=== PATIENT | male | born 1960 | race Two or more races ===

== ENCOUNTER → 2019-06-28 | Outpatient (CLI) | payer MEDICARE, OTHER | LOC: MSC 15:30 | PROVIDERS: ATTEND Anesthesiology | DX: G89.4 Chronic pain syndrome (principal); E11.42 Type 2 diabetes mellitus with diabetic polyneuropathy; M54.16 Radiculopathy, lumbar region; M54.5 Low back pain; F11.20 Opioid dependence, uncomplicated; I10 Essential (primary) hypertension; F20.9 Schizophrenia, unspecified; F29 Unspecified psychosis not due to a substance or known physiological condition; Z79.899 Other long term (current) drug therapy ==

== ENCOUNTER 2019-08-01 22:26 | Inpatient (IN) | payer MEDICARE, OTHER ==
[~2019-08-01] VITALS: Ht 185.4 cm; Wt 85.7 kg
--- NOTE | 2019-08-01 22:39 | NUR ---
PT BIBPA FROM [facility] C/O FEVER AND R FOOT ABSCESS, PT IS AAOX3, NOT IN RESPIRATORY DISTRESS, HOOKED TO MONITOR, KEPT RESTED AND COMFORTABLE, WILL CONTINUE TO MONITOR.
[2019-08-01] MEDS ORDERED: CEFTRIAXONE 1GM BAG (ER ONLY) 50 ML IV ONE ×2 (23:00→23:10)
[2019-08-01] MEDS ORDERED: VANCOMYCIN 1 GM in IV D5W 250 ML IV ONE (23:00)
[2019-08-01] MEDS ORDERED: IV NS 0.9% 1,000 ML BAG IV ONE (23:00)
--- NOTE | 2019-08-01 23:02 | NUR ---
SEEN AND EXAMINED BY
--- NOTE | 2019-08-01 23:06 | NUR ---
IV LINE ESTABLISHED, BLOOD DRAWN AND SENT TO LAB.
[2019-08-01] MEDS ORDERED: VANCOMYCIN 1 GM VIAL ONE (23:10)
--- NOTE | 2019-08-01 23:15 | NUR ---
URINAL GIVEN BUT UNABLE TO PROVIED URINE SPECIMEN THIS TIME.
--- NOTE | 2019-08-01 23:17 | NUR ---
CALLED [facility], PAGED YAKOV
[2019-08-01 23:18] LABS: BASOPHILS # (AUTO) 0.2 /CMM (0.0-0.2); EOSINOPHILS % (AUTO) 0.5 % (0.0-6.0); HEMATOCRIT 27 % (39-51); HEMOGLOBIN 8.9 g/dL (13.5-17.5); LYMPHOCYTES # (AUTO) 0.9 /CMM (0.8-4.8); LYMPHOCYTES % (AUTO) 5.7 % (20.0-44.0); MEAN CORPUSCULAR HGB CONC 33 g/dl (31.0-36.0); MEAN CORPUSCULAR VOLUME 91 fL (80-96); MONOCYTES # (AUTO) 1.1 /CMM (0.1-1.30); MONOCYTES % (AUTO) 6.6 % (2.0-12.0); NEUTROPHILS # (AUTO) 14.1 /CMM (1.8-8.9); NEUTROPHILS % (AUTO) 86.2 % (43.0-81.0); PLATELET COUNT (AUTO) 523 /CMM (150-450); RED BLOOD CELL COUNT(AUTO) 2.97 MIL/uL (4.5-6.0); WHITE BLOOD COUNT (AUTO) 16.4 K/uL (4.3-11.0)
[2019-08-01 23:26] LABS: CALCIUM, SERUM 8.8 mg/dL (8.5-10.1); CREATININE 2.3 mg/dL (0.6-1.3); POTASSIUM 6.1 mmol/L (3.5-5.1)
[2019-08-01 23:40] LABS: ALBUMIN 2.2 g/dL (3.4-5.0); BILIRUBIN,DIRECT 0.1 mg/dL (0.0-0.2); BILIRUBIN,TOTAL 0.1 mg/dL (0.2-1.0); TOTAL PROTEIN, SERUM 8.2 g/dL (6.4-8.2)
--- NOTE | 2019-08-02 00:13 | NUR ---
REPORT GIVEN TO CHRISTEL WAGNER RAYMON
--- NOTE | 2019-08-02 00:35 | NUR ---
TELE/RN NOTES RECEIVED PT. FROM ER VIA CORRINE. PT. IS AWAKE, ALERT AND ORIENTED X3. BREATHING EVEN AND UNLABORED ON ROOM AIR. NO SOB, RESPIRATORY DISTRESS OR COMPLAINTS OF PAIN NOTED AT THIS TIME. ORIENTED PT. TO ROOM. PLACED EXTERNAL SEED CLEANER ON PT. PT. WITH RIGHT HAND 18 GAUGE PERIPHERAL IV PRESENT, PATENT AND INTACT ADMINISTERING TO PT. VANCOMYCIN FROM ER. BED LOCKED AND IN LOWEST POSITION, SIDE RAILS UP X3, BED ALARM ON, CALL LIGHT WITHIN REACH, WILL CONTINUE TO MONITOR.
[2019-08-02 01:26] VITALS: BP 119/57
[2019-08-02] MEDS ORDERED: NA P133E RC (01:36)
[2019-08-02] MEDS ORDERED: INSU100V27 SQ (01:36)
[2019-08-02] MEDS ORDERED: METH-406 PO (01:36)
[2019-08-02] MEDS ORDERED: ATOR20TA PO (01:36)
[2019-08-02] MEDS ORDERED: INSU100V7 SQ (01:36)
[2019-08-02] MEDS ORDERED: BUPR300T52 PO (01:36)
[2019-08-02] MEDS ORDERED: LEVO150T8 PO (01:36)
[2019-08-02] MEDS ORDERED: ZINC220C8 PO (01:36)
[2019-08-02] MEDS ORDERED: ASCO500C18 PO (01:36)
[2019-08-02] MEDS ORDERED: MAGN400O6 PO (01:36)
[2019-08-02] MEDS ORDERED: MULT1TAB73 PO (01:36)
[2019-08-02] MEDS ORDERED: LINA5TAB PO (01:36)
[2019-08-02] MEDS ORDERED: OXYC10TA49 PO (01:36)
[2019-08-02] MEDS ORDERED: NITR0.4T SL (01:36)
[2019-08-02] MEDS ORDERED: ACET-868 PO (01:36)
[2019-08-02] MEDS ORDERED: FERR325T23 PO (01:36)
[2019-08-02] MEDS ORDERED: METO25TA6 PO (01:36)
[2019-08-02] MEDS ORDERED: ARIP5TAB10 PO (01:36)
[2019-08-02] MEDS ORDERED: HYDR-4076 PO (01:36)
[2019-08-02] MEDS ORDERED: METF-442 PO (01:36)
[2019-08-02] MEDS ORDERED: LISI40TA4 PO (01:36)
[2019-08-02] MEDS ORDERED: BISA10SU11 RC (01:37)
--- NOTE | 2019-08-02 01:39 | NUR ---
TELE/RN NOTES NOTIFIED EPIC CHAIRMAN & CHIEF EXECUTIVE OFFICER DR. NAGY THAT PT. KAYEXALATE MEDICATION WAS NOT VERIFIED BY PHARMACY AND IS PENDING ASKING TO CLARIFY THE DOSAGE. PER DR. NAGY KAYEXALATE 30GM PO X1 NOW. WILL CALL PHARMACY TO NOTIFY THEM. WILL CARRY OUT ORDER AND ADMINISTER TO PT. MEDICATION ORDERED. WILL CONTINUE TO MONITOR.
[2019-08-02] MEDS ORDERED: SODIUM POLYSTYRENE SULFONATE 15 G/60 ML BOTTLE PO ONE ×2 (02:00)
[2019-08-02] MEDS ORDERED: DEXTROSE 50%-WATER 50 ML DISP.SYRIN IV PRN (02:30)
[2019-08-02] MEDS ORDERED: NA PHOS,M-B/NA PHOS,DI-BA 1 EA ENEMA RC PRN (02:30)
[2019-08-02] MEDS ORDERED: MAGNESIUM HYDROXIDE 30 ML UDC PO PRN (02:30)
[2019-08-02] MEDS ORDERED: ACETAMINOPHEN 325 MG TABLET PO PRN ×3 (02:30)
[2019-08-02] MEDS ORDERED: BISACODYL SUPP (10 MG) 10 MG/SUPP.RECT SUPP.RECT RC PRN (02:30)
[2019-08-02] MEDS ORDERED: Z GUARD REMEDY 2 OZ OINT TP PRN (02:30)
[2019-08-02] MEDS ORDERED: ONDANSETRON HCL/PF 4 MG/2 ML VIAL IVP PRN (02:30)
[2019-08-02] MEDS ORDERED: SODIUM POLYSTYRENE SULFONATE 15 G/60 ML BOTTLE ONE (02:55)
[2019-08-02] MEDS ORDERED: PIPERACILLIN /TAZOBACTAM 2.25 G in IV D5W 50 ML IV ONE (03:00)
--- NOTE | 2019-08-02 03:10 | NUR ---
TELE/RN NOTES REMINDED EPIC BEVERAGE MANAGER DR. NAGY OF PT. SIGNED POLST IN CHART STATING HE IS DNR. PER DR. NAGY NEW ORDER: PT. CODE STATUS DNR, WITNESSED BY BERNARD CORONADO. WILL CARRY OUT ORDER. WILL CONTINUE TO MONITOR.
[2019-08-02] MEDS ORDERED: PIPERACILLIN /TAZOBACTAM 2.25 G VIAL IV ONE (03:36)
[2019-08-02 04:00] VITALS: BP 146/68
[2019-08-02] MEDS ORDERED: PIPERACILLIN /TAZOBACTAM 2.25 G in IV D5W 50 ML IV SCH (05:00)
[2019-08-02 06:21] LABS: BASOPHILS # (AUTO) 0.1 /CMM (0.0-0.2); BASOPHILS % (AUTO) 0.7 % (0.0-2.0); EOSINOPHILS % (AUTO) 0.9 % (0.0-6.0); HEMATOCRIT 30 % (39-51); HEMOGLOBIN 9.5 g/dL (13.5-17.5); LYMPHOCYTES # (AUTO) 1.7 /CMM (0.8-4.8); LYMPHOCYTES % (AUTO) 12.4 % (20.0-44.0); MEAN CORPUSCULAR HGB CONC 32 g/dl (31.0-36.0); MEAN CORPUSCULAR VOLUME 94 fL (80-96); MONOCYTES # (AUTO) 0.8 /CMM (0.1-1.30); MONOCYTES % (AUTO) 5.9 % (2.0-12.0); NEUTROPHILS # (AUTO) 11.2 /CMM (1.8-8.9); NEUTROPHILS % (AUTO) 80.1 % (43.0-81.0); PLATELET COUNT (AUTO) 379 /CMM (150-450); RED BLOOD CELL COUNT(AUTO) 3.21 MIL/uL (4.5-6.0)
[2019-08-02] MEDS: BLOOD SUGAR DIAGNOSTIC 1 EACH STRIP IN SCH ×4 (06:46→21:10)
[2019-08-02] MEDS: INSULIN REGULAR, HUMAN 100 UNIT/ML 3 ML VIAL SQ PRN ×4 (06:47→22:53)
--- NOTE | 2019-08-02 06:56 | NUR ---
TELE/RN NOTES PT. IS LYING IN BED RESTING. BREATHING EVEN AND UNLABORED ON ROOM AIR. NO SOB, RESPIRATORY DISTRESS OR COMPLAINTS OF PAIN NOTED AT THIS TIME. PT. WITH EXTERNAL OUTCOMES SPECIALIST PRESENT AND INTACT. PT. CURRENT RHYTHM = SINUS RHYTHM WITH FIRST DEGREE AV BLOCK HR 81. PT. WITH RIGHT HAND 18 GAUGE IV SALINE LOCK PRESENT, PATENT AND INTACT. NO S/S OF HYPO/HYPERGLYCEMIA NOTED AT THIS TIME. ALL PT. NEEDS MET. BED LOCKED AND IN LOWEST POSITION, SIDE RAILS UP X3, BED ALARM ON, CALL LIGHT WITHIN REACH, WILL ENDORSE TO DAYSTNFT NURSE FOR CONTINUITY OF CARE.
[2019-08-02 06:57] LABS: ALANINE AMINOTRANSFERASE 16 U/L (12-78); ALBUMIN 2.1 g/dL (3.4-5.0); ALKALINE PHOSPHATASE 68 U/L (46-116); ASPARTATE AMINOTRANSFERASE 7 U/L (15-37); BILIRUBIN,TOTAL 0.2 mg/dL (0.2-1.0); CALCIUM, SERUM 8.6 mg/dL (8.5-10.1); CARBON DIOXIDE 16 mmol/L (21-32); CHLORIDE 105 mmol/L (98-107); CREATININE 2.1 mg/dL (0.6-1.3); GLUCOSE 262 mg/dL (74-106); MAGNESIUM 1.9 mg/dL (1.8-2.4); PHOSPHORUS 4.3 mg/dL (2.5-4.9); POTASSIUM 5.1 mmol/L (3.5-5.1); SODIUM SERUM 137 mmol/L (136-145); TOTAL PROTEIN, SERUM 8.1 g/dL (6.4-8.2); UREA NITROGEN, BLOOD 45 mg/dL (7-18)
[2019-08-02] MEDS ORDERED: LEVOTHYROXINE SODIUM 150 MCG TABLET PO SCH (07:30)
[2019-08-02 08:06] LABS: IRON, SERUM 24 ug/dl (50-175); TOTAL IRON BINDING CAPACITY 158 ug/dl (250-450)
--- NOTE | 2019-08-02 08:10 | NUR ---
ms rn received on bed, awake,alert,oriented x3,not in any form of distress, respirations even and unalabored,no sob noted, patient has right foot wound w/ dressing dry and intact.will monitor patient's condition.
[2019-08-02 08:12] LABS: HDL CHOLESTEROL 31 mg/dL (40-60); LDL 46 mg/dL (0-99); THYROID STIMULATING HORMONE 11.942 uIU/mL (0.358-3.74); TRIGLYCERIDES 128 mg/dL (30-150)
[2019-08-02] MEDS ORDERED: FEE PK DOSING 1 MIN EA MC ONE (08:22)
[2019-08-02 08:25] LABS: CHOLESTEROL 96 mg/dL (<200)
--- NOTE | 2019-08-02 08:56 | NUR ---
WOUND CARE CONSULT: PT PRESENTS WITH RT FOOT WOUND AND EVIDENCE OF PREVIOUS AMPUTATION, PRESENT ON ADMISSION. RECOMMEND DPM CONSULT. WILL SEE PRN. DEFER TO DPM FOR WOUND TREATMENT PLAN. DR COX NOTIFIED OF DPM CONSULT REQUEST. PT REFUSED FULL SKIN ASSESSMENT. CURRENT SAMEERA SCORE IS 17. Addendum: 08/02/19 at 0858 by MARLON KENNEDY WNDNU Amended: Links added.
[2019-08-02] MEDS: MULTIVITAMINS,THERAGRAN 1 UDTAB TABLET PO SCH (09:35)
[2019-08-02] MEDS: ASCORBIC ACID 500 MG TABLET PO SCH ×2 (09:35→17:48)
[2019-08-02] MEDS: BUPROPION XL 150 MG TAB.ER.24 PO SCH (09:36)
[2019-08-02] MEDS: ZINC SULFATE 220 MG CAPSULE PO SCH (09:36)
[2019-08-02] MEDS: LINAGLIPTIN 5 MG TABLET PO SCH (09:36)
[2019-08-02] MEDS: ARIPIPRAZOLE 5 MG TABLET PO SCH (09:36)
[2019-08-02] MEDS: PANTOPRAZOLE 40 MG TABLET.DR PO SCH (09:42)
[2019-08-02] MEDS: METHOCARBAMOL (750MG) 750 MG TABLET PO PRN (09:43)
[2019-08-02] MEDS: FERROUS SULFATE (325 MG) 325 MG/TAB TABLET PO SCH ×2 (09:43→12:22)
[2019-08-02] MEDS ORDERED: INSULIN REGULAR, HUMAN 100 UNIT/ML 3 ML VIAL SQ PRN (10:00)
[2019-08-02] MEDS: oxyCODONE IR immediate release 5 MG PO PRN (10:04)
[2019-08-02] MEDS ORDERED: BLOOD SUGAR DIAGNOSTIC 1 EACH STRIP IN SCH (12:00)
[2019-08-02] MEDS ORDERED: LIDOCAINE 1% INJ 50 ML MDV IJ ONE (13:30)
[2019-08-02] MEDS: PIPERACILLIN /TAZOBACTAM 3.375 G in IV D5W 50 ML IV SCH ×3 (14:22→23:18)
--- NOTE | 2019-08-02 15:00 | NUR ---
ms rn was seen by dr. aguilar w/ order to debride it tody, all needs attended.
[2019-08-02 16:00] VITALS: BP 142/68
[2019-08-02] MEDS ORDERED: VANCOMYCIN 1 GM in IV D5W 250 ML IV SCH (17:00)
--- NOTE | 2019-08-02 18:00 | NUR ---
ms agarwal bs - 146 - 2 units given sq
--- NOTE | 2019-08-02 19:00 | NUR ---
ms rn on bed, no distress noted,all needs attended.
[2019-08-02 20:00] VITALS: BP 105/47
--- NOTE | 2019-08-02 20:00 | NUR ---
MS/RN OPENING NOTES PATIENT IN BED, AWAKE, ALERT X3, ABLE TO VERBALIZE NEEDS, RESPIRATIONS EVEN AND UNLABORED, DENIES PAIN, WITH DRESSING INTACT ON RIGHT FOOT. PATIENT ABLE TO EAT AND REPORTED THAT HE REFUSED TO PUT HER BLOOM IN SAFE, PREFER TO KEEP IT WITH HIM, MADE AWARE.TO F/U WITH AM NURSES AND PATIENT BOUGHT PIZZA WITH HIS MONEY TODAY. WILL MONITOR. BED LOCKED, CALL LIGHTS WITHIN REACH. IV SITE INTACT. DISCUSSED PLAN OF CARE. VERBALIZED UNDERSTANDING.
[2019-08-02 20:18] VITALS: BP 105/47
[2019-08-02] MEDS: ATORVASTATIN 10 MG TABLET PO SCH (21:10)
--- NOTE | 2019-08-02 21:22 | NUR ---
MS/RN NOTES BLOOD SUGAR CHECK AT 452, ATE PIZZA, ORDERED A BOX AND ALMOST FINISHED IT IN AFTERNOON. DISCUSSED DIET, MADE AWARE, VERBALIZED DIABETIC DIET. PER PROTOCOL TO REQUEST RANDOM BLOOD SUGAR FIRST BEFORE COVERAGE PER CHARGE NURSE AND WILL FOLLOW UP WITH MD.
[2019-08-02] MEDS ORDERED: INSULIN GLARGINE, 100 UNIT/ML CARTRIDGE SQ SCH (22:00)
--- NOTE | 2019-08-02 22:00 | NUR ---
MS/RN NOTES RANDOM BLOOD GLUCOSE DONE BY LISSETT AWAITING FOR RESULT.
--- NOTE | 2019-08-02 22:50 | NUR ---
ms/rn notes received critical lab result glucose random of 504. to get md order for additional coverage.
--- NOTE | 2019-08-02 22:55 | NUR ---
MS/RN NOTES MD PARK AWARE OF BLOOD SUGAR RANDOM RESULT OF 505, AWARE THAT COVERAGE GIVEN AT 10 UNIT WITH NO ADDITIONAL INSULIN COVERAGE.
--- NOTE | 2019-08-03 01:09 | NUR ---
MS/RN NOTES PATIENT REFUSED TO HAVE BLOOD SUGAR RECHECK AT THIS TIME. PREFER TO HAVE IT RECHECK IN AM. WILL MONITOR FOR AMU CHANGES.
[2019-08-03] MEDS: PIPERACILLIN /TAZOBACTAM 3.375 G in IV D5W 50 ML IV SCH ×3 (05:07→17:40)
[2019-08-03] MEDS: BLOOD SUGAR DIAGNOSTIC 1 EACH STRIP IN SCH (06:10)
[2019-08-03] MEDS: INSULIN REGULAR, HUMAN 100 UNIT/ML 3 ML VIAL SQ PRN ×3 (06:20→18:33)
--- NOTE | 2019-08-03 06:21 | NUR ---
MS/RN NOTES BLOOD SUGAR CHECK AT 362, ALERT ORIENTED .
[2019-08-03 06:25] LABS: BASOPHILS # (AUTO) 0.1 /CMM (0.0-0.2); BASOPHILS % (AUTO) 0.9 % (0.0-2.0); HEMATOCRIT 25 % (39-51); HEMOGLOBIN 8.2 g/dL (13.5-17.5); LYMPHOCYTES # (AUTO) 1.5 /CMM (0.8-4.8); MEAN CORPUSCULAR HGB CONC 33 g/dl (31.0-36.0); MEAN CORPUSCULAR VOLUME 91 fL (80-96); MONOCYTES % (AUTO) 9.1 % (2.0-12.0); NEUTROPHILS # (AUTO) 8.4 /CMM (1.8-8.9); PLATELET COUNT (AUTO) 478 /CMM (150-450); RED BLOOD CELL COUNT(AUTO) 2.75 MIL/uL (4.5-6.0); WHITE BLOOD COUNT (AUTO) 11.4 K/uL (4.3-11.0)
--- NOTE | 2019-08-03 06:40 | NUR ---
MS/RN NOTES PATIENT ABLE TO SLEEP DURING THE NIGHT, MONITORED FOR ANY CHANGES AND HIGH BLOOD SUGAR . KEPT COMFORTABLE. ASSISTED WITH ALL NEEDS, RESPIRATIONS EVEN AND UNLABORED. MONITORED. IV SITE PATENT, IV FLUIDS INFUSING TKO. BED LOCKED, CALL LIGHTS WITHIN REACH, WILL MONITOR.
[2019-08-03 07:14] LABS: CALCIUM, SERUM 7.9 mg/dL (8.5-10.1); CREATININE 1.7 mg/dL (0.6-1.3); MAGNESIUM 1.9 mg/dL (1.8-2.4); PHOSPHORUS 3.1 mg/dL (2.5-4.9); POTASSIUM 4.6 mmol/L (3.5-5.1)
[2019-08-03 07:14] LABS: APPEARANCE,URINE CLEAR (CLEAR); BILIRUBIN,URINE NEGATIVE (NEGATIVE); BLOOD, URINE TRACE-INTA Ery/uL (NEGATIVE); COLOR,URINE YELLOW (YELLOW); KETONES,URINE NEGATIVE (NEGATIVE); LEUKOCYTE ESTERASE ,URINE NEGATIVE (NEGATIVE); NITRITE, URINE NEGATIVE (NEGATIVE); PH,URINE 5.5 (5.0-8.0); PROTEIN,URINE 100 mg/dl (NEGATIVE); UGLUCOSE >=1000 mg/dL (NEGATIVE); UROBILINOGEN,URINE 0.2 EU/dL (0.2)
[2019-08-03 07:16] LABS: BACTERIA,URINE None seen /HPF (None Seen); RBC,URINE 0-2 /HPF (0-2); SQUAMOUS EPITHELIAL CELL,UR 0-2 /HPF (None Seen); WBC,URINE 0-2 /HPF (0-3)
--- NOTE | 2019-08-03 07:24 | NUR ---
MS/RN NOTES RECEIVED PATIENT BLOOD SUGAR LEVEL RESULT OF 432. MD TO MADE AWARE, WITH BLOOD SUGAR AND INSULIN COVERGAR GIVEN OF 10 UNIT. WILL ENDORSE TO AM RN FOR RAYMON, BLOOD SUGAR TRENDING DOWN FRON 504.
[2019-08-03 07:30] LABS: CREATININE, URINE 82.6 MG/DL (30.0-125.0); URINE TOTAL PROTEIN 118.6 mg/dL (0-11.9)
--- NOTE | 2019-08-03 07:49 | NUR ---
MS/RN NOTES PATIENT REFUSE TO HAVE BLOOD SUGAR RECHECK AND DISCUSSED IMPORTANCE SAID HE UNDERSTANDS.WILL RELAY TO MD REGARDING PATIENT REFUSAL.
[2019-08-03 08:00] VITALS: BP 128/61
--- NOTE | 2019-08-03 08:05 | NUR ---
ms rn received on bed, awake,alert,oriented x3,not in any form of distress, respirations even and unlabored,no sob noted, lungs are clear,abdomen soft,positive bowel sounds,denies pain at this time, all needs attended.
[2019-08-03 08:49] LABS: EOSINOPHIL,URINE None Seen
[2019-08-03] MEDS: ASCORBIC ACID 500 MG TABLET PO SCH ×2 (09:14→17:40)
[2019-08-03] MEDS: BUPROPION XL 150 MG TAB.ER.24 PO SCH ×2 (09:14→09:21)
[2019-08-03] MEDS: LINAGLIPTIN 5 MG TABLET PO SCH (09:14)
[2019-08-03] MEDS: MULTIVITAMINS,THERAGRAN 1 UDTAB TABLET PO SCH (09:14)
[2019-08-03] MEDS: ZINC SULFATE 220 MG CAPSULE PO SCH (09:14)
[2019-08-03] MEDS: ARIPIPRAZOLE 5 MG TABLET PO SCH (09:14)
[2019-08-03] MEDS: METHOCARBAMOL (750MG) 750 MG TABLET PO PRN (09:20)
[2019-08-03] MEDS: oxyCODONE IR immediate release 5 MG PO PRN (09:21)
[2019-08-03] MEDS: PANTOPRAZOLE 40 MG TABLET.DR PO SCH (09:21)
[2019-08-03] MEDS: LEVOTHYROXINE SODIUM 75 MCG TABLET PO SCH (09:22)
[2019-08-03] MEDS: FERROUS SULFATE (325 MG) 325 MG/TAB TABLET PO SCH ×2 (09:23→13:08)
--- NOTE | 2019-08-03 09:30 | NUR ---
ms agarwal breakfast served,due meds given,tolerated well.
--- NOTE | 2019-08-03 10:20 | NUR ---
ms rn was seen by loy small, no order at this time.
[2019-08-03] MEDS ORDERED: DEXTROSE 50%-WATER 50 ML DISP.SYRIN IV PRN (11:00)
[2019-08-03] MEDS: BLOOD SUGAR DIAGNOSTIC 1 EACH STRIP VI SCH ×3 (13:06→20:41)
[2019-08-03 16:00] VITALS: BP 108/47
--- NOTE | 2019-08-03 16:10 | NUR ---
ms rn on bed,no distress noted,all needs attended.
[2019-08-03] MEDS: DAKINS QUARTER STRENGTH (0.125%) 480 ML BOTTLE TOP SCH (17:43)
--- NOTE | 2019-08-03 19:28 | NUR ---
MS RN ON BED, NO DISTRESS.
[2019-08-03 20:00] VITALS: BP 141/64
--- NOTE | 2019-08-03 20:00 | NUR ---
MS/RN OPENING NOTES RECEIVED PATIENT IN BED, AWAKE, RESTING COMFORTABLY IN BED, REPORTED PREFER TO WEAR PANTS IMSTEAD OF GOWN, VERBALIZED NEEDS AND WOULD LIKE TO HAVE SNACKS AND HAVE BLOOD SUGAR CHECKED EARLY, ALLOWED FOR INSULIN TO BE GIVEN EARLY AND ATE SNACKS. DISCUSSED PLAN OF CARE THAT NPO STATUS WITH PROCEDURE IN AM. WILL PREPARE CONSENT AND WILL HAVE PATIENT SIGNED, MD WAS ABLE TO DISCUSS PLAN AND PROCEDURE WHICH PATIENT GAVE CONSENT.
[2019-08-03] MEDS: *INSULIN REGULAR(HUMULIN R)HUM 100 UNIT/ML VIAL SQ PRN (20:51)
[2019-08-03] MEDS: ATORVASTATIN 10 MG TABLET PO SCH (21:42)
[2019-08-03] MEDS ORDERED: INSULIN GLARGINE, 100 UNIT/ML CARTRIDGE SQ SCH (22:00)
[2019-08-03] MEDS: VANCOMYCIN 0.75 GM in IV D5W 250 ML IV SCH (23:26)
[2019-08-04] VITALS (10 sets, daily range): BP systolic 116–154; BP diastolic 57–77
[2019-08-04] MEDS: PIPERACILLIN /TAZOBACTAM 3.375 G in IV D5W 50 ML IV SCH ×5 (00:18→23:23)
--- NOTE | 2019-08-04 01:49 | NUR ---
MS/RN NOTES OBTAINED PATIENT CONSENT FOR SURGERY WITH MD DISCUSSION EARLIER, PATIENT AGREED FOR PERSONAL VALUABLE INCLUDING BLOOM, WATCH AND NECLASE BE KEPT IN THE NIGHT LOCKER SAFE. LUPE YEUNG AND BERNARD RAMOS WITNESSED,
[2019-08-04] MEDS: BLOOD SUGAR DIAGNOSTIC 1 EACH STRIP VI SCH ×4 (05:12→23:02)
--- NOTE | 2019-08-04 05:51 | NUR ---
MS/RN NOTES PATIENT AWAITING FOR PROCEDURE AT THE OR, VITAL SIGNS CHECKS, BLOOD SUGAR CHECKEC, WOUND DRESSING REINFORCED.
[2019-08-04 06:34] LABS: BASOPHILS # (AUTO) 0.1 /CMM (0.0-0.2); BASOPHILS % (AUTO) 1.1 % (0.0-2.0); EOSINOPHILS % (AUTO) 3.8 % (0.0-6.0); HEMATOCRIT 24 % (39-51); LYMPHOCYTES # (AUTO) 2.4 /CMM (0.8-4.8); LYMPHOCYTES % (AUTO) 19.6 % (20.0-44.0); MEAN CORPUSCULAR HGB CONC 34 g/dl (31.0-36.0); MEAN CORPUSCULAR VOLUME 90 fL (80-96); NEUTROPHILS # (AUTO) 8.1 /CMM (1.8-8.9); NEUTROPHILS % (AUTO) 67.5 % (43.0-81.0); PLATELET COUNT (AUTO) 465 /CMM (150-450); RED BLOOD CELL COUNT(AUTO) 2.65 MIL/uL (4.5-6.0)
[2019-08-04 07:03] LABS: CALCIUM, SERUM 7.7 mg/dL (8.5-10.1); CREATININE 1.4 mg/dL (0.6-1.3); MAGNESIUM 1.8 mg/dL (1.8-2.4); PHOSPHORUS 3.4 mg/dL (2.5-4.9); POTASSIUM 3.9 mmol/L (3.5-5.1)
[2019-08-04] MEDS ORDERED: ANESTHESIA TRAY IN PYXIS 1 EA TRAY MC ONE (07:25)
[2019-08-04] MEDS: PANTOPRAZOLE 40 MG TABLET.DR PO SCH (07:30)
[2019-08-04] MEDS: LEVOTHYROXINE SODIUM 75 MCG TABLET PO SCH (07:30)
[2019-08-04] MEDS ORDERED: HYDROMORPHONE INJ 2 MG/ML DISP.SYRIN ONE (07:31)
[2019-08-04] MEDS ORDERED: BUPIVACAINE 0.5 % PF 150 MG/30 ML VIAL ONE (07:52)
[2019-08-04] MEDS: FERROUS SULFATE (325 MG) 325 MG/TAB TABLET PO SCH ×2 (08:00→12:46)
[2019-08-04] MEDS ORDERED: BACITRACIN 50000 UNITS/VIAL ONE (08:15)
[2019-08-04] MEDS: DAKINS QUARTER STRENGTH (0.125%) 480 ML BOTTLE TOP SCH (09:00)
--- NOTE | 2019-08-04 10:00 | NUR ---
SENIOR BUSINESS DEVELOPMENT MANAGER NOTES RETURNED FROM OR 1000, STABLE CONDITION. PATIENT AWAKE ALERT AND ORIENTED. WILL CONTINUE TO MONITOR CLOSELY.
[2019-08-04] MEDS: MULTIVITAMINS,THERAGRAN 1 UDTAB TABLET PO SCH (10:54)
[2019-08-04] MEDS: LINAGLIPTIN 5 MG TABLET PO SCH (10:54)
[2019-08-04] MEDS: ASCORBIC ACID 500 MG TABLET PO SCH ×2 (10:54→16:43)
[2019-08-04] MEDS: ARIPIPRAZOLE 5 MG TABLET PO SCH (10:54)
[2019-08-04] MEDS: ZINC SULFATE 220 MG CAPSULE PO SCH (10:54)
[2019-08-04 11:07] LABS: PTH, INTACT 26 pg/mL (15-65)
[2019-08-04] MEDS: VANCOMYCIN 0.75 GM in IV D5W 250 ML IV SCH (11:43)
[2019-08-04] MEDS: MORPHINE SULFATE INJ 2 MG/ML DISP.SYRIN IV PRN ×3 (11:44→21:34)
--- NOTE | 2019-08-04 12:30 | NUR ---
LABEL PRESS OPERATOR NOTES 1230 15 UNITS OF INSULIN ADMINISTERED PER PROTOCOL OF BLOOD GLUCOSE. EMAR WAS NOT SAVED. BLOOD GLUCOSE AT 1230 374.
[2019-08-04 13:06] LABS: *SPE A/G RATIO 0.5 (0.7-1.7); *SPE ALPHA-1-GLOBULIN 0.4 g/dL (0.0-0.4); *SPE ALPHA-2-GLOBULIN 1.1 g/dL (0.4-1.0); *SPE BETA GLOBULIN 0.9 g/dL (0.7-1.3); *SPE M-SPIKE Not Observed g/dL (Not Observed); *SPEGAMMA GLOBULIN 1.6 g/dL (0.4-1.8)
[2019-08-04] MEDS: oxyCODONE IR immediate release 5 MG PO PRN (14:49)
[2019-08-04] MEDS: INSULIN REGULAR, HUMAN 100 UNIT/ML 3 ML VIAL SQ PRN (16:59)
--- NOTE | 2019-08-04 19:05 | NUR ---
MS RN NOTES RECEIVED PT IN BED AWAKE AND ABLE TO MAKE NEEDS KNOWN. PT A/O X3. RESPIRATIONS EVEN AND UNLABORED WITH NO S/S OF ACUTE DISTRESS OR SOB NOTED. NO COMPLAINTS OF PAIN AT THIS TIME. PT WITH RHAND #18G PATENT AND INTACT AND SL. SAFETY MEASURES IN PLACE WITH BED IN LOWEST LOCKED POSITION WITH SIDE RAILS UP X2. CALL LIGHT WITHIN REACH. WILL CONTINUE TO MONITOR.
--- NOTE | 2019-08-04 19:35 | NUR ---
ENGAGEMENT LEAD NOTES PATIENT IN BED RESTING NO SOB OR ACUTE DISTRESS NOTED. ALL DUE MEDICATIONS ADMINISTERED. ALL NEEDS MET. NO ACUTE CHANGES NOTED. PATIENTS BLOOD SUGAR WAS 417 CHRISTEL LEARNING SUPPORT RESOURCE ROOM TEACHER MADE AWARE ORDERS TO REPEAT AFTER 30 MIN AND NOTIFY OF RESULTS. REPEAT BS IS 319MG/DL NOTIFIED CHRISTEL LEARNING SUPPORT RESOURCE ROOM TEACHER ORDERS TO GIVE 15 UNITS NOW. ORDERS NOTED AND CARRIED OUT. ENDORSED CARE TO PM SHIFT.
[2019-08-04] MEDS ORDERED: INSULIN REGULAR, HUMAN 100 UNIT/ML 10 ML VIAL IV ONE (20:00)
[2019-08-04] MEDS: ATORVASTATIN 10 MG TABLET PO SCH (21:34)
[2019-08-04] MEDS ORDERED: INSULIN GLARGINE, 100 UNIT/ML CARTRIDGE SQ SCH (22:00)
[2019-08-04] MEDS: VANCOMYCIN 1 GM in IV D5W 250 ML IV SCH (22:33)
[2019-08-04] MEDS: *INSULIN REGULAR(HUMULIN R)HUM 100 UNIT/ML VIAL SQ PRN (22:52)
[2019-08-05] MEDS: MORPHINE SULFATE INJ 2 MG/ML DISP.SYRIN IV PRN ×3 (03:08→18:05)
[2019-08-05 05:28] LABS: BASOPHILS # (AUTO) 0.2 /CMM (0.0-0.2); BASOPHILS % (AUTO) 0.9 % (0.0-2.0); EOSINOPHILS % (AUTO) 1.9 % (0.0-6.0); HEMATOCRIT 22 % (39-51); HEMOGLOBIN 7.3 g/dL (13.5-17.5); LYMPHOCYTES # (AUTO) 3.2 /CMM (0.8-4.8); LYMPHOCYTES % (AUTO) 19.5 % (20.0-44.0); MEAN CORPUSCULAR HGB CONC 33 g/dl (31.0-36.0); MEAN CORPUSCULAR VOLUME 90 fL (80-96); MONOCYTES # (AUTO) 1.1 /CMM (0.1-1.30); MONOCYTES % (AUTO) 6.8 % (2.0-12.0); NEUTROPHILS # (AUTO) 11.8 /CMM (1.8-8.9); NEUTROPHILS % (AUTO) 70.9 % (43.0-81.0); PLATELET COUNT (AUTO) 470 /CMM (150-450); WHITE BLOOD COUNT (AUTO) 16.6 K/uL (4.3-11.0)
[2019-08-05 05:38] LABS: CALCIUM, SERUM 7.7 mg/dL (8.5-10.1); CREATININE 1.5 mg/dL (0.6-1.3); MAGNESIUM 1.7 mg/dL (1.8-2.4); PHOSPHORUS 2.3 mg/dL (2.5-4.9); POTASSIUM 4.1 mmol/L (3.5-5.1)
[2019-08-05] MEDS: PIPERACILLIN /TAZOBACTAM 3.375 G in IV D5W 50 ML IV SCH ×3 (05:54→17:13)
--- NOTE | 2019-08-05 07:30 | NUR ---
MS RN OPENING NOTES RECEIVED PT IN BED, ASLEEP, EASILY AROUSED, A/O X3. PT TOLERATING RA, WITH NO RESPIRATORY DISTRESS NOTED. PT DENIES ANY PAIN OR DISCOMFORT AT THIS TIME. PT DENIES ANY CONCERNS OR QUESTIONS AT THE MOMENT WELL. PIV TO LEFT HAND G22, FLUSHED WITH NS, INTACT AND OPERATIONAL. PT KEPT COMFORTABLE. CALL LIGHT KEPT WITHIN REACH. PT'S BED IN LOWEST, LOCKED POSITION WITH SR X3. WILL CONTINUE PLAN OF CARE.
--- NOTE | 2019-08-05 07:43 | NUR ---
MS RN NOTES PT IN BED AWAKE AND ABLE TO MAKE NEEDS KNOWN. PT A/O X3. RESPIRATIONS EVEN AND UNLABORED WITH NO S/S OF ACUTE DISTRESS OR SOB NOTED THROUGHOUT SHIFT. NO COMPLAINTS OF PAIN AT THIS TIME. PT WITH LHAND #22G PATENT AND INTACT AND SL. SAFETY MEASURES IN PLACE WITH BED IN LOWEST LOCKED POSITION WITH SIDE RAILS UP X2. CALL LIGHT WITHIN REACH. WILL ENDORSE TO ONCOMING NURSE FOR RAYMON.
[2019-08-05] MEDS: BLOOD SUGAR DIAGNOSTIC 1 EACH STRIP VI SCH ×4 (08:06→22:09)
[2019-08-05] MEDS: LINAGLIPTIN 5 MG TABLET PO SCH (08:11)
[2019-08-05] MEDS: LEVOTHYROXINE SODIUM 75 MCG TABLET PO SCH (08:11)
[2019-08-05] MEDS: BUPROPION XL 150 MG TAB.ER.24 PO SCH (08:11)
[2019-08-05] MEDS: ASCORBIC ACID 500 MG TABLET PO SCH ×2 (08:11→17:14)
[2019-08-05] MEDS: FERROUS SULFATE (325 MG) 325 MG/TAB TABLET PO SCH ×2 (08:11→12:58)
[2019-08-05] MEDS: ARIPIPRAZOLE 5 MG TABLET PO SCH (08:11)
[2019-08-05] MEDS: MULTIVITAMINS,THERAGRAN 1 UDTAB TABLET PO SCH (08:11)
[2019-08-05] MEDS: ZINC SULFATE 220 MG CAPSULE PO SCH (08:12)
[2019-08-05] MEDS: PANTOPRAZOLE 40 MG TABLET.DR PO SCH (08:12)
[2019-08-05] MEDS: DAKINS QUARTER STRENGTH (0.125%) 480 ML BOTTLE TOP SCH (08:19)
--- NOTE | 2019-08-05 10:00 | NUR ---
MS RN NOTES DATA MANAGER CAME AND SAW PT. CLEANED AND CHANGED DRESSING FOR THE RIGHT FOOT WITH TOES AMPUTATED. PICTURE TAKEN AND FILED TO CHART.
[2019-08-05] MEDS: VANCOMYCIN 1 GM in IV D5W 250 ML IV SCH (10:13)
[2019-08-05] MEDS ORDERED: Magnesium 1GM/D5W 100ML PREMIX 100 ML IV SCH (12:04)
[2019-08-05] MEDS: INSULIN REGULAR, HUMAN 100 UNIT/ML 3 ML VIAL SQ PRN ×2 (12:06→17:34)
[2019-08-05] MEDS ORDERED: K PHOS NEUTRAL 250 MG TABLET PO ONE (13:00)
[2019-08-05 16:00] VITALS: BP 134/57
--- NOTE | 2019-08-05 18:40 | NUR ---
MS RN CLOSING NOTES PT IN BED, ASLEEP, EASILY AROUSED, A/O X3-4. PT TOLERATING RA, WITH NO RESPIRATORY DISTRESS NOTED. PT DENIES ANY PAIN OR DISCOMFORT AT THIS TIME. PT DENIES ANY CONCERNS OR QUESTIONS AT THE MOMENT WELL. PIV TO RIGHT HAND G22, FLUSHED WITH NS, INTACT AND OPERATIONAL. ALL NEEDS AND CARE ATTENDED. PT KEPT COMFORTABLE. CALL LIGHT KEPT WITHIN REACH. PT'S BED IN LOWEST, LOCKED POSITION WITH SR X3. WILL ENDORSE TO INCOMING NIGHT NURSE FOR RAYMON.
--- NOTE | 2019-08-05 19:00 | NUR ---
RN NOTES: RECEIVED AWAKE ON BED, LYING COMFORTABLY, A/O 2-3, DRESSING INTACT ON THE RIGHT FOOT,NO DRAINAGE NO BLEEDING ON THE SITE NOTED, IV CANNULA INTACT ON RH G#22, USES URINAL/BRP, ORIENTED TO UNIT AND STAFF, FALL,SAFETY AND ASPIRATION PRECAUTION OBSERVED, BED LOW AND LOCKED, CALL LIGHT WITHIN EASY REACH. REQUEST TO GET HIS PERSONAL BELONGINGS ON THE SAFETY.
[2019-08-05 20:00] VITALS: BP 138/72
[2019-08-05 20:06] VITALS: BP 138/72
--- NOTE | 2019-08-05 21:27 | NUR ---
RN NOTES: -DURING ROUND NOTIFY RN SALES ENABLEMENT SPECIALIST ABOUT HIS BELONGINGS, AT 2100 GIVEN BACK TO THE PATIENT #[id number], CN AWARE.
[2019-08-05] MEDS ORDERED: INSULIN GLARGINE, 100 UNIT/ML CARTRIDGE SQ SCH (22:00)
[2019-08-05] MEDS: ATORVASTATIN 10 MG TABLET PO SCH (22:09)
[2019-08-05] MEDS: *INSULIN REGULAR(HUMULIN R)HUM 100 UNIT/ML VIAL SQ PRN (22:13)
[2019-08-06] MEDS: PIPERACILLIN /TAZOBACTAM 3.375 G in IV D5W 50 ML IV SCH ×4 (00:19→18:21)
--- NOTE | 2019-08-06 04:16 | NUR ---
RN NOTES: ABLE TO SLEEP AND REST, CHECK AT FREQUENT INTERVAL, NO PAIN OR DISCOMFORT, KEPT MONITORED.
[2019-08-06] MEDS: MORPHINE SULFATE INJ 2 MG/ML DISP.SYRIN IV PRN ×3 (04:58→19:33)
--- NOTE | 2019-08-06 05:09 | NUR ---
RN NOTES: AWAKE, ASSISTED TO THE BATHROOM, WHEN HE RETURNED BACK TO HIS BED, COMPLAINED OF PAIN ON BOTH FOOT, 07/14. OFFERED ORAL PAIN MEDICATION, BP-120/70, UT-60, MORPHINE GIVEN PER PATIENT REQUEST. KEPT WARM, WARM BLANKET GIVEN.
[2019-08-06] MEDS: BLOOD SUGAR DIAGNOSTIC 1 EACH STRIP VI SCH ×4 (06:30→21:32)
[2019-08-06 06:32] LABS: BASOPHILS # (AUTO) 0.1 /CMM (0.0-0.2); BASOPHILS % (AUTO) 1.3 % (0.0-2.0); EOSINOPHILS % (AUTO) 4.6 % (0.0-6.0); HEMATOCRIT 24 % (39-51); HEMOGLOBIN 8.1 g/dL (13.5-17.5); LYMPHOCYTES # (AUTO) 2.4 /CMM (0.8-4.8); LYMPHOCYTES % (AUTO) 22.1 % (20.0-44.0); MEAN CORPUSCULAR HGB CONC 33 g/dl (31.0-36.0); MEAN CORPUSCULAR VOLUME 91 fL (80-96); MONOCYTES # (AUTO) 0.8 /CMM (0.1-1.30); MONOCYTES % (AUTO) 6.9 % (2.0-12.0); NEUTROPHILS # (AUTO) 7.2 /CMM (1.8-8.9); NEUTROPHILS % (AUTO) 65.1 % (43.0-81.0); PLATELET COUNT (AUTO) 480 /CMM (150-450); RED BLOOD CELL COUNT(AUTO) 2.65 MIL/uL (4.5-6.0)
[2019-08-06] MEDS: INSULIN REGULAR, HUMAN 100 UNIT/ML 3 ML VIAL SQ PRN ×3 (06:35→18:04)
--- NOTE | 2019-08-06 06:38 | NUR ---
RN NOTES: BLOOD SUGAR CHECK -421, CN NOTIFIED, REPEATED ON DIFFERENT SITE, BLOOD SUGAR-420, INSULIN GIVEN PER SCALE, WILL CONTINUE TO MONITOR FOR SIGN OF HYPO/HYPERGLYCEMIA,TO RE-CHECK BS AFTER 30 MINUTES. -PATIENT IS LYING COMFORTABLY, PAIN SUBSIDE, HE LOOKS RELAX, ENODRSED FOR CONTINUITY OF CARE.
[2019-08-06 06:49] LABS: CALCIUM, SERUM 7.9 mg/dL (8.5-10.1); CREATININE 1.4 mg/dL (0.6-1.3); MAGNESIUM 1.9 mg/dL (1.8-2.4); PHOSPHORUS 3.4 mg/dL (2.5-4.9); POTASSIUM 4.6 mmol/L (3.5-5.1)
--- NOTE | 2019-08-06 07:17 | NUR ---
RN NOTES: AT 0710 BLOOD SUGAR RECHECKED-386, WILL KEEP PATIENT MONITORED, ENDORSED FOR CONTINUITY OF CARE.
[2019-08-06 08:00] VITALS: BP 150/60
[2019-08-06] MEDS: ASCORBIC ACID 500 MG TABLET PO SCH ×2 (08:58→18:06)
[2019-08-06] MEDS: FERROUS SULFATE (325 MG) 325 MG/TAB TABLET PO SCH ×2 (08:58→13:58)
[2019-08-06] MEDS: ZINC SULFATE 220 MG CAPSULE PO SCH (08:58)
[2019-08-06] MEDS: LINAGLIPTIN 5 MG TABLET PO SCH (08:58)
[2019-08-06] MEDS: ARIPIPRAZOLE 5 MG TABLET PO SCH (08:58)
[2019-08-06] MEDS: BUPROPION XL 150 MG TAB.ER.24 PO SCH (08:58)
[2019-08-06] MEDS: MULTIVITAMINS,THERAGRAN 1 UDTAB TABLET PO SCH (08:58)
[2019-08-06] MEDS: LEVOTHYROXINE SODIUM 175 MCG TABLET PO SCH (09:03)
[2019-08-06] MEDS: PANTOPRAZOLE 40 MG TABLET.DR PO SCH (09:03)
[2019-08-06] MEDS: DAKINS QUARTER STRENGTH (0.125%) 480 ML BOTTLE TOP SCH (09:04)
[2019-08-06 16:00] VITALS: BP 121/52
--- NOTE | 2019-08-06 19:08 | NUR ---
medicated x1 for pain with morphine,states pain meds not working too well,but does not ask for pain med often.
--- NOTE | 2019-08-06 19:20 | NUR ---
MS RN OPENING NOTES Received patient A/O x4, awake on bed. On pain, administered due meds as ordered. Patient denies any other concerns at this time. Kept on bed clean, dry and comfortable. Call light within easy reach. Will continue to monitor accordingly.
[2019-08-06 20:00] VITALS: BP 133/55
[2019-08-06] MEDS: INSULIN GLARGINE, 100 UNIT/ML CARTRIDGE SQ SCH (21:34)
[2019-08-06] MEDS: *INSULIN REGULAR(HUMULIN R)HUM 100 UNIT/ML VIAL SQ PRN (21:35)
[2019-08-06] MEDS: ATORVASTATIN 10 MG TABLET PO SCH (21:38)
[2019-08-07] MEDS: PIPERACILLIN /TAZOBACTAM 3.375 G in IV D5W 50 ML IV SCH ×4 (00:10→17:07)
[2019-08-07] MEDS: *INSULIN REGULAR(HUMULIN R)HUM 100 UNIT/ML VIAL SQ PRN (06:30)
[2019-08-07] MEDS: PANTOPRAZOLE 40 MG TABLET.DR PO SCH ×2 (06:31→08:15)
[2019-08-07] MEDS: LEVOTHYROXINE SODIUM 175 MCG TABLET PO SCH (06:31)
[2019-08-07] MEDS: BLOOD SUGAR DIAGNOSTIC 1 EACH STRIP VI SCH ×4 (06:35→21:44)
--- NOTE | 2019-08-07 06:50 | NUR ---
MS RN CLOSING NOTES Patient intermittently asleep, on bed, on RA. Afebrile the whole shift, medicated for pain noted effective. No new complaints made. Patient able to walk to the bathroom without assistance, steady gait, stand by assist provided. All nursing needs attended, due meds given as ordered. On fall precautions, call light within easy reach. Endorsed to the next shift. for RAYMON.
[2019-08-07 08:00] VITALS: BP 177/85
--- NOTE | 2019-08-07 08:00 | NUR ---
RN NOTES RECEIVED PATIENT IN THE BED A/O X3, NO ACUTE RESPIRATORY DISTRESS, V/S STABLE PATIENT WAS COMPLAINING OF PAIN 8/10 ON PAIN SCALE ON LOWER BILATERAL LEGS. PATIENT HAS AMPUTEE 1/2 OF RIGHT FOOT, DRESSING CHANGED, V/S TAKEN BP 177/85,P-56. ADMINISTERED SCHEDULED MEDICATION. PATIENT TURN AND REPOSTION SELF IN THE BED. IV ACCESS ON RIGHT HAND. NEEDS ATTENDED AND ANTICIPATED. PATIENT REFUSED TO USE BEDSIDE COMMODE PREFERRED BATHROOM TO USE, EXPLAINED PATIENT NWB ON RIGHT FOOT, AND FALL PREVENTION. URINAL GIVEN. CALL LIGHT WITHIN TO REACH. SAFETY PRECAUTION MAINTAINED ALL THE TIME.
[2019-08-07 08:13] LABS: BASOPHILS # (AUTO) 0.2 /CMM (0.0-0.2); BASOPHILS % (AUTO) 1.1 % (0.0-2.0); EOSINOPHILS % (AUTO) 4.7 % (0.0-6.0); HEMATOCRIT 26 % (39-51); HEMOGLOBIN 8.7 g/dL (13.5-17.5); LYMPHOCYTES # (AUTO) 2.7 /CMM (0.8-4.8); LYMPHOCYTES % (AUTO) 20.4 % (20.0-44.0); MEAN CORPUSCULAR HGB CONC 33 g/dl (31.0-36.0); MEAN CORPUSCULAR VOLUME 90 fL (80-96); MONOCYTES # (AUTO) 0.9 /CMM (0.1-1.30); MONOCYTES % (AUTO) 6.4 % (2.0-12.0); NEUTROPHILS # (AUTO) 9.1 /CMM (1.8-8.9); NEUTROPHILS % (AUTO) 67.4 % (43.0-81.0); PLATELET COUNT (AUTO) 536 /CMM (150-450); RED BLOOD CELL COUNT(AUTO) 2.91 MIL/uL (4.5-6.0); WHITE BLOOD COUNT (AUTO) 13.5 K/uL (4.3-11.0)
[2019-08-07] MEDS: ASCORBIC ACID 500 MG TABLET PO SCH ×2 (08:15→17:00)
[2019-08-07] MEDS: LINAGLIPTIN 5 MG TABLET PO SCH (08:15)
[2019-08-07] MEDS: ZINC SULFATE 220 MG CAPSULE PO SCH (08:15)
[2019-08-07] MEDS: BUPROPION XL 150 MG TAB.ER.24 PO SCH (08:16)
[2019-08-07] MEDS: FERROUS SULFATE (325 MG) 325 MG/TAB TABLET PO SCH ×2 (08:16→12:16)
[2019-08-07] MEDS: MULTIVITAMINS,THERAGRAN 1 UDTAB TABLET PO SCH (08:16)
[2019-08-07] MEDS: ARIPIPRAZOLE 5 MG TABLET PO SCH (08:16)
[2019-08-07] MEDS: DAKINS QUARTER STRENGTH (0.125%) 480 ML BOTTLE TOP SCH (08:17)
[2019-08-07] MEDS: MORPHINE SULFATE INJ 2 MG/ML DISP.SYRIN IV PRN ×2 (08:26→17:08)
--- NOTE | 2019-08-07 08:26 | NUR ---
RN NOTES ADMINISTERED MORPHINE SULFATE 2 MG/ML IV PUSH FOR BILATERAL LOWER LEGS PAIN 04/13 PER PATIENT REQUEST V/S TAKEN BP -177/85, P-56, R-19. CONTINUED MONITORING.
[2019-08-07 08:41] LABS: CALCIUM, SERUM 8.3 mg/dL (8.5-10.1); CREATININE 1.1 mg/dL (0.6-1.3); MAGNESIUM 1.6 mg/dL (1.8-2.4); PHOSPHORUS 3.3 mg/dL (2.5-4.9); POTASSIUM 4.4 mmol/L (3.5-5.1)
[2019-08-07 09:00] VITALS: BP 153/69
[2019-08-07] MEDS: Magnesium 1GM/D5W 100ML PREMIX 100 ML IV SCH ×2 (09:31→10:28)
--- NOTE | 2019-08-07 12:00 | NUR ---
RN NOTES BS-316 MG/DL COVERAGE GIVEN, ALSO ADMINISTERED SCHEDULED MEDICATION. CONTINUED MONITORING.
[2019-08-07] MEDS: INSULIN REGULAR, HUMAN 100 UNIT/ML 3 ML VIAL SQ PRN ×2 (12:15→17:41)
[2019-08-07 16:00] VITALS: BP 150/61
--- NOTE | 2019-08-07 17:08 | NUR ---
RN NOTES ADMINISTERED MORPHINE SULFATE 2 MG/ML IV PUSH FOR BILATERAL LOWER LEGS PAIN 10/10 PER PATIENT REQUEST, V/S TAKEN BP- 150/61, P-59, R-19, CONTINUED MONITORING.
--- NOTE | 2019-08-07 17:36 | NUR ---
RN NOTES PATIENT SIGN CONSENT FOR PICC LINE 6 WEEKS CONTINUES ANTIBIOTIC INFUSION.
--- NOTE | 2019-08-07 18:26 | NUR ---
RN NOTES ATIENT EATING DINNER , BS-279 MG/DL COVERAGE GIVEN, ALSO ADMINISTERED SCHEDULED MEDICATION. INFUSING ZOSYN 100 ML/HR ON RIGHT PICC LINE ON RIGHT UPPER ARM INTACT. MEDICATION WERE ADMINISTERED FOR PAIN EFFECTIVE. CALL LIGHT WITHIN TO REACH. SAFETY PRECAUTION MAINTAINED ALL THE TIME. ENDORSED ONCOMING NURSE FOLLOW PLAN OF CARE.
--- NOTE | 2019-08-07 19:00 | NUR ---
MS RN OPENING NOTES Received patient A/Ox4, awake on bed. On RA, no SOB/respiratory distress noted. R foot dressing newly changed, clean, dry and intact. With new PICC line noted, dressing remained clean, dry and intact. Patient denies any discomfort at this time. Provided ice chips per request. Kept on bed clean, dry and comfortable. Will continue to monitor accordingly.
[2019-08-07 20:00] VITALS: BP 144/63
[2019-08-07] MEDS: INSULIN GLARGINE, 100 UNIT/ML CARTRIDGE SQ SCH (21:44)
[2019-08-07] MEDS: ATORVASTATIN 10 MG TABLET PO SCH (21:44)
--- NOTE | 2019-08-07 22:00 | NUR ---
MS RN NOTES Patient refused due meds despite education. Per patient sleeping is more important and he does not wanted to be disturbed.
[2019-08-08] MEDS: PIPERACILLIN /TAZOBACTAM 3.375 G in IV D5W 50 ML IV SCH ×5 (05:24→16:58)
[2019-08-08] MEDS: *INSULIN REGULAR(HUMULIN R)HUM 100 UNIT/ML VIAL SQ PRN ×2 (06:27→21:55)
--- NOTE | 2019-08-08 06:35 | NUR ---
MS RN CLOSING NOTES Patient asleep, easily awaken. On RA, no sob/respiratory distress noted. Patient denies discomfort at this time. Kept on bed clean, dry and comfortable. On fall precautions, call light within easy reach. Endorsed to the next shift.
[2019-08-08 06:57] LABS: BASOPHILS # (AUTO) 0.2 /CMM (0.0-0.2); BASOPHILS % (AUTO) 1.3 % (0.0-2.0); EOSINOPHILS % (AUTO) 4.1 % (0.0-6.0); HEMATOCRIT 24 % (39-51); HEMOGLOBIN 7.8 g/dL (13.5-17.5); LYMPHOCYTES # (AUTO) 2.8 /CMM (0.8-4.8); LYMPHOCYTES % (AUTO) 18.7 % (20.0-44.0); MEAN CORPUSCULAR HGB CONC 33 g/dl (31.0-36.0); MEAN CORPUSCULAR VOLUME 90 fL (80-96); MONOCYTES # (AUTO) 1.1 /CMM (0.1-1.30); MONOCYTES % (AUTO) 7.2 % (2.0-12.0); NEUTROPHILS # (AUTO) 10.4 /CMM (1.8-8.9); NEUTROPHILS % (AUTO) 68.7 % (43.0-81.0); PLATELET COUNT (AUTO) 510 /CMM (150-450); RED BLOOD CELL COUNT(AUTO) 2.61 MIL/uL (4.5-6.0); WHITE BLOOD COUNT (AUTO) 15.1 K/uL (4.3-11.0)
[2019-08-08 07:31] LABS: CALCIUM, SERUM 8.1 mg/dL (8.5-10.1); CREATININE 1.2 mg/dL (0.6-1.3); MAGNESIUM 1.8 mg/dL (1.8-2.4); PHOSPHORUS 3.3 mg/dL (2.5-4.9); POTASSIUM 4.3 mmol/L (3.5-5.1)
[2019-08-08] MEDS: LEVOTHYROXINE SODIUM 175 MCG TABLET PO SCH (07:50)
[2019-08-08] MEDS: FERROUS SULFATE (325 MG) 325 MG/TAB TABLET PO SCH ×2 (07:50→12:16)
[2019-08-08] MEDS: BLOOD SUGAR DIAGNOSTIC 1 EACH STRIP VI SCH ×4 (07:50→21:57)
[2019-08-08] MEDS: PANTOPRAZOLE 40 MG TABLET.DR PO SCH (07:50)
[2019-08-08 08:00] VITALS: BP 116/77
--- NOTE | 2019-08-08 08:00 | NUR ---
RN Notes: Received patient in bed; A&O x 4; patient has no acute respiratory distress; no labor; no report of pain at this time; using urinal; patient has amputated 1/2 right foot; dressing intact; gave scheduled medication; Patient tolerating breakfast 100%; Call light within reach; Bedside alarm on; Continue monitoring.
[2019-08-08] MEDS: MULTIVITAMINS,THERAGRAN 1 UDTAB TABLET PO SCH (08:17)
[2019-08-08] MEDS: ASCORBIC ACID 500 MG TABLET PO SCH ×2 (08:18→16:58)
[2019-08-08] MEDS: BUPROPION XL 150 MG TAB.ER.24 PO SCH (08:18)
[2019-08-08] MEDS: ZINC SULFATE 220 MG CAPSULE PO SCH (08:18)
[2019-08-08] MEDS: LINAGLIPTIN 5 MG TABLET PO SCH (08:18)
[2019-08-08] MEDS: DAKINS QUARTER STRENGTH (0.125%) 480 ML BOTTLE TOP SCH (08:19)
[2019-08-08] MEDS: MORPHINE SULFATE INJ 2 MG/ML DISP.SYRIN IV PRN (10:17)
--- NOTE | 2019-08-08 10:19 | NUR ---
RN Note: Patient stated pain in both feet rated at 8/20. Vital signs - BP: 165/72 HR: 58 RR: 18. Gave 2mg/ml of morphine sulphate IV push. Continue to monitor.
[2019-08-08] MEDS: INSULIN REGULAR, HUMAN 100 UNIT/ML 3 ML VIAL SQ PRN ×2 (12:14→17:01)
--- NOTE | 2019-08-08 12:17 | NUR ---
RN Notes: Blood sugar 310mg/dl; Coverage given. Administered scheduled medications; infusing zosyn 100ml/hr at right upper PICC line.
[2019-08-08] MEDS: oxyCODONE IR immediate release 5 MG PO PRN ×2 (15:12→20:15)
--- NOTE | 2019-08-08 15:13 | NUR ---
RN Notes: Patient stated pain of 7/10 bilaterally on his feet. Administered 10mg of oxycodone per patient request; Vital signs- BP: 144/67 HR: 57 RR: 20 Temp: 99.3 SpO2: 96; Continue to monitor.
[2019-08-08 16:00] VITALS: BP 144/67
--- NOTE | 2019-08-08 18:30 | NUR ---
rn notes Blood glucose is 313mg/dl; Coverage given; Also administered scheduled medication; Vital signs stable; Pain medication administered was effective; Patient seen by hospitalist, JUANITA Burton; Dressing changed by wound RADHA Nieves; Call lights within reach; On coming nurse follow plan of care.
--- NOTE | 2019-08-08 19:36 | NUR ---
RN NOTES: RECEIVED PATIENT AWAKE SITTING IN BED, ALERT ORIENTED X4, NO SIGNS OF ACUTE RESPIRATORY DISTRESS NOTED, BREATHING EVEN AND UNLABORED, DENIES ANY PAIN OR DISCOMFORT AT THIS TIME, USES URINAL, PATIENT HAS AMPUTATED RIGHT 1/2 FOOT, DRESSING CLEAN, DRY AND INTACT, CALL LIGHT WITHIN EASY REACH. ALL NEEDS ATTENDED, WILL CONTINUE TO MONITOR ACCORDINGLY.
[2019-08-08 20:18] VITALS: BP 156/64
[2019-08-08 20:38] VITALS: BP 156/64
[2019-08-08] MEDS: ATORVASTATIN 10 MG TABLET PO SCH (21:52)
[2019-08-08] MEDS: INSULIN GLARGINE, 100 UNIT/ML CARTRIDGE SQ SCH (21:56)
[2019-08-09] VITALS (8 sets, daily range): BP systolic 157–178; BP diastolic 66–81
[2019-08-09] MEDS: PIPERACILLIN /TAZOBACTAM 3.375 G in IV D5W 50 ML IV SCH ×4 (00:28→17:04)
[2019-08-09] MEDS: INSULIN REGULAR, HUMAN 100 UNIT/ML 3 ML VIAL SQ PRN ×3 (06:31→17:05)
--- NOTE | 2019-08-09 07:28 | NUR ---
RN NOTES: PATIENT ABLE TO REST AND SLEPT AT INTERVALS, PATIENT AWAKE LYING IN BED, AT THIS TIME, ALERT ORIENTED X4, NO SIGNS OF ACUTE RESPIRATORY DISTRESS NOTED, BREATHING EVEN AND UNLABORED, DENIES ANY PAIN OR DISCOMFORT AT THIS TIME, USES URINAL, PATIENT HAS AMPUTATED RIGHT 1/2 FOOT, DRESSING CLEAN, DRY AND INTACT, CALL LIGHT WITHIN EASY REACH. ALL NEEDS ATTENDED, PATIENT WENT TO TOILET WITHOUT ASKING FOR ASSISTANCE, DISCONNECTED HIS PICC TUBING, PICC LINE INTACT, DRESSING INTACT, SAFETY MEASURES EMPHASIZED, INFORMED TIRE BLADDER MAKER NEGRITO REGARDING BLOOD GLUCOSE OF 406 MG/DL, INSULIN PRN 15 UNITS GIVEN ORDERED. ENDORSED TO AM NURSE FOR CONTINUITY OF CARE.
[2019-08-09] MEDS: FERROUS SULFATE (325 MG) 325 MG/TAB TABLET PO SCH ×2 (07:59→12:15)
[2019-08-09] MEDS: LEVOTHYROXINE SODIUM 175 MCG TABLET PO SCH (08:02)
[2019-08-09] MEDS: BLOOD SUGAR DIAGNOSTIC 1 EACH STRIP VI SCH ×4 (08:03→22:15)
[2019-08-09] MEDS: INSULIN LISPRO/ASPART 100 UNIT/ML CARTRIDGE SQ SCH ×3 (08:05→17:02)
[2019-08-09] MEDS: MORPHINE SULFATE INJ 2 MG/ML DISP.SYRIN IV PRN ×5 (08:16→20:24)
--- NOTE | 2019-08-09 08:16 | NUR ---
RN Notes: Patient complained of pain in his feet bilaterally rated 10/10; Administered PRN morphine sulfate 2mg/ml per patient's request. Vital signs - BP: 157/70 HR: 65 RR: 18 Temp: 98.6 SpO1: 98; Call light in reach; Continue to monitor.
[2019-08-09] MEDS: ZINC SULFATE 220 MG CAPSULE PO SCH (08:28)
[2019-08-09] MEDS: MULTIVITAMINS,THERAGRAN 1 UDTAB TABLET PO SCH (08:28)
[2019-08-09] MEDS: ASCORBIC ACID 500 MG TABLET PO SCH ×2 (08:28→16:57)
[2019-08-09] MEDS: LINAGLIPTIN 5 MG TABLET PO SCH (08:28)
[2019-08-09] MEDS: BUPROPION XL 150 MG TAB.ER.24 PO SCH (08:36)
[2019-08-09] MEDS: DAKINS QUARTER STRENGTH (0.125%) 480 ML BOTTLE TOP SCH (08:59)
--- NOTE | 2019-08-09 09:02 | NUR ---
RN Notes: Patient went down for CT scan; sent with transport team.
--- NOTE | 2019-08-09 09:33 | NUR ---
RN Notes: Patient back from CT. Call light within reach.
[2019-08-09] MEDS: oxyCODONE IR immediate release 5 MG PO PRN (10:53)
--- NOTE | 2019-08-09 10:54 | NUR ---
RN Notes: Patient complained of bilateral pain in his feet rated 8/10. Administered PRN Oxycodon IR 10 mg per patient's request. Vital signs - BP: 146/69 HR: 61 RR: 18; Call light is within reach; Continue to monitor.
--- NOTE | 2019-08-09 14:55 | NUR ---
RN Notes: Patient complaining of pain on right foot rated 8/10; Administered PRN morphine sulfate per patient's request; Vital signs - BP: 160/72 HR: 61 RR: 18; Call light within reach; Continue to monitor.
--- NOTE | 2019-08-09 19:08 | NUR ---
RN Notes: Patient resting in bed; Endorse to accounting consultant nurse to follow plan of care.
--- NOTE | 2019-08-09 20:24 | NUR ---
RN NOTES PATIENT COMPLAINTS OF SEVERE BILATERAL LOWER EXTREMITIES PAIN 9/10, MORPHINE 2MG IV GIVEN ORDERED. REPOSITIONED FOR COMFORT SAFETY MEASURES IN PLACED, CALL LIGHT WITHIN EASY REACH. WILL MONITOR ACCORDINGLY.
[2019-08-09] MEDS: AMPICILLIN 1 GM in IV NS 0.9% 50 ML IV SCH (21:24)
[2019-08-09] MEDS: ATORVASTATIN 10 MG TABLET PO SCH (21:35)
[2019-08-09] MEDS ORDERED: INSULIN GLARGINE, 100 UNIT/ML CARTRIDGE SQ SCH (22:00)
[2019-08-10] MEDS: AMPICILLIN 1 GM in IV NS 0.9% 50 ML IV SCH ×2 (04:42→13:45)
[2019-08-10] MEDS: INSULIN REGULAR, HUMAN 100 UNIT/ML 3 ML VIAL SQ PRN ×3 (06:40→17:35)
[2019-08-10] MEDS: INSULIN LISPRO/ASPART 100 UNIT/ML CARTRIDGE SQ SCH ×3 (06:42→17:34)
[2019-08-10] MEDS: BLOOD SUGAR DIAGNOSTIC 1 EACH STRIP VI SCH ×3 (06:55→17:05)
--- NOTE | 2019-08-10 07:26 | NUR ---
RN NOTES ABLE TO REST AND SLEPT AT INTERVALS, SAFETY MEASURES IN PLACE, ALL NEEDS ATTENDED AND MET. CALL LIGHT WITHIN EASY REACH. ENDORSED TO AM NURSE FOR CONTINUITY OF CARE.
--- NOTE | 2019-08-10 07:57 | NUR ---
MS RN NOTES PATIENT IN BED, AWAKE ORIENTED X 4. BREATHING EVEN AND UNLABORED. DENIES PAIN OR DISCOMFORT, NO SOB, NO SIGNS OF ACUTE DISTRESS. PATIENT HAS APUTATED RIGHT 1/2 FOOT, DRESSING CLEAN, DRY, INTACT. PICC LINE KELVIN, CLEAN DRY INTACT, SHOWS NO SIGNS OF REDNESS, NO INFILTRATION. PATIENT NEEDS MET. BED LOWEST POSITION AND LOCKED, 2 SIDE RAILS UP, CALL LIGHT WITHIN REACH. WILL CONTINUE TO MONITOR.
[2019-08-10 08:00] VITALS: BP 141/65
[2019-08-10] MEDS ORDERED: INSU100I30 SQ (08:09)
[2019-08-10] MEDS ORDERED: AMPI1VIA12 IV (08:09)
[2019-08-10] MEDS ORDERED: Levothyroxine Sodium PO (08:09)
[2019-08-10] MEDS: MULTIVITAMINS,THERAGRAN 1 UDTAB TABLET PO SCH (08:30)
[2019-08-10] MEDS: LEVOTHYROXINE SODIUM 175 MCG TABLET PO SCH (08:30)
[2019-08-10] MEDS: PANTOPRAZOLE 40 MG TABLET.DR PO SCH (08:30)
[2019-08-10] MEDS: FERROUS SULFATE (325 MG) 325 MG/TAB TABLET PO SCH ×2 (08:30→13:45)
[2019-08-10] MEDS: ZINC SULFATE 220 MG CAPSULE PO SCH (08:30)
[2019-08-10] MEDS: LINAGLIPTIN 5 MG TABLET PO SCH (08:31)
[2019-08-10] MEDS: BUPROPION XL 150 MG TAB.ER.24 PO SCH (08:31)
[2019-08-10] MEDS: ASCORBIC ACID 500 MG TABLET PO SCH ×2 (08:31→17:05)
[2019-08-10] MEDS: DAKINS QUARTER STRENGTH (0.125%) 480 ML BOTTLE TOP SCH (08:31)
[2019-08-10 08:43] LABS: BASOPHILS # (AUTO) 0.2 /CMM (0.0-0.2); BASOPHILS % (AUTO) 1.2 % (0.0-2.0); EOSINOPHILS % (AUTO) 3.6 % (0.0-6.0); HEMATOCRIT 26 % (39-51); HEMOGLOBIN 8.5 g/dL (13.5-17.5); LYMPHOCYTES # (AUTO) 2.7 /CMM (0.8-4.8); LYMPHOCYTES % (AUTO) 17.1 % (20.0-44.0); MEAN CORPUSCULAR HGB CONC 33 g/dl (31.0-36.0); MEAN CORPUSCULAR VOLUME 91 fL (80-96); MONOCYTES # (AUTO) 0.9 /CMM (0.1-1.30); MONOCYTES % (AUTO) 5.8 % (2.0-12.0); NEUTROPHILS # (AUTO) 11.4 /CMM (1.8-8.9); NEUTROPHILS % (AUTO) 72.3 % (43.0-81.0); PLATELET COUNT (AUTO) 526 /CMM (150-450); RED BLOOD CELL COUNT(AUTO) 2.87 MIL/uL (4.5-6.0); WHITE BLOOD COUNT (AUTO) 15.8 K/uL (4.3-11.0)
[2019-08-10] MEDS: MORPHINE SULFATE INJ 2 MG/ML DISP.SYRIN IV PRN ×2 (09:06→13:45)
[2019-08-10 09:21] LABS: CALCIUM, SERUM 8.3 mg/dL (8.5-10.1); CREATININE 1.2 mg/dL (0.6-1.3); MAGNESIUM 1.6 mg/dL (1.8-2.4); PHOSPHORUS 3.3 mg/dL (2.5-4.9); POTASSIUM 4.6 mmol/L (3.5-5.1)
[2019-08-10 09:53] VITALS: BP 141/65
--- NOTE | 2019-08-10 12:45 | NUR ---
MS RN NOTES DR WETZEL AT BEDSIDE. WOUND TX DONE BY AND PATIENT TOLERATED WELL. NEW ORDERS NOTED AND CARRIED OUT. WILL CONTINUE TO MONITOR
--- NOTE | 2019-08-10 15:49 | NUR ---
MS RN NOTES CALLED [facility] ([phone]), GAVE REPORT TO PRIMITIVO.
--- NOTE | 2019-08-10 16:30 | NUR ---
MS RN NOTES PATIENT REFUSED WOUND PHOTO TAKEN ON RIGHT FOOT. VERBALIZED THAT THE WOUND DOCTOR CAME EARLIER AND CLEANED AND CHANGED THE DRESSING. RISKS AND BENEFITS EXPLAINED BUT TO NO AVAIL. PATIENT STRONGLY REFUSED HAVING THE DRESSING ON HIS RIGHT FOOT REMOVED. PATIENT AGREED TO HAVE LEFT FOOT PHOTO TAKEN. PHOTO TAKEN AND FILED. WILL CONTINUE TO MONITOR
[2019-08-10] MEDS: oxyCODONE IR immediate release 5 MG PO PRN (17:05)
--- NOTE | 2019-08-10 17:34 | NUR ---
MS RN NOTES PATIENT TO BE DISCHARGED TO [facility]. DISCHARGE INSTRUCTIONS AND EDUCATION PROVIDED TO PATIENT AND VERBALIZED UNDERSTANDING. ALL BELONGINGS COMPLETE ON DISCHARGE. NO REPORT OF MISSING INVENTORY.
--- NOTE | 2019-08-10 17:35 | NUR ---
MS PAPER REWINDER NOTES PATIENT DISCHARGE ON 1734, LEFT MEDICALLY STABLE. NO SIGNS OF SOB, NO RESPIRATORY DISTRESS. PICC LINE DOUBLE LUMEN ON KELVIN IS CLEAN, DRY INTACT, SHOWS NO REDNESS, NO INFILTRATION. ID BAND WAS REMOVED. NO NEW SKIN BREAKDOWNS. LEFT BY AMBULANCE TO BE TAKEN TO [facility]. DISCHARGE INSTRUCTIONS UNDERSTOOD. DOCTOR AWARE OF DISCHARGE.
== END 2019-08-10 17:45 | DRG 853 ==
LOC: ER 22:40 → MED 08-02 00:09 → TELE 08-02 20:41 → MED 08-04 11:12
PROVIDERS: ADMIT Internal Medicine; ATTEND Family Medicine
PROC: 0QBN0ZZ Excision of Right Metatarsal, Open Approach (ICD-10-PCS; principal; 2019-08-02)
PROC: 0QBN0ZZ Excision of Right Metatarsal, Open Approach (ICD-10-PCS; 2019-08-04)
PROC: 02HV33Z Insertion of Infusion Device into Superior Vena Cava, Percutaneous Approach (ICD-10-PCS; 2019-08-07)
PROC: B548ZZA Ultrasonography of Superior Vena Cava, Guidance (ICD-10-PCS; 2019-08-07)
DX: A41.9 Sepsis, unspecified organism (principal); A48.0 Gas gangrene; N17.0 Acute kidney failure with tubular necrosis; E43 Unspecified severe protein-calorie malnutrition; L03.115 Cellulitis of right lower limb; E11.52 Type 2 diabetes mellitus with diabetic peripheral angiopathy with gangrene; D68.59 Other primary thrombophilia; M86.9 Osteomyelitis, unspecified; I70.261 Atherosclerosis of native arteries of extremities with gangrene, right leg; L97.919 Non-pressure chronic ulcer of unspecified part of right lower leg with unspecified severity; E11.65 Type 2 diabetes mellitus with hyperglycemia; E11.621 Type 2 diabetes mellitus with foot ulcer; I12.9 Hypertensive chronic kidney disease with stage 1 through stage 4 chronic kidney disease, or unspecified chronic kidney disease; N18.9 Chronic kidney disease, unspecified; E11.22 Type 2 diabetes mellitus with diabetic chronic kidney disease; E11.69 Type 2 diabetes mellitus with other specified complication; E78.5 Hyperlipidemia, unspecified; E87.5 Hyperkalemia; E11.42 Type 2 diabetes mellitus with diabetic polyneuropathy; F03.90 Unspecified dementia, unspecified severity, without behavioral disturbance, psychotic disturbance, mood disturbance, and anxiety; F17.200 Nicotine dependence, unspecified, uncomplicated; Z91.19 Patient's noncompliance with other medical treatment and regimen; Z89.431 Acquired absence of right foot; Z87.442 Personal history of urinary calculi; R62.7 Adult failure to thrive; F39 Unspecified mood [affective] disorder; J44.9 Chronic obstructive pulmonary disease, unspecified; D64.9 Anemia, unspecified; B96.4 Proteus (mirabilis) (morganii) as the cause of diseases classified elsewhere; B95.5 Unspecified streptococcus as the cause of diseases classified elsewhere; M85.80 Other specified disorders of bone density and structure, unspecified site; Z66 Do not resuscitate; M48.02 Spinal stenosis, cervical region; F32.9 Major depressive disorder, single episode, unspecified; E89.0 Postprocedural hypothyroidism; M62.542 Muscle wasting and atrophy, not elsewhere classified, left hand; M62.541 Muscle wasting and atrophy, not elsewhere classified, right hand; Z74.09 Other reduced mobility; Z79.4 Long term (current) use of insulin; Z79.899 Other long term (current) drug therapy; Z79.84 Long term (current) use of oral hypoglycemic drugs
CPT/HCPCS: 36415; 71045-TC; 72125-TC; 73630-TC; 73700-TC; 76770-TC; 80048-TC; 80053-TC; 80061-TC; 80076-TC; 80202-TC; 81000-TC; 82550-TC; 82570-TC; 82945-TC; 82962-TC; 83540-TC; 83735-TC; 83880; 83970; 84100-TC; 84155; 84155-TC; 84165; 84300-TC; 84439-TC; 84443-TC; 84484-TC; 85025-TC; 85730-TC; 87040-TC; 87070-TC; 87086-TC; 87186-TC; 88305-TC; 88311-TC; 88312-TC; 97112-TC; 97530-TC; A4216; A4217; A6253; A6403; A6407; C1751; G0378; J0290; J0696; J1100; J1170; J1815; J2270; J2405; J2543; J2704; J3370; J3475; J3490; J7030; J7050; J7060

== ENCOUNTER 2020-07-18 09:50 | Outpatient (CLI) | payer MEDICARE, OTHER ==
[~2020-07-18 09:50] MED LIST: ACET-868 PO; ARIP5TAB10 PO; ASPI-1420 PO; ATOR20TA PO; BISA10SU11 RC; BUPR300T52 PO; CLOP75TA15 PO; ESCI5TAB PO; FAMO20TA8 PO; FERR325T23 PO; GABA-532 PO; HYDR-4076 PO; INSU100V27 SQ; INSU100V7 SQ; LEVO100T9 PO; LIDO30AD10 TP; LINA5TAB PO; MAGN400O6 PO; METH-406 PO; MULT-754 PO; NA P133E RC; NIFE-35 PO; NITR0.4T SL; OXYC10TA49 PO
== END 2020-07-18 23:59 | disposition home or self-care (01) ==
LOC: MSC 09:50
PROVIDERS: ATTEND Internal Medicine
DX: N17.9 Acute kidney failure, unspecified (principal); E87.5 Hyperkalemia; E11.9 Type 2 diabetes mellitus without complications; Z79.4 Long term (current) use of insulin; G89.4 Chronic pain syndrome; I10 Essential (primary) hypertension; E87.0 Hyperosmolality and hypernatremia; E03.9 Hypothyroidism, unspecified; Z86.79 Personal history of other diseases of the circulatory system; Z86.59 Personal history of other mental and behavioral disorders

== ENCOUNTER 2021-04-11 18:18 | Inpatient (IN) | payer MEDICARE, OTHER ==
[~2021-04-11] VITALS: Ht 185.4 cm; Wt 84.4 kg
--- NOTE | 2021-04-11 18:10 | NUR ---
MS HOME HEALTH BILLING SPECIALIST NOTE PATIENT RECEIVED FROM [facility] UNIT RELATED TO PENDING PROCEDURE FOR MANAGEMENT OF HIS DIABETIC FOOT. PATIENT ARRIVED VIA GURNEY ACCOMPANIED BY 2 EMT PERSONNEL AND TRANSFERRED HIMSELF TO THE BED. PATIENT IS ALERT AND ORIENTED X4 WITH NO SIGN OF DISTRESS. PATIENT WITH DIABETIC FOOT COVERED WITH DRESSING DRY AND INTACT. COMFORT MEASURES PROVIDED. PATIENT SEEN BY DR. MCMAHAN, WHO APPARENTLY IS FAMILIAR WITH THIS PATIENT. COMFORT MEASURES PROVIDED. SAFETY ENSURED. WITH BED LOCKED AND ON LOWEST POSITION, SIDE RAILS RAISED, WITH CALL LIGHT AND BEDSIDE TABLE WITHIN REACH AT ALL TIMES. NOT IN DISTRESS. WILL CONTINUE TO MONITOR PATIENT.
--- NOTE | 2021-04-11 18:55 | NUR ---
MS RN CLOSING NOTE PATIENT ON BED ALERT AND ORIENTED X 4. ABLE TO MAKE NEEDS KNOWN. NO COMPLAINTS OF PAIN AT THIS TIME. CONTINUES ON ROOM AIR WITH NO S/SX OF RESPIRATORY DISTRESS NOTED. PLAN IS TO HAVE PATIENT ON NPO FOR POSSIBLE ANGIOGRAM TOMORROW. CALL LIGHT WITHIN REACH. ASPIRATION, FALL AND SAFETY PRECAUTIONS MAINTAINED. WILL ENDORSE PATIENT FOR CONTINUITY OF CARE.
[2021-04-11] MEDS ORDERED: DEXTROSE 50%-WATER 50 ML DISP.SYRIN IV PRN (19:00)
[2021-04-11] MEDS ORDERED: MAG HYDROX/AL HYDROX/SIMETH 30 ML UDC PO PRN (19:00)
[2021-04-11] MEDS ORDERED: NITROGLYCERIN 0.4 MG/TAB BOTTLE SL PRN (19:00)
[2021-04-11] MEDS ORDERED: MAGNESIUM HYDROXIDE 30 ML UDC PO PRN ×2 (19:00)
[2021-04-11] MEDS ORDERED: HYDROMORPHONE INJ 2 MG/ML DISP.SYRIN IV PRN (19:00)
[2021-04-11] MEDS ORDERED: ZOLPIDEM TARTRATE 5 MG TABLET PO PRN (19:00)
[2021-04-11] MEDS ORDERED: ONDANSETRON HCL/PF 4 MG/2 ML VIAL IVP PRN (19:00)
[2021-04-11] MEDS ORDERED: LIDOCAINE 5% (PATCH) 1 EA PATCH TP PRN (19:00)
[2021-04-11] MEDS ORDERED: Z GUARD REMEDY 2 OZ OINT TP PRN (19:00)
[2021-04-11] MEDS ORDERED: ACETAMINOPHEN 325 MG TABLET PO PRN (19:00)
[2021-04-11] MEDS ORDERED: BISACODYL SUPP (10 MG) 10 MG/SUPP.RECT SUPP.RECT RC PRN (19:00)
--- NOTE | 2021-04-11 19:20 | NUR ---
MS/RN OPENING NOTE RECEIVED PATIENT RESTING IN BED. AWAKE, ALERT AND ORIENTED X 4. ABLE TO MAKE NEEDS KNOWN. NO COMPLAINTS OF PAIN AT THIS TIME. CONTINUES ON ROOM AIR WITH NO S/SX OF RESPIRATORY DISTRESS NOTED. NO IV ACCESS AT THIS TIME. WOUND TO RIGHT FOOT NOTED - PICTURE TAKEN AND PLACED IN CHART. NEW DRESSING APPLIED. CALL LIGHT WITHIN REACH. ASPIRATION, FALL AND SAFETY PRECAUTIONS MAINTAINED. WILL CONTINUE TO MONITOR.
--- NOTE | 2021-04-11 19:45 | NUR ---
MS/RN NOTE PANAMA HAT BLOCKER ALEJANDRO MCMAHAN IN TO ASSESS PATIENT. PER PANAMA HAT BLOCKER MARJ PATIENT DOES NOT NEED 1:1 SITTER AT THIS TIME.
[2021-04-11 20:00] VITALS: BP 123/59
[2021-04-11] MEDS ORDERED: METHOCARBAMOL (500MG) 500 MG TABLET PO PRN (20:00)
[2021-04-11] MEDS: IV NS 0.9% 1,000 ML IV PRN (20:11)
--- NOTE | 2021-04-11 20:30 | NUR ---
MS/RN NOTE IV PLACED TO RIGHT FOREARM #20G.
[2021-04-11] MEDS: oxyCODONE IR immediate release 5 MG PO PRN (20:32)
[2021-04-11] MEDS: VANCOMYCIN 1 GM in IV D5W 250 ML IV SCH (21:51)
[2021-04-11] MEDS: ATORVASTATIN 10 MG TABLET PO SCH (21:52)
[2021-04-11] MEDS: GABAPENTIN 300 MG CAPSULE PO SCH (21:52)
--- NOTE | 2021-04-11 23:00 | NUR ---
MS/RN NOTE PATENT BLOOD GLUCOSE LEVEL THIS EVENING IS 447. NO S/SX OF HYPERGLYCEMIA. PATIENT STATES HE HAS HAD 'ALOT OF APPLE JUICE'. ADMINISTERED ROUTINE LANTUS 40U AND REGULAR INSULIN 10U PER SS. NOTIFIED MD [employer] MECHANIC FERN OF HIGH BLOOD SUGAR. AWAITING RESPONSE. PATIENT IS NPO AT MIDNIGHT FOR SCHEDULED PROCEDURE IN AM. WILL CONTINUE TO MONITOR.
[2021-04-11] MEDS: BLOOD SUGAR DIAGNOSTIC 1 EACH STRIP VI SCH (23:04)
[2021-04-11] MEDS: INSULIN GLARGINE, 100 UNIT/ML CARTRIDGE SQ SCH (23:08)
[2021-04-11] MEDS: *INSULIN REGULAR(HUMULIN R)HUM 100 UNIT/ML VIAL SQ PRN (23:14)
[2021-04-11] MEDS: PIPERACILLIN /TAZOBACTAM 3.375 G in IV D5W 50 ML IV SCH (23:20)
[2021-04-12] VITALS (15 sets, daily range): BP systolic 132–164; BP diastolic 64–82
[2021-04-12] MEDS: PIPERACILLIN /TAZOBACTAM 3.375 G in IV D5W 50 ML IV SCH ×4 (04:49→21:23)
[2021-04-12] MEDS: GABAPENTIN 300 MG CAPSULE PO SCH ×3 (05:00→21:23)
[2021-04-12] MEDS: BLOOD SUGAR DIAGNOSTIC 1 EACH STRIP VI SCH ×4 (06:20→21:37)
--- NOTE | 2021-04-12 06:40 | NUR ---
MS/RN CLOSING NOTE PATIENT CURRENTLY RESTING IN BED. AWAKE, ALERT AND ORIENTED X 4. ABLE TO MAKE NEEDS KNOWN. NO COMPLAINTS OF PAIN AT THIS TIME. CONTINUES ON ROOM AIR WITH NO S/SX OF RESPIRATORY DISTRESS NOTED. IV ACCESS TO RIGHT FOREARM #20G INTACT AND PATENT. CONTINUES ON IVF AND IV ABX. PATIENT HAS BEEN NPO SINCE MIDNIGHT FOR PLANNED ANGIOGRAM THIS AM. CALL LIGHT WITHIN REACH. ASPIRATION, FALL AND SAFETY PRECAUTIONS MAINTAINED. WILL ENDORSE PLAN OF CARE TO ONCOMING SHIFT.
[2021-04-12 07:18] LABS: BASOPHILS # (AUTO) 0.2 K/uL (0.0-0.2); BASOPHILS % (AUTO) 1.6 % (0.0-2.0); EOSINOPHILS % (AUTO) 6.6 % (0.0-6.0); HEMATOCRIT 31 % (39-51); HEMOGLOBIN 10.3 g/dL (13.5-17.5); LYMPHOCYTES # (AUTO) 2.9 K/uL (0.8-4.8); MEAN CORPUSCULAR HGB CONC 33 g/dl (31.0-36.0); MEAN CORPUSCULAR VOLUME 90 fL (80-96); MONOCYTES # (AUTO) 1.1 K/uL (0.1-1.30); MONOCYTES % (AUTO) 9.9 % (2.0-12.0); NEUTROPHILS # (AUTO) 6.1 K/uL (1.8-8.9); NEUTROPHILS % (AUTO) 55.9 % (43.0-81.0); PLATELET COUNT (AUTO) 419 K/uL (150-450); RED BLOOD CELL COUNT(AUTO) 3.47 MIL/uL (4.5-6.0)
[2021-04-12] MEDS: PANTOPRAZOLE 40 MG TABLET.DR PO SCH (07:30)
[2021-04-12] MEDS: LEVOTHYROXINE SODIUM 100 MCG TABLET PO SCH (07:30)
--- NOTE | 2021-04-12 07:40 | NUR ---
MS RN OPENING NOTES RECEIVED PATIENT IN BED, A/O X4. PATIENT ON ROOM AIR; BREATHING EVEN AND UNLABORED, COMPLAINING OF MILD PAIN. PATIENT NPO, AWAITING PROCEDURE. RFA IV ACCESS PRESENT AND INTACT. SAFETY PRECAUTIONS IN PLACE; BED IN LOW POSITION AND LOCKED, RAILS UP X2, CALL LIGHT WITHIN REACH. WILL CONTINUE TO MONITOR PATIENT.
[2021-04-12 07:41] LABS: CALCIUM, SERUM 8.8 mg/dL (8.5-10.1); CREATININE 1.5 mg/dL (0.6-1.3); MAGNESIUM 2.3 mg/dL (1.8-2.4); PHOSPHORUS 3.7 mg/dL (2.5-4.9); POTASSIUM 4.2 mmol/L (3.5-5.1)
[2021-04-12] MEDS: ASPIRIN EC 81 MG TABLET.DR PO SCH (08:04)
[2021-04-12] MEDS: ARIPIPRAZOLE 5 MG TABLET PO SCH (08:04)
[2021-04-12] MEDS: hydrALAZINE HCL 25 MG TABLET PO SCH ×2 (08:04→16:17)
[2021-04-12] MEDS: CLOPIDOGREL BISULFATE 75 MG TABLET PO SCH (08:05)
[2021-04-12] MEDS: FERROUS SULFATE (325 MG) 325 MG/TAB TABLET PO SCH ×2 (08:05→16:17)
[2021-04-12] MEDS: NIFEdipine XL (30MG) 30 MG TAB PO SCH (08:05)
[2021-04-12] MEDS: LINAGLIPTIN 5 MG TABLET PO SCH (08:05)
[2021-04-12] MEDS: BUPROPION XL 150 MG TAB.ER.24 PO SCH (08:05)
[2021-04-12] MEDS: VANCOMYCIN 1 GM in IV D5W 250 ML IV SCH (08:53)
[2021-04-12] MEDS: INSULIN GLARGINE, 100 UNIT/ML CARTRIDGE SQ SCH ×2 (09:00→21:37)
[2021-04-12] MEDS ORDERED: FAMOTIDINE (20 MG) 20 MG TABLET PO SCH (09:00)
[2021-04-12] MEDS ORDERED: VANCOMYCIN 0.75 GM in IV D5W 250 ML IV SCH (09:00)
[2021-04-12] MEDS ORDERED: ESCITALOPRAM OXALATE (10 MG) 10 MG TABLET PO SCH (09:00)
[2021-04-12] MEDS ORDERED: IV NS 0.9% 500 ML IV ONE (09:56)
[2021-04-12] MEDS ORDERED: IODIXANOL 150 ML IV ONE (09:57)
[2021-04-12] MEDS ORDERED: MIDAZOLAM HCL 2 MG/2ML VIAL ONE (09:57)
[2021-04-12] MEDS ORDERED: FENTANYL PF 100MCG/2ML AMPUL ONE (09:57)
[2021-04-12] MEDS ORDERED: LIDOCAINE HCL/MPF 1% 30 ML VIAL IJ ONE (09:58)
--- NOTE | 2021-04-12 10:11 | NUR ---
MS RN NOTES PATIENT TAKEN TO OR FOR PROCEDURE
[2021-04-12] MEDS: IV NS 0.9% 1,000 ML IV PRN (11:44)
--- NOTE | 2021-04-12 12:13 | NUR ---
MS RN NOTES PATIENT TRANSFERRED FROM OR TO ICU AFTER PROCEDURE. REPORT GIVEN OVER THE PHONE TO ICU NURSE.
[2021-04-12] MEDS: HYDROCODONE/APAP 10/325MG TABLET PO PRN (13:30)
--- NOTE | 2021-04-12 14:11 | NUR ---
RN NOTE 1130: Received patient from laboratory chemist, A/Ox3. Patient in supine position, to keep flat 6hours per report. PIV intact. IVF infusing as ordered. Left fem SP sheath removal site, with dressing CDI. Right foot diabetic ulcer with dressing CDI. 1215: S/E by Dr. Fregoso, reviewed meds. 1400: No any significant changes noted at this time. Kept clean, warm and dry. Needs attended.
--- NOTE | 2021-04-12 16:54 | NUR ---
RN NOTE 1600: Dr. Mattson cleared to transfer back to Tele. Left fem dressing CDI, no hematoma. VSS. Patient aware for the order. 1620: Given report to Patt WAGNER. 1640: Transferred patient via bed, VSS. Endorsed care to Patt WAGNER for RAYMON. 1650: Patient with concern of wanting to go back to his nursing facility today, made Akila CHAKRABORTY aware, said to inform case mgt, spoke with Maribel, said they will talk to the patient and follow up with his facility, made Patt aware.
--- NOTE | 2021-04-12 16:59 | NUR ---
DOCKING SAW OPERATOR NOTES RECEIVED PATIENT BACK FROM ICU; MEDICALLY STABLE. NO BLEEDING AT PROCEDURE SIDE, DRESSING INTACT, NO BRUISES NO HEMATOMA. TELE MONITOR WITH A CURRENT READING OF SB 57 WILL CONTINUE TO MONITOR PATIENT.
[2021-04-12] MEDS: INSULIN REGULAR, HUMAN 100 UNIT/ML 3 ML VIAL SQ PRN (17:58)
--- NOTE | 2021-04-12 19:15 | NUR ---
CAR CHASER OPENING NOTES: RECEIVED PATIENT IN BED, AWAKE, A/O X4. NO S/S OF DISTRESS NOTED. CALL LIGHT WITHIN REACH. BED IN LOWEST AND LOCKED POSITION. BED ALARM ON. PATIENT IS MAD BECAUSE HE SAID THAT HE WANTS TO LEAVE EARLIER AND THAT NOBODY EXPLAINED TO HIM THAT HE NEEDS TO BE MONITORED FOR 24 HOURS AFTER THE HEART ANGIO DONE THIS MORNING. EXPLAINED TO THE PATIENT THAT HE CAN LEAVE AMA TO SIGN THE PAPER IF HE WANTS TO LEAVE, AND EXPLAINED TO THE PT THE BENEFITS OF STAYING AND THE RISKS OF LEAVING AMA,PATIENT VERBALIZED UNDERSTANDING. PATIENT IS CALM AFTER THIS CONVERSATIONS. TOLD THE PT THAT THE CM IS WORKING ON THE PLACEMENT. PATIENT REMOVED THE TELE LEADS MONITOR, VERBALIZED " I DON'T WANT THEM".
--- NOTE | 2021-04-12 19:15 | NUR ---
EXPLAINED TO THE PT THAT HE NEEDS TO BE MONITORED FOR BLEEDING AND FOR ANY ADVERSED EFFECTS AFTER THE HEART ANGIO, PATIENT VERBALIZED UNDERSTANDING.
--- NOTE | 2021-04-12 19:21 | NUR ---
END STAPLER CLOSING NOTES PATIENT IN BED, AWAKE, A/O X4 AND WANTS TO GO BACK TO SNF. PATIENT ON ROOM AIR; BREATHING EVEN AND UNLABORED. NO COMPLAINS OF PAIN AT THIS TIME. DRESSING C/D/I. SAFETY PRECAUTIONS IN PLACE; BED IN LOW POSITION AND LOCKED, RAILS UP X2, CALL LIGHT WITHIN REACH. PATIENT ENDORSED FOR RAYMON TO SCREEN ROOM OPERATOR NURSE.
--- NOTE | 2021-04-12 20:03 | NUR ---
TRIED TO PLACE BACK THE TELE MONITOR PATIENT STILL REFUSED, MD INFORMED.
[2021-04-12] MEDS: ATORVASTATIN 10 MG TABLET PO SCH (21:23)
[2021-04-12] MEDS: *INSULIN REGULAR(HUMULIN R)HUM 100 UNIT/ML VIAL SQ PRN (21:34)
[2021-04-13] VITALS (11 sets, daily range): BP systolic 132–154; BP diastolic 62–88
[2021-04-13] MEDS: IV NS 0.9% 1,000 ML IV PRN ×2 (01:10→21:11)
[2021-04-13] MEDS: PIPERACILLIN /TAZOBACTAM 3.375 G in IV D5W 50 ML IV SCH ×2 (03:47→11:54)
[2021-04-13] MEDS: GABAPENTIN 300 MG CAPSULE PO SCH ×3 (04:51→21:07)
[2021-04-13] MEDS: BLOOD SUGAR DIAGNOSTIC 1 EACH STRIP VI SCH ×4 (06:45→21:38)
--- NOTE | 2021-04-13 06:45 | NUR ---
BLOOD SUGAR CHECKED, 65, D50 GIVEN.
--- NOTE | 2021-04-13 07:04 | NUR ---
BLOOD SUGAR RECHECKED, 196. INFORMED THE PATIENT FOR SCHEDULED SURGERY TODAY AT 0930. NPO PATIENT IS AWARE.
[2021-04-13] MEDS: LEVOTHYROXINE SODIUM 100 MCG TABLET PO SCH (07:30)
[2021-04-13] MEDS: PANTOPRAZOLE 40 MG TABLET.DR PO SCH (07:30)
--- NOTE | 2021-04-13 07:36 | NUR ---
WILLOWER OPENING NOTES RECEIVED PATIENT IN BED AWAKE, ALERT AND ORIENTED X 4. ABLE TO MAKE NEEDS KNOWN. PT FOR RIGHT FOOT EXCISIONAL DEBRIDEMENT, BONE RESECTION, POSSIBLE WOUND CLOSURE TODAY BY DR CARLIN. ALL CONSENTS SIGNED AND NPO ENFORCED. ON ROOM AIR, TOLERATING WELL WITH NO SOB NOTED. CURRENT TELEMONITOR SHOWS NSR WITH BBB'S, HR ON THE 70'S, NO C/O CARDIAC DISTRESS VOICED. PIV'S ON RFA #220 AND LEFT WRIST BOTH INTACT AND PATENT, IVF OF NS @ 75ML/HR INFUSING TO L WRIST. SAFETY MEASURES IN PLACE: BED IN LOWEST LOCKED POSITION W/ SR UP X2. CALL LIGHT WITHIN REACH. WILL CONTINUE TO MONITOR.
[2021-04-13 08:41] LABS: CALCIUM, SERUM 8.4 mg/dL (8.5-10.1); CREATININE 1.3 mg/dL (0.6-1.3); POTASSIUM 4.1 mmol/L (3.5-5.1)
[2021-04-13] MEDS ORDERED: BUPIVACAINE 0.5 % PF 150 MG/30 ML VIAL ONE (08:52)
[2021-04-13] MEDS ORDERED: LIDOCAINE 1% INJ 50 ML MDV IJ ONE (08:52)
[2021-04-13] MEDS ORDERED: ANESTHESIA TRAY IN PYXIS 1 EA TRAY MC ONE (08:52)
[2021-04-13] MEDS: BUPROPION XL 150 MG TAB.ER.24 PO SCH (09:00)
[2021-04-13] MEDS: INSULIN GLARGINE, 100 UNIT/ML CARTRIDGE SQ SCH ×2 (09:00→21:26)
[2021-04-13] MEDS: ARIPIPRAZOLE 5 MG TABLET PO SCH (09:00)
[2021-04-13] MEDS: FERROUS SULFATE (325 MG) 325 MG/TAB TABLET PO SCH ×2 (09:00→16:25)
[2021-04-13] MEDS: LINAGLIPTIN 5 MG TABLET PO SCH (09:00)
[2021-04-13] MEDS: NIFEdipine XL (30MG) 30 MG TAB PO SCH (09:00)
[2021-04-13] MEDS: ASPIRIN EC 81 MG TABLET.DR PO SCH (09:00)
[2021-04-13] MEDS: CLOPIDOGREL BISULFATE 75 MG TABLET PO SCH (09:00)
[2021-04-13] MEDS: hydrALAZINE HCL 25 MG TABLET PO SCH ×2 (09:00→16:26)
--- NOTE | 2021-04-13 09:00 | NUR ---
RN NOTES PT PICKED-UP FOR SURGERY RIGHT FOOT BY DR CARLIN.
--- NOTE | 2021-04-13 09:10 | NUR ---
RN NOTES PT WITH BS OF 196 MG/DL EARLIER AND HE WENT FOR SURGERY AT 0900 AND WAS NPO. INSULIN LANTUS 30U NOT ADMINISTERED. WILL CONTINUE TO MONITOR
[2021-04-13] MEDS ORDERED: FENTANYL PF 100MCG/2ML AMPUL ONE (09:23)
[2021-04-13] MEDS ORDERED: ROCURONIUM BROMIDE 50 MG/5 ML ONE (09:24)
[2021-04-13] MEDS ORDERED: MIDAZOLAM HCL 2 MG/2ML VIAL ONE (09:24)
[2021-04-13] MEDS ORDERED: VANCOMYCIN 1 GM VIAL ONE (10:17)
--- NOTE | 2021-04-13 12:04 | NUR ---
RN notes Pt returned to unit at 1150 via his bed accompanied by BERNARD Verdin s/p right foot excisional debridement right foot ostectomy partial resection of 2nd and 3rd metatarsal right foot simple wound closure by Dr Deras. Pt is awake, a/o x4. Dressing on right foot c/d/i wrapped with isabela bandage. Md order to resume pre-op medications and diet. Keep dressing clean, dry and intact. Dispense post op surgical shoe and recommend heel weight bearing only on right foot and PT evaluation and treatment. Will continue to monitor pt.
[2021-04-13] MEDS: INSULIN REGULAR, HUMAN 100 UNIT/ML 3 ML VIAL SQ PRN ×2 (12:06→17:20)
--- NOTE | 2021-04-13 12:07 | NUR ---
RN NOTES PT WITH BS OF 135 MG/DL, REFUSED INSULIN COVERAGE STATED THAT IT'S LOW AND I HAVEN;T EATEN YET SINCE THIS MORNING. WILL CONTINUE TO MONITOR,.
[2021-04-13] MEDS: oxyCODONE IR immediate release 5 MG PO PRN ×2 (12:51→20:51)
--- NOTE | 2021-04-13 12:53 | NUR ---
RN NOTES PT C/O ACHING SHARP PAIN ON RIGHT FOOT, 8/10 SCALE. PRN OXY IR 10MG PO GIVEN AT 1251. WILL CONTINUE MONITOR AND REASSES PT.
[2021-04-13] MEDS: CEFEPIME 2 GM in IV D5W 100 ML IV SCH ×2 (14:44→21:07)
--- NOTE | 2021-04-13 18:43 | NUR ---
SCIENCE JOB TITLES CLOSING NOTES PATIENT IN BED AWAKE AND WATCHING TV AT THIS TIME. A/O X4. ABLE TO MAKE NEEDS KNOWN. DRESSING ON RIGHT FOOT C/D/I. ON ROOM AIR, TOLERATING WELL WITH NO SOB NOTED DURING THE DAY. TELEMONITOR SHOWS CURRENT READING OF NSR, HR ON THE 70'S, NO C/O CARDIAC DISTRESS VOICED DURING SHIFT. PIV'S ON RIGHT HAND G #22 AND LEFT WRIST BOTH INTACT AND PATENT, IVF OF NS @ 75ML/HR INFUSING WELL TO RIGHT HAND. ALL NEEDS AND CARE ATTENDED WELL. SAFETY MEASURE KEPT IN PLACE: BED IN LOWEST LOCKED POSITION W/ SR UP X2. CALL LIGHT AND BEDSIDE TABLE W/I EASY REACH OF PT. WILL ENDORSE RAYMON TO DIRECTOR ORANGE NURSE.
--- NOTE | 2021-04-13 19:15 | NUR ---
VEST FRONT PRESSER OPENING NOTES: RECEIVED PATIENT IN BED, AWAKE, WATCHING TV, A/O X4. NO S/S OF DISTRESS NOTED. CALL LIGHT WITHIN REACH. BED ALARM ON. BED IN LOWEST AND LOCKED POSITION. WITH RIGHT FOOT DRESSING INTACT CLEAN AND DRY. ONLY HEEL WEIGHT BEARING ON RIGHT FOOT ONLY, PATIENT AWARE.FOR PT EVAL. URINAL AT THE BEDSIDE.
--- NOTE | 2021-04-13 20:00 | NUR ---
PATIENT IS REQUESTING A SANDWICH AND JUICE AT THIS TIME, ADVISED PATIENT NOT TO EAT OR DRINK ANY JUICE YET BEFORE CHECKING BLOOD SUGAR, PATIENT STILL INSISTED AND LITTLE MAD, AND HE SAID" I DON'T CARE IT'S MY BODY, I'VE BEEN DIABETIC FOR LONG TIME, SO GIVE ME THE JUICE NOW".
[2021-04-13] MEDS ORDERED: CEFEPIME 2 GM in IV D5W 100 ML IV SCH (21:00)
[2021-04-13] MEDS: ATORVASTATIN 10 MG TABLET PO SCH (21:08)
[2021-04-13] MEDS: *INSULIN REGULAR(HUMULIN R)HUM 100 UNIT/ML VIAL SQ PRN (21:21)
[2021-04-13] MEDS: VANCOMYCIN 1 GM in IV D5W 250 ML IV SCH (21:52)
[2021-04-14] VITALS: BP 133/68
[2021-04-14] MEDS: oxyCODONE IR immediate release 5 MG PO PRN ×2 (04:44→12:56)
[2021-04-14] MEDS: CEFEPIME 2 GM in IV D5W 100 ML IV SCH ×3 (04:45→20:50)
[2021-04-14] MEDS: GABAPENTIN 300 MG CAPSULE PO SCH ×3 (04:45→20:51)
[2021-04-14] MEDS: BLOOD SUGAR DIAGNOSTIC 1 EACH STRIP VI SCH ×4 (06:42→21:09)
--- NOTE | 2021-04-14 06:42 | NUR ---
blood sugar checked: 98, no insulin coverage needed.
[2021-04-14 06:57] LABS: BASOPHILS # (AUTO) 0.1 K/uL (0.0-0.2); BASOPHILS % (AUTO) 0.8 % (0.0-2.0); EOSINOPHILS % (AUTO) 2.4 % (0.0-6.0); HEMATOCRIT 30 % (39-51); HEMOGLOBIN 9.9 g/dL (13.5-17.5); LYMPHOCYTES # (AUTO) 2.9 K/uL (0.8-4.8); LYMPHOCYTES % (AUTO) 18.6 % (20.0-44.0); MEAN CORPUSCULAR HGB CONC 33 g/dl (31.0-36.0); MEAN CORPUSCULAR VOLUME 91 fL (80-96); MONOCYTES # (AUTO) 1.4 K/uL (0.1-1.30); NEUTROPHILS # (AUTO) 10.7 K/uL (1.8-8.9); NEUTROPHILS % (AUTO) 69.2 % (43.0-81.0); PLATELET COUNT (AUTO) 363 K/uL (150-450); RED BLOOD CELL COUNT(AUTO) 3.32 MIL/uL (4.5-6.0); WHITE BLOOD COUNT (AUTO) 15.4 K/uL (4.3-11.0)
--- NOTE | 2021-04-14 07:15 | NUR ---
MS RN NOTES REPORT OBTAINED FROM AMY AND THIS NURSE ASSUMED CARE OF PATIENT. RECEIVED PATIENT AWAKE AND AT THE SINK CLEANING HIMSELF. NO C/O PAIN OR DISCOMFORT AT THIS TIMES. r FOOT IN DRSG CDI. AM BG - 98. PATIENT ASKING FOR MORE BREAKFAST. EXPLAINED THAT HIS DIET IS CERTAIN AMOUNT OF CARB. GIVEN MORE COFFEE
[2021-04-14 07:44] LABS: CALCIUM, SERUM 8.6 mg/dL (8.5-10.1); CREATININE 1.1 mg/dL (0.6-1.3); POTASSIUM 4.1 mmol/L (3.5-5.1)
[2021-04-14 08:00] VITALS: BP 143/67
[2021-04-14] MEDS: PANTOPRAZOLE 40 MG TABLET.DR PO SCH (08:30)
[2021-04-14] MEDS: BUPROPION XL 150 MG TAB.ER.24 PO SCH (08:30)
[2021-04-14] MEDS: LINAGLIPTIN 5 MG TABLET PO SCH (08:30)
[2021-04-14] MEDS: FERROUS SULFATE (325 MG) 325 MG/TAB TABLET PO SCH ×2 (08:30→18:56)
[2021-04-14] MEDS: ARIPIPRAZOLE 5 MG TABLET PO SCH (08:30)
[2021-04-14] MEDS: CLOPIDOGREL BISULFATE 75 MG TABLET PO SCH (08:30)
[2021-04-14] MEDS: LEVOTHYROXINE SODIUM 100 MCG TABLET PO SCH (08:31)
[2021-04-14] MEDS: ASPIRIN EC 81 MG TABLET.DR PO SCH (08:31)
[2021-04-14] MEDS: hydrALAZINE HCL 25 MG TABLET PO SCH ×2 (08:38→16:02)
[2021-04-14] MEDS: NIFEdipine XL (30MG) 30 MG TAB PO SCH (08:38)
[2021-04-14] MEDS: INSULIN GLARGINE, 100 UNIT/ML CARTRIDGE SQ SCH ×2 (08:52→21:09)
[2021-04-14] MEDS: VANCOMYCIN 1 GM in IV D5W 250 ML IV SCH ×2 (09:03→22:42)
[2021-04-14] MEDS: HYDROCODONE/APAP 10/325MG TABLET PO PRN (11:36)
--- NOTE | 2021-04-14 14:00 | NUR ---
NURSE NOTES MEDICATED FOR PAIN WITH NORCO 10-325 AT 1136, AND STILL HAVING PAIN, GIVEN OXYCONTIN 10 MG AT 1256. ON NEUROTIN 600MG Q8H. ON ATB VANCOMYCIN AND MAXIPINE. PAIN RELIEVED
[2021-04-14 16:00] VITALS: BP 136/66
[2021-04-14] MEDS: INSULIN REGULAR, HUMAN 100 UNIT/ML 3 ML VIAL SQ PRN (16:04)
--- NOTE | 2021-04-14 19:45 | NUR ---
RN NOTES RECEIVED PATIENT AWAKE, ALERT ORIENTEDX3, NOTICED RIGHT FOOT DRESSING DRY AND INTACT, PICC LINE IN PLACE, DENIES PAIN, NO SOB, CALL LIGHT WITHIN REACH, SIDERAILSUPX2, WILL CONTINUE TO MONITOR
[2021-04-14 20:00] VITALS: BP 112/55
[2021-04-14] MEDS: *INSULIN REGULAR(HUMULIN R)HUM 100 UNIT/ML VIAL SQ PRN (21:07)
[2021-04-14] MEDS: ATORVASTATIN 10 MG TABLET PO SCH (21:11)
[2021-04-15] VITALS (7 sets, daily range): BP systolic 117–144; BP diastolic 53–88
[2021-04-15] MEDS: oxyCODONE IR immediate release 5 MG PO PRN ×2 (02:57→11:42)
--- NOTE | 2021-04-15 03:00 | NUR ---
RN NOTES PATIENT COMPLAINED OF RIGHT FOOT PAIN- OXY IR 10MG PO GIVEN ORDERED
[2021-04-15] MEDS: GABAPENTIN 300 MG CAPSULE PO SCH ×2 (05:00→13:25)
[2021-04-15] MEDS: CEFEPIME 2 GM in IV D5W 100 ML IV SCH ×2 (05:00→13:26)
--- NOTE | 2021-04-15 06:17 | NUR ---
RN NOTES PATIENT IS AWAKE, HE PUT HIS BED UP AND REFUSED TO PUT IT DOWN, EDUCATE THE PATIENT REGARDING THE RISK OF FALL BUT PATIENT STILL REFUSED TO LET HER BED DOWN, MORNING CARE RENDERED, CALL LIGHT WITHIN REACH, ALEXANDERUPX2, PT. NEEDS ATTENDED
[2021-04-15 06:27] LABS: BASOPHILS # (AUTO) 0.2 K/uL (0.0-0.2); EOSINOPHILS % (AUTO) 6.9 % (0.0-6.0); HEMATOCRIT 29 % (39-51); HEMOGLOBIN 9.6 g/dL (13.5-17.5); LYMPHOCYTES # (AUTO) 2.8 K/uL (0.8-4.8); LYMPHOCYTES % (AUTO) 25.5 % (20.0-44.0); MEAN CORPUSCULAR HGB CONC 34 g/dl (31.0-36.0); MEAN CORPUSCULAR VOLUME 90 fL (80-96); MONOCYTES # (AUTO) 1.1 K/uL (0.1-1.30); MONOCYTES % (AUTO) 10.4 % (2.0-12.0); NEUTROPHILS # (AUTO) 6.1 K/uL (1.8-8.9); NEUTROPHILS % (AUTO) 55.2 % (43.0-81.0); PLATELET COUNT (AUTO) 338 K/uL (150-450); RED BLOOD CELL COUNT(AUTO) 3.19 MIL/uL (4.5-6.0)
[2021-04-15 07:05] LABS: CALCIUM, SERUM 8.5 mg/dL (8.5-10.1); CREATININE 1.2 mg/dL (0.6-1.3); POTASSIUM 4.1 mmol/L (3.5-5.1)
--- NOTE | 2021-04-15 07:32 | NUR ---
CLASSIFIED COPY CONTROL CLERK OPENING NOTES RECEIVED PATIENT AWAKE IN BED IN NO ACUTE SIGNS OF DISTRESS. A/O X 3-4. ABLE TO MAKE NEEDS KNOWN, DENIES PAIN OR ANY DISCOMFORTS AT THIS TIME. ON ROOM AIR, BREATHING IS EVEN AND UNLABORED. ON TELEMONITOR WITH CURRENT READING OF NSR WITH A 1ST DEGREE AV BLOCK, BBB'S AND OCCASIONAL PAC'S, HR ON THE 60'S, NO C/O CARDIAC DISTRESS VOICED. IV ACCESS ON LEFT WRIST G#20 AND KELVIN PICC LINE BOTH INTACT, PATENT AND FLUSHES WELL. SAFETY MEASURES IN PLACE: BED AT LOWEST LOCKED POSITION AND SIDE RAILS UP X 2. CALL LIGHT IS WITHIN REACH. WILL CONTINUE TO MONITOR PT THROUGHOUT SHIFT.
[2021-04-15] MEDS: BLOOD SUGAR DIAGNOSTIC 1 EACH STRIP VI SCH ×3 (07:36→17:12)
[2021-04-15] MEDS: PANTOPRAZOLE 40 MG TABLET.DR PO SCH (07:40)
[2021-04-15] MEDS: LEVOTHYROXINE SODIUM 100 MCG TABLET PO SCH (07:40)
[2021-04-15] MEDS: ASPIRIN EC 81 MG TABLET.DR PO SCH (08:26)
[2021-04-15] MEDS: CLOPIDOGREL BISULFATE 75 MG TABLET PO SCH (08:26)
[2021-04-15] MEDS: ARIPIPRAZOLE 5 MG TABLET PO SCH (08:27)
[2021-04-15] MEDS: FERROUS SULFATE (325 MG) 325 MG/TAB TABLET PO SCH ×2 (08:27→16:40)
[2021-04-15] MEDS: BUPROPION XL 150 MG TAB.ER.24 PO SCH (08:27)
[2021-04-15] MEDS: LINAGLIPTIN 5 MG TABLET PO SCH (08:27)
[2021-04-15] MEDS: NIFEdipine XL (30MG) 30 MG TAB PO SCH (08:27)
[2021-04-15] MEDS: hydrALAZINE HCL 25 MG TABLET PO SCH ×2 (08:28→16:37)
[2021-04-15] MEDS: INSULIN GLARGINE, 100 UNIT/ML CARTRIDGE SQ SCH (09:22)
[2021-04-15] MEDS: VANCOMYCIN 1 GM in IV D5W 250 ML IV SCH (10:19)
[2021-04-15] MEDS ORDERED: CEFE2FRO IV (10:37)
[2021-04-15] MEDS ORDERED: VANC1FRO2 IV (10:37)
[2021-04-15] MEDS ORDERED: VANC1VIA34 XX (10:37)
--- NOTE | 2021-04-15 10:59 | NUR ---
RN NOTES CALLED DR CARLIN, [facility] # [phone] TO GET CLEARANCE IF PT IS OK TO BE DISCHARGED, LEFT MESSAGE VIA VOICEMAIL.
[2021-04-15] MEDS: INSULIN REGULAR, HUMAN 100 UNIT/ML 3 ML VIAL SQ PRN ×2 (11:45→17:12)
--- NOTE | 2021-04-15 11:47 | NUR ---
RN NOTES PT C/O ACHING PAIN ON HIS RIGHT FOOT, 8/10 SCALE. PRN OXY 1I 10MG PO GIVEN AT 1142, WILL CONTINUE TO MONITOR AND REASSESS PT.
--- NOTE | 2021-04-15 11:48 | NUR ---
RN NOTES RECEIVED RETURNED CALL FROM DR CARLIN OFFICE, SPOKE TO DR AUSTIN AND HE STATED THAT IT'S OK FOR PT TO BE DISCHARGED TODAY. PALMER ALLEN ON UNIT AND MADE AWARE.
--- NOTE | 2021-04-15 18:21 | NUR ---
RN DISCHARGED NOTES PT DISCHARGED TO [facility] IN STABLE CONDITION. A/O X3-4. ABLE TO MAKE NEEDS KNOWN. ON ROOM AIR, TOLERATING WELL WITH NO SOB NOTED DURING THE DAY. V/S TAKEN, STABLE AND RECORDED. PHOTO OF RIGHT FOOT WOUND TAKEN AND FILED IN HIS CHART, DRESSING C/D/I. ALL BELONGINGS ACCOUNTED FOR AND PT SIGNED FORM. IV ACCESS ON LEFT WRIST G#20 REMOVED WITH NO ACTIVE BLEEDING NOTED, PRESSURE DRESSING APPLIED AT SITE. DOUBLE LUMEN PICC LINE ON KELVIN KEPT IN PLACE BECAUSE PT WILL CONTINUE TO RECEIVE IV ANTIBIOTICS FOR 6 MORE WEEKS AT THE [facility]. REPORT GIVEN EARLIER TO [facility] RNS AND VERBALIZED UNDERSTANDING. HEALTH TEACHINGS/DISCHARGE INSTRUCTIONS GIVEN TO PT AND VERBALIZED UNDERSTANDING. PT LEFT UNIT AT 1815 VIA CORRINE ACCOMPANIED BY 2 EMT'S. CHARGE NURSE AWARE OF DISCHARGE
== END 2021-04-15 18:15 | DRG 623 ==
LOC: MED 18:18 → ICU 04-12 11:39 → TELE 04-12 16:34
PROVIDERS: ADMIT Nurse Practitioner Acute Care; ATTEND Nurse Practitioner Acute Care
PROC: B41DYZZ Fluoroscopy of Aorta and Bilateral Lower Extremity Arteries using Other Contrast (ICD-10-PCS; 2021-04-12)
PROC: 0QBN0ZZ Excision of Right Metatarsal, Open Approach (ICD-10-PCS; principal; 2021-04-13)
PROC: 0JBQ0ZZ Excision of Right Foot Subcutaneous Tissue and Fascia, Open Approach (ICD-10-PCS; 2021-04-13)
PROC: 02HV33Z Insertion of Infusion Device into Superior Vena Cava, Percutaneous Approach (ICD-10-PCS; 2021-04-14)
PROC: B548ZZA Ultrasonography of Superior Vena Cava, Guidance (ICD-10-PCS; 2021-04-14)
DX: E11.69 Type 2 diabetes mellitus with other specified complication (principal); M86.171 Other acute osteomyelitis, right ankle and foot; G93.40 Encephalopathy, unspecified; R45.851 Suicidal ideations; F31.5 Bipolar disorder, current episode depressed, severe, with psychotic features; E11.65 Type 2 diabetes mellitus with hyperglycemia; E11.621 Type 2 diabetes mellitus with foot ulcer; E11.51 Type 2 diabetes mellitus with diabetic peripheral angiopathy without gangrene; E11.42 Type 2 diabetes mellitus with diabetic polyneuropathy; I12.9 Hypertensive chronic kidney disease with stage 1 through stage 4 chronic kidney disease, or unspecified chronic kidney disease; N17.0 Acute kidney failure with tubular necrosis; E11.22 Type 2 diabetes mellitus with diabetic chronic kidney disease; N18.31 Chronic kidney disease, stage 3a; Z89.431 Acquired absence of right foot; Z98.62 Peripheral vascular angioplasty status; G89.29 Other chronic pain; J44.9 Chronic obstructive pulmonary disease, unspecified; F41.9 Anxiety disorder, unspecified; Z79.4 Long term (current) use of insulin; Z79.82 Long term (current) use of aspirin; Z79.899 Other long term (current) drug therapy; F17.210 Nicotine dependence, cigarettes, uncomplicated; M48.00 Spinal stenosis, site unspecified; I25.10 Atherosclerotic heart disease of native coronary artery without angina pectoris; E78.5 Hyperlipidemia, unspecified; E03.9 Hypothyroidism, unspecified; D63.1 Anemia in chronic kidney disease; F03.90 Unspecified dementia, unspecified severity, without behavioral disturbance, psychotic disturbance, mood disturbance, and anxiety; E11.622 Type 2 diabetes mellitus with other skin ulcer; L97.519 Non-pressure chronic ulcer of other part of right foot with unspecified severity; Z79.02 Long term (current) use of antithrombotics/antiplatelets; B96.5 Pseudomonas (aeruginosa) (mallei) (pseudomallei) as the cause of diseases classified elsewhere; B95.62 Methicillin resistant Staphylococcus aureus infection as the cause of diseases classified elsewhere
CPT/HCPCS: 36415; 71045-TC; 73718-TC; 75710-TC; 80048-TC; 80061-TC; 80202-TC; 82962-TC; 83735-TC; 84100-TC; 85025-TC; 85652-TC; 85730-TC; 86140-TC; 87070-TC; 87075-TC; 87186-TC; 97116-TC; 97530-TC; A6209; A6403; C1769; C1887; C1894; G0378; G0500; J0690; J0692; J1644; J1815; J2250; J2405; J2543; J2704; J3010; J3370; J3490; J7030; J7040; J7060; Q9967

== ENCOUNTER 2021-08-23 18:03 | Emergency (ER) | payer MEDICARE, OTHER ==
[~2021-08-23] VITALS: Ht 185.4 cm; Wt 90.7 kg
[~2021-08-23 18:03] MED LIST changes: +CEFE2FRO IV; +VANC1FRO2 IV; +VANC1VIA34 XX
--- NOTE | 2021-08-23 19:04 | NUR ---
CALLED [facility] [phone] SPOKE WITH SYEDA INFORMING THEM THAT IN FUTURE THEY NEED TO CONTACT HOUSE SUP TO ARRANGE FOR THIS PROCEDURE AND THAT THE PICC LINE NURSE WILL BE HERE AT 2307
--- NOTE | 2021-08-23 21:32 | NUR ---
covid swab completed and sent to lab
--- NOTE | 2021-08-23 22:10 | NUR ---
CONSENT SIGNED BY PT FOR PICC INSETION. PICC LINE NURSE ON ENROUTE.
--- NOTE | 2021-08-23 23:09 | NUR ---
PICC LINE INSERTED BY KADI PICC NURSE ON KELVIN. OK TO BE USED.
--- NOTE | 2021-08-24 00:23 | NUR ---
[facility] ETA 60-90 MIN
--- NOTE | 2021-08-24 00:26 | NUR ---
BERNARD DELGADO RESOURCES REPRESENTATIVE AT THE [facility] NOTIFIED THAT PT IS GOING BACK TO THE FACILITY.
[2021-08-24 00:40] LABS: CALCIUM, SERUM 8.8 mg/dL (8.5-10.1); CREATININE 1.9 mg/dL (0.6-1.3); POTASSIUM 4.3 mmol/L (3.5-5.1)
[2021-08-24 00:44] LABS: BASOPHILS # (AUTO) 0.2 K/uL (0.0-0.2); BASOPHILS % (AUTO) 1.2 % (0.0-2.0); EOSINOPHILS % (AUTO) 2.8 % (0.0-6.0); HEMATOCRIT 22 % (39-51); HEMOGLOBIN 7.3 g/dL (13.5-17.5); LYMPHOCYTES # (AUTO) 2.2 K/uL (0.8-4.8); MEAN CORPUSCULAR HGB CONC 33 g/dl (31.0-36.0); MEAN CORPUSCULAR VOLUME 87 fL (80-96); MONOCYTES # (AUTO) 1.2 K/uL (0.1-1.30); MONOCYTES % (AUTO) 8.8 % (2.0-12.0); NEUTROPHILS % (AUTO) 71.2 % (43.0-81.0); PLATELET COUNT (AUTO) 541 K/uL (150-450); RED BLOOD CELL COUNT(AUTO) 2.53 MIL/uL (4.5-6.0)
[2021-08-24 01:45] VITALS: BP 146/61
== END 2021-08-24 01:42 ==
LOC: ER 18:30
DX: E11.69 Type 2 diabetes mellitus with other specified complication (principal); M86.8X7 Other osteomyelitis, ankle and foot; Z79.02 Long term (current) use of antithrombotics/antiplatelets; I10 Essential (primary) hypertension; Z79.4 Long term (current) use of insulin; Z20.822 Contact with and (suspected) exposure to COVID-19
CPT/HCPCS: 36415; 73630-TC; 80048-TC; 83605-TC; 85025-TC; 85730-TC; 87040-TC; C9803

== ENCOUNTER 2021-09-02 14:10 | Inpatient (IN) | payer MEDICARE, OTHER ==
[~2021-09-02] VITALS: Ht 185.4 cm; Wt 85.3 kg
[2021-09-02] MEDS: GABAPENTIN 300 MG CAPSULE PO SCH (13:00)
--- NOTE | 2021-09-02 15:01 | NUR ---
DR NICE AT BEDSIDE FOR EVAL
--- NOTE | 2021-09-02 15:16 | NUR ---
GEOTHERMAL PRODUCTION MANAGER AT PT'S BEDSIDE
[2021-09-02] MEDS ORDERED: PIPERACILLIN /TAZOBACTAM 3.375 G in IV D5W 50 ML IV ONE (15:30)
[2021-09-02] MEDS ORDERED: VANCOMYCIN 1 GM in IV D5W 250 ML IV ONE (15:30)
[2021-09-02] MEDS ORDERED: SITA50TA PO (15:35)
[2021-09-02] MEDS ORDERED: CHOL100062 PO (15:35)
[2021-09-02] MEDS ORDERED: EMPA25TA PO (15:35)
[2021-09-02] MEDS ORDERED: NIFE-35 PO (15:35)
[2021-09-02] MEDS ORDERED: OMEG1CAP40 PO (15:35)
[2021-09-02] MEDS ORDERED: MULT-447 PO (15:35)
[2021-09-02] MEDS ORDERED: ISOS60TA72 PO (15:35)
[2021-09-02] MEDS ORDERED: ACET-2605 PO ×2 (15:35)
[2021-09-02 15:42] LABS: BASOPHILS # (AUTO) 0.2 K/uL (0.0-0.2); BASOPHILS % (AUTO) 1.1 % (0.0-2.0); EOSINOPHILS % (AUTO) 4.8 % (0.0-6.0); HEMATOCRIT 24 % (39-51); HEMOGLOBIN 7.5 g/dL (13.5-17.5); LYMPHOCYTES # (AUTO) 2.6 K/uL (0.8-4.8); LYMPHOCYTES % (AUTO) 17.7 % (20.0-44.0); MEAN CORPUSCULAR HGB CONC 32 g/dl (31.0-36.0); MEAN CORPUSCULAR VOLUME 88 fL (80-96); MONOCYTES # (AUTO) 1.3 K/uL (0.1-1.30); MONOCYTES % (AUTO) 8.9 % (2.0-12.0); NEUTROPHILS # (AUTO) 9.9 K/uL (1.8-8.9); NEUTROPHILS % (AUTO) 67.5 % (43.0-81.0); PLATELET COUNT (AUTO) 520 K/uL (150-450); RED BLOOD CELL COUNT(AUTO) 2.68 MIL/uL (4.5-6.0); WHITE BLOOD COUNT (AUTO) 14.7 K/uL (4.3-11.0)
--- NOTE | 2021-09-02 15:44 | NUR ---
WOUND CULTURE DONE AND SENT TO LAB
[2021-09-02] MEDS ORDERED: PIPERACILLIN /TAZOBACTAM 3.375 G VIAL IV ONE (15:47)
[2021-09-02] MEDS ORDERED: VANCOMYCIN 1 GM VIAL ONE (15:47)
[2021-09-02 15:55] LABS: CALCIUM, SERUM 8.6 mg/dL (8.5-10.1); CREATININE 1.5 mg/dL (0.6-1.3)
[2021-09-02 15:59] LABS: ALBUMIN 2.3 g/dL (3.4-5.0); BILIRUBIN,DIRECT 0.1 mg/dL (0.0-0.2); BILIRUBIN,TOTAL 0.2 mg/dL (0.2-1.0); TOTAL PROTEIN, SERUM 8.3 g/dL (6.4-8.2)
--- NOTE | 2021-09-02 16:15 | NUR ---
COVID 19 PCR SWAB DONE AND SENT TO LAB
[2021-09-02] MEDS ORDERED: ASPIRIN 81 MG TAB.CHEW PO ONE (16:30)
[2021-09-02] MEDS ORDERED: ASPIRIN 81 MG TAB.CHEW ONE (16:55)
[2021-09-02] MEDS ORDERED: NITROGLYCERIN 0.4 MG/TAB BOTTLE SL PRN (17:30)
[2021-09-02] MEDS ORDERED: MAGNESIUM HYDROXIDE 30 ML UDC PO PRN ×2 (17:30)
[2021-09-02] MEDS ORDERED: ONDANSETRON HCL/PF 4 MG/2 ML VIAL IVP PRN (17:30)
[2021-09-02] MEDS ORDERED: MAG HYDROX/AL HYDROX/SIMETH 30 ML UDC PO PRN (17:30)
[2021-09-02] MEDS ORDERED: Z GUARD REMEDY 2 OZ OINT TP PRN (17:30)
[2021-09-02] MEDS ORDERED: DEXTROSE 50%-WATER 50 ML DISP.SYRIN IV PRN (17:30)
[2021-09-02] MEDS ORDERED: ZOLPIDEM TARTRATE 5 MG TABLET PO PRN (17:30)
[2021-09-02] MEDS ORDERED: BISACODYL SUPP (10 MG) 10 MG/SUPP.RECT SUPP.RECT RC PRN (17:30)
[2021-09-02] MEDS ORDERED: ACETAMINOPHEN 325 MG TABLET PO PRN (17:30)
[2021-09-02] MEDS ORDERED: NA PHOS,M-B/NA PHOS,DI-BA 1 EA ENEMA RC PRN (17:30)
[2021-09-02] MEDS ORDERED: INSULIN ASPART/LISPRO 100 UNIT/ML CARTRIDGE SQ SCH (18:00)
[2021-09-02] MEDS: BLOOD SUGAR DIAGNOSTIC 1 EACH STRIP VI SCH ×2 (18:48→22:46)
--- NOTE | 2021-09-02 18:51 | NUR ---
room 113-1
[2021-09-02 19:08] LABS: EOSINOPHILS % (MANUAL) 4 % (0-4); LYMPHOCYTES % (MANUAL) 15 % (16-48); MONOCYTES % (MANUAL) 12 % (0-11.0); NEUTROPHILS % (MANUAL) 69 (42-76)
[2021-09-02] MEDS ORDERED: GABAPENTIN 300 MG CAPSULE PO SCH (19:15)
--- NOTE | 2021-09-02 19:33 | NUR ---
RN NOTE REPORT RECEIVED BY BERNARD LUGO FOR RAYMON.
--- NOTE | 2021-09-02 19:41 | NUR ---
REPORT GIVEN TO EMMETT WAGNER OF [facility] UNIT
--- NOTE | 2021-09-02 19:43 | NUR ---
ENDORSEMENT GIVEN TO ALOK WAGNER FOR RAYMON
--- NOTE | 2021-09-02 19:50 | NUR ---
RN NOTE PT BROUGHT TO [facility] VIA GURNEY FROM ER. PT IS ON ROOM AIR SHOWING NO S/S OF RESP DISTRESS/SOB. BREATHING EVEN AND UNLABORED. PT IS ALERT AND ORIENTED X2-3. LEFT FOOT ULCER NOTED. ON CCHO DIET. IV ACCESS NOTED ON RIGHT UPPER ARM PICC LINE. LINE FLUSHED, PATENT, AND INTACT WITH NO SIGNS OF INFILTRATION. ALL SAFETY MEASURES IMPLEMENTED. CALL LIGHT WITHIN REACH. BED ALARM ON. BED LOCKED AND IN LOWEST POSITION. SIDE RAILS UP. WILL CONTINUE TO MONITOR AND ASSESS FOR ANY CHANGES DURING SHIFT.
[2021-09-02 20:00] VITALS: BP 140/54
[2021-09-02] MEDS ORDERED: CEFEPIME 1 GM in IV D5W 50 ML IV SCH (20:30)
[2021-09-02] MEDS: IV NS 0.9% 1,000 ML IV PRN (20:33)
[2021-09-02] MEDS: CEFEPIME 2 GM in IV D5W 100 ML IV SCH (20:48)
[2021-09-02] MEDS: INSULIN GLARGINE, 100 UNIT/ML CARTRIDGE SQ SCH (22:00)
[2021-09-02] MEDS: ISOSORBIDE MONONITRATE 20 MG TABLET PO SCH (22:32)
[2021-09-02] MEDS: ATORVASTATIN 10 MG TABLET PO SCH (22:32)
[2021-09-02] MEDS: oxyCODONE IR immediate release 5 MG PO PRN (22:34)
[2021-09-02] MEDS: *INSULIN REGULAR(HUMULIN R)HUM 100 UNIT/ML VIAL SQ PRN (22:47)
--- NOTE | 2021-09-02 22:47 | NUR ---
RN NOTE PT DOES NOT WANT TO TAKE INSULIN LANTUS DUE TO NOT BEING ABLE TO EAT ALL DAY. WILL CONTINUE TO MONITOR AND ASSESS FOR ANY CHANGES.
[2021-09-03] MEDS ORDERED: PIPERACILLIN /TAZOBACTAM 3.375 G in IV D5W 50 ML IV SCH
[2021-09-03] MEDS: VANCOMYCIN 1 GM in IV D5W 250 ML IV SCH ×2 (02:35→16:19)
[2021-09-03 04:00] VITALS: BP 103/61
[2021-09-03] MEDS: BLOOD SUGAR DIAGNOSTIC 1 EACH STRIP VI SCH ×4 (07:48→22:07)
[2021-09-03] MEDS: LEVOTHYROXINE SODIUM 100 MCG TABLET PO SCH (07:53)
[2021-09-03 08:05] LABS: BASOPHILS # (AUTO) 0.1 K/uL (0.0-0.2); BASOPHILS % (AUTO) 1.3 % (0.0-2.0); EOSINOPHILS % (AUTO) 9.2 % (0.0-6.0); HEMATOCRIT 22 % (39-51); HEMOGLOBIN 7.1 g/dL (13.5-17.5); LYMPHOCYTES # (AUTO) 1.7 K/uL (0.8-4.8); LYMPHOCYTES % (AUTO) 15.4 % (20.0-44.0); MEAN CORPUSCULAR HGB CONC 32 g/dl (31.0-36.0); MEAN CORPUSCULAR VOLUME 88 fL (80-96); MONOCYTES % (AUTO) 9.1 % (2.0-12.0); NEUTROPHILS # (AUTO) 7.1 K/uL (1.8-8.9); PLATELET COUNT (AUTO) 484 K/uL (150-450); RED BLOOD CELL COUNT(AUTO) 2.49 MIL/uL (4.5-6.0); WHITE BLOOD COUNT (AUTO) 10.9 K/uL (4.3-11.0)
[2021-09-03 08:51] LABS: CALCIUM, SERUM 8.3 mg/dL (8.5-10.1); CREATININE 1.5 mg/dL (0.6-1.3); MAGNESIUM 2.3 mg/dL (1.8-2.4); PHOSPHORUS 3.8 mg/dL (2.5-4.9); POTASSIUM 3.9 mmol/L (3.5-5.1)
[2021-09-03] MEDS: INSULIN ASPART/LISPRO 100 UNIT/ML CARTRIDGE SQ SCH ×3 (09:00→17:21)
[2021-09-03] MEDS: GABAPENTIN 300 MG CAPSULE PO SCH ×5 (09:00→17:06)
[2021-09-03] MEDS: CHOLECALCIFEROL 1,000 UNIT TABLET (VIT D3) PO SCH (09:35)
[2021-09-03] MEDS: ASPIRIN EC 81 MG TABLET.DR PO SCH (09:35)
[2021-09-03] MEDS: BUPROPION XL 150 MG TAB.ER.24 PO SCH (09:35)
[2021-09-03] MEDS: FERROUS SULFATE (325 MG) 325 MG/TAB TABLET PO SCH ×2 (09:36→17:06)
[2021-09-03] MEDS: NIFEdipine XL (30MG) 30 MG TAB PO SCH (09:37)
[2021-09-03] MEDS: ACETAMINOPHEN ES 500 MG TABLET PO SCH (09:37)
[2021-09-03] MEDS: hydrALAZINE HCL 25 MG TABLET PO SCH ×3 (09:38→17:06)
[2021-09-03] MEDS: ARIPIPRAZOLE 5 MG TABLET PO SCH (09:38)
[2021-09-03] MEDS: CLOPIDOGREL BISULFATE 75 MG TABLET PO SCH (09:38)
[2021-09-03] MEDS: FAMOTIDINE (20 MG) 20 MG TABLET PO SCH ×2 (09:38→17:06)
[2021-09-03] MEDS: CEFEPIME 2 GM in IV D5W 100 ML IV SCH ×2 (09:51→20:11)
[2021-09-03] MEDS: INSULIN REGULAR, HUMAN 100 UNIT/ML 3 ML VIAL SQ PRN (09:57)
--- NOTE | 2021-09-03 10:17 | NUR ---
MS RN OPENING NOTES PT. WAS RECEIVED AWAKE AND A/O X2. PT SENIOR MANUFACTURING TEST ENGINEER PRESENTS NSR. PT HAS L DIABETIC FOOT ULCER WITH A KELVIN PICC LINE THAT IS INTACT AND PATENT. ALL SAFETY MEASURES RENDERED. BED IN LOWEST LOCKED POSITION. CALL LIGHT WITHIN REACH.
--- NOTE | 2021-09-03 10:24 | NUR ---
RN NOTE GABAPENTIN ORDER IS NOT CORRECT ON EMAR, DATE SHOWS 09/02. ASKED PHARMACY TO CORRECT DATE TO 09/03. INSTRUCTED TO STILL GIVE MED AND WRITE NOTE OF TIMING DISCREPANCY.
[2021-09-03 12:00] VITALS: BP 126/56
--- NOTE | 2021-09-03 16:16 | NUR ---
ADDENDUM NEURONTIN WAS NOT SCAN YESTERDAY PER PHARMACY OK TO GIVE MEDS AND CATCH UP WITH TIME.
--- NOTE | 2021-09-03 19:28 | NUR ---
MS RN CLOSING NOTES PT. IN BED RELAXED WITH NO COMPLAINTS OF PAIN AND SIGN OF RESPIRATORY DISTRESS. ALL CONSENTS SIGNED FOR L FOOT INCISION/ WOUND VAC SURGERY. TOLERATED ALL MEDS AND TREATMENTS WELL. NO SIGNIFICANT CHANGES IN PT'S HEALTH STATUS. ENDORSE TO MEDIA THEORIST AND AUTHOR OF RN. ALLL SAFETY MEASURE IN PLACE. BED IN LOWEST LOCKED POSITION AND CALL LIGHT WITHIN REACH.
--- NOTE | 2021-09-03 19:35 | NUR ---
RN NOTE COVID RAPID TEST DONE SENT TO LAB.
--- NOTE | 2021-09-03 19:35 | NUR ---
RN NOTE RECEIVED PATIENT IN BED RESTING ALERT ORIENTED X3 VERBALLY RESPONSIVE ON ROOM AIR O2:95% IV SITE IS ON RIGHT UPPER ARM PICC LINE INTACT PATENT ON IV HYDRATION NS 75CC/HR NPO AFTER MIDNIGHT FOR LEFT FOOT INCISION CONTIENT TO AL/BLADDER SAFETY MEASURE IMPLEMENT BED IN LOW POSITION AND LOCKED CALL LIGHT WITHIN REACH CONTINUE TO MONITOR.
[2021-09-03 20:00] VITALS: BP 118/40
[2021-09-03] MEDS: IV NS 0.9% 1,000 ML IV PRN (20:05)
[2021-09-03] MEDS: ISOSORBIDE MONONITRATE 20 MG TABLET PO SCH (21:44)
[2021-09-03] MEDS: ATORVASTATIN 10 MG TABLET PO SCH (21:44)
[2021-09-03] MEDS: INSULIN GLARGINE, 100 UNIT/ML CARTRIDGE SQ SCH (22:00)
[2021-09-04] VITALS (7 sets, daily range): BP systolic 115–140; BP diastolic 46–72
[2021-09-04 02:13] LABS: BASOPHILS # (AUTO) 0.1 K/uL (0.0-0.2); BASOPHILS % (AUTO) 0.4 % (0.0-2.0); EOSINOPHILS % (AUTO) 7.3 % (0.0-6.0); HEMATOCRIT 21 % (39-51); LYMPHOCYTES # (AUTO) 2.3 K/uL (0.8-4.8); LYMPHOCYTES % (AUTO) 17.4 % (20.0-44.0); MEAN CORPUSCULAR HGB CONC 33 g/dl (31.0-36.0); MEAN CORPUSCULAR VOLUME 87 fL (80-96); MONOCYTES # (AUTO) 1.1 K/uL (0.1-1.30); MONOCYTES % (AUTO) 8.2 % (2.0-12.0); NEUTROPHILS # (AUTO) 8.8 K/uL (1.8-8.9); NEUTROPHILS % (AUTO) 66.7 % (43.0-81.0); PLATELET COUNT (AUTO) 476 K/uL (150-450); RED BLOOD CELL COUNT(AUTO) 2.38 MIL/uL (4.5-6.0); WHITE BLOOD COUNT (AUTO) 13.2 K/uL (4.3-11.0)
[2021-09-04 02:50] LABS: HEMOGLOBIN 6.8 g/dL (13.5-17.5)
[2021-09-04 02:53] LABS: CREATININE 1.9 mg/dL (0.6-1.3); MAGNESIUM 2.4 mg/dL (1.8-2.4)
--- NOTE | 2021-09-04 02:53 | NUR ---
RN NOTE RECEIVED CRITICAL LAB RESULTS HEMOGLOBIN 6.8 AND [address]CR[address] BERGMAN WITH NEW ORDER ONE PRBC NOW AND H&H 30 MINUTES AFTER ITS COMPLETED NOTED AND CARRIED OUT.
[2021-09-04] MEDS: VANCOMYCIN 1 GM in IV D5W 250 ML IV SCH (03:09)
--- NOTE | 2021-09-04 04:19 | NUR ---
RN NOTE RECEIVED A CALL FROM LAB BLOOD BE READY AT 08:30 AM,NOTIFIED DR GARIBAY AND WILL ENDORSE NEXT COMING SHIFT.
--- NOTE | 2021-09-04 06:55 | NUR ---
RN NOTE PATIENT LEFT FOR PROCEDURE TO OR
[2021-09-04] MEDS ORDERED: FENTANYL PF 100MCG/2ML AMPUL ONE (07:09)
[2021-09-04] MEDS ORDERED: BUPIVACAINE 0.5 % PF 150 MG/30 ML VIAL ONE (07:15)
[2021-09-04] MEDS ORDERED: LIDOCAINE 1% INJ 50 ML MDV IJ ONE (07:15)
[2021-09-04] MEDS ORDERED: VANCOMYCIN 1 GM VIAL ONE (07:17)
[2021-09-04] MEDS: LEVOTHYROXINE SODIUM 100 MCG TABLET PO SCH (07:30)
[2021-09-04] MEDS: BLOOD SUGAR DIAGNOSTIC 1 EACH STRIP VI SCH ×4 (07:30→21:25)
--- NOTE | 2021-09-04 07:46 | NUR ---
PER [facility] COVID NEGATIVE PCR.
[2021-09-04] MEDS: INSULIN ASPART/LISPRO 100 UNIT/ML CARTRIDGE SQ SCH ×3 (09:00→17:59)
[2021-09-04] MEDS: ARIPIPRAZOLE 5 MG TABLET PO SCH (11:19)
[2021-09-04] MEDS: FAMOTIDINE (20 MG) 20 MG TABLET PO SCH ×2 (11:19→17:51)
[2021-09-04] MEDS: hydrALAZINE HCL 25 MG TABLET PO SCH ×3 (11:20→17:51)
[2021-09-04] MEDS: CLOPIDOGREL BISULFATE 75 MG TABLET PO SCH (11:20)
[2021-09-04] MEDS: FERROUS SULFATE (325 MG) 325 MG/TAB TABLET PO SCH ×2 (11:20→17:51)
[2021-09-04] MEDS: CHOLECALCIFEROL 1,000 UNIT TABLET (VIT D3) PO SCH (11:20)
[2021-09-04] MEDS: BUPROPION XL 150 MG TAB.ER.24 PO SCH (11:20)
[2021-09-04] MEDS: NIFEdipine XL (30MG) 30 MG TAB PO SCH (11:21)
[2021-09-04] MEDS: GABAPENTIN 300 MG CAPSULE PO SCH ×3 (11:21→17:51)
[2021-09-04] MEDS: ASPIRIN EC 81 MG TABLET.DR PO SCH (11:29)
[2021-09-04] MEDS: ACETAMINOPHEN ES 500 MG TABLET PO SCH (11:30)
[2021-09-04] MEDS: CEFEPIME 2 GM in IV D5W 100 ML IV SCH ×2 (13:57→21:23)
[2021-09-04 16:04] LABS: IRON, SERUM 22 ug/dl (50-175); TOTAL IRON BINDING CAPACITY 174 ug/dl (250-450)
[2021-09-04] MEDS: VANCOMYCIN 0.75 GM in IV D5W 250 ML IV SCH (16:51)
--- NOTE | 2021-09-04 19:59 | NUR ---
RN NOTE RECEIVED PATIENT IN BE, AWAKE, ALERT, AND VERBALLY RESPONSIVE. AOX4. ABLE TO MAKE NEEDS KNOWN. BREATHING AND UNLABORED. ON ROOM AIR. TOLERATING WELL. NO SOB. NOTED WITH KELVIN PICCLINE. NO BLEEDING NOTED. NOTED TO BE ON NS AT 75 CC/HR. DENIES PAIN AT THIS TIME. NO S/S OF HYPO/HYPERGLYCEMIA. BED LOW, IN LOCKED POSITION, CALL LIGHT WITHIN REACH. WILL CONTINUE TO MONITOR.
--- NOTE | 2021-09-04 20:06 | NUR ---
RN CLOSING NOTES PT. RESTING IN BED. NO COMPLAINTS OF PAIN, NO SIGNS OF RESPIRATORY DISTRESS. POST L FOOT INCISION/ WOUND DEBRIDEMENT, DRESSING IN PLACE AND INTACT, NO S/S BLEEDING NOTED. TOLERATED ALL MEDS AND TREATMENTS WELL, NO ADVERSE REACTIONS TO IV ABT.WILL ENDORSE TO HEALTH CARE ADMINISTRATOR RN. ALLL SAFETY MEASURES FOLLOWED. BED IN LOWEST LOCKED POSITION AND CALL LIGHT WITHIN REACH.
[2021-09-04] MEDS: ATORVASTATIN 10 MG TABLET PO SCH (21:22)
[2021-09-04] MEDS: ISOSORBIDE MONONITRATE 20 MG TABLET PO SCH (21:23)
[2021-09-04] MEDS: INSULIN GLARGINE, 100 UNIT/ML CARTRIDGE SQ SCH (21:26)
[2021-09-04] MEDS: *INSULIN REGULAR(HUMULIN R)HUM 100 UNIT/ML VIAL SQ PRN (21:29)
[2021-09-05] MEDS: IV NS 0.9% 1,000 ML IV PRN (01:50)
[2021-09-05] MEDS: VANCOMYCIN 0.75 GM in IV D5W 250 ML IV SCH ×2 (03:26→15:55)
[2021-09-05 04:00] VITALS: BP 131/65
[2021-09-05 07:21] LABS: BASOPHILS # (AUTO) 0.1 K/uL (0.0-0.2); BASOPHILS % (AUTO) 1.2 % (0.0-2.0); EOSINOPHILS % (AUTO) 5.2 % (0.0-6.0); HEMATOCRIT 26 % (39-51); HEMOGLOBIN 8.5 g/dL (13.5-17.5); MEAN CORPUSCULAR HGB CONC 33 g/dl (31.0-36.0); MEAN CORPUSCULAR VOLUME 88 fL (80-96); MONOCYTES % (AUTO) 7.8 % (2.0-12.0); NEUTROPHILS # (AUTO) 8.9 K/uL (1.8-8.9); NEUTROPHILS % (AUTO) 69.8 % (43.0-81.0); PLATELET COUNT (AUTO) 467 K/uL (150-450); RED BLOOD CELL COUNT(AUTO) 2.92 MIL/uL (4.5-6.0); WHITE BLOOD COUNT (AUTO) 12.8 K/uL (4.3-11.0)
[2021-09-05 07:35] LABS: BILIRUBIN,DIRECT 0.1 mg/dL (0.0-0.2); BILIRUBIN,TOTAL 0.2 mg/dL (0.2-1.0); CALCIUM, SERUM 8.2 mg/dL (8.5-10.1); CREATININE 1.5 mg/dL (0.6-1.3); MAGNESIUM 2.2 mg/dL (1.8-2.4); POTASSIUM 4.2 mmol/L (3.5-5.1); TOTAL PROTEIN, SERUM 7.9 g/dL (6.4-8.2)
--- NOTE | 2021-09-05 08:11 | NUR ---
RN OPENING NOTE Patient in bed, asleep. A/O x 3. On room air, breathing evenly and unlabored. No SOB or s/s of distress noted. IV access on KELVIN PICC line, infusing NS at 75 ml/hr. Dressing on Left foot, clean, dry and intact. Safety precautions in place: bed in low, locked position; siderails up x 2; call light within reach. Will continue to monitor.
[2021-09-05] MEDS: LEVOTHYROXINE SODIUM 100 MCG TABLET PO SCH (08:40)
[2021-09-05] MEDS: ASPIRIN EC 81 MG TABLET.DR PO SCH (09:04)
[2021-09-05] MEDS: ARIPIPRAZOLE 5 MG TABLET PO SCH (09:04)
[2021-09-05] MEDS: CHOLECALCIFEROL 1,000 UNIT TABLET (VIT D3) PO SCH (09:04)
[2021-09-05] MEDS: GABAPENTIN 300 MG CAPSULE PO SCH ×3 (09:05→16:42)
[2021-09-05] MEDS: ACETAMINOPHEN ES 500 MG TABLET PO SCH (09:05)
[2021-09-05] MEDS: FAMOTIDINE (20 MG) 20 MG TABLET PO SCH ×2 (09:05→16:42)
[2021-09-05] MEDS: NIFEdipine XL (30MG) 30 MG TAB PO SCH (09:05)
[2021-09-05] MEDS: BUPROPION XL 150 MG TAB.ER.24 PO SCH (09:05)
[2021-09-05] MEDS: FERROUS SULFATE (325 MG) 325 MG/TAB TABLET PO SCH (09:05)
[2021-09-05] MEDS: hydrALAZINE HCL 25 MG TABLET PO SCH ×3 (09:06→16:43)
[2021-09-05] MEDS: CLOPIDOGREL BISULFATE 75 MG TABLET PO SCH (09:06)
[2021-09-05] MEDS: CEFEPIME 2 GM in IV D5W 100 ML IV SCH ×2 (09:08→20:09)
[2021-09-05] MEDS: BLOOD SUGAR DIAGNOSTIC 1 EACH STRIP VI SCH ×4 (09:08→22:01)
[2021-09-05] MEDS: INSULIN REGULAR, HUMAN 100 UNIT/ML 3 ML VIAL SQ PRN ×3 (09:30→17:24)
[2021-09-05] MEDS: INSULIN ASPART/LISPRO 100 UNIT/ML CARTRIDGE SQ SCH ×5 (10:07→17:14)
[2021-09-05 12:00] VITALS: BP 136/60
[2021-09-05] MEDS: SOD FERRIC GLUC 125 MG in IV NS 0.9% 100 ML IV SCH (15:14)
--- NOTE | 2021-09-05 18:00 | NUR ---
RN NOTE Gave report to BERNARD Sheffield.
--- NOTE | 2021-09-05 18:30 | NUR ---
TRANSFER NOTE Patient transferred to [facility] bed 310-2 in stable condition. Stable on room air, no SOB or s/s of distress noted. V/S BP 125/82, Temp 97.5, HR 68, RR 20, SPO2 96%. All belongings accounted for. Due meds given during shift. No significant changes throughout shift. Endorsed to BERNARD Sheffield of [facility] for RAYMON.
--- NOTE | 2021-09-05 19:00 | NUR ---
RN NOTE PT AWAKE IN BED RESTING. ORIENTED TO ROOM AND HOW TO USE CALL LIGHT. ON RA WITHNO SOB OR RESPIRATORY DISTRESS PRESENT. A/O X4 AND HUNGARIAN SPEAKING. PT AMBULATORY WITH WHEELCHAIR. CCHO DIET. KELIVN PICC LINE PRESENT AND WHITE PORT FLUSHES WELL. RED PORT CLOGGED. NS RUNNING AT 75 ML/HR. LABS AND ORDERS REVIEWED. SAFETY MEASURES IN PLACE. SIDE RAILS RAISED. BED LOWERED. CALL LIGHT WITHIN REACH. WILL GIVE REPORT TO NIGHT NURSE FOR RAYMON.
--- NOTE | 2021-09-05 19:28 | NUR ---
RN NOTE PT AWAKE IN BED, A/OX4, ABLE TO MAKE NEEDS KNOWN. HE DENIES ANY PAIN AT THIS TIME. RESPIRATIONS EVEN AND UNLABORED. ON ROOM AIR AND ALANNA WELL. IV SITE: KELVIN PICC LINE INTACT/PATENT, RUNNING NS @75ML/HR. PT IN NO ACUTE DISTRESS. SAFETY MEASURES IN PLACE, BED IN LOWEST LOCKED POSITION, S/R UPX2, CALL LIGHT WITHIN REACH. WILL CONT TO MONITOR.
[2021-09-05 19:55] VITALS: BP 116/64
[2021-09-05 20:00] VITALS: BP 116/64
--- NOTE | 2021-09-05 21:58 | NUR ---
RN NOTE CHECKED BP 142/71 FOR MED ISOSORBIDE MONONITRATE. MED IS NOT IN 3W [facility]. SEARCH ENGINE OPTIMIZATION ANALYST AWARE AND WILL GET IT FROM [facility].
[2021-09-05 22:00] VITALS: BP 142/71
[2021-09-05] MEDS: *INSULIN REGULAR(HUMULIN R)HUM 100 UNIT/ML VIAL SQ PRN (22:04)
[2021-09-05] MEDS: INSULIN GLARGINE, 100 UNIT/ML CARTRIDGE SQ SCH (22:05)
[2021-09-05] MEDS: ATORVASTATIN 10 MG TABLET PO SCH (22:06)
[2021-09-05] MEDS ORDERED: ISOSORBIDE MONONITRATE 20 MG TABLET PO ONE (23:05)
[2021-09-06] MEDS: ISOSORBIDE MONONITRATE 20 MG TABLET PO SCH ×2 (00:08→21:11)
--- NOTE | 2021-09-06 00:08 | NUR ---
RN NOTE RECEIVED MED ISOSORBIDE MONONITRATE 20MG 3 TABS FROM CREW TRAINER. ADMINISTERED ORDERED.
[2021-09-06] MEDS: VANCOMYCIN 0.75 GM in IV D5W 250 ML IV SCH ×2 (03:11→15:00)
[2021-09-06] MEDS: INSULIN REGULAR, HUMAN 100 UNIT/ML 3 ML VIAL SQ PRN (06:33)
[2021-09-06] MEDS: BLOOD SUGAR DIAGNOSTIC 1 EACH STRIP VI SCH ×4 (06:34→21:21)
[2021-09-06 06:44] LABS: BASOPHILS # (AUTO) 0.2 K/uL (0.0-0.2); BASOPHILS % (AUTO) 1.9 % (0.0-2.0); EOSINOPHILS % (AUTO) 7.1 % (0.0-6.0); HEMATOCRIT 24 % (39-51); HEMOGLOBIN 7.8 g/dL (13.5-17.5); LYMPHOCYTES # (AUTO) 1.9 K/uL (0.8-4.8); LYMPHOCYTES % (AUTO) 15.7 % (20.0-44.0); MEAN CORPUSCULAR HGB CONC 32 g/dl (31.0-36.0); MEAN CORPUSCULAR VOLUME 86 fL (80-96); MONOCYTES % (AUTO) 8.3 % (2.0-12.0); PLATELET COUNT (AUTO) 487 K/uL (150-450); WHITE BLOOD COUNT (AUTO) 11.9 K/uL (4.3-11.0)
--- NOTE | 2021-09-06 06:55 | NUR ---
RN NOTE PT RESTING IN BED, EASILY AROUSABLE, DENIES ANY PAIN AT THIS TIME. PT SLEPT WELL DURING THE NIGHT. DRESSING TO LLE C/D/I. IV SITE: KELVNI PICC LINE INTACT, RUNNING NS @75ML/HR. NO ACUTE EVENTS NOTED. SAFETY MEASURES IN PLACE.
[2021-09-06 06:58] LABS: CALCIUM, SERUM 8.2 mg/dL (8.5-10.1); CREATININE 1.5 mg/dL (0.6-1.3); MAGNESIUM 2.2 mg/dL (1.8-2.4); POTASSIUM 4.2 mmol/L (3.5-5.1)
--- NOTE | 2021-09-06 07:30 | NUR ---
MS RN OPENING NOTE RECEIVED PT AWAKE IN BED. A/O X4. PT IS STABLE ON RA WITH NO SOB OR S/S OF RESPIRATORY DISTRESS NOTED. PT HAS NO C/O PAIN OR DISCOMFORT AT THIS TIME. IV ACCESS IN KELVIN PICC INFUSING NS AT 75ML/HR, INTACT AND PATENT. SAFETY PRECAUTIONS MAINTAINED. BED IN LOWEST LOCKED POSITION, HOB ELEVATED, SIDE RAILS UP X2. CALL LIGHT AND TABLE WITHIN REACH. WILL CONTINUE TO MONITOR.
[2021-09-06 08:00] VITALS: BP 131/68
[2021-09-06] MEDS: LEVOTHYROXINE SODIUM 100 MCG TABLET PO SCH (08:11)
[2021-09-06] MEDS: GABAPENTIN 300 MG CAPSULE PO SCH ×3 (08:22→16:43)
[2021-09-06] MEDS: CHOLECALCIFEROL 1,000 UNIT TABLET (VIT D3) PO SCH (08:23)
[2021-09-06] MEDS: ARIPIPRAZOLE 5 MG TABLET PO SCH (08:23)
[2021-09-06] MEDS: ASPIRIN EC 81 MG TABLET.DR PO SCH (08:23)
[2021-09-06] MEDS: BUPROPION XL 150 MG TAB.ER.24 PO SCH (08:23)
[2021-09-06] MEDS: CLOPIDOGREL BISULFATE 75 MG TABLET PO SCH (08:24)
[2021-09-06] MEDS: ACETAMINOPHEN ES 500 MG TABLET PO SCH (08:24)
[2021-09-06] MEDS: FAMOTIDINE (20 MG) 20 MG TABLET PO SCH ×2 (08:24→16:43)
[2021-09-06] MEDS: hydrALAZINE HCL 25 MG TABLET PO SCH ×3 (08:25→16:44)
[2021-09-06] MEDS: NIFEdipine XL (30MG) 30 MG TAB PO SCH (08:26)
[2021-09-06] MEDS: CEFEPIME 2 GM in IV D5W 100 ML IV SCH (08:30)
[2021-09-06] MEDS: INSULIN ASPART/LISPRO 100 UNIT/ML CARTRIDGE SQ SCH ×3 (08:31→17:00)
[2021-09-06] MEDS: oxyCODONE IR immediate release 5 MG PO PRN ×2 (09:00→15:36)
--- NOTE | 2021-09-06 09:00 | NUR ---
RN NOTE - PAIN PT C/O ACHING AND BURNING PAIN IN BILATERAL LEGS RATED 8/10 ON PAIN SCALE. VSS. PER PT REQUEST, ADMINISTERED OXY IR 10MG PO Q6H PRN PER ORDER. WILL CONTINUE TO MONITOR PT.
[2021-09-06] MEDS: CEFTRIAXONE 2 G in IV D5W 100 ML IV SCH (11:35)
--- NOTE | 2021-09-06 12:52 | NUR ---
BERNARD NOTE BS NOTED AT 90. WITHHELD INSULIN ASPART/LISPRO 10 UNITS SQ AT THIS TIME. PALMER RICHARDS. WILL CONTINUE TO MONITOR PT. Addendum: 09/06/21 at 1802 by CAROLYN ALMENDAREZ RN RN NOTE BS NOTED AT 90. NO REGULAR INSULIN COVERAGE PER SLIDING SCALE. WITHHELD INSULIN ASPART/LISPRO 10 UNITS SQ AT THIS TIME. PALMER AMAYA AWARE. WILL CONTINUE TO MONITOR PT.
[2021-09-06] MEDS: SOD FERRIC GLUC 125 MG in IV NS 0.9% 100 ML IV SCH (14:54)
--- NOTE | 2021-09-06 15:26 | NUR ---
RN NOTE VANCO TROUGH NOTED AT 22. INFORMED PHARMACY. WITHHELD VANCO 0.75GM IV PER PHARMACY.
[2021-09-06 16:00] VITALS: BP 129/65
--- NOTE | 2021-09-06 17:31 | NUR ---
RN NOTE BS NOTED AT 110. NO REGULAR INSULIN COVERAGE PER SLIDING SCALE. WITHHELD INSULIN ASPART/LISPRO 10 UNITS SQ AT THIS TIME. MERCHANDISING CONSULTANT AMAYA AWARE. WILL CONTINUE TO MONITOR PT.
--- NOTE | 2021-09-06 18:24 | NUR ---
MS RN CLOSING NOTE PT AWAKE IN BED. A/O X4. PT IS STABLE ON RA WITH NO SOB OR S/S OF RESPIRATORY DISTRESS NOTED. PT HAS NO C/O PAIN OR DISCOMFORT AT THIS TIME. IV ACCESS IN KELVIN PICC INFUSING NS AT 75ML/HR, INTACT AND PATENT. ALL NEEDS MET AT THIS TIME. SAFETY PRECAUTIONS MAINTAINED AT ALL TIMES. BED IN LOWEST LOCKED POSITION, HOB ELEVATED, SIDE RAILS UP X2. CALL LIGHT AND TABLE WITHIN REACH. WILL ENDORSE TO ONCOMING NURSE FOR RAYMON.
--- NOTE | 2021-09-06 19:15 | NUR ---
RN OPENING NOTE PT SITTING UP IN BED, A/OX4, ABLE TO MAKE NEEDS KNOWN. NO C/O PAIN AT THIS TIME. RESPIRATIONS EVEN AND UNLABORED. IV SITE: KELVIN PICC LINE INTACT/PATENT, RUNNING NS @75ML/HR. NO ACUTE DISTRESS NOTED. SAFETY MEASURES IN PLACE, BED IN LOWEST LOCKED POSITION, S/R UPX2, CALL LIGHT WITHIN REACH. WILL CONT TO MONITOR.
[2021-09-06 20:00] VITALS: BP 124/68
[2021-09-06] MEDS: ATORVASTATIN 10 MG TABLET PO SCH (21:10)
[2021-09-06] MEDS: INSULIN GLARGINE, 100 UNIT/ML CARTRIDGE SQ SCH (21:17)
[2021-09-06] MEDS: *INSULIN REGULAR(HUMULIN R)HUM 100 UNIT/ML VIAL SQ PRN (21:21)
[2021-09-06] MEDS: IV NS 0.9% 1,000 ML IV PRN (22:45)
[2021-09-07] MEDS: VANCOMYCIN 500 MG in IV D5W 100 ML IV SCH ×2 (02:32→15:48)
[2021-09-07] MEDS: BLOOD SUGAR DIAGNOSTIC 1 EACH STRIP VI SCH ×4 (06:21→21:28)
[2021-09-07] MEDS: INSULIN REGULAR, HUMAN 100 UNIT/ML 3 ML VIAL SQ PRN ×3 (06:23→16:43)
--- NOTE | 2021-09-07 06:42 | NUR ---
RN CLOSING NOTE PT RESTING IN BED, EASILY AROUSABLE TO STIMULI. HE DENIES ANY PAIN AT THIS TIME. DRESSING TO LLE C/D/I. IV SITE: KELVIN PICC LINE INTACT/PATENT. PT SLEPT WELL DURING THE NIGHT. NO ACUTE EVENTS NOTED. SAFETY MEASURES MAINTAINED.
[2021-09-07 07:06] LABS: BASOPHILS # (AUTO) 0.2 K/uL (0.0-0.2); BASOPHILS % (AUTO) 1.6 % (0.0-2.0); EOSINOPHILS % (AUTO) 7.2 % (0.0-6.0); HEMATOCRIT 24 % (39-51); HEMOGLOBIN 7.9 g/dL (13.5-17.5); LYMPHOCYTES # (AUTO) 1.9 K/uL (0.8-4.8); LYMPHOCYTES % (AUTO) 18.1 % (20.0-44.0); MEAN CORPUSCULAR HGB CONC 33 g/dl (31.0-36.0); MEAN CORPUSCULAR VOLUME 87 fL (80-96); MONOCYTES # (AUTO) 0.9 K/uL (0.1-1.30); MONOCYTES % (AUTO) 8.3 % (2.0-12.0); NEUTROPHILS # (AUTO) 6.9 K/uL (1.8-8.9); NEUTROPHILS % (AUTO) 64.8 % (43.0-81.0); PLATELET COUNT (AUTO) 496 K/uL (150-450); WHITE BLOOD COUNT (AUTO) 10.6 K/uL (4.3-11.0)
[2021-09-07 07:28] LABS: CALCIUM, SERUM 8.5 mg/dL (8.5-10.1); CREATININE 1.5 mg/dL (0.6-1.3); MAGNESIUM 2.3 mg/dL (1.8-2.4); PHOSPHORUS 3.8 mg/dL (2.5-4.9)
[2021-09-07] MEDS: LEVOTHYROXINE SODIUM 100 MCG TABLET PO SCH (07:42)
[2021-09-07 08:00] VITALS: BP 152/64
[2021-09-07] MEDS: ASPIRIN EC 81 MG TABLET.DR PO SCH (08:25)
[2021-09-07] MEDS: BUPROPION XL 150 MG TAB.ER.24 PO SCH (08:25)
[2021-09-07] MEDS: ARIPIPRAZOLE 5 MG TABLET PO SCH (08:25)
[2021-09-07] MEDS: CHOLECALCIFEROL 1,000 UNIT TABLET (VIT D3) PO SCH (08:25)
[2021-09-07] MEDS: FAMOTIDINE (20 MG) 20 MG TABLET PO SCH ×2 (08:26→16:51)
[2021-09-07] MEDS: ACETAMINOPHEN ES 500 MG TABLET PO SCH (08:26)
[2021-09-07] MEDS: GABAPENTIN 300 MG CAPSULE PO SCH ×3 (08:26→16:52)
[2021-09-07] MEDS: CLOPIDOGREL BISULFATE 75 MG TABLET PO SCH (08:26)
[2021-09-07] MEDS: hydrALAZINE HCL 25 MG TABLET PO SCH ×3 (08:33→16:51)
[2021-09-07] MEDS: NIFEdipine XL (30MG) 30 MG TAB PO SCH (08:33)
[2021-09-07] MEDS: INSULIN ASPART/LISPRO 100 UNIT/ML CARTRIDGE SQ SCH ×3 (08:44→17:00)
[2021-09-07] MEDS: CEFTRIAXONE 2 G in IV D5W 100 ML IV SCH (10:59)
[2021-09-07] MEDS: oxyCODONE IR immediate release 5 MG PO PRN ×2 (11:32→18:17)
--- NOTE | 2021-09-07 11:32 | NUR ---
RN NOTE - PAIN PT C/O ACHING AND BURNING PAIN IN BILATERAL LEGS, RATED 8/10 ON 0-10 PAIN SCALE. VSS. PER PT REQUEST, ADMINISTERED OXY IR 10MG PO Q6H PRN PER ORDER. WILL CONTINUE TO MONITOR PT.
--- NOTE | 2021-09-07 13:09 | NUR ---
RN NOTE BS NOTED AT 166. 3 UNITS REGULAR INSULIN SQ GIVEN PER SLIDING SCALE. WITHHELD INSULIN ASPART/LISPRO 10UNITS SQ AT THIS TIME. PALMER AMAYA MADE AWARE.
[2021-09-07] MEDS: SOD FERRIC GLUC 125 MG in IV NS 0.9% 100 ML IV SCH (14:36)
[2021-09-07 16:00] VITALS: BP 128/64
--- NOTE | 2021-09-07 17:07 | NUR ---
RN NOTE BS NOTED AT 146. 2 UNITS REGULAR INSULIN SQ GIVEN PER SLIDING SCALE. WITHHELD INSULIN ASPART/LISPRO 10UNITS SQ AT THIS TIME. PALMER AMAYA MADE AWARE.
--- NOTE | 2021-09-07 18:30 | NUR ---
MS RN CLOSING NOTE PT AWAKE IN BED. A/O X4. PT IS STABLE ON RA WITH NO SOB OR S/S OF RESPIRATORY DISTRESS NOTED. PT HAS NO C/O PAIN OR DISCOMFORT AT THIS TIME. IV ACCESS IN KELVIN PICC SALINE LOCKED, INTACT AND PATENT. ALL NEEDS MET AT THIS TIME. SAFETY PRECAUTIONS MAINTAINED AT ALL TIMES. BED IN LOWEST LOCKED POSITION, HOB ELEVATED, SIDE RAILS UP X2. CALL LIGHT AND TABLE WITHIN REACH. WILL ENDORSE TO ONCOMING NURSE FOR RAYMON.
[2021-09-07 20:00] VITALS: BP 147/71
[2021-09-07] MEDS: INSULIN GLARGINE, 100 UNIT/ML CARTRIDGE SQ SCH (21:27)
[2021-09-07] MEDS: *INSULIN REGULAR(HUMULIN R)HUM 100 UNIT/ML VIAL SQ PRN (21:28)
[2021-09-07] MEDS: ISOSORBIDE MONONITRATE 20 MG TABLET PO SCH (21:36)
[2021-09-07] MEDS: ATORVASTATIN 10 MG TABLET PO SCH (21:36)
[2021-09-08] MEDS: VANCOMYCIN 500 MG in IV D5W 100 ML IV SCH ×2 (03:06→15:36)
--- NOTE | 2021-09-08 06:30 | NUR ---
MS RN CLOSING NOTE PT REMAINED STABLE THROUGHOUT SHIFT. WILL ENDORSE TO ONCOMING RN FOR RAYMON.
[2021-09-08] MEDS: BLOOD SUGAR DIAGNOSTIC 1 EACH STRIP VI SCH ×4 (06:44→22:03)
[2021-09-08] MEDS: INSULIN REGULAR, HUMAN 100 UNIT/ML 3 ML VIAL SQ PRN ×2 (06:45→12:58)
--- NOTE | 2021-09-08 06:46 | NUR ---
bs 128. no insulin given per sliding scale
[2021-09-08 07:13] LABS: CALCIUM, SERUM 8.8 mg/dL (8.5-10.1); CREATININE 1.4 mg/dL (0.6-1.3); POTASSIUM 3.8 mmol/L (3.5-5.1)
[2021-09-08 08:00] VITALS: BP 137/71
[2021-09-08 08:12] VITALS: BP 137/71
[2021-09-08] MEDS: ACETAMINOPHEN ES 500 MG TABLET PO SCH (09:17)
[2021-09-08] MEDS: LEVOTHYROXINE SODIUM 100 MCG TABLET PO SCH (09:17)
[2021-09-08] MEDS: ARIPIPRAZOLE 5 MG TABLET PO SCH (09:17)
[2021-09-08] MEDS: CHOLECALCIFEROL 1,000 UNIT TABLET (VIT D3) PO SCH (09:17)
[2021-09-08] MEDS: BUPROPION XL 150 MG TAB.ER.24 PO SCH (09:17)
[2021-09-08] MEDS: CLOPIDOGREL BISULFATE 75 MG TABLET PO SCH (09:17)
[2021-09-08] MEDS: GABAPENTIN 300 MG CAPSULE PO SCH ×3 (09:17→18:10)
[2021-09-08] MEDS: ASPIRIN EC 81 MG TABLET.DR PO SCH (09:17)
[2021-09-08] MEDS: FAMOTIDINE (20 MG) 20 MG TABLET PO SCH ×2 (09:17→18:11)
[2021-09-08] MEDS: NIFEdipine XL (30MG) 30 MG TAB PO SCH (09:18)
[2021-09-08] MEDS: hydrALAZINE HCL 25 MG TABLET PO SCH ×3 (09:18→18:11)
[2021-09-08] MEDS: oxyCODONE IR immediate release 5 MG PO PRN ×2 (09:26→15:37)
[2021-09-08] MEDS: INSULIN ASPART/LISPRO 100 UNIT/ML CARTRIDGE SQ SCH ×3 (10:48→18:14)
[2021-09-08] MEDS: CEFEPIME 2 GM in IV D5W 100 ML IV SCH ×2 (14:18→21:16)
[2021-09-08 16:00] VITALS: BP 129/57
[2021-09-08 16:20] VITALS: BP 129/57
[2021-09-08] MEDS: SOD FERRIC GLUC 125 MG in IV NS 0.9% 100 ML IV SCH (18:11)
[2021-09-08] MEDS: *INSULIN REGULAR(HUMULIN R)HUM 100 UNIT/ML VIAL SQ PRN ×2 (18:19→22:02)
--- NOTE | 2021-09-08 19:00 | NUR ---
MS RN OPENING NOTE RECEIVED PT AWAKE IN BED. A/OX4. NO SOB NOTED. NO S/S RESPIRATORY DISTRESS. PT IS AMBULATORY. PT HAS NO C/O PAIN AT THIS TIME. IV ACCESS IN RIGHT UPPER ARM PICCLINE SL. IV IS INTACT, PATENT, AND FLUSHING WELL. SAFETY MEASURES MAINTAINED . BED IN LOWEST LOCKED POSITION, HOB ELEVATED, SIDE RAILS UP X2. CALL LIGHT AND TABLE WITHIN REACH. WILL CONTINUE WITH PLAN OF CARE.
[2021-09-08 20:00] VITALS: BP 139/71
[2021-09-08] MEDS: ISOSORBIDE MONONITRATE 20 MG TABLET PO SCH (21:16)
[2021-09-08] MEDS: ATORVASTATIN 10 MG TABLET PO SCH (21:17)
[2021-09-08] MEDS: INSULIN GLARGINE, 100 UNIT/ML CARTRIDGE SQ SCH (22:01)
[2021-09-09] MEDS: VANCOMYCIN 500 MG in IV D5W 100 ML IV SCH (03:00)
[2021-09-09] MEDS ORDERED: VANCOMYCIN 500 MG VIAL ONE (03:49)
[2021-09-09] MEDS: ACETAMINOPHEN ES 500 MG TABLET PO PRN ×2 (04:46→04:55)
[2021-09-09] MEDS: oxyCODONE IR immediate release 5 MG PO PRN (04:58)
--- NOTE | 2021-09-09 04:58 | NUR ---
PT C/O ACHING 8/10 PAIN ON HIS LEFT FOOT, PT REFUSED TYLENOL AND REQUESTED FOR OXYCODONE PER PT REQUEST OXYCODONE 10MG PO Q6HR PRN ADMINISTERED AT THIS TIME PER PT REQUEST. WILL CONTINUE TO MONITOR
[2021-09-09] MEDS: BLOOD SUGAR DIAGNOSTIC 1 EACH STRIP VI SCH ×2 (05:17→11:31)
[2021-09-09] MEDS: INSULIN REGULAR, HUMAN 100 UNIT/ML 3 ML VIAL SQ PRN (05:18)
[2021-09-09] MEDS: CEFEPIME 2 GM in IV D5W 100 ML IV SCH ×2 (05:31→12:01)
--- NOTE | 2021-09-09 06:32 | NUR ---
MS RN CLOSING NOTE PT REMAINED STABLE THROUGHOUT SHIFT. WILL ENDORSE TO ONCOMING RN FOR RAYMON.
[2021-09-09 06:42] LABS: CALCIUM, SERUM 8.7 mg/dL (8.5-10.1); CREATININE 1.4 mg/dL (0.6-1.3); MAGNESIUM 1.8 mg/dL (1.8-2.4); POTASSIUM 4.2 mmol/L (3.5-5.1)
[2021-09-09 06:49] LABS: BASOPHILS # (AUTO) 0.2 K/uL (0.0-0.2); EOSINOPHILS % (AUTO) 6.2 % (0.0-6.0); HEMATOCRIT 23 % (39-51); HEMOGLOBIN 7.9 g/dL (13.5-17.5); LYMPHOCYTES # (AUTO) 2.1 K/uL (0.8-4.8); LYMPHOCYTES % (AUTO) 19.6 % (20.0-44.0); MEAN CORPUSCULAR HGB CONC 34 g/dl (31.0-36.0); MEAN CORPUSCULAR VOLUME 87 fL (80-96); MONOCYTES # (AUTO) 0.9 K/uL (0.1-1.30); NEUTROPHILS % (AUTO) 64.2 % (43.0-81.0); PLATELET COUNT (AUTO) 498 K/uL (150-450); RED BLOOD CELL COUNT(AUTO) 2.68 MIL/uL (4.5-6.0); WHITE BLOOD COUNT (AUTO) 10.9 K/uL (4.3-11.0)
--- NOTE | 2021-09-09 07:33 | NUR ---
RN OPENING NOTES Patient seen comfortably lying in bed, no SOB, no apparent distress noted, breathing even and unlabored, denies any pain or discomfort at this time, no grimacing. Call light left within reach, safety precautions in place, brakes locked, side rails up X 2, will monitor closely for any changes.
[2021-09-09 08:00] VITALS: BP 120/59
[2021-09-09] MEDS: FAMOTIDINE (20 MG) 20 MG TABLET PO SCH (08:13)
[2021-09-09] MEDS: GABAPENTIN 300 MG CAPSULE PO SCH ×2 (08:13→12:13)
[2021-09-09] MEDS: CHOLECALCIFEROL 1,000 UNIT TABLET (VIT D3) PO SCH (08:13)
[2021-09-09] MEDS: BUPROPION XL 150 MG TAB.ER.24 PO SCH (08:13)
[2021-09-09] MEDS: LEVOTHYROXINE SODIUM 100 MCG TABLET PO SCH (08:13)
[2021-09-09] MEDS: ASPIRIN EC 81 MG TABLET.DR PO SCH (08:13)
[2021-09-09] MEDS: CLOPIDOGREL BISULFATE 75 MG TABLET PO SCH (08:13)
[2021-09-09] MEDS: ACETAMINOPHEN ES 500 MG TABLET PO SCH (08:14)
[2021-09-09] MEDS: NIFEdipine XL (30MG) 30 MG TAB PO SCH (08:14)
[2021-09-09] MEDS: hydrALAZINE HCL 25 MG TABLET PO SCH ×2 (08:14→12:13)
[2021-09-09] MEDS: ARIPIPRAZOLE 5 MG TABLET PO SCH (08:14)
[2021-09-09] MEDS: INSULIN ASPART/LISPRO 100 UNIT/ML CARTRIDGE SQ SCH ×2 (08:17→12:14)
[2021-09-09 12:13] VITALS: BP 153/72
--- NOTE | 2021-09-09 15:24 | NUR ---
Patient to be discharged to [facility], spoke to Ameena BRYAN to give report. No apparent distress noted, no shortness of breath, respirations even and unlabored. Patient made aware of the situation, he signed all discharge paper works, all belongings taken, inventory list signed by patient. Health teaching provided, verbalized understanding and gratitude. Skin assessment done prior to discharge, skin intact, warm to touch, no pallor or cyanosis noted. Patient has left foot wound, preferred not to have pictures taken, explained risks and benefits and hospital protocol thrice, still refused, per patient someone already took pictures of it and does not want to do it again, respected patients wishes. Peripheral IV line on right hand and PICC line on right upper extremity left in place, patent and flushing well, Ameena BRYAN made aware, verbalized understanding. Name wristband removed prior to discharge, surgical mask provided for patient to use. [facility] transportation picked up patient, left unit at 1525pm stable condition, exit care documents handed to [facility] transporation flagger.
== END 2021-09-09 13:15 | DRG 628 ==
LOC: ER 14:14 → MEDSG1 18:54 → MED 09-05 18:44
PROVIDERS: ADMIT Internal Medicine; ATTEND Nurse Practitioner Family
PROC: 0QBM0ZZ Excision of Left Tarsal, Open Approach (ICD-10-PCS; principal; 2021-09-04)
PROC: 30233N1 Transfusion of Nonautologous Red Blood Cells into Peripheral Vein, Percutaneous Approach (ICD-10-PCS; 2021-09-04)
DX: E11.69 Type 2 diabetes mellitus with other specified complication (principal); I21.A1 Myocardial infarction type 2; M86.8X7 Other osteomyelitis, ankle and foot; N17.0 Acute kidney failure with tubular necrosis; N18.9 Chronic kidney disease, unspecified; E11.22 Type 2 diabetes mellitus with diabetic chronic kidney disease; E03.9 Hypothyroidism, unspecified; E11.42 Type 2 diabetes mellitus with diabetic polyneuropathy; E11.51 Type 2 diabetes mellitus with diabetic peripheral angiopathy without gangrene; E11.621 Type 2 diabetes mellitus with foot ulcer; F03.90 Unspecified dementia, unspecified severity, without behavioral disturbance, psychotic disturbance, mood disturbance, and anxiety; J44.9 Chronic obstructive pulmonary disease, unspecified; Z20.822 Contact with and (suspected) exposure to COVID-19; S92.302A Fracture of unspecified metatarsal bone(s), left foot, initial encounter for closed fracture; W19.XXXA Unspecified fall, initial encounter; Y92.129 Unspecified place in nursing home as the place of occurrence of the external cause
CPT/HCPCS: 36415; 71045-TC; 73630-TC; 73718-TC; 80048-TC; 80076-TC; 80202-TC; 82962-TC; 83540-TC; 83605-TC; 83735-TC; 84100-TC; 84484-TC; 85025-TC; 85652-TC; 85730-TC; 86850-TC; 87040-TC; 87070-TC; 87081-TC; 87186-TC; 88304-TC; 93926-TC; A6209; A6403; G0378; J0692; J0696; J1815; J2543; J2704; J2916; J3010; J3370; J3490; J7030; J7050; J7060; P9016; U0003

== ENCOUNTER 2021-10-24 15:55 | Inpatient (IN) | payer MEDICARE, OTHER ==
[~2021-10-24] VITALS: Ht 185.4 cm; Wt 82.6 kg
[2021-10-24] MEDS: CEFEPIME 2 GM in IV D5W 100 ML IV SCH (02:00)
[~2021-10-24 15:55] MED LIST changes: +ACET-2605 PO; -ACET-868 PO; -CEFE2FRO IV; +CHOL100062 PO; +EMPA25TA PO; -ESCI5TAB PO; +ISOS60TA72 PO; -LIDO30AD10 TP; -LINA5TAB PO; -METH-406 PO; +MULT-447 PO; -MULT-754 PO; +OMEG1CAP40 PO; +SITA50TA PO; -VANC1FRO2 IV; -VANC1VIA34 XX
--- NOTE | 2021-10-24 15:55 | NUR ---
PT BIB[facility] SN[facility] FOR LOW HGB AND HCT 5.1/ . PT IS AAOX3, NOT IN RESPIRATORY DISTRESS, HOOKED TO GRADUATE ASSISTANT, KEPT RESTED AND COMFORTABLE. WILL CONTINUE TO MONITOR.
--- NOTE | 2021-10-24 16:01 | NUR ---
SEEN AND EXAMINED BY .
--- NOTE | 2021-10-24 16:15 | NUR ---
IV LINE ESTABLISHED BLOOD DRAWN AND SENT TO LAB.
[2021-10-24 16:36] LABS: BASOPHILS # (AUTO) 0.1 K/uL (0.0-0.2); BASOPHILS % (AUTO) 0.9 % (0.0-2.0); EOSINOPHILS % (AUTO) 2.7 % (0.0-6.0); LYMPHOCYTES % (AUTO) 12.2 % (20.0-44.0); MEAN CORPUSCULAR HGB CONC 32 g/dl (31.0-36.0); MEAN CORPUSCULAR VOLUME 92 fL (80-96); MONOCYTES # (AUTO) 1.6 K/uL (0.1-1.30); MONOCYTES % (AUTO) 9.7 % (2.0-12.0); NEUTROPHILS # (AUTO) 12.4 K/uL (1.8-8.9); NEUTROPHILS % (AUTO) 74.5 % (43.0-81.0); PLATELET COUNT (AUTO) 529 K/uL (150-450); WHITE BLOOD COUNT (AUTO) 16.7 K/uL (4.3-11.0)
--- NOTE | 2021-10-24 16:43 | NUR ---
MOVE SHEET SUBMITTED AND CALLED FOR TELE BED.
[2021-10-24 17:11] LABS: ALBUMIN 2.4 g/dL (3.4-5.0); BILIRUBIN,DIRECT 0.1 mg/dL (0.0-0.2); BILIRUBIN,TOTAL 0.6 mg/dL (0.2-1.0); CALCIUM, SERUM 8.5 mg/dL (8.5-10.1); CREATININE 4.7 mg/dL (0.6-1.3); POTASSIUM 4.5 mmol/L (3.5-5.1); TOTAL PROTEIN, SERUM 7.7 g/dL (6.4-8.2)
[2021-10-24 17:17] LABS: RED BLOOD CELL COUNT(AUTO) 1.82 MIL/uL (4.5-6.0)
[2021-10-24 17:18] LABS: HEMATOCRIT 17 % (39-51); HEMOGLOBIN 5.4 g/dL (13.5-17.5)
[2021-10-24] MEDS ORDERED: EMPA25TA PO (17:24)
[2021-10-24] MEDS ORDERED: ASCO500C17 PO (17:24)
[2021-10-24] MEDS ORDERED: SENN-18 PO (17:24)
[2021-10-24] MEDS ORDERED: AMIN887L PO (17:24)
[2021-10-24 18:00] LABS: EOSINOPHILS % (MANUAL) 1 % (0-4); LYMPHOCYTES % (MANUAL) 12 % (16-48); MONOCYTES % (MANUAL) 8 % (0-11.0); NEUTROPHILS % (MANUAL) 79 (42-76)
[2021-10-24] MEDS ORDERED: MAGNESIUM HYDROXIDE 30 ML UDC PO PRN ×2 (18:30)
[2021-10-24] MEDS ORDERED: BISACODYL SUPP (10 MG) 10 MG/SUPP.RECT SUPP.RECT RC PRN (18:30)
[2021-10-24] MEDS ORDERED: MAG HYDROX/AL HYDROX/SIMETH 30 ML UDC PO PRN (18:30)
[2021-10-24] MEDS ORDERED: DEXTROSE 50%-WATER 50 ML DISP.SYRIN IV PRN (18:30)
[2021-10-24] MEDS ORDERED: ONDANSETRON HCL/PF 4 MG/2 ML VIAL IVP PRN (18:30)
[2021-10-24] MEDS ORDERED: CEFEPIME 1 GM in IV D5W 50 ML IV SCH (18:30)
[2021-10-24] MEDS ORDERED: Z GUARD REMEDY 4 OZ OINT TP PRN (18:30)
[2021-10-24] MEDS ORDERED: ZOLPIDEM TARTRATE 5 MG TABLET PO PRN (18:30)
--- NOTE | 2021-10-24 19:15 | NUR ---
BLOOD TRANSFUSION STARTED.
[2021-10-24] MEDS: PANTOPRAZOLE 40 MG VIAL IV SCH (21:00)
[2021-10-24] MEDS: buPROPion SR 150 MG TABLET.ER PO SCH (21:00)
[2021-10-24] MEDS: BLOOD SUGAR DIAGNOSTIC 1 EACH STRIP VI SCH (22:00)
[2021-10-24] MEDS: ATORVASTATIN 10 MG TABLET PO SCH (22:00)
[2021-10-24] MEDS: INSULIN GLARGINE, 100 UNIT/ML CARTRIDGE SQ SCH (22:00)
--- NOTE | 2021-10-24 22:15 | NUR ---
TRANSFUSION DONE. NO REACTIONS NOTED.
--- NOTE | 2021-10-24 22:35 | NUR ---
ASSIGNED TO 107
[2021-10-25] VITALS (13 sets, daily range): BP systolic 133–160; BP diastolic 60–76
[2021-10-25] MEDS ORDERED: VANCOMYCIN 1 GM in IV D5W 250 ML IV SCH
[2021-10-25] MEDS ORDERED: VANCOMYCIN 1 GM VIAL ONE (02:05)
[2021-10-25] MEDS ORDERED: CEFEPIME 1 GM VIAL ONE (02:05)
--- NOTE | 2021-10-25 02:21 | NUR ---
REPORT GIVEN TO JORGE WAGNER
--- NOTE | 2021-10-25 03:02 | NUR ---
PATIENT TRANSFERRED, VSS, NO ACUTE DISTRESS NOTED.
--- NOTE | 2021-10-25 03:05 | NUR ---
MS rn notes A 51y/o male a/o x2-3 responsive ,came from [facility] ,admitted with dx of severe anemia ,no bleeding noted . v/s stable afebrile . s/p 1 unit prbc given in er , admission routine care rendered .admission assessment done noted with left foot wound , kept area clean and dry .Pts is dnr , nkda,On ivf of NS at 75cc/hr infusing well,Right forearm g#18 intact and patent , all needs attended too , call light within reach , bed in low position and locked ,all safety measures implemented .will continue to monitor pts.
--- NOTE | 2021-10-25 03:07 | NUR ---
TRANSFERRED PATIENT TO [facility]
[2021-10-25] MEDS: IV NS 0.9% 1,000 ML IV PRN ×2 (05:07→23:41)
--- NOTE | 2021-10-25 06:55 | NUR ---
ms rn notes Pts remains in bed awake , On Room air sating 99%.no sob no distress noted .will endorse to rn day shift for continuity of care.
[2021-10-25 07:25] LABS: CALCIUM, SERUM 8.2 mg/dL (8.5-10.1); PHOSPHORUS 4.3 mg/dL (2.5-4.9); POTASSIUM 4.4 mmol/L (3.5-5.1)
--- NOTE | 2021-10-25 07:30 | NUR ---
RN OPENING NOTES RECEIVED PATIENT IN BED, AWAKE, A/O X 2-3. VERBALLY RESPONSIVE, NO SIGNS OF ACUTE DISTRESS NOTED. ON ROOM AIR, SATURATION AT 97 %, NO SOB NOTED. IV ACCESS ON RFA #20G INTACT AND PATENT, NS @ 75 ML/HR RUNNING. DENIES ANY PAIN AT THIS TIME. ISOLATION PRECAUTION OBSERVED. SAFETY MEASURES IN PLACE. BED LOCKED AND IN LOWEST POSITION, SR UP, CALL LIGHT PLACED WITHIN EASY REACH. WILL CONTINUE TO MONITOR.
[2021-10-25] MEDS: BLOOD SUGAR DIAGNOSTIC 1 EACH STRIP VI SCH ×4 (07:51→22:25)
[2021-10-25] MEDS: LEVOTHYROXINE SODIUM 100 MCG TABLET PO SCH (07:51)
[2021-10-25] MEDS: INSULIN REGULAR, HUMAN 100 UNIT/ML 3 ML VIAL SQ PRN ×3 (07:53→16:55)
[2021-10-25 08:22] LABS: BASOPHILS # (AUTO) 0.1 K/uL (0.0-0.2); BASOPHILS % (AUTO) 0.8 % (0.0-2.0); EOSINOPHILS % (AUTO) 2.5 % (0.0-6.0); LYMPHOCYTES # (AUTO) 1.5 K/uL (0.8-4.8); LYMPHOCYTES % (AUTO) 9.6 % (20.0-44.0); MEAN CORPUSCULAR HGB CONC 33 g/dl (31.0-36.0); MEAN CORPUSCULAR VOLUME 90 fL (80-96); MONOCYTES % (AUTO) 6.4 % (2.0-12.0); NEUTROPHILS % (AUTO) 80.7 % (43.0-81.0); PLATELET COUNT (AUTO) 522 K/uL (150-450); RED BLOOD CELL COUNT(AUTO) 2.18 MIL/uL (4.5-6.0); WHITE BLOOD COUNT (AUTO) 16.1 K/uL (4.3-11.0)
[2021-10-25 08:40] LABS: HEMATOCRIT 20 % (39-51); HEMOGLOBIN 6.5 g/dL (13.5-17.5)
[2021-10-25] MEDS ORDERED: EMPAGLIFLOZIN PO SCH (09:00)
[2021-10-25] MEDS ORDERED: Medication Not On Formulary EA (Empagliflozin (Jardiance) 25 MG) PO SCH (09:00)
[2021-10-25] MEDS ORDERED: Medication Not On Formulary EA (Omega-3 Fatty Acids/Fish Oil (Omega 3 1,000 Mg Softgel) PO SCH (09:00)
[2021-10-25] MEDS: PANTOPRAZOLE 40 MG VIAL IV SCH ×2 (09:16→21:59)
[2021-10-25] MEDS: ISOSORBIDE MONONITRATE (30MG) 30 MG TAB.SR.24H PO SCH (09:16)
[2021-10-25] MEDS: MULTIVIT W/MINERALS 1 TAB TABLET PO SCH (09:16)
[2021-10-25] MEDS: ASCORBIC ACID 500 MG TABLET PO SCH (09:17)
[2021-10-25] MEDS: ARIPIPRAZOLE 5 MG TABLET PO SCH (09:17)
[2021-10-25] MEDS: CHOLECALCIFEROL 1,000 UNIT TABLET (VIT D3) PO SCH (09:17)
[2021-10-25] MEDS: FAMOTIDINE (20 MG) 20 MG TABLET PO SCH ×2 (09:17→16:25)
--- NOTE | 2021-10-25 09:17 | NUR ---
WOUND CARE CONSULT: REVIEWED CHART, NURSING DOCUMENTATION AND PHOTO WHICH INDICATES LEFT FOOT WOUND, PRESENT ON ADMISSION. DR CANO CALLED FOR DPM CONSULT. RECOMMENDATIONS MADE FOR SKIN PROTECTION. DISCUSSED WITH NURSING STAFF. MD IN AGREEMENT WITH PLAN OF CARE.
[2021-10-25] MEDS: GABAPENTIN 300 MG CAPSULE PO SCH ×3 (09:18→16:25)
[2021-10-25] MEDS: LINAGLIPTIN 5 MG TABLET PO SCH (09:18)
[2021-10-25] MEDS: CLOPIDOGREL BISULFATE 75 MG TABLET PO SCH (09:18)
[2021-10-25] MEDS: hydrALAZINE HCL 25 MG TABLET PO SCH ×3 (09:18→16:25)
[2021-10-25] MEDS: SENNOSIDES 8.6 MG TABLET PO SCH ×2 (09:18→16:25)
[2021-10-25] MEDS: ASPIRIN EC 81 MG TABLET.DR PO SCH (09:18)
[2021-10-25] MEDS: FERROUS SULFATE (325 MG) 325 MG/TAB TABLET PO SCH ×2 (09:18→16:25)
[2021-10-25] MEDS: buPROPion SR 150 MG TABLET.ER PO SCH ×2 (09:21→21:58)
[2021-10-25] MEDS: PROSTAT (PYXIS) 30 ML UDC PO SCH ×2 (09:22→16:29)
--- NOTE | 2021-10-25 10:30 | NUR ---
RN NOTES MD MADE AWRE REGARDING HGB OF 6.5 WITH ORDER TO TRANSFUSE 2 UNITS OF PRBC, ORDER CARRIED OUT.
[2021-10-25 13:08] LABS: EOSINOPHILS % (MANUAL) 2 % (0-4); LYMPHOCYTES % (MANUAL) 7 % (16-48); MONOCYTES % (MANUAL) 3 % (0-11.0); NEUTROPHILS % (MANUAL) 88 (42-76)
--- NOTE | 2021-10-25 14:31 | NUR ---
RN NOTES BLOOD TRANSFUSION OF 1UNIT PRBC STARTED. WILL MONITOR FOR A/R.
--- NOTE | 2021-10-25 14:45 | NUR ---
RNNOTES BLOOD TRANSFUSION ONGOING, NO REACTIONS NOTED. WILL CONTINUE TO MONITOR.
[2021-10-25] MEDS: GENTAMICIN 0.1% OINT 15 GM TUBE TP SCH (16:25)
--- NOTE | 2021-10-25 17:19 | NUR ---
RN NOTES BLOOD TRANSFUSION FINISHED @1715, NO ADVERSE REACTION NOTED. MD ORDERED ANOTHER UNIT OF PRBC. NOTED.
--- NOTE | 2021-10-25 19:00 | NUR ---
RN CLOSING NOTES PATIENT RESTING IN BED, A/O X 2-3. VERBALLY RESPONSIVE, NO SIGNS OF ACUTE DISTRESS NOTED. ON ROOM AIR, SATURATION AT 97%, NO SOB NOTED. IV ACCESS ON RFA #20G INTACT AND PATENT, NS @ 75 ML/HR RUNNING.NO C/O PAIN AT THIS TIME. IUNIT OF PRBC TRANSFUSED, NO A/R NOTED. ISOLATION PRECAUTION OBSERVED. SAFETY MEASURES IN PLACE. BED LOCKED AND IN LOWEST POSITION, SR UP, CALL LIGHT PLACED WITHIN EASY REACH. WILL ENDORSE TO NEXT SHIFT.
--- NOTE | 2021-10-25 20:20 | NUR ---
Blood transfusion started.
--- NOTE | 2021-10-25 20:35 | NUR ---
Tolerating transfusion well. VS WNL. Increased rate to 120cc/hr.
[2021-10-25] MEDS: INSULIN GLARGINE, 100 UNIT/ML CARTRIDGE SQ SCH (22:00)
[2021-10-25] MEDS: ATORVASTATIN 10 MG TABLET PO SCH (22:04)
[2021-10-25] MEDS: *INSULIN REGULAR(HUMULIN R)HUM 100 UNIT/ML VIAL SQ PRN (22:28)
--- NOTE | 2021-10-25 22:30 | NUR ---
Blood transfusion ended, pt. tolerated well. VSS. alert and oriented x3.
[2021-10-25] MEDS: CEFEPIME 2 GM in IV D5W 100 ML IV SCH (23:07)
--- NOTE | 2021-10-26 03:35 | NUR ---
urine collected and sent to lab
[2021-10-26 04:00] VITALS: BP 149/75
[2021-10-26 04:02] LABS: BILIRUBIN,URINE NEGATIVE (NEGATIVE); COLOR,URINE YELLOW (YELLOW); LEUKOCYTE ESTERASE ,URINE NEGATIVE (NEGATIVE); NITRITE, URINE NEGATIVE (NEGATIVE); PH,URINE 5.5 (5.0-8.0); PROTEIN,URINE 30 mg/dl (NEGATIVE); UGLUCOSE >=1000 mg/dL (NEGATIVE); UROBILINOGEN,URINE 0.2 EU/dL (0.2)
[2021-10-26 04:07] LABS: CREATININE, URINE 66.1 MG/DL (30.0-125.0); URINE TOTAL PROTEIN 94.5 mg/dL (0-11.9)
[2021-10-26 04:14] LABS: BACTERIA,URINE None seen /HPF (None Seen); RBC,URINE 21-50 /HPF (0-2); SQUAMOUS EPITHELIAL CELL,UR Few /HPF (None Seen); YEAST,URINE Moderate /HPF (None Seen)
[2021-10-26 04:34] LABS: EOSINOPHIL,URINE None Seen
--- NOTE | 2021-10-26 07:07 | NUR ---
Patient tolerated blood transfusion well and all treatments/medications. No signs of distress or c/o pain throughout shift. Patient is able to make needs known. Had no BM was unable to collect stool OB.
--- NOTE | 2021-10-26 07:30 | NUR ---
RN MORNING NOTE PT OBSERVED IN BED SLEEPING WITH HOB SEMI FOWLERS. PT ON RA SAT 98% TOLERATING WELL WITH NO LABORED BREATHING OR DISTRESS. PT A/OX3 WITH BRP AND ON MEDSURG. PT ON CCHO DIET. IV ACCESS R FA 18G INFUSING WITH NS @75ML/HR. BED IS LOCKED IN LOWEST POSITION X2 GUARD RAILS UP, CALL ROSARIO WITHIN REACH, WILL CONTINUE TO MONITOR THIS SHIFT.
[2021-10-26 08:05] LABS: BASOPHILS # (AUTO) 0.1 K/uL (0.0-0.2); BASOPHILS % (AUTO) 0.9 % (0.0-2.0); EOSINOPHILS % (AUTO) 3.8 % (0.0-6.0); HEMATOCRIT 24 % (39-51); HEMOGLOBIN 8.2 g/dL (13.5-17.5); LYMPHOCYTES # (AUTO) 1.5 K/uL (0.8-4.8); LYMPHOCYTES % (AUTO) 10.8 % (20.0-44.0); MEAN CORPUSCULAR HGB CONC 33 g/dl (31.0-36.0); MEAN CORPUSCULAR VOLUME 90 fL (80-96); MONOCYTES # (AUTO) 1.2 K/uL (0.1-1.30); MONOCYTES % (AUTO) 8.6 % (2.0-12.0); NEUTROPHILS # (AUTO) 10.5 K/uL (1.8-8.9); NEUTROPHILS % (AUTO) 75.9 % (43.0-81.0); PLATELET COUNT (AUTO) 527 K/uL (150-450); RED BLOOD CELL COUNT(AUTO) 2.71 MIL/uL (4.5-6.0); WHITE BLOOD COUNT (AUTO) 13.8 K/uL (4.3-11.0)
[2021-10-26] MEDS: VANCOMYCIN 1 GM in IV D5W 250 ML IV SCH ×2 (08:18→09:23)
[2021-10-26] MEDS: FAMOTIDINE (20 MG) 20 MG TABLET PO SCH ×2 (08:18→16:31)
[2021-10-26] MEDS: ARIPIPRAZOLE 5 MG TABLET PO SCH (08:19)
[2021-10-26] MEDS: GABAPENTIN 300 MG CAPSULE PO SCH ×3 (08:19→16:31)
[2021-10-26] MEDS: CHOLECALCIFEROL 1,000 UNIT TABLET (VIT D3) PO SCH (08:19)
[2021-10-26] MEDS: ASPIRIN EC 81 MG TABLET.DR PO SCH (08:19)
[2021-10-26] MEDS: LEVOTHYROXINE SODIUM 100 MCG TABLET PO SCH (08:19)
[2021-10-26] MEDS: ASCORBIC ACID 500 MG TABLET PO SCH (08:19)
[2021-10-26] MEDS: MULTIVIT W/MINERALS 1 TAB TABLET PO SCH (08:19)
[2021-10-26] MEDS: SENNOSIDES 8.6 MG TABLET PO SCH ×2 (08:19→16:31)
[2021-10-26] MEDS: ISOSORBIDE MONONITRATE (30MG) 30 MG TAB.SR.24H PO SCH (08:20)
[2021-10-26] MEDS: hydrALAZINE HCL 25 MG TABLET PO SCH ×3 (08:20→16:31)
[2021-10-26] MEDS: FERROUS SULFATE (325 MG) 325 MG/TAB TABLET PO SCH ×2 (08:20→16:31)
[2021-10-26] MEDS: LINAGLIPTIN 5 MG TABLET PO SCH (08:20)
[2021-10-26] MEDS: CLOPIDOGREL BISULFATE 75 MG TABLET PO SCH (08:20)
[2021-10-26] MEDS: BLOOD SUGAR DIAGNOSTIC 1 EACH STRIP VI SCH ×4 (08:21→22:19)
[2021-10-26] MEDS: PANTOPRAZOLE 40 MG VIAL IV SCH ×2 (08:21→20:58)
[2021-10-26] MEDS: GENTAMICIN 0.1% OINT 15 GM TUBE TP SCH ×2 (08:22→16:30)
[2021-10-26] MEDS: buPROPion SR 150 MG TABLET.ER PO SCH ×2 (08:25→20:58)
[2021-10-26 08:35] LABS: ALBUMIN 2.2 g/dL (3.4-5.0); BILIRUBIN,TOTAL 0.5 mg/dL (0.2-1.0); CALCIUM, SERUM 8.4 mg/dL (8.5-10.1); CREATININE 3.6 mg/dL (0.6-1.3); PHOSPHORUS 4.2 mg/dL (2.5-4.9); POTASSIUM 4.2 mmol/L (3.5-5.1); TOTAL PROTEIN, SERUM 7.6 g/dL (6.4-8.2)
[2021-10-26] MEDS: INSULIN REGULAR, HUMAN 100 UNIT/ML 3 ML VIAL SQ PRN ×3 (08:47→16:47)
[2021-10-26] MEDS: PROSTAT (PYXIS) 30 ML UDC PO SCH ×2 (10:48→16:33)
[2021-10-26 12:00] VITALS: BP 141/75
[2021-10-26] MEDS ORDERED: BISACODYL SUPP (10 MG) 10 MG/SUPP.RECT SUPP.RECT RC PRN (12:30)
[2021-10-26] MEDS ORDERED: MAGNESIUM HYDROXIDE 30 ML UDC PO ONE (12:30)
[2021-10-26] MEDS: FLUCONAZOLE (100 MG) 100 MG TABLET PO SCH (13:19)
[2021-10-26] MEDS ORDERED: VANCOMYCIN 1 GM in IV D5W 250 ML IV SCH (14:00)
[2021-10-26] MEDS: IV NS 0.9% 1,000 ML IV PRN (14:57)
--- NOTE | 2021-10-26 18:55 | NUR ---
RN CLOSING NOTE PT IS IN BED RESTING WITH HOB SEMI FOWLERS. PT ON RA SAT 98-100% TOLERATING WELL WITH NO LABORED BREATHING OR DISTRESS. PT A/OX3 WITH BRP AND ON MEDSURG. PT ON CCHO DIET WITH POOR APPETITE. IV ACCESS R FA 18G INFUSING WITH NS @75ML/HR. PT REFUSED MORNING DOSE OF VANCO AND AGREED TO AFTERNOON DOSE. BED IS LOCKED IN LOWEST POSITION X2 GUARD RAILS UP, CALL ROSARIO WITHIN REACH, WILL ENDORSE TO AGRICULTURAL PURCHASING AGENT NURSE FOR RAYMON.
--- NOTE | 2021-10-26 19:40 | NUR ---
MS RN NOTES RECIVED ON BED A/O X3,BREATHING EASY,NO SOB,DROPLET ISOLATION PRECAUTION AWAITING PCR TEST RESULT.PRESENT IVF NS 75ML/HR RATE INFUSING WELL ON RFA SALINE LOCK VIA IV PUMP,NO S/S OF INFILTRATION NOTED.BED ON LOWEST POSITION AND LOCKED,CALL LIGHT IN REACH,NEEDS ANTICIPATED.
[2021-10-26 20:00] VITALS: BP 153/80
[2021-10-26] MEDS: ATORVASTATIN 10 MG TABLET PO SCH (21:01)
--- NOTE | 2021-10-26 21:30 | NUR ---
MS RN NOTES ACCU-CHECK BLOOD SUGAR CHECK 140,DUE LANTUS 53U HELD,PATIENT HAS NO APPETITE TO EAT,HUMULIN 2 UNITS ADMINISTERED
[2021-10-26] MEDS: INSULIN GLARGINE, 100 UNIT/ML CARTRIDGE SQ SCH (22:00)
[2021-10-26] MEDS: *INSULIN REGULAR(HUMULIN R)HUM 100 UNIT/ML VIAL SQ PRN (22:23)
[2021-10-26] MEDS: CEFEPIME 2 GM in IV D5W 100 ML IV SCH (22:34)
[2021-10-27 04:00] VITALS: BP 132/72
--- NOTE | 2021-10-27 06:22 | NUR ---
MS RN NOTES SLEEP WELL AT NIGHT,DENIES DISCOMFORTS,ALL DUE MEDS ADMINISTERED,CALL LIGHT IN REACH,NEEDS ATTENDED.
--- NOTE | 2021-10-27 07:00 | NUR ---
MS RN NOTES ACCU-CHECK BLOOD SUGAR CHECK 149,2 HUMULIN R REFUSED,ENDORSED TO TOM WAGNER
[2021-10-27 07:07] LABS: BASOPHILS # (AUTO) 0.1 K/uL (0.0-0.2); BASOPHILS % (AUTO) 1.1 % (0.0-2.0); EOSINOPHILS % (AUTO) 4.8 % (0.0-6.0); HEMATOCRIT 25 % (39-51); HEMOGLOBIN 8.3 g/dL (13.5-17.5); LYMPHOCYTES # (AUTO) 1.5 K/uL (0.8-4.8); LYMPHOCYTES % (AUTO) 12.3 % (20.0-44.0); MEAN CORPUSCULAR HGB CONC 34 g/dl (31.0-36.0); MEAN CORPUSCULAR VOLUME 91 fL (80-96); MONOCYTES # (AUTO) 1.3 K/uL (0.1-1.30); NEUTROPHILS % (AUTO) 71.8 % (43.0-81.0); PLATELET COUNT (AUTO) 522 K/uL (150-450); RED BLOOD CELL COUNT(AUTO) 2.74 MIL/uL (4.5-6.0); WHITE BLOOD COUNT (AUTO) 12.5 K/uL (4.3-11.0)
[2021-10-27 07:15] LABS: CALCIUM, SERUM 8.3 mg/dL (8.5-10.1); CREATININE 3.1 mg/dL (0.6-1.3); POTASSIUM 3.9 mmol/L (3.5-5.1)
--- NOTE | 2021-10-27 07:30 | NUR ---
MS BERNARD NOTES RECIVED ON BED A/O X3,BREATHING EASY,NO SOB,DROPLET ISOLATION PRECAUTION AWAITING PCR TEST RESULT.PRESENT IVF NS 75ML/HR RATE INFUSING WELL ON RFA SALINE LOCK VIA IV PUMP,NO S/S OF INFILTRATION NOTED.BED ON LOWEST POSITION AND LOCKED,CALL LIGHT IN REACH,WILL RAYMON. Addendum: 10/27/21 at 1824 by TOM VALLE RN BERNARD CHAUHAN
[2021-10-27] MEDS: BLOOD SUGAR DIAGNOSTIC 1 EACH STRIP VI SCH ×4 (07:31→21:03)
[2021-10-27] MEDS: LEVOTHYROXINE SODIUM 100 MCG TABLET PO SCH (07:54)
[2021-10-27] MEDS: PANTOPRAZOLE 40 MG VIAL IV SCH (08:13)
[2021-10-27] MEDS: FERROUS SULFATE (325 MG) 325 MG/TAB TABLET PO SCH ×2 (08:13→16:04)
[2021-10-27] MEDS: ARIPIPRAZOLE 5 MG TABLET PO SCH (08:13)
[2021-10-27] MEDS: CLOPIDOGREL BISULFATE 75 MG TABLET PO SCH (08:13)
[2021-10-27] MEDS: ASCORBIC ACID 500 MG TABLET PO SCH (08:13)
[2021-10-27] MEDS: SENNOSIDES 8.6 MG TABLET PO SCH ×2 (08:13→16:04)
[2021-10-27] MEDS: FLUCONAZOLE (100 MG) 100 MG TABLET PO SCH (08:13)
[2021-10-27] MEDS: MULTIVIT W/MINERALS 1 TAB TABLET PO SCH (08:13)
[2021-10-27] MEDS: FAMOTIDINE (20 MG) 20 MG TABLET PO SCH ×2 (08:14→16:04)
[2021-10-27] MEDS: GABAPENTIN 300 MG CAPSULE PO SCH ×3 (08:14→16:04)
[2021-10-27] MEDS: LINAGLIPTIN 5 MG TABLET PO SCH (08:14)
[2021-10-27] MEDS: hydrALAZINE HCL 25 MG TABLET PO SCH ×3 (08:14→16:04)
[2021-10-27] MEDS: CHOLECALCIFEROL 1,000 UNIT TABLET (VIT D3) PO SCH (08:14)
[2021-10-27] MEDS: ASPIRIN EC 81 MG TABLET.DR PO SCH (08:14)
[2021-10-27] MEDS: PROSTAT (PYXIS) 30 ML UDC PO SCH ×2 (08:15→16:06)
[2021-10-27] MEDS: ISOSORBIDE MONONITRATE (30MG) 30 MG TAB.SR.24H PO SCH (08:15)
[2021-10-27] MEDS: GENTAMICIN 0.1% OINT 15 GM TUBE TP SCH ×2 (08:16→16:05)
[2021-10-27] MEDS: buPROPion SR 150 MG TABLET.ER PO SCH ×2 (08:20→21:03)
[2021-10-27] MEDS: INSULIN REGULAR, HUMAN 100 UNIT/ML 3 ML VIAL SQ PRN ×3 (11:58→21:15)
--- NOTE | 2021-10-27 12:30 | NUR ---
RN NOTE BP 145/67, HR 67, HYDRALAZINE GIVEN AT 12:30
[2021-10-27] MEDS: VANCOMYCIN 1 GM in IV D5W 250 ML IV SCH (14:43)
[2021-10-27 16:00] VITALS: BP 158/73
[2021-10-27] MEDS: PANTOPRAZOLE 40 MG TABLET.DR PO SCH (16:09)
--- NOTE | 2021-10-27 18:24 | NUR ---
RN NOTES REMAIN ON BED A/O X3,BREATHING EASY,NO SOB,DROPLET ISOLATION PRECAUTION AWAITING PCR TEST RESULT.PRESENT IVF NS 75ML/HR RATE INFUSING WELL ON RFA SALINE LOCK VIA IV PUMP,NO S/S OF INFILTRATION NOTED.BED ON LOWEST POSITION AND LOCKED,CALL LIGHT IN REACH,WILL ENDORSE TO NOC SHIFT.
--- NOTE | 2021-10-27 19:20 | NUR ---
RN NOTE PT AWAKE IN BED, ALERT, ABLE TO VERBALIZE NEEDS. HE DENIES ANY PAIN AT THIS TIME. IV SITE: RFA 18G INTACT/PATENT, RUNNING NS @75MLHR. PT PICKING ON HIS DINNER, STATES HE DOESN'T WANT IT ANYMORE. OFFERED SNACKS, PT ASKING FOR APPLE SAUCE AND OJ, GIVEN. PT IN NO ACUTE DISTRESS. SAFETY MEASURES IN PLACE. WILL CONT TO MONITOR.
[2021-10-27 20:00] VITALS: BP 142/74
[2021-10-27] MEDS: ATORVASTATIN 10 MG TABLET PO SCH (21:03)
[2021-10-27] MEDS: INSULIN GLARGINE, 100 UNIT/ML CARTRIDGE SQ SCH (21:10)
--- NOTE | 2021-10-27 21:15 | NUR ---
RN NOTE BS 208. GIVEN 4 UNITS REGULAR INS PER HS COVERAGE. PT REFUSED LANTUS.
[2021-10-27] MEDS: *INSULIN REGULAR(HUMULIN R)HUM 100 UNIT/ML VIAL SQ PRN (22:14)
[2021-10-27] MEDS: CEFEPIME 2 GM in IV D5W 100 ML IV SCH (22:16)
[2021-10-28] MEDS: IV NS 0.9% 1,000 ML IV PRN ×2 (03:13→21:43)
[2021-10-28] MEDS: INSULIN REGULAR, HUMAN 100 UNIT/ML 3 ML VIAL SQ PRN ×3 (06:01→17:04)
[2021-10-28] MEDS: BLOOD SUGAR DIAGNOSTIC 1 EACH STRIP VI SCH ×4 (06:14→21:40)
[2021-10-28 06:55] LABS: BASOPHILS # (AUTO) 0.1 K/uL (0.0-0.2); BASOPHILS % (AUTO) 1.2 % (0.0-2.0); EOSINOPHILS % (AUTO) 4.6 % (0.0-6.0); HEMATOCRIT 28 % (39-51); LYMPHOCYTES # (AUTO) 1.6 K/uL (0.8-4.8); LYMPHOCYTES % (AUTO) 12.8 % (20.0-44.0); MEAN CORPUSCULAR HGB CONC 33 g/dl (31.0-36.0); MEAN CORPUSCULAR VOLUME 90 fL (80-96); MONOCYTES # (AUTO) 1.3 K/uL (0.1-1.30); MONOCYTES % (AUTO) 10.5 % (2.0-12.0); NEUTROPHILS # (AUTO) 8.9 K/uL (1.8-8.9); NEUTROPHILS % (AUTO) 70.9 % (43.0-81.0); PLATELET COUNT (AUTO) 516 K/uL (150-450); RED BLOOD CELL COUNT(AUTO) 3.06 MIL/uL (4.5-6.0); WHITE BLOOD COUNT (AUTO) 12.5 K/uL (4.3-11.0)
[2021-10-28 06:57] LABS: CALCIUM, SERUM 8.6 mg/dL (8.5-10.1); CREATININE 2.8 mg/dL (0.6-1.3); POTASSIUM 3.9 mmol/L (3.5-5.1)
--- NOTE | 2021-10-28 07:35 | NUR ---
RN NOTE PT AWAKE IN BED, A/p x 3. NO CURRENT COMPLAINTS OF PAIN OR SOB AT THIS TIME. ON ROOM AIR. IV SITE: RFA 18G INTACT/PATENT, RUNNING NS @75MLHR. PATIENT IS TO HAVE A VANCO TROUGH DRAWN AT 1400 WITH MEDICATIONS SCHEDULED AT 1500. ALL SAFETY MEASURES IN PLACE BED IN THE LOWEST POSITION. LOCKED AND CALL LIGHT WITHIN REACH.
[2021-10-28 08:00] VITALS: BP 150/73
[2021-10-28] MEDS: PROSTAT (PYXIS) 30 ML UDC PO SCH ×2 (09:00→16:55)
[2021-10-28] MEDS: FERROUS SULFATE (325 MG) 325 MG/TAB TABLET PO SCH ×2 (09:33→16:55)
[2021-10-28] MEDS: FLUCONAZOLE (100 MG) 100 MG TABLET PO SCH (09:33)
[2021-10-28] MEDS: LEVOTHYROXINE SODIUM 100 MCG TABLET PO SCH (09:33)
[2021-10-28] MEDS: CLOPIDOGREL BISULFATE 75 MG TABLET PO SCH (09:33)
[2021-10-28] MEDS: buPROPion SR 150 MG TABLET.ER PO SCH ×2 (09:33→21:30)
[2021-10-28] MEDS: FAMOTIDINE (20 MG) 20 MG TABLET PO SCH ×2 (09:33→16:54)
[2021-10-28] MEDS: ASCORBIC ACID 500 MG TABLET PO SCH (09:34)
[2021-10-28] MEDS: GABAPENTIN 300 MG CAPSULE PO SCH ×3 (09:34→16:54)
[2021-10-28] MEDS: ASPIRIN EC 81 MG TABLET.DR PO SCH (09:34)
[2021-10-28] MEDS: CHOLECALCIFEROL 1,000 UNIT TABLET (VIT D3) PO SCH (09:34)
[2021-10-28] MEDS: MULTIVIT W/MINERALS 1 TAB TABLET PO SCH (09:34)
[2021-10-28] MEDS: PANTOPRAZOLE 40 MG TABLET.DR PO SCH ×2 (09:34→16:55)
[2021-10-28] MEDS: SENNOSIDES 8.6 MG TABLET PO SCH ×2 (09:35→16:54)
[2021-10-28] MEDS: ARIPIPRAZOLE 5 MG TABLET PO SCH (09:35)
[2021-10-28] MEDS: ISOSORBIDE MONONITRATE (30MG) 30 MG TAB.SR.24H PO SCH (09:35)
[2021-10-28] MEDS: hydrALAZINE HCL 25 MG TABLET PO SCH ×3 (09:36→16:55)
[2021-10-28] MEDS: LINAGLIPTIN 5 MG TABLET PO SCH (09:37)
[2021-10-28] MEDS: GENTAMICIN 0.1% OINT 15 GM TUBE TP SCH ×2 (09:41→16:59)
[2021-10-28] MEDS: ACETAMINOPHEN ES 500 MG TABLET PO PRN ×2 (13:07→23:35)
[2021-10-28] MEDS: VANCOMYCIN 1 GM in IV D5W 250 ML IV SCH (15:20)
[2021-10-28 16:00] VITALS: BP 144/79
--- NOTE | 2021-10-28 19:00 | NUR ---
RN CLOSING NOTE NOTE PT AWAKE IN BED, A/O x 3. NO CURRENT COMPLAINTS OF PAIN OR SOB AT THIS TIME. ON ROOM AIR. IV SITE: RFA 18G INTACT/PATENT, RUNNING NS @75MLHR. ALL SAFETY MEASURES IN PLACE BED IN THE LOWEST POSITION. LOCKED AND CALL LIGHT WITHIN REACH. WILL ENDORSE TO NIGHT NURSE FOR RAYMON.
--- NOTE | 2021-10-28 19:30 | NUR ---
RN NOTE PT RECEIVED IN BED. PT IS ON ROOM AIR SHOWING NO S/S OF RESP DISTRESS/SOB. BREATHING EVEN AND UNLABORED. PT IS ALERT AND ORIENTED X3-4. ON CCHO DIET, BUT NPO AFTER MIDNIGHT DUE TO DEBRIDEMENT IN AM. ROBLES CATH NOTED. IV ACCESS NOTED ON RIGHT FA #18. LINE FLUSHED, PATENT, AND INTACT WITH NO SIGNS OF INFILTRATION. 0.9% NS RUNNING AT 75 CC/HR. PT TOLERATING WELL. ALL SAFETY MEASURES IMPLEMENTED. WILL CONTINUE TO MONITOR AND ASSESS FOR ANY CHANGES DURING SHIFT.
[2021-10-28 20:00] VITALS: BP 148/79
[2021-10-28] MEDS: ATORVASTATIN 10 MG TABLET PO SCH (21:31)
[2021-10-28] MEDS: INSULIN GLARGINE, 100 UNIT/ML CARTRIDGE SQ SCH (21:39)
[2021-10-28] MEDS: *INSULIN REGULAR(HUMULIN R)HUM 100 UNIT/ML VIAL SQ PRN (21:43)
[2021-10-28] MEDS: CEFEPIME 2 GM in IV D5W 100 ML IV SCH (22:20)
[2021-10-29 04:00] VITALS: BP 147/82
[2021-10-29 05:55] VITALS: BP 165/71
[2021-10-29] MEDS ORDERED: ANESTHESIA TRAY IN PYXIS 1 EA TRAY MC ONE (06:57)
[2021-10-29] MEDS ORDERED: BUPIVACAINE 0.5 % PF 150 MG/30 ML VIAL ONE (06:57)
--- NOTE | 2021-10-29 06:57 | NUR ---
RN NOTE NO CHANGES IN PT CONDITION DURING SHIFT. PT IS ON ROOM AIR SHOWING NO S/S OF RESP DISTRESS/SOB. BREATHING EVEN AND UNLABORED. PT IS ALERT AND ORIENTED X3-4. PT CURRENTLY NPO. IV ACCESS NOTED ON RIGHT FA #18. LINE FLUSHED, PATENT, AND INTACT WITH NO SIGNS OF INFILTRATION. 0.9% NS RUNNING AT 75 CC/HR. ALL DUE MEDS GIVEN ORDERED. PT KEPT CLEAN AND COMFORTABLE. PT TOLERATING WELL. ALL SAFETY MEASURES IMPLEMENTED. WILL ENDORSE TO MORNING SHIFT RN FOR RAYMON.
[2021-10-29] MEDS ORDERED: MIDAZOLAM HCL 2 MG/2ML VIAL ONE (07:04)
[2021-10-29] MEDS ORDERED: FENTANYL PF 100MCG/2ML AMPUL ONE (07:04)
[2021-10-29 07:30] LABS: BASOPHILS # (AUTO) 0.2 K/uL (0.0-0.2); BASOPHILS % (AUTO) 1.2 % (0.0-2.0); EOSINOPHILS % (AUTO) 4.6 % (0.0-6.0); HEMATOCRIT 28 % (39-51); HEMOGLOBIN 8.9 g/dL (13.5-17.5); LYMPHOCYTES # (AUTO) 1.7 K/uL (0.8-4.8); LYMPHOCYTES % (AUTO) 13.5 % (20.0-44.0); MEAN CORPUSCULAR HGB CONC 33 g/dl (31.0-36.0); MEAN CORPUSCULAR VOLUME 90 fL (80-96); MONOCYTES # (AUTO) 1.3 K/uL (0.1-1.30); NEUTROPHILS # (AUTO) 9.2 K/uL (1.8-8.9); NEUTROPHILS % (AUTO) 70.7 % (43.0-81.0); PLATELET COUNT (AUTO) 538 K/uL (150-450); RED BLOOD CELL COUNT(AUTO) 3.07 MIL/uL (4.5-6.0); WHITE BLOOD COUNT (AUTO) 12.9 K/uL (4.3-11.0)
[2021-10-29] MEDS: LEVOTHYROXINE SODIUM 100 MCG TABLET PO SCH (07:30)
[2021-10-29] MEDS: BLOOD SUGAR DIAGNOSTIC 1 EACH STRIP VI SCH ×4 (07:30→21:49)
--- NOTE | 2021-10-29 07:37 | NUR ---
RN NOTE RECEIVED REPORT [id number] FROM EMMETT WAGNER, THAT PT WENT FOR DEBRIDEMENT PROCEDURE AT 0725, MORNING MEDS NOT ADMINISTERED DUE TO PT IS NOT IN HIS ROOM. WILL RAYMON WHEN PT COMES BACK FROM PROCEDURE.
[2021-10-29 07:47] LABS: CALCIUM, SERUM 8.6 mg/dL (8.5-10.1); CREATININE 2.6 mg/dL (0.6-1.3); POTASSIUM 3.6 mmol/L (3.5-5.1)
[2021-10-29] MEDS ORDERED: CELLULOSE,OXIDIZED 1 EA PACK MC ONE (07:50)
[2021-10-29] MEDS: PROSTAT (PYXIS) 30 ML UDC PO SCH ×2 (09:00→16:23)
[2021-10-29] MEDS: GENTAMICIN 0.1% OINT 15 GM TUBE TP SCH ×2 (09:00→16:23)
[2021-10-29 09:30] VITALS: BP 171/80
--- NOTE | 2021-10-29 09:30 | NUR ---
RN NOTE PT ARRIVED AT 0930 FROM PROCEDURE, VS TAKEN, PT TEM 97.6, PROVIDE WARM BLANKET, PT NOT NPO ANY MORE, ORDER FOOD FOR HIM. MED GIVEN PER ORDER, JUST HOLD THE SYNTHROID DUO TO PT WAS NPO AT 0730, BLOOD GLUCOSE NOT CHECKED DUE TO PT WAS OUT FOR PROCEDURE, GENTAMICIN 0.1% NOT APPLIED DUE TO PT IS POST DEBRIDEMENT AND WOUND CARE AN DRESSING IS NOT DONE AT 0900 DUE TO POST DEBRIDEMENT.
[2021-10-29] MEDS: FLUCONAZOLE (100 MG) 100 MG TABLET PO SCH (10:02)
[2021-10-29] MEDS: buPROPion SR 150 MG TABLET.ER PO SCH ×2 (10:03→21:02)
[2021-10-29] MEDS: SENNOSIDES 8.6 MG TABLET PO SCH ×2 (10:03→16:22)
[2021-10-29] MEDS: GABAPENTIN 300 MG CAPSULE PO SCH ×3 (10:03→16:22)
[2021-10-29] MEDS: CHOLECALCIFEROL 1,000 UNIT TABLET (VIT D3) PO SCH (10:04)
[2021-10-29] MEDS: ASPIRIN EC 81 MG TABLET.DR PO SCH (10:04)
[2021-10-29] MEDS: ASCORBIC ACID 500 MG TABLET PO SCH (10:04)
[2021-10-29] MEDS: FERROUS SULFATE (325 MG) 325 MG/TAB TABLET PO SCH ×2 (10:04→16:22)
[2021-10-29] MEDS: CLOPIDOGREL BISULFATE 75 MG TABLET PO SCH (10:04)
[2021-10-29] MEDS: hydrALAZINE HCL 25 MG TABLET PO SCH ×3 (10:05→16:34)
[2021-10-29] MEDS: ISOSORBIDE MONONITRATE (30MG) 30 MG TAB.SR.24H PO SCH (10:06)
[2021-10-29] MEDS: PANTOPRAZOLE 40 MG TABLET.DR PO SCH ×2 (10:06→16:23)
[2021-10-29] MEDS: MULTIVIT W/MINERALS 1 TAB TABLET PO SCH (10:06)
[2021-10-29] MEDS: LINAGLIPTIN 5 MG TABLET PO SCH (10:06)
[2021-10-29] MEDS: ARIPIPRAZOLE 5 MG TABLET PO SCH (10:07)
[2021-10-29] MEDS: FAMOTIDINE (20 MG) 20 MG TABLET PO SCH ×2 (10:08→16:22)
[2021-10-29] MEDS: HYDROCODONE/APAP 5/325MG TABLET PO PRN ×3 (11:07→21:48)
[2021-10-29 12:06] LABS: *SPE A/G RATIO 0.7 (0.7-1.7); *SPE ALPHA-1-GLOBULIN 0.4 g/dL (0.0-0.4); *SPE ALPHA-2-GLOBULIN 0.9 g/dL (0.4-1.0); *SPE BETA GLOBULIN 1.1 g/dL (0.7-1.3); *SPE M-SPIKE Not Observed g/dL (Not Observed)
[2021-10-29] MEDS: INSULIN REGULAR, HUMAN 100 UNIT/ML 3 ML VIAL SQ PRN ×2 (12:09→17:04)
[2021-10-29] MEDS: VANCOMYCIN 1 GM in IV D5W 250 ML IV SCH (15:09)
[2021-10-29 16:00] VITALS: BP 166/77
[2021-10-29] MEDS: IV NS 0.9% 1,000 ML IV PRN (16:34)
--- NOTE | 2021-10-29 17:00 | NUR ---
RN NOTE GENTAMICIN 0.1% NOT APPLIED DUE TO PT IS POST DEBRIDEMENT AND WOUND CARE AN DRESSING IS NOT DONE AT 1700 DUE TO POST DEBRIDEMENT.
--- NOTE | 2021-10-29 18:40 | NUR ---
RN NOTE PT IS ON ROOM AIR, NO SOB OR DISTRESS NOTED, PT COMPLAIN OF PAIN, PAIN MEDICINE GIVEN PT IS ALERT AND ORIENTED X3-4. IV ACCESS NOTED ON RIGHT FA #18. IV LINE FLUSHED, PATENT, AND INTACT WITH NO SIGNS OF INFILTRATION. 0.9% NS RUNNING AT 75 CC/HR. ALL DUE MEDS GIVEN ORDERED. ALL SAFETY MEASURES IMPLEMENTED. WILL ENDORSE TO NOC SHIFT FOR RAYMON
--- NOTE | 2021-10-29 19:47 | NUR ---
RN NOTE PT IS ON ROOM AIR, NO SOB OR DISTRESS NOTED, PT COMPLAIN OF PAIN, PT IS ALERT AND ORIENTED X3-4. IV ACCESS NOTED ON RIGHT FA #18. IV LINE FLUSHED, PATENT, AND INTACT WITH NO SIGNS OF INFILTRATION. 0.9% NS RUNNING AT 75 CC/HR. ALL . ALL SAFETY MEASURES IMPLEMENTED. WILL CONTINUE TO MONITOR.
[2021-10-29] MEDS: ATORVASTATIN 10 MG TABLET PO SCH (21:02)
[2021-10-29] MEDS: *INSULIN REGULAR(HUMULIN R)HUM 100 UNIT/ML VIAL SQ PRN (21:54)
[2021-10-29] MEDS: INSULIN GLARGINE, 100 UNIT/ML CARTRIDGE SQ SCH ×3 (21:58→22:02)
[2021-10-29 22:14] VITALS: BP 162/80
--- NOTE | 2021-10-29 22:15 | NUR ---
MS RN NOTES [RN NORCO GIVEN FOR PAIN 7/10 ON THE LEFT LEG TOLERATED, PT REFUSED LANTUS RISK AND BENEFITS EXPLAINED X3 PT REFUSED X3 WELL WILL CONTINUE TO MONITOR
[2021-10-29] MEDS: CEFEPIME 2 GM in IV D5W 100 ML IV SCH (22:59)
[2021-10-30] MEDS: HYDROCODONE/APAP 5/325MG TABLET PO PRN ×3 (05:48→15:29)
--- NOTE | 2021-10-30 05:48 | NUR ---
MS RN NOTES PRN NORCO GIVEN FOR PAIN 7/10 ON THE LEFT LEG TOLERATED, WILL CONTINUE TO MONITOR
--- NOTE | 2021-10-30 06:42 | NUR ---
RN NOTE PT IS ON ROOM AIR, NO SOB OR DISTRESS NOTED, PT COMPLAIN OF PAIN, PT IS ALERT AND ORIENTED X3-4. IV ACCESS NOTED ON RIGHT FA #22. IV LINE FLUSHED, PATENT, AND INTACT WITH NO SIGNS OF INFILTRATION. 0.9% NS RUNNING AT 75 CC/HR. ALL . ALL SAFETY MEASURES IMPLEMENTED. WILL ENDORSECARE TO DAY SHIFT NURSE.
[2021-10-30 07:50] LABS: CALCIUM, SERUM 9.5 mg/dL (8.5-10.1); CREATININE 2.4 mg/dL (0.6-1.3); POTASSIUM 3.6 mmol/L (3.5-5.1)
[2021-10-30 08:00] VITALS: BP 152/80
[2021-10-30] MEDS: GABAPENTIN 300 MG CAPSULE PO SCH ×3 (08:23→16:43)
[2021-10-30] MEDS: CLOPIDOGREL BISULFATE 75 MG TABLET PO SCH (08:23)
[2021-10-30] MEDS: ARIPIPRAZOLE 5 MG TABLET PO SCH (08:23)
[2021-10-30] MEDS: MULTIVIT W/MINERALS 1 TAB TABLET PO SCH (08:23)
[2021-10-30] MEDS: CHOLECALCIFEROL 1,000 UNIT TABLET (VIT D3) PO SCH (08:23)
[2021-10-30] MEDS: SENNOSIDES 8.6 MG TABLET PO SCH ×2 (08:23→16:43)
[2021-10-30] MEDS: ISOSORBIDE MONONITRATE (30MG) 30 MG TAB.SR.24H PO SCH (08:23)
[2021-10-30] MEDS: buPROPion SR 150 MG TABLET.ER PO SCH (08:23)
[2021-10-30] MEDS: ASPIRIN EC 81 MG TABLET.DR PO SCH (08:24)
[2021-10-30] MEDS: ASCORBIC ACID 500 MG TABLET PO SCH (08:24)
[2021-10-30] MEDS: FAMOTIDINE (20 MG) 20 MG TABLET PO SCH ×2 (08:24→16:43)
[2021-10-30] MEDS: PANTOPRAZOLE 40 MG TABLET.DR PO SCH ×2 (08:24→16:43)
[2021-10-30] MEDS: hydrALAZINE HCL 25 MG TABLET PO SCH ×3 (08:24→16:43)
[2021-10-30] MEDS: FERROUS SULFATE (325 MG) 325 MG/TAB TABLET PO SCH ×2 (08:24→16:43)
[2021-10-30] MEDS: LINAGLIPTIN 5 MG TABLET PO SCH (08:24)
[2021-10-30] MEDS: FLUCONAZOLE (100 MG) 100 MG TABLET PO SCH (08:24)
[2021-10-30] MEDS: LEVOTHYROXINE SODIUM 100 MCG TABLET PO SCH (08:25)
[2021-10-30] MEDS: PROSTAT (PYXIS) 30 ML UDC PO SCH ×2 (08:25→16:37)
[2021-10-30] MEDS: GENTAMICIN 0.1% OINT 15 GM TUBE TP SCH ×2 (08:30→16:43)
[2021-10-30] MEDS: BLOOD SUGAR DIAGNOSTIC 1 EACH STRIP VI SCH ×3 (08:30→16:43)
[2021-10-30] MEDS: INSULIN REGULAR, HUMAN 100 UNIT/ML 3 ML VIAL SQ PRN ×3 (08:31→16:44)
[2021-10-30 09:00] VITALS: BP 152/80
[2021-10-30] MEDS: IV NS 0.9% 1,000 ML IV PRN (14:13)
--- NOTE | 2021-10-30 14:28 | NUR ---
RN NOTE REPORT GIVEN TO PRIMITIVO BRUMFIELD.
[2021-10-30] MEDS: VANCOMYCIN 1 GM in IV D5W 250 ML IV SCH (15:29)
--- NOTE | 2021-10-30 15:36 | NUR ---
RN NOTE PATIENT ALERT AND ORIENTED X4 ABLE TO VERBALIZE NEEDS, REFUSED PICTURE FOR WOUND STATING THAT THE SURGEON REPLACED THE WOUND DRESSING, NOTIFIED SURGEON DR KUMAR. ASSSITED PATIENT TO PUT ON POST LEFT SHOE. TOLERATING WELL.
[2021-10-30 17:00] VITALS: BP 149/88
--- NOTE | 2021-10-30 17:23 | NUR ---
RN NOTE REPORT GIVEN TO TRANSPORTER, PATIENT VTS WNL, TO BE DISCHARGE TO SNF, ON STABLE CONDITION,
== END 2021-10-30 17:39 | DRG 987 ==
LOC: ER 16:27 → TELE1 23:08 → MEDSG1 10-25 05:44
PROVIDERS: ADMIT Nurse Practitioner Acute Care; ATTEND Nurse Practitioner Acute Care
PROC: 30233N1 Transfusion of Nonautologous Red Blood Cells into Peripheral Vein, Percutaneous Approach (ICD-10-PCS; 2021-10-24)
PROC: 0QBP0ZZ Excision of Left Metatarsal, Open Approach (ICD-10-PCS; principal; 2021-10-29)
DX: J15.6 Pneumonia due to other Gram-negative bacteria (principal); N17.0 Acute kidney failure with tubular necrosis; E44.0 Moderate protein-calorie malnutrition; J44.0 Chronic obstructive pulmonary disease with (acute) lower respiratory infection; L03.116 Cellulitis of left lower limb; M86.672 Other chronic osteomyelitis, left ankle and foot; D62 Acute posthemorrhagic anemia; N39.0 Urinary tract infection, site not specified; D64.9 Anemia, unspecified; E11.42 Type 2 diabetes mellitus with diabetic polyneuropathy; E11.22 Type 2 diabetes mellitus with diabetic chronic kidney disease; E11.51 Type 2 diabetes mellitus with diabetic peripheral angiopathy without gangrene; I25.10 Atherosclerotic heart disease of native coronary artery without angina pectoris; E11.610 Type 2 diabetes mellitus with diabetic neuropathic arthropathy; E11.621 Type 2 diabetes mellitus with foot ulcer; E11.65 Type 2 diabetes mellitus with hyperglycemia; I12.9 Hypertensive chronic kidney disease with stage 1 through stage 4 chronic kidney disease, or unspecified chronic kidney disease; L97.529 Non-pressure chronic ulcer of other part of left foot with unspecified severity; N18.30 Chronic kidney disease, stage 3 unspecified; Z20.822 Contact with and (suspected) exposure to COVID-19; Z79.899 Other long term (current) drug therapy; Z79.4 Long term (current) use of insulin; Z79.02 Long term (current) use of antithrombotics/antiplatelets; Y95 Nosocomial condition; E11.69 Type 2 diabetes mellitus with other specified complication; F32.9 Major depressive disorder, single episode, unspecified; F41.9 Anxiety disorder, unspecified; D63.1 Anemia in chronic kidney disease; Z79.84 Long term (current) use of oral hypoglycemic drugs; E78.5 Hyperlipidemia, unspecified; Z79.82 Long term (current) use of aspirin; F17.210 Nicotine dependence, cigarettes, uncomplicated; F03.90 Unspecified dementia, unspecified severity, without behavioral disturbance, psychotic disturbance, mood disturbance, and anxiety; M48.00 Spinal stenosis, site unspecified; G89.29 Other chronic pain; Z86.73 Personal history of transient ischemic attack (TIA), and cerebral infarction without residual deficits; F20.9 Schizophrenia, unspecified; E03.9 Hypothyroidism, unspecified; F39 Unspecified mood [affective] disorder; M77.32 Calcaneal spur, left foot; Z89.431 Acquired absence of right foot
CPT/HCPCS: 36415; 71045-TC; 73630-TC; 76770-TC; 80048-TC; 80053-TC; 80076-TC; 80202-TC; 81001; 82550-TC; 82570-TC; 82962-TC; 83735-TC; 83970; 84100-TC; 84155; 84155-TC; 84165; 84300-TC; 84484-TC; 85025-TC; 85730-TC; 86850-TC; 87040-TC; 87070-TC; 87075-TC; 87081-TC; 88305-TC; 88311-TC; A6253; A6403; C9113; C9803; G0378; J0360; J0692; J1815; J2250; J3010; J3370; J3490; J7030; J7050; J7060; P9016; U0003

== ENCOUNTER 2021-10-31 14:32 | Emergency (ER) | payer MEDICARE, OTHER ==
[~2021-10-31] VITALS: Ht 182.9 cm; Wt 86.2 kg
[~2021-10-31 14:32] MED LIST changes: +AMIN887L PO; +ASCO500C17 PO; -NIFE-35 PO; -OXYC10TA49 PO; +SENN-18 PO
--- NOTE | 2021-10-31 14:41 | NUR ---
TO ER BED 9, FROM [facility] FOR PICCLINE INSERTION FOR ANTIBIOTIC DUE TO A RECENTLY DEBRIBED LEFT FOOT WOUND, AAOX3, BREATHING EVEN AND NON LABORED
--- NOTE | 2021-10-31 17:15 | NUR ---
PICCLINE NURSE AT BEDSIDE
--- NOTE | 2021-10-31 18:33 | NUR ---
CALLED [facility] FOR TRANSPORT TO [facility]. ETA 90-120 MINUTES.
--- NOTE | 2021-10-31 19:53 | NUR ---
REPORT GIVEN TO MARY FROM [facility] FOR RAYMON
--- NOTE | 2021-10-31 20:26 | NUR ---
[facility]# [phone] FOR PT TRANSPORT TO [facility]. REPORT GIVEN
[2021-10-31 22:18] VITALS: BP 129/86
== END 2021-10-31 20:26 ==
LOC: ER 14:40
DX: Z45.2 Encounter for adjustment and management of vascular access device (principal); M86.8X7 Other osteomyelitis, ankle and foot; I10 Essential (primary) hypertension; E11.9 Type 2 diabetes mellitus without complications; F32.9 Major depressive disorder, single episode, unspecified; F41.9 Anxiety disorder, unspecified; D64.9 Anemia, unspecified; Z79.899 Other long term (current) drug therapy; Z79.4 Long term (current) use of insulin; Z79.84 Long term (current) use of oral hypoglycemic drugs; Z79.82 Long term (current) use of aspirin
CPT/HCPCS: 71045-TC

== ENCOUNTER → 2021-12-20 | Outpatient (CLI) | payer MEDICARE, OTHER | END | disposition home or self-care (01) | LOC: WOU 09:40 | PROVIDERS: ATTEND Podiatrist Foot & Ankle Surgery | DX: E11.69 Type 2 diabetes mellitus with other specified complication (principal); E11.610 Type 2 diabetes mellitus with diabetic neuropathic arthropathy; E11.42 Type 2 diabetes mellitus with diabetic polyneuropathy; E11.65 Type 2 diabetes mellitus with hyperglycemia; M86.672 Other chronic osteomyelitis, left ankle and foot; Z79.4 Long term (current) use of insulin; Z79.84 Long term (current) use of oral hypoglycemic drugs; Z79.82 Long term (current) use of aspirin; Z79.02 Long term (current) use of antithrombotics/antiplatelets; Z79.899 Other long term (current) drug therapy | CPT/HCPCS: G0463 ==

== ENCOUNTER 2022-01-25 11:53 | Emergency (ER) | payer MEDICARE, OTHER ==
[~2022-01-25] VITALS: Ht 185.4 cm; Wt 79.4 kg
[2022-01-25 11:54] VITALS: BP 104/55
[2022-01-25] MEDS: HYDROCODONE/APAP 5/325MG TABLET PO ONE (13:06)
== END 2022-01-25 13:57 | disposition home or self-care (01) ==
LOC: ER 11:56
DX: Z45.2 Encounter for adjustment and management of vascular access device (principal); M86.672 Other chronic osteomyelitis, left ankle and foot; E78.5 Hyperlipidemia, unspecified; E11.22 Type 2 diabetes mellitus with diabetic chronic kidney disease; I12.9 Hypertensive chronic kidney disease with stage 1 through stage 4 chronic kidney disease, or unspecified chronic kidney disease; N18.9 Chronic kidney disease, unspecified; F32.A Depression, unspecified; F41.9 Anxiety disorder, unspecified; Z86.73 Personal history of transient ischemic attack (TIA), and cerebral infarction without residual deficits; Z86.2 Personal history of diseases of the blood and blood-forming organs and certain disorders involving the immune mechanism; Z89.431 Acquired absence of right foot; Z79.899 Other long term (current) drug therapy
CPT/HCPCS: 71045-TC

== ENCOUNTER 2022-01-31 10:46 | Outpatient (CLI) | payer MEDICARE, OTHER ==
[2022-01-31] MEDS ORDERED: UREA 10% -AHA 4% CREAM 57 GM TUBE ONE (12:06)
== END 2022-01-31 23:59 | disposition home health service (06) ==
LOC: WOU 10:46
PROVIDERS: ATTEND Podiatrist Foot & Ankle Surgery
DX: E11.69 Type 2 diabetes mellitus with other specified complication (principal); E11.610 Type 2 diabetes mellitus with diabetic neuropathic arthropathy; E11.42 Type 2 diabetes mellitus with diabetic polyneuropathy; M86.672 Other chronic osteomyelitis, left ankle and foot; Z79.4 Long term (current) use of insulin; Z79.84 Long term (current) use of oral hypoglycemic drugs; Z79.899 Other long term (current) drug therapy; Z79.82 Long term (current) use of aspirin; Z79.02 Long term (current) use of antithrombotics/antiplatelets
CPT/HCPCS: G0463

== ENCOUNTER 2022-02-14 10:00 | Outpatient (CLI) | payer MEDICARE, OTHER | END 2022-02-14 23:59 | disposition home health service (06) | LOC: WOU 10:00 | PROVIDERS: ATTEND Podiatrist Foot & Ankle Surgery | DX: E11.621 Type 2 diabetes mellitus with foot ulcer (principal); L97.422 Non-pressure chronic ulcer of left heel and midfoot with fat layer exposed; E11.42 Type 2 diabetes mellitus with diabetic polyneuropathy; E11.65 Type 2 diabetes mellitus with hyperglycemia; E11.610 Type 2 diabetes mellitus with diabetic neuropathic arthropathy; E11.69 Type 2 diabetes mellitus with other specified complication; M86.672 Other chronic osteomyelitis, left ankle and foot; Z79.4 Long term (current) use of insulin; Z79.84 Long term (current) use of oral hypoglycemic drugs; Z79.899 Other long term (current) drug therapy; Z79.02 Long term (current) use of antithrombotics/antiplatelets; Z79.82 Long term (current) use of aspirin; Z87.891 Personal history of nicotine dependence | CPT/HCPCS: 11042 ==

== ENCOUNTER 2022-05-09 09:45 | Outpatient (CLI) | payer MEDICARE, OTHER | END 2022-05-09 23:59 | disposition home or self-care (01) | LOC: WOU 09:45 | PROVIDERS: ATTEND Podiatrist Foot & Ankle Surgery | DX: E11.610 Type 2 diabetes mellitus with diabetic neuropathic arthropathy (principal); E11.69 Type 2 diabetes mellitus with other specified complication; M86.9 Osteomyelitis, unspecified; M21.172 Varus deformity, not elsewhere classified, left ankle; E11.42 Type 2 diabetes mellitus with diabetic polyneuropathy; S80.812A Abrasion, left lower leg, initial encounter; X58.XXXA Exposure to other specified factors, initial encounter; Y92.89 Other specified places as the place of occurrence of the external cause; E11.22 Type 2 diabetes mellitus with diabetic chronic kidney disease; N18.9 Chronic kidney disease, unspecified; E03.9 Hypothyroidism, unspecified; E11.51 Type 2 diabetes mellitus with diabetic peripheral angiopathy without gangrene; I12.9 Hypertensive chronic kidney disease with stage 1 through stage 4 chronic kidney disease, or unspecified chronic kidney disease; E78.5 Hyperlipidemia, unspecified; F03.91 Unspecified dementia, unspecified severity, with behavioral disturbance; J44.9 Chronic obstructive pulmonary disease, unspecified; Z79.4 Long term (current) use of insulin; Z79.899 Other long term (current) drug therapy; F31.9 Bipolar disorder, unspecified | CPT/HCPCS: G0463 ==

== ENCOUNTER 2022-06-18 12:35 | Outpatient (CLI) | payer MEDICARE, OTHER ==
[2022-06-18] MEDS ORDERED: LINA5TAB PO (15:23)
[2022-06-18] MEDS ORDERED: ACET-868 PO (15:23)
[2022-06-18] MEDS ORDERED: TYL2T PO (15:23)
[2022-06-18] MEDS ORDERED: ASCO-352 PO (15:23)
[2022-06-18] MEDS ORDERED: HYDR-4209 PO (15:23)
[2022-06-18] MEDS ORDERED: HYDR-4303 PO (15:23)
[2022-06-18] MEDS ORDERED: TAMS-12 PO (15:23)
== END 2022-06-18 23:59 | disposition home or self-care (01) ==
LOC: WOU 12:35
PROVIDERS: ATTEND Podiatrist Foot & Ankle Surgery
DX: E11.621 Type 2 diabetes mellitus with foot ulcer (principal); L97.429 Non-pressure chronic ulcer of left heel and midfoot with unspecified severity; E11.610 Type 2 diabetes mellitus with diabetic neuropathic arthropathy; E11.65 Type 2 diabetes mellitus with hyperglycemia; E11.42 Type 2 diabetes mellitus with diabetic polyneuropathy; E11.52 Type 2 diabetes mellitus with diabetic peripheral angiopathy with gangrene; E11.69 Type 2 diabetes mellitus with other specified complication; I96 Gangrene, not elsewhere classified; M86.672 Other chronic osteomyelitis, left ankle and foot; Z79.4 Long term (current) use of insulin; Z79.84 Long term (current) use of oral hypoglycemic drugs; Z79.82 Long term (current) use of aspirin; Z79.02 Long term (current) use of antithrombotics/antiplatelets; Z79.899 Other long term (current) drug therapy
CPT/HCPCS: G0463

== ENCOUNTER 2022-06-18 14:07 | Inpatient (IN) | payer MEDICARE, OTHER ==
[~2022-06-18] VITALS: Ht 185.4 cm; Wt 75.7 kg
[2022-06-18] MEDS ORDERED: HYDR-4209 PO (15:23)
[2022-06-18] MEDS ORDERED: ACET-868 PO (15:23)
[2022-06-18] MEDS ORDERED: LINA5TAB PO (15:23)
[2022-06-18] MEDS ORDERED: HYDR-4303 PO (15:23)
[2022-06-18] MEDS ORDERED: TAMS-12 PO (15:23)
[2022-06-18] MEDS ORDERED: TYL2T PO (15:23)
[2022-06-18] MEDS ORDERED: ASCO-352 PO (15:23)
[2022-06-18 15:37] LABS: BASOPHILS # (AUTO) 0.1 K/uL (0.0-0.2); BASOPHILS % (AUTO) 0.8 % (0.0-2.0); EOSINOPHILS % (AUTO) 2.6 % (0.0-6.0); HEMATOCRIT 34 % (39-51); LYMPHOCYTES % (AUTO) 15.7 % (20.0-44.0); MEAN CORPUSCULAR HGB CONC 33 g/dl (31.0-36.0); MEAN CORPUSCULAR VOLUME 91 fL (80-96); MONOCYTES % (AUTO) 8.2 % (2.0-12.0); NEUTROPHILS % (AUTO) 72.7 % (43.0-81.0); PLATELET COUNT (AUTO) 403 K/uL (150-450); RED BLOOD CELL COUNT(AUTO) 3.69 MIL/uL (4.5-6.0); WHITE BLOOD COUNT (AUTO) 12.4 K/uL (4.3-11.0)
[2022-06-18 15:47] LABS: CALCIUM, SERUM 9.4 mg/dL (8.5-10.1); POTASSIUM 4.5 mmol/L (3.5-5.1)
[2022-06-18] MEDS ORDERED: ACETAMINOPHEN 325 MG TABLET PO PRN ×3 (18:30)
[2022-06-18] MEDS ORDERED: MORPHINE SULFATE INJ 2 MG/ML DISP.SYRIN IV PRN (18:30)
[2022-06-18] MEDS ORDERED: ONDANSETRON HCL/PF 4 MG/2 ML VIAL IVP PRN (18:30)
[2022-06-18] MEDS ORDERED: MAG HYDROX/AL HYDROX/SIMETH 30 ML UDC PO PRN (18:30)
[2022-06-18] MEDS ORDERED: NITROGLYCERIN 0.4 MG/TAB BOTTLE SL PRN (18:30)
[2022-06-18] MEDS ORDERED: Z GUARD REMEDY 4 OZ OINT TP PRN (18:30)
[2022-06-18] MEDS ORDERED: HYDROCODONE/APAP 5/325MG TABLET PO PRN ×2 (18:30)
[2022-06-18] MEDS ORDERED: NA PHOS,M-B/NA PHOS,DI-BA 1 EA ENEMA RC PRN (18:30)
[2022-06-18] MEDS ORDERED: DEXTROSE 50%-WATER 50 ML DISP.SYRIN IV PRN (18:30)
[2022-06-18] MEDS: IV NS 0.9% 1,000 ML IV PRN (20:10)
[2022-06-18] MEDS: VANCOMYCIN 1 GM in IV D5W 250ml IV SCH (20:39)
[2022-06-18] MEDS: ISOSORBIDE MONONITRATE (30MG) 30 MG TAB.SR.24H PO SCH (21:08)
[2022-06-18] MEDS: BUPROPION XL 150 MG TAB.ER.24 PO SCH (21:09)
[2022-06-18] MEDS: ATORVASTATIN 10 MG TABLET PO SCH (21:09)
[2022-06-18] MEDS: BLOOD SUGAR DIAGNOSTIC 1 EACH STRIP VI SCH (21:14)
[2022-06-18] MEDS: INSULIN GLARGINE, 100 UNIT/ML CARTRIDGE SQ SCH (21:17)
[2022-06-18] MEDS: *INSULIN REGULAR(HUMULIN R)HUM 100 UNIT/ML VIAL SQ PRN (21:21)
[2022-06-18] MEDS: MEROPENEM 1 G in IV NS 0.9% 100 ML IV SCH (21:57)
[2022-06-18] MEDS ORDERED: INSULIN GLARGINE HUM REC ANLOG SQ SCH (22:00)
[2022-06-18] MEDS ORDERED: Medication Not On Formulary EA (Isosorbide Mononitrate 60 MG) PO SCH (22:00)
[2022-06-18] MEDS ORDERED: ZOLPIDEM TARTRATE 5 MG TABLET PO PRN (22:00)
[2022-06-18] MEDS ORDERED: Medication Not On Formulary EA (Atorvastatin Calcium (Lipitor) 20 MG) PO SCH (22:00)
[2022-06-18] MEDS ORDERED: MAGNESIUM HYDROXIDE 30 ML UDC PO PRN (22:00)
[2022-06-19 05:54] LABS: BASOPHILS # (AUTO) 0.1 K/uL (0.0-0.2); BASOPHILS % (AUTO) 0.8 % (0.0-2.0); EOSINOPHILS % (AUTO) 4.6 % (0.0-6.0); HEMATOCRIT 30 % (39-51); HEMOGLOBIN 10.1 g/dL (13.5-17.5); LYMPHOCYTES # (AUTO) 1.6 K/uL (0.8-4.8); LYMPHOCYTES % (AUTO) 13.2 % (20.0-44.0); MEAN CORPUSCULAR HGB CONC 33 g/dl (31.0-36.0); MEAN CORPUSCULAR VOLUME 91 fL (80-96); MONOCYTES # (AUTO) 1.1 K/uL (0.1-1.30); MONOCYTES % (AUTO) 8.7 % (2.0-12.0); NEUTROPHILS # (AUTO) 8.8 K/uL (1.8-8.9); NEUTROPHILS % (AUTO) 72.7 % (43.0-81.0); PLATELET COUNT (AUTO) 370 K/uL (150-450); RED BLOOD CELL COUNT(AUTO) 3.32 MIL/uL (4.5-6.0); WHITE BLOOD COUNT (AUTO) 12.1 K/uL (4.3-11.0)
[2022-06-19 06:14] LABS: CALCIUM, SERUM 8.9 mg/dL (8.5-10.1); CREATININE 1.8 mg/dL (0.6-1.3); MAGNESIUM 2.2 mg/dL (1.8-2.4); PHOSPHORUS 4.2 mg/dL (2.5-4.9); POTASSIUM 4.1 mmol/L (3.5-5.1)
[2022-06-19] MEDS: INSULIN REGULAR, HUMAN 100 UNIT/ML 3 ML VIAL SQ PRN (06:48)
[2022-06-19] MEDS: BLOOD SUGAR DIAGNOSTIC 1 EACH STRIP VI SCH ×4 (06:48→21:35)
[2022-06-19] MEDS: IV NS 0.9% 1,000 ML IV PRN (07:24)
[2022-06-19] MEDS: ASCORBIC ACID 500 MG TABLET PO SCH (08:49)
[2022-06-19] MEDS: SENNOSIDES 8.6 MG TABLET PO SCH ×2 (08:49→17:21)
[2022-06-19] MEDS: CLOPIDOGREL BISULFATE 75 MG TABLET PO SCH (08:49)
[2022-06-19] MEDS: LINAGLIPTIN 5 MG TABLET PO SCH (08:49)
[2022-06-19] MEDS: BUPROPION XL 150 MG TAB.ER.24 PO SCH ×2 (08:49→20:38)
[2022-06-19] MEDS: FAMOTIDINE (20 MG) 20 MG TABLET PO SCH ×2 (08:49→17:21)
[2022-06-19] MEDS: MULTIVIT W/MINERALS 1 TAB TABLET PO SCH (08:49)
[2022-06-19] MEDS: GABAPENTIN 300 MG CAPSULE PO SCH ×3 (08:50→17:21)
[2022-06-19] MEDS: TAMSULOSIN 0.4 MG CAP.SR.24H PO SCH (08:50)
[2022-06-19] MEDS: FERROUS SULFATE (325 MG) 325 MG/TAB TABLET PO SCH ×2 (08:50→17:21)
[2022-06-19] MEDS: ARIPIPRAZOLE 5 MG TABLET PO SCH (08:50)
[2022-06-19] MEDS: hydrALAZINE HCL 25 MG TABLET PO SCH ×3 (08:51→17:22)
[2022-06-19 08:52] VITALS: BP 135/66
[2022-06-19] MEDS: CHOLECALCIFEROL 1,000 UNIT TABLET (VIT D3) PO SCH (08:52)
[2022-06-19] MEDS: EMPAGLIFLOZIN 25 MG TABLET PO SCH (08:56)
[2022-06-19] MEDS: MEROPENEM 1 G in IV NS 0.9% 100 ML IV SCH ×2 (08:56→20:04)
[2022-06-19] MEDS: LEVOTHYROXINE SODIUM 75 MCG TABLET PO SCH (08:56)
[2022-06-19] MEDS ORDERED: Medication Not On Formulary EA (Omega-3 Fatty Acids/Fish Oil (Omega 3 1,000 Mg Softgel) PO SCH (09:00)
[2022-06-19] MEDS ORDERED: MAGNESIUM HYDROXIDE 30 ML UDC PO PRN (09:00)
[2022-06-19] MEDS: DAKINS QUARTER STRENGTH (0.125%) 480 ML BOTTLE TOP SCH (09:00)
[2022-06-19] MEDS ORDERED: Medication Not On Formulary EA (Cholecalciferol (Vitamin D3) (Vitamin D3) 1,000 UNIT) PO SCH (09:00)
[2022-06-19] MEDS ORDERED: BISACODYL SUPP (10 MG) 10 MG/SUPP.RECT SUPP.RECT RC PRN (09:00)
[2022-06-19] MEDS ORDERED: Medication Not On Formulary EA (Multivitamin With Minerals (One Daily Complete) 1 EACH) PO SCH (09:00)
[2022-06-19] MEDS: VANCOMYCIN 1 GM in IV D5W 250ml IV SCH (14:11)
[2022-06-19 15:42] VITALS: BP 158/70
[2022-06-19 20:45] VITALS: BP 123/70
[2022-06-19] MEDS: IV 1/2NS 1000 ML 1,000 ML IV PRN (20:57)
[2022-06-19] MEDS: ISOSORBIDE MONONITRATE (30MG) 30 MG TAB.SR.24H PO SCH (21:30)
[2022-06-19] MEDS: ATORVASTATIN 10 MG TABLET PO SCH (21:30)
[2022-06-19] MEDS: INSULIN GLARGINE, 100 UNIT/ML CARTRIDGE SQ SCH (21:35)
[2022-06-19] MEDS: *INSULIN REGULAR(HUMULIN R)HUM 100 UNIT/ML VIAL SQ PRN (21:40)
[2022-06-20 06:37] LABS: CALCIUM, SERUM 8.5 mg/dL (8.5-10.1); CREATININE 1.5 mg/dL (0.6-1.3); POTASSIUM 3.7 mmol/L (3.5-5.1)
[2022-06-20] MEDS: BLOOD SUGAR DIAGNOSTIC 1 EACH STRIP VI SCH ×4 (06:52→22:08)
[2022-06-20] MEDS: LEVOTHYROXINE SODIUM 75 MCG TABLET PO SCH (07:30)
[2022-06-20] MEDS: MEROPENEM 1 G in IV NS 0.9% 100 ML IV SCH ×2 (08:26→20:30)
[2022-06-20] MEDS: hydrALAZINE HCL 25 MG TABLET PO SCH ×3 (08:29→16:15)
[2022-06-20] MEDS: TAMSULOSIN 0.4 MG CAP.SR.24H PO SCH (08:29)
[2022-06-20] MEDS: PROSOURCE / PROSTAT (PYXIS) 30 ML UDC GT SCH ×2 (08:29→15:00)
[2022-06-20] MEDS: ARIPIPRAZOLE 5 MG TABLET PO SCH (08:29)
[2022-06-20] MEDS: FERROUS SULFATE (325 MG) 325 MG/TAB TABLET PO SCH ×2 (08:29→16:16)
[2022-06-20] MEDS: GABAPENTIN 300 MG CAPSULE PO SCH ×3 (08:30→16:15)
[2022-06-20] MEDS: FAMOTIDINE (20 MG) 20 MG TABLET PO SCH ×2 (08:30→16:16)
[2022-06-20] MEDS: ASCORBIC ACID 500 MG TABLET PO SCH (08:30)
[2022-06-20] MEDS: EMPAGLIFLOZIN 25 MG TABLET PO SCH (08:30)
[2022-06-20] MEDS: SENNOSIDES 8.6 MG TABLET PO SCH ×2 (08:30→16:15)
[2022-06-20] MEDS: MULTIVIT W/MINERALS 1 TAB TABLET PO SCH (08:30)
[2022-06-20] MEDS: CHOLECALCIFEROL 1,000 UNIT TABLET (VIT D3) PO SCH (08:30)
[2022-06-20] MEDS: CLOPIDOGREL BISULFATE 75 MG TABLET PO SCH (08:30)
[2022-06-20] MEDS: LINAGLIPTIN 5 MG TABLET PO SCH (08:30)
[2022-06-20] MEDS: DAKINS QUARTER STRENGTH (0.125%) 480 ML BOTTLE TOP SCH (08:31)
[2022-06-20] MEDS: BUPROPION XL 150 MG TAB.ER.24 PO SCH ×2 (08:31→21:36)
[2022-06-20 08:42] VITALS: BP 127/66
[2022-06-20] MEDS: VANCOMYCIN 1 GM in IV D5W 250ml IV SCH (09:32)
[2022-06-20] MEDS ORDERED: BUPIVACAINE 0.25% 75 MG/30 ML VIAL ONE (10:58)
[2022-06-20] MEDS ORDERED: LIDOCAINE 1%-EPI 1:100,000 20 ML VIAL ONE ×2 (10:59→11:00)
[2022-06-20] MEDS ORDERED: MIDAZOLAM HCL 2 MG/2ML VIAL ONE (11:33)
[2022-06-20] MEDS ORDERED: FENTANYL PF 100MCG/2ML AMPUL ONE (11:33)
[2022-06-20] MEDS ORDERED: LIDOCAINE 1% INJ 50 ML MDV IJ ONE ×2 (11:40)
[2022-06-20 16:29] VITALS: BP 150/74
[2022-06-20] MEDS: INSULIN REGULAR, HUMAN 100 UNIT/ML 3 ML VIAL SQ PRN (17:03)
[2022-06-20] MEDS: IV 1/2NS 1000 ML 1,000 ML IV PRN (17:16)
[2022-06-20 20:00] VITALS: BP_SYST 156; BP_SYST 161; BP_DIAS 71; BP_DIAS 76
[2022-06-20] MEDS: ISOSORBIDE MONONITRATE (30MG) 30 MG TAB.SR.24H PO SCH (21:38)
[2022-06-20] MEDS: ATORVASTATIN 10 MG TABLET PO SCH (21:39)
[2022-06-20] MEDS: INSULIN GLARGINE, 100 UNIT/ML CARTRIDGE SQ SCH (22:00)
[2022-06-20] MEDS: *INSULIN REGULAR(HUMULIN R)HUM 100 UNIT/ML VIAL SQ PRN (22:08)
[2022-06-21] MEDS: VANCOMYCIN 1 GM in IV D5W 250ml IV SCH ×2 (02:38→20:36)
[2022-06-21 06:15] LABS: BASOPHILS # (AUTO) 0.1 K/uL (0.0-0.2); BASOPHILS % (AUTO) 0.7 % (0.0-2.0); EOSINOPHILS % (AUTO) 5.4 % (0.0-6.0); HEMATOCRIT 28 % (39-51); HEMOGLOBIN 9.4 g/dL (13.5-17.5); LYMPHOCYTES # (AUTO) 2.4 K/uL (0.8-4.8); LYMPHOCYTES % (AUTO) 20.8 % (20.0-44.0); MEAN CORPUSCULAR HGB CONC 33 g/dl (31.0-36.0); MEAN CORPUSCULAR VOLUME 91 fL (80-96); MONOCYTES % (AUTO) 9.3 % (2.0-12.0); NEUTROPHILS # (AUTO) 7.2 K/uL (1.8-8.9); NEUTROPHILS % (AUTO) 63.8 % (43.0-81.0); PLATELET COUNT (AUTO) 357 K/uL (150-450); RED BLOOD CELL COUNT(AUTO) 3.12 MIL/uL (4.5-6.0); WHITE BLOOD COUNT (AUTO) 11.3 K/uL (4.3-11.0)
[2022-06-21] MEDS: INSULIN REGULAR, HUMAN 100 UNIT/ML 3 ML VIAL SQ PRN ×2 (06:40→11:49)
[2022-06-21 07:21] LABS: CALCIUM, SERUM 8.4 mg/dL (8.5-10.1); CREATININE 1.5 mg/dL (0.6-1.3)
[2022-06-21] MEDS: BLOOD SUGAR DIAGNOSTIC 1 EACH STRIP VI SCH ×4 (07:30→21:51)
[2022-06-21 08:00] VITALS: BP 136/72
[2022-06-21] MEDS: SENNOSIDES 8.6 MG TABLET PO SCH ×3 (09:00→16:24)
[2022-06-21] MEDS: CHOLECALCIFEROL 1,000 UNIT TABLET (VIT D3) PO SCH (09:21)
[2022-06-21] MEDS: LEVOTHYROXINE SODIUM 75 MCG TABLET PO SCH (09:22)
[2022-06-21] MEDS: ASCORBIC ACID 500 MG TABLET PO SCH (09:22)
[2022-06-21] MEDS: FERROUS SULFATE (325 MG) 325 MG/TAB TABLET PO SCH ×2 (09:22→16:24)
[2022-06-21] MEDS: MULTIVIT W/MINERALS 1 TAB TABLET PO SCH (09:22)
[2022-06-21] MEDS: TAMSULOSIN 0.4 MG CAP.SR.24H PO SCH (09:22)
[2022-06-21] MEDS: LINAGLIPTIN 5 MG TABLET PO SCH (09:22)
[2022-06-21] MEDS: CLOPIDOGREL BISULFATE 75 MG TABLET PO SCH (09:23)
[2022-06-21] MEDS: hydrALAZINE HCL 25 MG TABLET PO SCH ×3 (09:23→16:25)
[2022-06-21] MEDS: FAMOTIDINE (20 MG) 20 MG TABLET PO SCH ×2 (09:24→16:24)
[2022-06-21] MEDS: BUPROPION XL 150 MG TAB.ER.24 PO SCH ×2 (09:24→21:55)
[2022-06-21] MEDS: ARIPIPRAZOLE 5 MG TABLET PO SCH (09:24)
[2022-06-21] MEDS: GABAPENTIN 300 MG CAPSULE PO SCH ×3 (09:24→16:24)
[2022-06-21] MEDS: PROSOURCE / PROSTAT (PYXIS) 30 ML UDC GT SCH ×2 (09:26→16:25)
[2022-06-21] MEDS: MEROPENEM 1 G in IV NS 0.9% 100 ML IV SCH (09:26)
[2022-06-21] MEDS: EMPAGLIFLOZIN 25 MG TABLET PO SCH (09:27)
[2022-06-21] MEDS: DAKINS QUARTER STRENGTH (0.125%) 480 ML BOTTLE TOP SCH (10:22)
[2022-06-21 16:00] VITALS: BP 126/66
[2022-06-21] MEDS: IV 1/2NS 1000 ML 1,000 ML IV PRN (17:43)
[2022-06-21 20:00] VITALS: BP 135/68
[2022-06-21] MEDS: *INSULIN REGULAR(HUMULIN R)HUM 100 UNIT/ML VIAL SQ PRN (21:49)
[2022-06-21] MEDS: ISOSORBIDE MONONITRATE (30MG) 30 MG TAB.SR.24H PO SCH (21:54)
[2022-06-21] MEDS: ATORVASTATIN 10 MG TABLET PO SCH (21:55)
[2022-06-21] MEDS: INSULIN GLARGINE, 100 UNIT/ML CARTRIDGE SQ SCH (21:56)
[2022-06-22 06:15] LABS: BASOPHILS # (AUTO) 0.1 K/uL (0.0-0.2); BASOPHILS % (AUTO) 0.8 % (0.0-2.0); EOSINOPHILS % (AUTO) 6.2 % (0.0-6.0); HEMATOCRIT 29 % (39-51); HEMOGLOBIN 9.8 g/dL (13.5-17.5); LYMPHOCYTES # (AUTO) 1.9 K/uL (0.8-4.8); LYMPHOCYTES % (AUTO) 17.6 % (20.0-44.0); MEAN CORPUSCULAR HGB CONC 34 g/dl (31.0-36.0); MEAN CORPUSCULAR VOLUME 90 fL (80-96); MONOCYTES % (AUTO) 9.2 % (2.0-12.0); NEUTROPHILS % (AUTO) 66.2 % (43.0-81.0); PLATELET COUNT (AUTO) 382 K/uL (150-450); RED BLOOD CELL COUNT(AUTO) 3.22 MIL/uL (4.5-6.0); WHITE BLOOD COUNT (AUTO) 10.6 K/uL (4.3-11.0)
[2022-06-22] MEDS: INSULIN REGULAR, HUMAN 100 UNIT/ML 3 ML VIAL SQ PRN ×2 (06:25→13:17)
[2022-06-22] MEDS: BLOOD SUGAR DIAGNOSTIC 1 EACH STRIP VI SCH ×4 (06:28→22:06)
[2022-06-22 06:31] LABS: CALCIUM, SERUM 8.6 mg/dL (8.5-10.1); CREATININE 1.4 mg/dL (0.6-1.3); POTASSIUM 3.8 mmol/L (3.5-5.1)
[2022-06-22] MEDS: LEVOTHYROXINE SODIUM 75 MCG TABLET PO SCH (07:57)
[2022-06-22 08:36] VITALS: BP 134/60
[2022-06-22] MEDS: TAMSULOSIN 0.4 MG CAP.SR.24H PO SCH (08:46)
[2022-06-22] MEDS: BUPROPION XL 150 MG TAB.ER.24 PO SCH ×2 (08:46→21:00)
[2022-06-22] MEDS: SENNOSIDES 8.6 MG TABLET PO SCH ×2 (08:46→16:26)
[2022-06-22] MEDS: MULTIVIT W/MINERALS 1 TAB TABLET PO SCH (08:46)
[2022-06-22] MEDS: CHOLECALCIFEROL 1,000 UNIT TABLET (VIT D3) PO SCH (08:47)
[2022-06-22] MEDS: CLOPIDOGREL BISULFATE 75 MG TABLET PO SCH (08:47)
[2022-06-22] MEDS: ASCORBIC ACID 500 MG TABLET PO SCH (08:47)
[2022-06-22] MEDS: GABAPENTIN 300 MG CAPSULE PO SCH ×3 (08:47→16:26)
[2022-06-22] MEDS: ARIPIPRAZOLE 5 MG TABLET PO SCH (08:47)
[2022-06-22] MEDS: LINAGLIPTIN 5 MG TABLET PO SCH (08:48)
[2022-06-22] MEDS: hydrALAZINE HCL 25 MG TABLET PO SCH ×3 (08:48→16:27)
[2022-06-22] MEDS: BENZTROPINE MESYLATE (1 MG) 1 MG TABLET PO SCH (08:48)
[2022-06-22] MEDS: DAKINS QUARTER STRENGTH (0.125%) 480 ML BOTTLE TOP SCH (08:50)
[2022-06-22] MEDS: FAMOTIDINE (20 MG) 20 MG TABLET PO SCH ×2 (08:55→16:26)
[2022-06-22] MEDS: FERROUS SULFATE (325 MG) 325 MG/TAB TABLET PO SCH ×2 (08:55→16:26)
[2022-06-22] MEDS: PROSOURCE / PROSTAT (PYXIS) 30 ML UDC GT SCH ×2 (08:55→16:26)
[2022-06-22] MEDS: EMPAGLIFLOZIN 25 MG TABLET PO SCH (08:55)
[2022-06-22] MEDS: VANCOMYCIN 1 GM in IV D5W 250ml IV SCH (13:06)
[2022-06-22 16:05] VITALS: BP 130/69
[2022-06-22 20:00] VITALS: BP 139/60
[2022-06-22] MEDS: INSULIN GLARGINE, 100 UNIT/ML CARTRIDGE SQ SCH (22:00)
[2022-06-22] MEDS: ATORVASTATIN 10 MG TABLET PO SCH (22:05)
[2022-06-22] MEDS: ISOSORBIDE MONONITRATE (30MG) 30 MG TAB.SR.24H PO SCH (22:05)
[2022-06-23 06:39] LABS: BASOPHILS # (AUTO) 0.1 K/uL (0.0-0.2); BASOPHILS % (AUTO) 0.9 % (0.0-2.0); EOSINOPHILS % (AUTO) 4.1 % (0.0-6.0); HEMATOCRIT 30 % (39-51); LYMPHOCYTES # (AUTO) 2.2 K/uL (0.8-4.8); LYMPHOCYTES % (AUTO) 18.6 % (20.0-44.0); MEAN CORPUSCULAR HGB CONC 33 g/dl (31.0-36.0); MEAN CORPUSCULAR VOLUME 91 fL (80-96); MONOCYTES % (AUTO) 8.1 % (2.0-12.0); NEUTROPHILS # (AUTO) 8.1 K/uL (1.8-8.9); NEUTROPHILS % (AUTO) 68.3 % (43.0-81.0); PLATELET COUNT (AUTO) 396 K/uL (150-450); RED BLOOD CELL COUNT(AUTO) 3.33 MIL/uL (4.5-6.0); WHITE BLOOD COUNT (AUTO) 11.8 K/uL (4.3-11.0)
[2022-06-23 06:41] LABS: CALCIUM, SERUM 8.9 mg/dL (8.5-10.1); CREATININE 1.6 mg/dL (0.6-1.3); POTASSIUM 3.9 mmol/L (3.5-5.1)
[2022-06-23] MEDS: BLOOD SUGAR DIAGNOSTIC 1 EACH STRIP VI SCH ×4 (07:30→21:48)
[2022-06-23 08:00] VITALS: BP 120/58
[2022-06-23] MEDS: LEVOTHYROXINE SODIUM 75 MCG TABLET PO SCH (09:43)
[2022-06-23] MEDS: SENNOSIDES 8.6 MG TABLET PO SCH ×2 (09:45→17:13)
[2022-06-23] MEDS: FAMOTIDINE (20 MG) 20 MG TABLET PO SCH ×2 (09:45→17:13)
[2022-06-23] MEDS: hydrALAZINE HCL 25 MG TABLET PO SCH ×3 (09:46→17:19)
[2022-06-23] MEDS: GABAPENTIN 300 MG CAPSULE PO SCH ×3 (09:46→17:18)
[2022-06-23] MEDS: LINAGLIPTIN 5 MG TABLET PO SCH (09:47)
[2022-06-23] MEDS: BUPROPION XL 150 MG TAB.ER.24 PO SCH ×2 (09:48→21:30)
[2022-06-23] MEDS: MULTIVIT W/MINERALS 1 TAB TABLET PO SCH (09:48)
[2022-06-23] MEDS: ASCORBIC ACID 500 MG TABLET PO SCH (09:48)
[2022-06-23] MEDS: BENZTROPINE MESYLATE (1 MG) 1 MG TABLET PO SCH (09:48)
[2022-06-23] MEDS: ARIPIPRAZOLE 5 MG TABLET PO SCH (09:48)
[2022-06-23] MEDS: TAMSULOSIN 0.4 MG CAP.SR.24H PO SCH (09:48)
[2022-06-23] MEDS: CHOLECALCIFEROL 1,000 UNIT TABLET (VIT D3) PO SCH (09:49)
[2022-06-23] MEDS: CLOPIDOGREL BISULFATE 75 MG TABLET PO SCH (09:49)
[2022-06-23] MEDS: FERROUS SULFATE (325 MG) 325 MG/TAB TABLET PO SCH ×2 (09:49→17:13)
[2022-06-23] MEDS: PROSOURCE / PROSTAT (PYXIS) 30 ML UDC GT SCH ×2 (09:58→17:18)
[2022-06-23] MEDS: EMPAGLIFLOZIN 25 MG TABLET PO SCH (09:58)
[2022-06-23] MEDS: VANCOMYCIN 1 GM in IV D5W 250ml IV SCH (10:04)
[2022-06-23] MEDS: DAKINS QUARTER STRENGTH (0.125%) 480 ML BOTTLE TOP SCH (10:18)
[2022-06-23] MEDS: INSULIN REGULAR, HUMAN 100 UNIT/ML 3 ML VIAL SQ PRN ×2 (13:10→21:47)
[2022-06-23 16:00] VITALS: BP 126/62
[2022-06-23 20:00] VITALS: BP 153/75
[2022-06-23] MEDS: ATORVASTATIN 10 MG TABLET PO SCH (21:30)
[2022-06-23] MEDS: ISOSORBIDE MONONITRATE (30MG) 30 MG TAB.SR.24H PO SCH (21:31)
[2022-06-23] MEDS: INSULIN GLARGINE, 100 UNIT/ML CARTRIDGE SQ SCH (21:42)
[2022-06-24] MEDS: VANCOMYCIN 1 GM in IV D5W 250ml IV SCH (02:00)
[2022-06-24 06:20] LABS: BASOPHILS # (AUTO) 0.1 K/uL (0.0-0.2); BASOPHILS % (AUTO) 0.8 % (0.0-2.0); EOSINOPHILS % (AUTO) 3.9 % (0.0-6.0); HEMATOCRIT 29 % (39-51); HEMOGLOBIN 9.7 g/dL (13.5-17.5); LYMPHOCYTES # (AUTO) 2.2 K/uL (0.8-4.8); LYMPHOCYTES % (AUTO) 17.7 % (20.0-44.0); MEAN CORPUSCULAR HGB CONC 33 g/dl (31.0-36.0); MEAN CORPUSCULAR VOLUME 91 fL (80-96); MONOCYTES % (AUTO) 8.4 % (2.0-12.0); NEUTROPHILS # (AUTO) 8.4 K/uL (1.8-8.9); NEUTROPHILS % (AUTO) 69.2 % (43.0-81.0); PLATELET COUNT (AUTO) 370 K/uL (150-450); RED BLOOD CELL COUNT(AUTO) 3.21 MIL/uL (4.5-6.0); WHITE BLOOD COUNT (AUTO) 12.2 K/uL (4.3-11.0)
[2022-06-24 06:26] LABS: CALCIUM, SERUM 8.8 mg/dL (8.5-10.1); CREATININE 1.7 mg/dL (0.6-1.3); POTASSIUM 3.8 mmol/L (3.5-5.1)
[2022-06-24] MEDS: INSULIN REGULAR, HUMAN 100 UNIT/ML 3 ML VIAL SQ PRN ×3 (06:37→17:56)
[2022-06-24] MEDS: BLOOD SUGAR DIAGNOSTIC 1 EACH STRIP VI SCH ×3 (06:38→17:57)
[2022-06-24 08:00] VITALS: BP 118/63
[2022-06-24] MEDS ORDERED: VANCOMYCIN 1 GM in IV D5W 250 ML IV SCH (08:00)
[2022-06-24] MEDS: SENNOSIDES 8.6 MG TABLET PO SCH ×2 (09:00→17:00)
[2022-06-24] MEDS: TAMSULOSIN 0.4 MG CAP.SR.24H PO SCH (10:00)
[2022-06-24] MEDS: LINAGLIPTIN 5 MG TABLET PO SCH (10:00)
[2022-06-24] MEDS: ARIPIPRAZOLE 5 MG TABLET PO SCH (10:00)
[2022-06-24] MEDS ORDERED: CADEXOMER IODINE 40 GM TUBE TP SCH (10:00)
[2022-06-24] MEDS: LEVOTHYROXINE SODIUM 75 MCG TABLET PO SCH (10:00)
[2022-06-24] MEDS: MULTIVIT W/MINERALS 1 TAB TABLET PO SCH (10:00)
[2022-06-24] MEDS: FAMOTIDINE (20 MG) 20 MG TABLET PO SCH ×2 (10:00→17:43)
[2022-06-24] MEDS: BENZTROPINE MESYLATE (1 MG) 1 MG TABLET PO SCH (10:01)
[2022-06-24] MEDS: ASCORBIC ACID 500 MG TABLET PO SCH (10:01)
[2022-06-24] MEDS: hydrALAZINE HCL 25 MG TABLET PO SCH ×3 (10:01→17:43)
[2022-06-24] MEDS: BUPROPION XL 150 MG TAB.ER.24 PO SCH (10:01)
[2022-06-24] MEDS: CLOPIDOGREL BISULFATE 75 MG TABLET PO SCH (10:02)
[2022-06-24] MEDS: FERROUS SULFATE (325 MG) 325 MG/TAB TABLET PO SCH ×2 (10:02→17:43)
[2022-06-24] MEDS: CHOLECALCIFEROL 1,000 UNIT TABLET (VIT D3) PO SCH (10:02)
[2022-06-24] MEDS: GABAPENTIN 300 MG CAPSULE PO SCH ×3 (10:02→17:43)
[2022-06-24] MEDS: EMPAGLIFLOZIN 25 MG TABLET PO SCH (10:15)
[2022-06-24] MEDS: PROSOURCE / PROSTAT (PYXIS) 30 ML UDC GT SCH ×2 (10:27→17:44)
[2022-06-24] MEDS: DAKINS QUARTER STRENGTH (0.125%) 480 ML BOTTLE TOP SCH (13:29)
[2022-06-24 17:43] VITALS: BP 149/69
== END 2022-06-24 18:36 | DRG 264 ==
LOC: ER 14:09 → MED 18:14
PROVIDERS: ADMIT Nurse Practitioner Acute Care; ATTEND Nurse Practitioner Acute Care
PROC: 0JBR0ZZ Excision of Left Foot Subcutaneous Tissue and Fascia, Open Approach (ICD-10-PCS; principal; 2022-06-20)
PROC: 05HB33Z Insertion of Infusion Device into Right Basilic Vein, Percutaneous Approach (ICD-10-PCS; 2022-06-24)
DX: E11.52 Type 2 diabetes mellitus with diabetic peripheral angiopathy with gangrene (principal); N17.0 Acute kidney failure with tubular necrosis; L03.116 Cellulitis of left lower limb; I96 Gangrene, not elsewhere classified; E11.621 Type 2 diabetes mellitus with foot ulcer; E11.622 Type 2 diabetes mellitus with other skin ulcer; E11.22 Type 2 diabetes mellitus with diabetic chronic kidney disease; L97.529 Non-pressure chronic ulcer of other part of left foot with unspecified severity; E11.42 Type 2 diabetes mellitus with diabetic polyneuropathy; E11.610 Type 2 diabetes mellitus with diabetic neuropathic arthropathy; I12.9 Hypertensive chronic kidney disease with stage 1 through stage 4 chronic kidney disease, or unspecified chronic kidney disease; I25.10 Atherosclerotic heart disease of native coronary artery without angina pectoris; J44.9 Chronic obstructive pulmonary disease, unspecified; N18.9 Chronic kidney disease, unspecified; Z74.01 Bed confinement status; D63.8 Anemia in other chronic diseases classified elsewhere; E03.9 Hypothyroidism, unspecified; E78.5 Hyperlipidemia, unspecified; Z86.73 Personal history of transient ischemic attack (TIA), and cerebral infarction without residual deficits; Z89.431 Acquired absence of right foot; M48.00 Spinal stenosis, site unspecified; F03.90 Unspecified dementia, unspecified severity, without behavioral disturbance, psychotic disturbance, mood disturbance, and anxiety; F41.9 Anxiety disorder, unspecified; Z79.84 Long term (current) use of oral hypoglycemic drugs; Z79.4 Long term (current) use of insulin; Z79.02 Long term (current) use of antithrombotics/antiplatelets; Z79.899 Other long term (current) drug therapy; F17.200 Nicotine dependence, unspecified, uncomplicated; F20.9 Schizophrenia, unspecified; F31.9 Bipolar disorder, unspecified; N28.1 Cyst of kidney, acquired; D72.829 Elevated white blood cell count, unspecified; Z87.81 Personal history of (healed) traumatic fracture; D64.9 Anemia, unspecified; B95.2 Enterococcus as the cause of diseases classified elsewhere; B95.8 Unspecified staphylococcus as the cause of diseases classified elsewhere; L89.620 Pressure ulcer of left heel, unstageable
CPT/HCPCS: 36410; 36415; 71045-TC; 73700-TC; 80048-TC; 80202-TC; 82962-TC; 83735-TC; 84100-TC; 85025-TC; 87070-TC; 87081-TC; 87186-TC; 93926-TC; A6209; A6253; C9803; G0378; G0463; J1815; J2185; J2250; J2704; J3010; J3370; J3490; J7030; J7060

== ENCOUNTER 2022-07-03 17:52 | Outpatient (CLI) | payer MEDICARE, OTHER ==
[~2022-07-03 17:52] MED LIST changes: -ACET-2605 PO; +ACET-868 PO; -AMIN887L PO; +ASCO-352 PO; -ASCO500C17 PO; -ASPI-1420 PO; +HYDR-4209 PO; +HYDR-4303 PO; +LINA5TAB PO; -SITA50TA PO; +TAMS-12 PO; +TYL2T PO
== END 2022-07-03 23:59 | disposition home or self-care (01) ==
LOC: LAB 17:52
PROVIDERS: ATTEND Student in an Organized Health Care Education/Training Program
DX: Z45.2 Encounter for adjustment and management of vascular access device (principal); E11.621 Type 2 diabetes mellitus with foot ulcer; L97.509 Non-pressure chronic ulcer of other part of unspecified foot with unspecified severity; E11.69 Type 2 diabetes mellitus with other specified complication; M86.8X7 Other osteomyelitis, ankle and foot

== ENCOUNTER → 2022-07-30 | Outpatient (CLI) | payer MEDICARE, OTHER | END | disposition home or self-care (01) | LOC: WOU 13:22 | PROVIDERS: ATTEND Podiatrist Foot & Ankle Surgery | DX: E11.621 Type 2 diabetes mellitus with foot ulcer (principal); L97.423 Non-pressure chronic ulcer of left heel and midfoot with necrosis of muscle; E11.610 Type 2 diabetes mellitus with diabetic neuropathic arthropathy; E11.42 Type 2 diabetes mellitus with diabetic polyneuropathy; E11.65 Type 2 diabetes mellitus with hyperglycemia; E11.69 Type 2 diabetes mellitus with other specified complication; M86.672 Other chronic osteomyelitis, left ankle and foot; Z79.4 Long term (current) use of insulin; Z79.84 Long term (current) use of oral hypoglycemic drugs; Z79.82 Long term (current) use of aspirin; Z79.02 Long term (current) use of antithrombotics/antiplatelets; Z79.899 Other long term (current) drug therapy | CPT/HCPCS: 11043; G0463 ==

== ENCOUNTER 2022-08-06 13:31 | Outpatient (CLI) | payer MEDICARE, OTHER | END 2022-08-06 23:59 | disposition home or self-care (01) | LOC: WOU 13:31 | PROVIDERS: ATTEND Podiatrist Foot & Ankle Surgery | DX: E11.621 Type 2 diabetes mellitus with foot ulcer (principal); L97.422 Non-pressure chronic ulcer of left heel and midfoot with fat layer exposed; E11.42 Type 2 diabetes mellitus with diabetic polyneuropathy; E11.610 Type 2 diabetes mellitus with diabetic neuropathic arthropathy; E11.65 Type 2 diabetes mellitus with hyperglycemia; E11.69 Type 2 diabetes mellitus with other specified complication; M86.672 Other chronic osteomyelitis, left ankle and foot; Z79.4 Long term (current) use of insulin; Z79.84 Long term (current) use of oral hypoglycemic drugs; Z79.01 Long term (current) use of anticoagulants; Z79.82 Long term (current) use of aspirin | CPT/HCPCS: 11042 ==

== ENCOUNTER 2022-08-13 12:30 | Outpatient (CLI) | payer MEDICARE, OTHER | END 2022-08-13 23:59 | disposition home or self-care (01) | LOC: WOU 12:30 | PROVIDERS: ATTEND Podiatrist Foot & Ankle Surgery | DX: E11.621 Type 2 diabetes mellitus with foot ulcer (principal); L97.422 Non-pressure chronic ulcer of left heel and midfoot with fat layer exposed; E11.610 Type 2 diabetes mellitus with diabetic neuropathic arthropathy; E11.65 Type 2 diabetes mellitus with hyperglycemia; E11.42 Type 2 diabetes mellitus with diabetic polyneuropathy; E11.69 Type 2 diabetes mellitus with other specified complication; M86.672 Other chronic osteomyelitis, left ankle and foot; Z79.4 Long term (current) use of insulin; Z79.84 Long term (current) use of oral hypoglycemic drugs; Z79.82 Long term (current) use of aspirin; Z79.02 Long term (current) use of antithrombotics/antiplatelets; Z79.899 Other long term (current) drug therapy | CPT/HCPCS: 11042; A6197 ==

== ENCOUNTER 2022-08-19 10:49 | Outpatient (CLI) | payer MEDICARE, OTHER | END 2022-08-19 23:59 | disposition home or self-care (01) | LOC: WOU 10:49 | PROVIDERS: ATTEND Podiatrist Foot & Ankle Surgery | DX: E11.621 Type 2 diabetes mellitus with foot ulcer (principal); L97.422 Non-pressure chronic ulcer of left heel and midfoot with fat layer exposed; E11.610 Type 2 diabetes mellitus with diabetic neuropathic arthropathy; E11.65 Type 2 diabetes mellitus with hyperglycemia; E11.42 Type 2 diabetes mellitus with diabetic polyneuropathy; E11.69 Type 2 diabetes mellitus with other specified complication; M86.672 Other chronic osteomyelitis, left ankle and foot; Z79.4 Long term (current) use of insulin; Z79.84 Long term (current) use of oral hypoglycemic drugs; Z79.82 Long term (current) use of aspirin; Z79.02 Long term (current) use of antithrombotics/antiplatelets; Z79.899 Other long term (current) drug therapy | CPT/HCPCS: 11042 ==

== ENCOUNTER 2022-08-26 10:01 | Outpatient (CLI) | payer MEDICARE, OTHER | END 2022-08-26 23:59 | disposition home or self-care (01) | LOC: WOU 10:01 | PROVIDERS: ATTEND Podiatrist Foot & Ankle Surgery | DX: E11.621 Type 2 diabetes mellitus with foot ulcer (principal); L97.422 Non-pressure chronic ulcer of left heel and midfoot with fat layer exposed; E11.65 Type 2 diabetes mellitus with hyperglycemia; E11.42 Type 2 diabetes mellitus with diabetic polyneuropathy; E11.610 Type 2 diabetes mellitus with diabetic neuropathic arthropathy; E11.69 Type 2 diabetes mellitus with other specified complication; M86.672 Other chronic osteomyelitis, left ankle and foot; Z79.4 Long term (current) use of insulin; Z79.84 Long term (current) use of oral hypoglycemic drugs; Z79.02 Long term (current) use of antithrombotics/antiplatelets; Z79.82 Long term (current) use of aspirin; Z79.899 Other long term (current) drug therapy | CPT/HCPCS: 11042; A6197 ==

== ENCOUNTER 2022-09-02 10:00 | Outpatient (CLI) | payer MEDICARE, OTHER | END 2022-09-02 23:59 | disposition home or self-care (01) | LOC: WOU 10:00 | PROVIDERS: ATTEND Podiatrist Foot & Ankle Surgery | DX: E11.621 Type 2 diabetes mellitus with foot ulcer (principal); L97.422 Non-pressure chronic ulcer of left heel and midfoot with fat layer exposed; E11.610 Type 2 diabetes mellitus with diabetic neuropathic arthropathy; E11.65 Type 2 diabetes mellitus with hyperglycemia; E11.42 Type 2 diabetes mellitus with diabetic polyneuropathy; E11.69 Type 2 diabetes mellitus with other specified complication; M86.672 Other chronic osteomyelitis, left ankle and foot; Z79.4 Long term (current) use of insulin; Z79.84 Long term (current) use of oral hypoglycemic drugs; Z79.02 Long term (current) use of antithrombotics/antiplatelets; Z79.899 Other long term (current) drug therapy | CPT/HCPCS: 15275; Q4186 ==

== ENCOUNTER 2022-09-09 09:20 | Outpatient (CLI) | payer MEDICARE, OTHER | END 2022-09-09 23:59 | disposition home or self-care (01) | LOC: WOU 09:20 | PROVIDERS: ATTEND Podiatrist Foot & Ankle Surgery | DX: E11.621 Type 2 diabetes mellitus with foot ulcer (principal); E11.610 Type 2 diabetes mellitus with diabetic neuropathic arthropathy; E11.65 Type 2 diabetes mellitus with hyperglycemia; E11.42 Type 2 diabetes mellitus with diabetic polyneuropathy; E11.69 Type 2 diabetes mellitus with other specified complication; M86.672 Other chronic osteomyelitis, left ankle and foot; L97.422 Non-pressure chronic ulcer of left heel and midfoot with fat layer exposed; Z79.84 Long term (current) use of oral hypoglycemic drugs; Z79.4 Long term (current) use of insulin; Z79.899 Other long term (current) drug therapy; Z79.82 Long term (current) use of aspirin; Z79.02 Long term (current) use of antithrombotics/antiplatelets | CPT/HCPCS: 15275; Q4186 ==

== ENCOUNTER 2022-09-16 10:00 | Outpatient (CLI) | payer MEDICARE, OTHER | END 2022-09-16 23:59 | disposition home or self-care (01) | LOC: WOU 10:00 | PROVIDERS: ATTEND Podiatrist Foot & Ankle Surgery | DX: E11.621 Type 2 diabetes mellitus with foot ulcer (principal); L97.422 Non-pressure chronic ulcer of left heel and midfoot with fat layer exposed; E11.610 Type 2 diabetes mellitus with diabetic neuropathic arthropathy; E11.65 Type 2 diabetes mellitus with hyperglycemia; E11.42 Type 2 diabetes mellitus with diabetic polyneuropathy; E11.69 Type 2 diabetes mellitus with other specified complication; M86.672 Other chronic osteomyelitis, left ankle and foot; Z79.4 Long term (current) use of insulin; Z79.84 Long term (current) use of oral hypoglycemic drugs; Z79.82 Long term (current) use of aspirin; Z79.02 Long term (current) use of antithrombotics/antiplatelets; Z79.899 Other long term (current) drug therapy | CPT/HCPCS: 15275; Q4186 ==

== ENCOUNTER 2022-10-08 12:38 | Outpatient (CLI) | payer MEDICARE, OTHER ==
[2022-10-08] MEDS ORDERED: COLLAGENASE 5 GM TUBE UD TP ONE (12:57)
== END 2022-10-08 23:59 | disposition home health service (06) ==
LOC: WOU 12:38
PROVIDERS: ATTEND Podiatrist Foot & Ankle Surgery
DX: E11.621 Type 2 diabetes mellitus with foot ulcer (principal); L97.422 Non-pressure chronic ulcer of left heel and midfoot with fat layer exposed; E11.610 Type 2 diabetes mellitus with diabetic neuropathic arthropathy; E11.65 Type 2 diabetes mellitus with hyperglycemia; E11.42 Type 2 diabetes mellitus with diabetic polyneuropathy; E11.69 Type 2 diabetes mellitus with other specified complication; M86.672 Other chronic osteomyelitis, left ankle and foot; Z79.4 Long term (current) use of insulin; Z79.84 Long term (current) use of oral hypoglycemic drugs; Z87.891 Personal history of nicotine dependence; Z79.899 Other long term (current) drug therapy
CPT/HCPCS: 11042; G0463

== ENCOUNTER 2022-10-22 12:45 | Outpatient (CLI) | payer MEDICARE, OTHER ==
[2022-10-22] MEDS ORDERED: COLLAGENASE 5 GM TUBE UD TP ONE (13:17)
== END 2022-10-22 23:59 | disposition home health service (06) ==
LOC: WOU 12:45
PROVIDERS: ATTEND Podiatrist Foot & Ankle Surgery
DX: E11.621 Type 2 diabetes mellitus with foot ulcer (principal); L97.422 Non-pressure chronic ulcer of left heel and midfoot with fat layer exposed; E11.610 Type 2 diabetes mellitus with diabetic neuropathic arthropathy; E11.42 Type 2 diabetes mellitus with diabetic polyneuropathy; E11.65 Type 2 diabetes mellitus with hyperglycemia; E11.69 Type 2 diabetes mellitus with other specified complication; M86.672 Other chronic osteomyelitis, left ankle and foot; Z79.4 Long term (current) use of insulin; Z79.84 Long term (current) use of oral hypoglycemic drugs; Z79.02 Long term (current) use of antithrombotics/antiplatelets; Z79.82 Long term (current) use of aspirin
CPT/HCPCS: 11042

== ENCOUNTER 2022-10-29 13:32 | Outpatient (CLI) | payer MEDICARE, OTHER ==
[2022-10-29] MEDS ORDERED: COLLAGENASE 5 GM TUBE UD TP ONE ×2 (13:36→13:47)
== END 2022-10-29 23:59 | disposition home health service (06) ==
LOC: WOU 13:32
PROVIDERS: ATTEND Podiatrist Foot & Ankle Surgery
DX: E11.621 Type 2 diabetes mellitus with foot ulcer (principal); L97.423 Non-pressure chronic ulcer of left heel and midfoot with necrosis of muscle; E11.610 Type 2 diabetes mellitus with diabetic neuropathic arthropathy; E11.65 Type 2 diabetes mellitus with hyperglycemia; E11.42 Type 2 diabetes mellitus with diabetic polyneuropathy; E11.69 Type 2 diabetes mellitus with other specified complication; M86.672 Other chronic osteomyelitis, left ankle and foot; Z79.4 Long term (current) use of insulin; Z79.84 Long term (current) use of oral hypoglycemic drugs; Z79.82 Long term (current) use of aspirin; Z79.01 Long term (current) use of anticoagulants
CPT/HCPCS: 11043

== ENCOUNTER 2022-11-05 13:00 | Outpatient (CLI) | payer MEDICARE, OTHER ==
[2022-11-05] MEDS ORDERED: COLLAGENASE 5 GM TUBE UD TP ONE (13:37)
== END 2022-11-05 23:59 | disposition home health service (06) ==
LOC: WOU 13:00
PROVIDERS: ATTEND Podiatrist Foot & Ankle Surgery
DX: E11.621 Type 2 diabetes mellitus with foot ulcer (principal); L97.423 Non-pressure chronic ulcer of left heel and midfoot with necrosis of muscle; L03.116 Cellulitis of left lower limb; E11.65 Type 2 diabetes mellitus with hyperglycemia; E11.610 Type 2 diabetes mellitus with diabetic neuropathic arthropathy; E11.42 Type 2 diabetes mellitus with diabetic polyneuropathy; E11.69 Type 2 diabetes mellitus with other specified complication; M86.672 Other chronic osteomyelitis, left ankle and foot; Z79.84 Long term (current) use of oral hypoglycemic drugs; Z79.02 Long term (current) use of antithrombotics/antiplatelets; Z79.82 Long term (current) use of aspirin
CPT/HCPCS: 11043

== ENCOUNTER 2022-11-12 15:08 | Outpatient (CLI) | payer MEDICARE, OTHER ==
[~2022-11-12 15:08] MED LIST changes: +COLLAGENASE 5 GM TUBE UD TP ONE
== END 2022-11-12 23:59 | disposition home health service (06) ==
LOC: WOU 15:08
PROVIDERS: ATTEND Podiatrist Foot & Ankle Surgery
DX: E11.621 Type 2 diabetes mellitus with foot ulcer (principal); L97.423 Non-pressure chronic ulcer of left heel and midfoot with necrosis of muscle; E11.610 Type 2 diabetes mellitus with diabetic neuropathic arthropathy; E11.42 Type 2 diabetes mellitus with diabetic polyneuropathy; Z79.4 Long term (current) use of insulin; Z79.84 Long term (current) use of oral hypoglycemic drugs; Z79.02 Long term (current) use of antithrombotics/antiplatelets; Z79.82 Long term (current) use of aspirin
CPT/HCPCS: 11043

== ENCOUNTER 2022-11-19 14:35 | Outpatient (CLI) | payer MEDICARE, OTHER ==
[2022-11-19] MEDS ORDERED: COLLAGENASE 5 GM TUBE UD TP ONE (14:47)
== END 2022-11-19 23:59 | disposition home health service (06) ==
LOC: WOU 14:35
PROVIDERS: ATTEND Podiatrist Foot & Ankle Surgery
DX: E11.621 Type 2 diabetes mellitus with foot ulcer (principal); L97.422 Non-pressure chronic ulcer of left heel and midfoot with fat layer exposed; E11.610 Type 2 diabetes mellitus with diabetic neuropathic arthropathy; E11.65 Type 2 diabetes mellitus with hyperglycemia; E11.42 Type 2 diabetes mellitus with diabetic polyneuropathy; E11.69 Type 2 diabetes mellitus with other specified complication; M86.672 Other chronic osteomyelitis, left ankle and foot; Z79.4 Long term (current) use of insulin; Z79.84 Long term (current) use of oral hypoglycemic drugs; Z79.02 Long term (current) use of antithrombotics/antiplatelets; Z79.82 Long term (current) use of aspirin; Z79.899 Other long term (current) drug therapy
CPT/HCPCS: 11042

== ENCOUNTER 2022-12-03 12:30 | Outpatient (CLI) | payer MEDICARE, OTHER ==
[~2022-12-03 12:30] MED LIST changes: -COLLAGENASE 5 GM TUBE UD TP ONE
== END 2022-12-03 23:59 | disposition home health service (06) ==
LOC: WOU 12:30
PROVIDERS: ATTEND Podiatrist Foot & Ankle Surgery
DX: E11.621 Type 2 diabetes mellitus with foot ulcer (principal); L97.422 Non-pressure chronic ulcer of left heel and midfoot with fat layer exposed; E11.610 Type 2 diabetes mellitus with diabetic neuropathic arthropathy; E11.42 Type 2 diabetes mellitus with diabetic polyneuropathy; E11.65 Type 2 diabetes mellitus with hyperglycemia; L03.116 Cellulitis of left lower limb; Z79.4 Long term (current) use of insulin; Z79.84 Long term (current) use of oral hypoglycemic drugs; Z79.82 Long term (current) use of aspirin; Z79.02 Long term (current) use of antithrombotics/antiplatelets
CPT/HCPCS: 11042

== ENCOUNTER 2022-12-10 14:59 | Outpatient (CLI) | payer MEDICARE, OTHER | END 2022-12-10 23:59 | LOC: WOU 14:59 | PROVIDERS: ATTEND Podiatrist Foot & Ankle Surgery | DX: E11.621 Type 2 diabetes mellitus with foot ulcer (principal); L97.422 Non-pressure chronic ulcer of left heel and midfoot with fat layer exposed; E11.42 Type 2 diabetes mellitus with diabetic polyneuropathy; E11.610 Type 2 diabetes mellitus with diabetic neuropathic arthropathy; E11.65 Type 2 diabetes mellitus with hyperglycemia; E11.69 Type 2 diabetes mellitus with other specified complication; M86.672 Other chronic osteomyelitis, left ankle and foot; L03.116 Cellulitis of left lower limb; Z79.4 Long term (current) use of insulin; Z79.84 Long term (current) use of oral hypoglycemic drugs; Z79.82 Long term (current) use of aspirin | CPT/HCPCS: 11042 ==

== ENCOUNTER 2022-12-17 15:41 | Outpatient (CLI) | payer MEDICARE, OTHER ==
[~2022-12-17 15:41] MED LIST changes: +GENTAMICIN 0.1% CREAM 15 GM TUBE ONE
== END 2022-12-17 23:59 ==
LOC: WOU 15:41
PROVIDERS: ATTEND Podiatrist Foot & Ankle Surgery
DX: E11.621 Type 2 diabetes mellitus with foot ulcer (principal); L97.422 Non-pressure chronic ulcer of left heel and midfoot with fat layer exposed; E11.610 Type 2 diabetes mellitus with diabetic neuropathic arthropathy; E11.65 Type 2 diabetes mellitus with hyperglycemia; E11.42 Type 2 diabetes mellitus with diabetic polyneuropathy; E11.69 Type 2 diabetes mellitus with other specified complication; M86.672 Other chronic osteomyelitis, left ankle and foot; Z79.4 Long term (current) use of insulin; Z79.84 Long term (current) use of oral hypoglycemic drugs; Z79.82 Long term (current) use of aspirin; Z79.02 Long term (current) use of antithrombotics/antiplatelets; Z79.899 Other long term (current) drug therapy
CPT/HCPCS: 11042

== ENCOUNTER → 2022-12-26 | Outpatient (CLI) | payer MEDICARE, OTHER ==
[~2022-12-26] MED LIST changes: +CEPH500C2 PO; -GENTAMICIN 0.1% CREAM 15 GM TUBE ONE
== END ==
LOC: WOU 10:52
PROVIDERS: ATTEND Podiatrist Foot & Ankle Surgery
DX: E11.621 Type 2 diabetes mellitus with foot ulcer (principal); L97.422 Non-pressure chronic ulcer of left heel and midfoot with fat layer exposed; E11.610 Type 2 diabetes mellitus with diabetic neuropathic arthropathy; E11.65 Type 2 diabetes mellitus with hyperglycemia; E11.42 Type 2 diabetes mellitus with diabetic polyneuropathy; Z79.4 Long term (current) use of insulin; Z79.84 Long term (current) use of oral hypoglycemic drugs; Z79.82 Long term (current) use of aspirin; Z79.02 Long term (current) use of antithrombotics/antiplatelets; Z79.899 Other long term (current) drug therapy
CPT/HCPCS: 15275; Q4133

== ENCOUNTER 2022-12-30 14:42 | Outpatient (CLI) | payer MEDICARE, OTHER ==
[~2022-12-30 14:42] MED LIST changes: -CEPH500C2 PO
== END 2022-12-30 23:59 ==
LOC: WOU 14:42
PROVIDERS: ATTEND Podiatrist Foot & Ankle Surgery
DX: E11.621 Type 2 diabetes mellitus with foot ulcer (principal); L97.422 Non-pressure chronic ulcer of left heel and midfoot with fat layer exposed; E11.610 Type 2 diabetes mellitus with diabetic neuropathic arthropathy; E11.65 Type 2 diabetes mellitus with hyperglycemia; E11.42 Type 2 diabetes mellitus with diabetic polyneuropathy; Z79.4 Long term (current) use of insulin; Z79.84 Long term (current) use of oral hypoglycemic drugs; Z79.82 Long term (current) use of aspirin; Z79.02 Long term (current) use of antithrombotics/antiplatelets
CPT/HCPCS: 15275; Q4133

== ENCOUNTER 2023-01-01 11:43 | Emergency (ER) | payer MEDICARE, OTHER ==
[~2023-01-01] VITALS: Ht 185.4 cm; Wt 83.0 kg
--- NOTE | 2023-01-01 11:50 | NUR ---
NICOLE GARCIA FROM [facility]ARE [facility],C/O "PENILE PAIN" ROBLES IN PLACE. PLACED IN BED, AAOX4, BREATHING UNLABORED SATURATING AT 98%RA.
[2023-01-01] MEDS ORDERED: WATER FOR INJECTION,STERILE 10 ML ONE (12:40)
[2023-01-01] MEDS ORDERED: LIDOCAINE 2% JEL UROJET 10 ML MM ONE ×2 (12:40→13:00)
--- NOTE | 2023-01-01 13:23 | NUR ---
URINE SAMPLE SENT TO LAB
[2023-01-01 13:44] LABS: BILIRUBIN,URINE NEGATIVE (NEGATIVE); COLOR,URINE YELLOW (YELLOW); LEUKOCYTE ESTERASE ,URINE 2+ (NEGATIVE); NITRITE, URINE POSITIVE (NEGATIVE); PH,URINE 5.5 (5.0-8.0); PROTEIN,URINE TRACE mg/dl (NEGATIVE); UGLUCOSE 3+ mg/dL (NEGATIVE); UROBILINOGEN,URINE 0.2 EU/dL (0.2)
[2023-01-01 14:07] LABS: WBC,URINE 21-50 /HPF (0-3)
[2023-01-01 14:08] LABS: BACTERIA,URINE FEW /HPF (None Seen); SQUAMOUS EPITHELIAL CELL,UR None Seen /HPF (None Seen)
[2023-01-01] MEDS ORDERED: CEPHALEXIN MONOHYDRATE 500 MG CAPSULE PO ONE ×2 (15:00→15:54)
[2023-01-01] MEDS ORDERED: CEPH500C2 PO (15:00)
[2023-01-01] MEDS ORDERED: CEFTRIAXONE 1GM BAG (ER ONLY) 1 GM/50 ML PIGGYBACK IV ONE (15:00)
--- NOTE | 2023-01-01 16:07 | NUR ---
[facility] [phone] BLS transportation set up, pt to go back to facility. [facility] [place]. ETA [phone] ([phone])
--- NOTE | 2023-01-01 16:13 | NUR ---
called [facility] and set up bls transport eta [phone]
--- NOTE | 2023-01-01 16:35 | NUR ---
Patient discharged back to Snf in stable condition. Written and verbal after care instructions given. Patient verbalizes understanding of instruction.
[2023-01-01 16:52] VITALS: BP 150/66
[2023-01-29] MEDS ORDERED: CEPH500C2 PO (12:54)
== END 2023-01-01 16:53 | disposition home or self-care (01) ==
LOC: ER 11:45
DX: N39.0 Urinary tract infection, site not specified (principal); N48.89 Other specified disorders of penis; I12.9 Hypertensive chronic kidney disease with stage 1 through stage 4 chronic kidney disease, or unspecified chronic kidney disease; E11.22 Type 2 diabetes mellitus with diabetic chronic kidney disease; N18.9 Chronic kidney disease, unspecified; E11.42 Type 2 diabetes mellitus with diabetic polyneuropathy; E78.5 Hyperlipidemia, unspecified; D64.9 Anemia, unspecified; F03.90 Unspecified dementia, unspecified severity, without behavioral disturbance, psychotic disturbance, mood disturbance, and anxiety; F41.9 Anxiety disorder, unspecified; F32.A Depression, unspecified; Z86.73 Personal history of transient ischemic attack (TIA), and cerebral infarction without residual deficits; Z79.899 Other long term (current) drug therapy; Z79.4 Long term (current) use of insulin
CPT/HCPCS: 99284; 51702; 87086; 81001; J3490

== ENCOUNTER 2023-01-06 14:12 | Outpatient (CLI) | payer MEDICARE, OTHER ==
[~2023-01-06 14:12] MED LIST changes: +CEPH500C2 PO
== END 2023-01-06 23:59 ==
LOC: WOU 14:12
PROVIDERS: ATTEND Podiatrist Foot & Ankle Surgery
DX: E11.621 Type 2 diabetes mellitus with foot ulcer (principal); L97.422 Non-pressure chronic ulcer of left heel and midfoot with fat layer exposed; E11.65 Type 2 diabetes mellitus with hyperglycemia; E11.610 Type 2 diabetes mellitus with diabetic neuropathic arthropathy; E11.42 Type 2 diabetes mellitus with diabetic polyneuropathy; Z79.84 Long term (current) use of oral hypoglycemic drugs; Z79.4 Long term (current) use of insulin; Z79.899 Other long term (current) drug therapy
CPT/HCPCS: 11042

== ENCOUNTER 2023-01-14 14:33 | Outpatient (CLI) | payer MEDICARE, OTHER | END 2023-01-14 23:59 | disposition home health service (06) | LOC: WOU 14:33 | PROVIDERS: ATTEND Specialist | DX: E11.621 Type 2 diabetes mellitus with foot ulcer (principal); L97.422 Non-pressure chronic ulcer of left heel and midfoot with fat layer exposed; E11.610 Type 2 diabetes mellitus with diabetic neuropathic arthropathy; E11.42 Type 2 diabetes mellitus with diabetic polyneuropathy; E11.65 Type 2 diabetes mellitus with hyperglycemia; Z79.4 Long term (current) use of insulin; Z79.84 Long term (current) use of oral hypoglycemic drugs; Z87.891 Personal history of nicotine dependence | CPT/HCPCS: 11042 ==

== ENCOUNTER 2023-01-21 13:56 | Outpatient (CLI) | payer MEDICARE, OTHER ==
[2023-01-29] MEDS ORDERED: CEPH500C2 PO (12:54)
== END 2023-01-21 23:59 ==
LOC: WOU 13:56
PROVIDERS: ATTEND Podiatrist Foot & Ankle Surgery
DX: E11.621 Type 2 diabetes mellitus with foot ulcer (principal); L97.422 Non-pressure chronic ulcer of left heel and midfoot with fat layer exposed; E11.610 Type 2 diabetes mellitus with diabetic neuropathic arthropathy; E11.65 Type 2 diabetes mellitus with hyperglycemia; E11.42 Type 2 diabetes mellitus with diabetic polyneuropathy; Z79.4 Long term (current) use of insulin; Z79.84 Long term (current) use of oral hypoglycemic drugs; Z79.02 Long term (current) use of antithrombotics/antiplatelets; Z79.82 Long term (current) use of aspirin; Z79.899 Other long term (current) drug therapy
CPT/HCPCS: 15271; Q4133

== ENCOUNTER 2023-01-26 11:35 | Inpatient (IN) | payer MEDICARE, OTHER ==
[~2023-01-26] VITALS: Ht 185.4 cm; Wt 81.6 kg
[2023-01-26 12:40] LABS: BASOPHILS # (AUTO) 0.2 K/uL (0.0-0.2); HEMATOCRIT 33 % (39-51); HEMOGLOBIN 10.6 g/dL (13.5-17.5); LYMPHOCYTES # (AUTO) 1.8 K/uL (0.8-4.8); LYMPHOCYTES % (AUTO) 9.1 % (20.0-44.0); MEAN CORPUSCULAR HGB CONC 32 g/dl (31.0-36.0); MEAN CORPUSCULAR VOLUME 91 fL (80-96); MONOCYTES # (AUTO) 1.6 K/uL (0.1-1.30); MONOCYTES % (AUTO) 8.1 % (2.0-12.0); NEUTROPHILS # (AUTO) 15.6 K/uL (1.8-8.9); NEUTROPHILS % (AUTO) 80.8 % (43.0-81.0); PLATELET COUNT (AUTO) 378 K/uL (150-450); RED BLOOD CELL COUNT(AUTO) 3.65 MIL/uL (4.5-6.0); WHITE BLOOD COUNT (AUTO) 19.4 K/uL (4.3-11.0)
--- NOTE | 2023-01-26 13:23 | NUR ---
PT IN BED 12, BREATING IS EVEN AND UNLABORED, VITAL WNL. C/O INCREASING WEAKNESS AND FATUIGE. NKA. BED LOCKED IN LOWEST POSTION SIDE RAILS UP.
[2023-01-26 13:36] LABS: CALCIUM, SERUM 9.1 mg/dL (8.5-10.1); CARBON DIOXIDE 23 mmol/L (21-32); CHLORIDE 107 mmol/L (98-107); CREATININE 2.4 mg/dL (0.6-1.3); GLUCOSE 78 mg/dL (74-106); POTASSIUM 4.7 mmol/L (3.5-5.1); SODIUM SERUM 140 mmol/L (136-145); UREA NITROGEN, BLOOD 45 mg/dL (7-18)
[2023-01-26 13:42] LABS: ALANINE AMINOTRANSFERASE 15 U/L (12-78); ALKALINE PHOSPHATASE 74 U/L (46-116); ASPARTATE AMINOTRANSFERASE 14 U/L (15-37); BILIRUBIN,DIRECT 0.1 mg/dL (0.0-0.2); BILIRUBIN,TOTAL 0.4 mg/dL (0.2-1.0); TOTAL PROTEIN, SERUM 7.9 g/dL (6.4-8.2)
[2023-01-26] MEDS ORDERED: Z GUARD REMEDY 4 OZ OINT TP PRN (14:00)
[2023-01-26] MEDS ORDERED: ONDANSETRON HCL/PF 4 MG/2 ML VIAL IVP PRN (14:00)
[2023-01-26] MEDS ORDERED: ACETAMINOPHEN 325 MG TABLET PO PRN (14:00)
[2023-01-26] MEDS ORDERED: NA PHOS,M-B/NA PHOS,DI-BA 1 EA ENEMA RC PRN (14:00)
[2023-01-26] MEDS ORDERED: HYDROCODONE/APAP 10/325MG TABLET PO PRN (14:00)
[2023-01-26] MEDS ORDERED: HYDROCODONE/APAP 5/325MG TABLET PO PRN (14:00)
[2023-01-26] MEDS ORDERED: BISACODYL SUPP (10 MG) 10 MG/SUPP.RECT SUPP.RECT RC PRN (14:00)
[2023-01-26] MEDS ORDERED: DEXTROSE 50%-WATER 50 ML DISP.SYRIN IV PRN (14:00)
[2023-01-26] MEDS ORDERED: IV 1/2NS 1000 ML 1,000 ML IV PRN (14:00)
[2023-01-26] MEDS ORDERED: NITROGLYCERIN 0.4 MG/TAB BOTTLE SL PRN (14:00)
--- NOTE | 2023-01-26 14:34 | NUR ---
NURSING SUP ADVISED OF NEED FOR ROOM.
--- NOTE | 2023-01-26 14:42 | NUR ---
309-2. ADMITTING MADE AWARE
[2023-01-26] MEDS ORDERED: IV NS 0.9% 1,000 ML BAG IV ONE (15:00)
--- NOTE | 2023-01-26 15:30 | NUR ---
HAND OFF REPORT GIVEN TO LEONOR WAGNER
[2023-01-26] MEDS ORDERED: VANCOMYCIN 1.25 GM in IV D5W 250 ML IV SCH (16:00)
--- NOTE | 2023-01-26 16:30 | NUR ---
SANITATION OFFICER NOTES RECEIVED PATIENT AWAKE FROM THE ER VIA GURNEY WITH NO SIGN OF DISTRESS. PATIENT IS LYING IN BED, A/O X2, LETHARGIC. NO SOB AND NO DISTRESS NOTED. BREATHING EVEN AND UNLABORED IN ROOM AIR. PATIENT WAS ORIENTED TO ROOM SET UP AND EDUCATED ON THE USE OF CALL LIGHT. SKIN ASSESSMENT DONE AND PICTURE TAKEN. BELONGING LIST CHECKED AND SIGNED. PATIENT HAS IV ACCESS AT RIGHT HAND G#20. PATIENT HAS EXTERNAL ROAD ADVISOR WITH READING OF SINUS WITH 1ST DEGREE BLOCK WITH BBB WITH PVC. WITH ROBLES CATHETER ATTACHED TO RIGHT LEG WITH YELLOW URINE OUTPUT. ALL NEEDS ATTENDED. ALL SAFETY MEASURES IN PLACE. BED LOCKED IN THE LOWEST POSITION. CALL LIGHT AND TABLE IN EASY REACH. SIDE RAILS UP TIMES 2. BED ALARM ON. WILL CONTINUE TO MONITOR CLOSELY FOR ANY RAYMON AND ASSIST PATIENT WITH IMMEDIATE NEEDS.
[2023-01-26] MEDS: CEFTRIAXONE 1 G in IV D5W 50 ML IV SCH (17:46)
[2023-01-26] MEDS: FAMOTIDINE (20 MG) 20 MG TABLET PO SCH (17:47)
[2023-01-26] MEDS: FERROUS SULFATE (325 MG) 325 MG/TAB TABLET PO SCH (17:48)
[2023-01-26] MEDS: SENNOSIDES 8.6 MG TABLET PO SCH (17:48)
[2023-01-26] MEDS: GABAPENTIN 300 MG CAPSULE PO SCH (17:48)
[2023-01-26] MEDS: hydrALAZINE HCL 25 MG TABLET PO SCH (17:49)
[2023-01-26] MEDS: ENOXAPARIN SODIUM 40 MG/0.4 ML DISP.SYRIN SQ SCH (17:52)
[2023-01-26] MEDS: BLOOD SUGAR DIAGNOSTIC 1 EACH STRIP VI SCH ×2 (18:12→22:45)
--- NOTE | 2023-01-26 19:45 | NUR ---
NATURAL RESOURCES ENGINEER CLOSING NOTES PATIENT AWAKE IN BED. PATIENT IS A/O x2, VERY LETHARGIC. ON ROOM AIR NO SOB NOTED, NO DISTRESS NOTED, BREATHING EVEN AND UNLABORED. PATIENT HAS IV ACCESS AT RIGHT HAND G#20 WITH NS BOLUS TO FOLLOW WITH 1/2 NS AT 75 ML/HR, IV INFUSING WELL. PATIENT HAS EXTERNAL FERN CUTTER WITH READING OF SINUS WITH 1ST DEGREE BLOCK WITH BBB WITH PVC. WITH ROBLES CATHETER ATTACHED TO RIGHT LEG WITH OUTPUT OF 500 ML. ALL NEEDS ATTENDED. ALL DUE MEDS GIVEN ORDERED.ALL SAFETY MEASURES IN PLACE. BED LOCKED IN THE LOWEST POSITION. CALL LIGHT AND TABLE IN EASY REACH. SIDE RAILS UP TIMES 2. BED ALARM ON. WILL ENDORSE TO ESL INSTRUCTIONAL ASSISTANT NURSE.
--- NOTE | 2023-01-26 20:08 | NUR ---
RN Opening Notes Received pt in bed, asleep, awakens to verbal stimuli. AOx2. On RA and tolerating well. No SOB noted. No s/sx of respiratory distress noted. Tele monitor detects SR with 1st degree AV block and BBB and rate of 90. IV access in R Hand #20G running 1/2NS @ 75 mL/hr. Safety precautions in place: bed in lowest, locked position, siderails upX2, and brakes on. Table and call light within reach. All needs met at this time.
[2023-01-26 20:24] VITALS: BP 122/58
[2023-01-26 21:32] VITALS: BP 144/74
[2023-01-26] MEDS: ISOSORBIDE MONONITRATE 20 MG TABLET PO SCH ×2 (21:56→22:00)
[2023-01-26] MEDS: ATORVASTATIN 10 MG TABLET PO SCH ×2 (21:56→22:00)
[2023-01-26] MEDS: BUPROPION XL 150 MG TAB.ER.24 PO SCH ×2 (21:56→22:46)
[2023-01-26] MEDS ORDERED: ATORVASTATIN 10 MG TABLET PO SCH (22:00)
[2023-01-26] MEDS: INSULIN GLARGINE, 100 UNIT/ML CARTRIDGE SQ SCH (22:00)
[2023-01-27 00:21] VITALS: BP 140/74
[2023-01-27 04:52] VITALS: BP 152/77
[2023-01-27] MEDS: BLOOD SUGAR DIAGNOSTIC 1 EACH STRIP VI SCH ×4 (06:32→21:22)
[2023-01-27] MEDS: INSULIN REGULAR, HUMAN 100 UNIT/ML 3 ML VIAL SQ PRN ×3 (06:33→17:28)
[2023-01-27 06:36] LABS: BASOPHILS # (AUTO) 0.2 K/uL (0.0-0.2); BASOPHILS % (AUTO) 0.9 % (0.0-2.0); EOSINOPHILS % (AUTO) 1.7 % (0.0-6.0); HEMATOCRIT 34 % (39-51); HEMOGLOBIN 10.6 g/dL (13.5-17.5); LYMPHOCYTES # (AUTO) 1.6 K/uL (0.8-4.8); LYMPHOCYTES % (AUTO) 8.9 % (20.0-44.0); MEAN CORPUSCULAR HGB CONC 31 g/dl (31.0-36.0); MEAN CORPUSCULAR VOLUME 94 fL (80-96); MONOCYTES # (AUTO) 1.6 K/uL (0.1-1.30); MONOCYTES % (AUTO) 8.7 % (2.0-12.0); NEUTROPHILS # (AUTO) 14.8 K/uL (1.8-8.9); NEUTROPHILS % (AUTO) 79.8 % (43.0-81.0); PLATELET COUNT (AUTO) 354 K/uL (150-450); RED BLOOD CELL COUNT(AUTO) 3.64 MIL/uL (4.5-6.0); WHITE BLOOD COUNT (AUTO) 18.5 K/uL (4.3-11.0)
--- NOTE | 2023-01-27 06:41 | NUR ---
RN Closing Notes Pt in bed, asleep, awakens to verbal stimuli. AOx2. On RA and tolerating well. No SOB noted. No s/sx of respiratory distress noted. Tele monitor detects SR with 1st degree AV block and BBB and rate of 90. IV access in R Hand #20G running 1/2NS @ 75 mL/hr. All orders carried out. All needs met. Pt kept clean and dry. Safety precautions in place: bed in lowest, locked position, siderails upX2, and brakes on. Table and call light within reach. Will endorse to oncoming shift for RAYMON.
[2023-01-27 06:55] LABS: CALCIUM, SERUM 8.8 mg/dL (8.5-10.1); CREATININE 1.9 mg/dL (0.6-1.3); MAGNESIUM 2.3 mg/dL (1.8-2.4); PHOSPHORUS 3.3 mg/dL (2.5-4.9); POTASSIUM 3.9 mmol/L (3.5-5.1)
[2023-01-27 08:00] VITALS: BP 148/76
[2023-01-27] MEDS: ARIPIPRAZOLE 5 MG TABLET PO SCH (09:05)
[2023-01-27] MEDS: TAMSULOSIN 0.4 MG CAP.SR.24H PO SCH (09:05)
[2023-01-27] MEDS: SENNOSIDES 8.6 MG TABLET PO SCH ×2 (09:05→17:00)
[2023-01-27] MEDS: CHOLECALCIFEROL 1,000 UNIT TABLET (VIT D3) PO SCH (09:05)
[2023-01-27] MEDS: FERROUS SULFATE (325 MG) 325 MG/TAB TABLET PO SCH ×2 (09:06→17:21)
[2023-01-27] MEDS: ASPIRIN 81 MG TAB.CHEW PO SCH (09:06)
[2023-01-27] MEDS: LINAGLIPTIN 5 MG TABLET PO SCH (09:06)
[2023-01-27] MEDS: BUPROPION XL 150 MG TAB.ER.24 PO SCH ×2 (09:06→21:10)
[2023-01-27] MEDS: ASCORBIC ACID 500 MG TABLET PO SCH (09:06)
[2023-01-27] MEDS: FAMOTIDINE (20 MG) 20 MG TABLET PO SCH ×2 (09:06→17:21)
[2023-01-27] MEDS: GABAPENTIN 300 MG CAPSULE PO SCH ×3 (09:06→17:21)
[2023-01-27] MEDS: CLOPIDOGREL BISULFATE 75 MG TABLET PO SCH (09:06)
[2023-01-27] MEDS: hydrALAZINE HCL 25 MG TABLET PO SCH ×3 (09:07→17:21)
[2023-01-27] MEDS: LEVOTHYROXINE SODIUM 100 MCG TABLET PO SCH (09:12)
[2023-01-27] MEDS: ENOXAPARIN SODIUM 40 MG/0.4 ML DISP.SYRIN SQ SCH (09:13)
--- NOTE | 2023-01-27 10:32 | NUR ---
WOUND CARE CONSULT: PT REFUSED SKIN ASSESSMENT. DR CANO CALLED FOR DPM CONSULT. IN AGREEMENT WITH PLAN OF CARE.
[2023-01-27] MEDS ORDERED: KETO120S5 TP (10:53)
[2023-01-27] MEDS ORDERED: INSU100V30 SQ (10:53)
[2023-01-27] MEDS ORDERED: BENZ1TAB7 PO (10:53)
[2023-01-27] MEDS ORDERED: BUPR100T7 PO (10:53)
[2023-01-27] MEDS ORDERED: DULA0.75 SQ (10:53)
[2023-01-27] MEDS ORDERED: ALBU18HF2 INH (10:53)
[2023-01-27] MEDS ORDERED: INSU100V11 SQ (10:53)
[2023-01-27] MEDS: EMPAGLIFLOZIN 25 MG TABLET PO SCH (11:08)
--- NOTE | 2023-01-27 11:14 | NUR ---
PT REFUSED TO BE SEEN BY A WOUND CARE NURSE.
--- NOTE | 2023-01-27 11:15 | NUR ---
PT'S BS IS 198. PT REFUSED INSULIN COVERAGE. HE SAID HE DOESN'T TAKE INSULIN IF IT'S NOT MORE THAN 200.
--- NOTE | 2023-01-27 11:17 | NUR ---
PT REFUSED RENAL/PROSTATE ULTRASOUND . EDUCATED ON RISKS/BENEFITS BUT PATIENT INSISTED THAT HE DOES NOT NEED TO HAVE THESE KIND OF TESTS.
[2023-01-27 12:00] VITALS: BP 144/64
[2023-01-27 12:30] LABS: BILIRUBIN,URINE NEGATIVE (NEGATIVE); COLOR,URINE YELLOW (YELLOW); LEUKOCYTE ESTERASE ,URINE NEGATIVE (NEGATIVE); NITRITE, URINE NEGATIVE (NEGATIVE); PH,URINE 5.5 (5.0-8.0); PROTEIN,URINE 1+ mg/dl (NEGATIVE); UGLUCOSE 3+ mg/dL (NEGATIVE); UROBILINOGEN,URINE 0.2 EU/dL (0.2)
[2023-01-27 12:31] LABS: CREATININE, URINE 54.9 MG/DL (30.0-125.0)
[2023-01-27 13:00] LABS: BACTERIA,URINE Rare /HPF (None Seen); SQUAMOUS EPITHELIAL CELL,UR None Seen /HPF (None Seen)
[2023-01-27] MEDS: CEFTRIAXONE 1 G in IV D5W 50 ML IV SCH (15:00)
[2023-01-27] MEDS: VANCOMYCIN 1.25 GM in IV D5W 250 ML IV SCH (15:26)
--- NOTE | 2023-01-27 15:27 | NUR ---
LAB CALLED. PATIENT REFUSED BLOOD DRAW FOR HbA1C.
--- NOTE | 2023-01-27 15:28 | NUR ---
PATIENT REFUSED TO GET ANTIBIOTICS. DR. JUARES WAS MADE AWARE. SHE TALKED TO THE PATIENT AND TRIED TO CONVINCE HIM BUT PATIENT IS STILL REFUSING.
[2023-01-27 16:00] VITALS: BP 142/68
[2023-01-27] MEDS ORDERED: VANCOMYCIN 1 GM in IV D5W 250 ML IV SCH (16:00)
--- NOTE | 2023-01-27 18:38 | NUR ---
END OF SHIFT SUMMARY PATIENT IS A/O X4. SATURATING WELL ON RA. SR 1ST DEG BLOCK ON TELE. ROBLES CATHETER IN PLACE, DRAINING WELL TO GRAVITY. REFUSED IV FLUID. INDEPENDENT WITH REPOSITIONING. SAFETY MEASURES MAINTAINED. BED IN LOWEST POSITION, BRAKES LOCKED. SIDE RAILS UP X2. CALL LIGHT WITHIN REACH. WILL ENDORSE CONTINUITY OF CARE TO ONCOMING SHIFT.
--- NOTE | 2023-01-27 19:50 | NUR ---
RN Opening Notes Received pt in bed, awake, requesting to use bedside commode. AOx4. On RA and tolerating well. No SOB noted. No s/sx of respiratory distress noted. Tele monitor detects ST. IV access in R Hand #20G. Patient refusing IV fluids. Safety precautions in place: bed in lowest, locked position, siderails upX2, and brakes on. Table and call light within reach. All needs met at this time.
[2023-01-27 20:00] VITALS: BP 130/63
[2023-01-27] MEDS: ISOSORBIDE MONONITRATE 20 MG TABLET PO SCH (21:10)
[2023-01-27] MEDS: ATORVASTATIN 10 MG TABLET PO SCH (21:10)
[2023-01-27] MEDS: INSULIN GLARGINE, 100 UNIT/ML CARTRIDGE SQ SCH (21:22)
[2023-01-27] MEDS: *INSULIN REGULAR(HUMULIN R)HUM 100 UNIT/ML VIAL SQ PRN (21:27)
[2023-01-28 03:54] VITALS: BP 115/62
[2023-01-28 05:55] LABS: BASOPHILS # (AUTO) 0.1 K/uL (0.0-0.2); EOSINOPHILS % (AUTO) 6.6 % (0.0-6.0); HEMATOCRIT 29 % (39-51); HEMOGLOBIN 9.4 g/dL (13.5-17.5); LYMPHOCYTES # (AUTO) 1.8 K/uL (0.8-4.8); MEAN CORPUSCULAR HGB CONC 32 g/dl (31.0-36.0); MEAN CORPUSCULAR VOLUME 92 fL (80-96); MONOCYTES # (AUTO) 1.1 K/uL (0.1-1.30); MONOCYTES % (AUTO) 7.9 % (2.0-12.0); NEUTROPHILS # (AUTO) 9.7 K/uL (1.8-8.9); NEUTROPHILS % (AUTO) 71.5 % (43.0-81.0); PLATELET COUNT (AUTO) 351 K/uL (150-450); RED BLOOD CELL COUNT(AUTO) 3.21 MIL/uL (4.5-6.0); WHITE BLOOD COUNT (AUTO) 13.5 K/uL (4.3-11.0)
[2023-01-28 06:11] LABS: CALCIUM, SERUM 8.7 mg/dL (8.5-10.1); CREATININE 2.1 mg/dL (0.6-1.3); MAGNESIUM 2.5 mg/dL (1.8-2.4); PHOSPHORUS 3.5 mg/dL (2.5-4.9); POTASSIUM 3.8 mmol/L (3.5-5.1)
--- NOTE | 2023-01-28 06:54 | NUR ---
RN Closing Notes Pt in bed, awake. AOx4. On RA and tolerating well. No SOB noted. No s/sx of respiratory distress noted. Tele monitor detects ST. IV access in R Hand #20G. Patient refusing IV fluids. All orders carried out. All needs met. Pt kept clean and dry. Safety precautions in place: bed in lowest, locked position, siderails upX2, and brakes on. Table and call light within reach. Will endorse to oncoming shift for RAYMON.
[2023-01-28] MEDS: BLOOD SUGAR DIAGNOSTIC 1 EACH STRIP VI SCH ×4 (06:56→21:43)
[2023-01-28] MEDS: INSULIN REGULAR, HUMAN 100 UNIT/ML 3 ML VIAL SQ PRN ×2 (06:56→17:19)
[2023-01-28 07:00] VITALS: BP 141/71
--- NOTE | 2023-01-28 07:00 | NUR ---
SENIOR OPERATOR OPENING NOTES: RECEIVED PT IN BED AWAKE ALERT AND ORIENTED X 4 AND ABLE TO MALE NEEDS KNOWN. NO SOB OR CARDIAC DISTRESS NOTED, ON ROOM AIR AND TOLERATING WELL. ON TELE MONITOR WITH CURRENT READING SR/ST WITH 1ST DEGREE AV BLOCK AND BBBS. WITH ROBLES CATHETER ATTACHED TO A LEG BAG,NOTED WITH BOOT/HEEL PROTECTOR ON LEFT FOOT. NOTED WITH IV ACCESS ON R HAND GAUGE 20 PATIENT AND INTACT AND SALINE LOCKED. SAFETY MEASURES MAINTAINED: BED LOCKED AND IN LOWEST POSITION, SIDE RAILS UP X 2. CALL LIGHT LIGHT IN EASY REACH AND WILL MONITOR ACCORDINGLY.
[2023-01-28] MEDS: LEVOTHYROXINE SODIUM 100 MCG TABLET PO SCH (07:14)
[2023-01-28] MEDS: TAMSULOSIN 0.4 MG CAP.SR.24H PO SCH (08:15)
[2023-01-28] MEDS: FERROUS SULFATE (325 MG) 325 MG/TAB TABLET PO SCH ×2 (08:15→16:08)
[2023-01-28] MEDS: GABAPENTIN 300 MG CAPSULE PO SCH ×3 (08:15→16:08)
[2023-01-28] MEDS: LINAGLIPTIN 5 MG TABLET PO SCH (08:15)
[2023-01-28] MEDS: BUPROPION XL 150 MG TAB.ER.24 PO SCH ×2 (08:15→21:10)
[2023-01-28] MEDS: hydrALAZINE HCL 25 MG TABLET PO SCH ×3 (08:16→16:08)
[2023-01-28] MEDS: ARIPIPRAZOLE 5 MG TABLET PO SCH (08:16)
[2023-01-28] MEDS: CLOPIDOGREL BISULFATE 75 MG TABLET PO SCH (08:16)
[2023-01-28] MEDS: FAMOTIDINE (20 MG) 20 MG TABLET PO SCH ×2 (08:16→16:08)
[2023-01-28] MEDS: ASCORBIC ACID 500 MG TABLET PO SCH (08:16)
[2023-01-28] MEDS: ASPIRIN 81 MG TAB.CHEW PO SCH (08:16)
[2023-01-28] MEDS: CHOLECALCIFEROL 1,000 UNIT TABLET (VIT D3) PO SCH (08:16)
[2023-01-28] MEDS: ENOXAPARIN SODIUM 40 MG/0.4 ML DISP.SYRIN SQ SCH (08:17)
[2023-01-28] MEDS: SENNOSIDES 8.6 MG TABLET PO SCH ×2 (09:00→17:00)
[2023-01-28] MEDS: EMPAGLIFLOZIN 25 MG TABLET PO SCH (09:12)
[2023-01-28] MEDS: *INSULIN REGULAR(HUMULIN R)HUM 100 UNIT/ML VIAL SQ PRN ×2 (11:23→21:52)
[2023-01-28 12:10] VITALS: BP 142/70
--- NOTE | 2023-01-28 14:11 | NUR ---
RN NOTES: PATIENT REFUSED TELE MONITOR AND WANTED TO GO HOME BACK TO FACILITY BUT I TOLD HIM HE IS NOT MEDICALLY CLEARED TO GO BACK IN HIS FACILITY. INFORMED DR WHITEHEAD AND WAITING FOR RESPONSE. TELE MONITOR HANDED TO US MARISOL VIDES.
[2023-01-28] MEDS: CEFTRIAXONE 1 G in IV D5W 50 ML IV SCH (14:45)
[2023-01-28] MEDS: VANCOMYCIN 1.25 GM in IV D5W 250 ML IV SCH (15:17)
[2023-01-28 16:00] VITALS: BP 145/69
[2023-01-28] MEDS ORDERED: THERAHONEY GEL 1.5 OZ TUBE TP SCH (17:00)
[2023-01-28] MEDS: HYDROGEL DRESSING 90 GM TUBE TP SCH (17:43)
[2023-01-28] MEDS: IV 1/2NS 1000 ML 1,000 ML IV SCH (18:00)
--- NOTE | 2023-01-28 18:50 | NUR ---
TANBARK LABORER CLOSING NOTES: PT IN BED AWAKE ALERT AND ORIENTED X 4 AND ABLE TO MAKE NEEDS KNOWN. NO SOB OR CARDIAC DISTRESS NOTED, ON ROOM AIR AND TOLERATING WELL. TELE MONITOR REFUSED. WITH ROBLES CATHETER ATTACHED TO A LEG BAG,NOTED WITH BOOT/HEEL PROTECTOR ON LEFT FOOT. WOUND CARE DONE AND PT TOLERATED WELL.NOTED WITH IV ACCESS ON R HAND GAUGE 20 PATIENT AND INTACT AND SALINE LOCKED PT REFUSED IV FLUIDS. SAFETY MEASURES MAINTAINED: BED LOCKED AND IN LOWEST POSITION, SIDE RAILS UP X 2. CALL LIGHT LIGHT IN EASY REACH AND ENDORSED TO LUBRICATOR GRANULATOR RN FOR CONTINUITY OF CARE.
--- NOTE | 2023-01-28 19:20 | NUR ---
noc rn opening note received patient with disheveled appearance. alert and oriented to name and very vague with his answers, seems confused. no s/s of apparent distress in room air. denies pain at thsi time. patient supposed to be in hall monitor but refused per report. patient refused to be in his IV fluid at this time, but per report patient drinks a lot of water-- will encouraged patient to be in IV fluid. patient had elmore catheter draining clear yellow urine hanging on his leg. patient rt. foot partially amputated with boots on. safety put in place-- bed in lowest, locked position, call light within reach, bed rails upx2, bed alarm in place. will continue with patient's plan of care.
[2023-01-28 20:00] VITALS: BP 156/72
[2023-01-28] MEDS: ATORVASTATIN 10 MG TABLET PO SCH (21:37)
[2023-01-28] MEDS: ISOSORBIDE MONONITRATE 20 MG TABLET PO SCH (21:37)
[2023-01-28] MEDS: INSULIN GLARGINE, 100 UNIT/ML CARTRIDGE SQ SCH (21:49)
--- NOTE | 2023-01-28 21:55 | NUR ---
maurisio rn note- non admin. Patient refused lantus this evening. per patient he just used the regular insulin. given coverage 3 units for blood sugar 172. will monitor.
[2023-01-29] VITALS: BP 128/69
--- NOTE | 2023-01-29 00:41 | NUR ---
noc rn note patient pulled his IV out at this time. will insert new IV as patient permits.
[2023-01-29 04:00] VITALS: BP 124/67
--- NOTE | 2023-01-29 04:56 | NUR ---
noc rn note IV established on Right forearm #22g. Refused to be back on fluid.
[2023-01-29] MEDS: IV 1/2NS 1000 ML 1,000 ML IV SCH (05:07)
--- NOTE | 2023-01-29 05:25 | NUR ---
noc rn note scheduled 1/2 ns non-administered. half a bag still not finished d/t patient refusing
--- NOTE | 2023-01-29 05:26 | NUR ---
noc rn note patient noted to have hallucinations. seeing "cats". patient redirected back to reality.
--- NOTE | 2023-01-29 05:57 | NUR ---
noc rn note patient pulled his IV for the second time. when asked patient he said and to quote "cos I don't want that stupid thing sticking out on me". Charge nurse Leslie main. patient refused re-insertion.
[2023-01-29 06:11] LABS: BASOPHILS # (AUTO) 0.1 K/uL (0.0-0.2); BASOPHILS % (AUTO) 1.3 % (0.0-2.0); EOSINOPHILS % (AUTO) 9.5 % (0.0-6.0); HEMATOCRIT 31 % (39-51); HEMOGLOBIN 9.9 g/dL (13.5-17.5); LYMPHOCYTES # (AUTO) 1.6 K/uL (0.8-4.8); LYMPHOCYTES % (AUTO) 17.6 % (20.0-44.0); MEAN CORPUSCULAR HGB CONC 32 g/dl (31.0-36.0); MEAN CORPUSCULAR VOLUME 92 fL (80-96); NEUTROPHILS # (AUTO) 5.5 K/uL (1.8-8.9); NEUTROPHILS % (AUTO) 60.6 % (43.0-81.0); PLATELET COUNT (AUTO) 358 K/uL (150-450); RED BLOOD CELL COUNT(AUTO) 3.35 MIL/uL (4.5-6.0)
[2023-01-29 06:27] LABS: BILIRUBIN,URINE NEGATIVE (NEGATIVE); COLOR,URINE YELLOW (YELLOW); LEUKOCYTE ESTERASE ,URINE 1+ (NEGATIVE); NITRITE, URINE NEGATIVE (NEGATIVE); PROTEIN,URINE TRACE mg/dl (NEGATIVE); UGLUCOSE 3+ mg/dL (NEGATIVE); UROBILINOGEN,URINE 0.2 EU/dL (0.2)
[2023-01-29 06:31] LABS: CALCIUM, SERUM 8.4 mg/dL (8.5-10.1); CREATININE 1.9 mg/dL (0.6-1.3); MAGNESIUM 2.2 mg/dL (1.8-2.4); PHOSPHORUS 3.3 mg/dL (2.5-4.9); POTASSIUM 3.7 mmol/L (3.5-5.1)
[2023-01-29] MEDS: BLOOD SUGAR DIAGNOSTIC 1 EACH STRIP VI SCH ×2 (06:50→12:13)
[2023-01-29 06:51] LABS: BACTERIA,URINE Rare /HPF (None Seen); SQUAMOUS EPITHELIAL CELL,UR Few /HPF (None Seen)
[2023-01-29] MEDS: INSULIN REGULAR, HUMAN 100 UNIT/ML 3 ML VIAL SQ PRN ×2 (06:52→12:20)
--- NOTE | 2023-01-29 07:02 | NUR ---
noc rn closing note patient in bed with eyes closed. periods of confusion and hallucination. frequent re-direction needed. patient disheveled and refused to be in hospital gown. no s/s of apparent distress in room air. denies pain at this time. Patient has no IV access at this time. all needs attended. safety kept in place the whole shift. no significant change since last endorsement. will endorse to morning shift rn for continuity of patient care.
--- NOTE | 2023-01-29 07:25 | NUR ---
ms rn received on bed, awake,oriented to self, w/ periods of confusions,elmore cath connected to leg bag w/ yellowish urine output, on room air w/ adequate saturation, denies pain at this time, will monitor patient.
--- NOTE | 2023-01-29 08:20 | NUR ---
ms agarwal breakfast served,due meds given,tolerated well, patient received w/o iv site, refusing to insert one, refusing to cahnge dressing to bilateral foot.
[2023-01-29] MEDS: FAMOTIDINE (20 MG) 20 MG TABLET PO SCH (08:56)
[2023-01-29] MEDS: TAMSULOSIN 0.4 MG CAP.SR.24H PO SCH (08:56)
[2023-01-29] MEDS: CHOLECALCIFEROL 1,000 UNIT TABLET (VIT D3) PO SCH (08:56)
[2023-01-29] MEDS: LEVOTHYROXINE SODIUM 100 MCG TABLET PO SCH (08:56)
[2023-01-29] MEDS: GABAPENTIN 300 MG CAPSULE PO SCH ×2 (08:56→13:59)
[2023-01-29] MEDS: hydrALAZINE HCL 25 MG TABLET PO SCH ×2 (08:56→13:59)
[2023-01-29] MEDS: ARIPIPRAZOLE 5 MG TABLET PO SCH (08:57)
[2023-01-29] MEDS: BUPROPION XL 150 MG TAB.ER.24 PO SCH (08:57)
[2023-01-29] MEDS: SENNOSIDES 8.6 MG TABLET PO SCH (08:57)
[2023-01-29] MEDS: FERROUS SULFATE (325 MG) 325 MG/TAB TABLET PO SCH (08:57)
[2023-01-29] MEDS: LINAGLIPTIN 5 MG TABLET PO SCH (08:57)
[2023-01-29] MEDS: ASPIRIN 81 MG TAB.CHEW PO SCH (08:57)
[2023-01-29] MEDS: CLOPIDOGREL BISULFATE 75 MG TABLET PO SCH (08:57)
[2023-01-29] MEDS: ASCORBIC ACID 500 MG TABLET PO SCH (08:57)
[2023-01-29] MEDS: HYDROGEL DRESSING 90 GM TUBE TP SCH (09:00)
[2023-01-29] MEDS: ENOXAPARIN SODIUM 40 MG/0.4 ML DISP.SYRIN SQ SCH (09:01)
[2023-01-29] MEDS: EMPAGLIFLOZIN 25 MG TABLET PO SCH (09:02)
--- NOTE | 2023-01-29 12:00 | NUR ---
ms rn brayden rico has d/c order for today.
[2023-01-29] MEDS ORDERED: CEPH500C2 PO (12:54)
[2023-01-29 13:59] VITALS: BP 140/86
[2023-01-29] MEDS: CEFTRIAXONE 1 G in IV D5W 50 ML IV SCH (15:00)
--- NOTE | 2023-01-29 15:00 | NUR ---
ms rn patient [facility], report given to any Engel for jeff, patient refused to take pictures of wounds, no distress noted, all needs attended.
== END 2023-01-29 15:20 | DRG 689 ==
LOC: ER 11:37 → TELE 14:51
PROVIDERS: ATTEND Student in an Organized Health Care Education/Training Program
DX: N39.0 Urinary tract infection, site not specified (principal); N17.0 Acute kidney failure with tubular necrosis; F03.93 Unspecified dementia, unspecified severity, with mood disturbance; F03.94 Unspecified dementia, unspecified severity, with anxiety; E11.621 Type 2 diabetes mellitus with foot ulcer; L97.519 Non-pressure chronic ulcer of other part of right foot with unspecified severity; L97.529 Non-pressure chronic ulcer of other part of left foot with unspecified severity; I12.9 Hypertensive chronic kidney disease with stage 1 through stage 4 chronic kidney disease, or unspecified chronic kidney disease; N18.9 Chronic kidney disease, unspecified; D63.8 Anemia in other chronic diseases classified elsewhere; E11.22 Type 2 diabetes mellitus with diabetic chronic kidney disease; Z20.822 Contact with and (suspected) exposure to COVID-19; E78.5 Hyperlipidemia, unspecified; Z86.73 Personal history of transient ischemic attack (TIA), and cerebral infarction without residual deficits; F41.9 Anxiety disorder, unspecified; F32.A Depression, unspecified; E11.40 Type 2 diabetes mellitus with diabetic neuropathy, unspecified; E11.51 Type 2 diabetes mellitus with diabetic peripheral angiopathy without gangrene; Z89.431 Acquired absence of right foot; Z79.84 Long term (current) use of oral hypoglycemic drugs; Z79.4 Long term (current) use of insulin; Z79.02 Long term (current) use of antithrombotics/antiplatelets; Z79.899 Other long term (current) drug therapy; J44.9 Chronic obstructive pulmonary disease, unspecified; I25.10 Atherosclerotic heart disease of native coronary artery without angina pectoris; F17.200 Nicotine dependence, unspecified, uncomplicated; F20.9 Schizophrenia, unspecified; E03.9 Hypothyroidism, unspecified; W19.XXXA Unspecified fall, initial encounter; Y92.129 Unspecified place in nursing home as the place of occurrence of the external cause; M48.00 Spinal stenosis, site unspecified; E11.610 Type 2 diabetes mellitus with diabetic neuropathic arthropathy
CPT/HCPCS: 36415; 71045-TC; 73630-TC; 80048-TC; 80076-TC; 81001; 82570-TC; 82962-TC; 83605-TC; 83735-TC; 84100-TC; 84300-TC; 84484-TC; 85025-TC; 87040-TC; 87081-TC; 87086-TC; 93307-TC; 97110-TC; 97530-TC; A4223; A6248; A6253; G0378; J0696; J1650; J1815; J3370; J3490; J7030; J7060

== ENCOUNTER 2023-02-11 12:48 | Outpatient (CLI) | payer MEDICARE, OTHER ==
[~2023-02-11 12:48] MED LIST changes: +ALBU18HF2 INH; -ASCO-352 PO; +BENZ1TAB7 PO; +BUPR100T7 PO; -BUPR300T52 PO; +DULA0.75 SQ; +INSU100V11 SQ; -INSU100V27 SQ; +INSU100V30 SQ; +KETO120S5 TP; -LINA5TAB PO; -MULT-447 PO
[2023-02-11] MEDS ORDERED: COLLAGENASE 5 GM TUBE UD TP ONE (13:14)
== END 2023-02-11 23:59 | disposition home health service (06) ==
LOC: WOU 12:48
PROVIDERS: ATTEND Podiatrist Foot & Ankle Surgery
DX: E11.621 Type 2 diabetes mellitus with foot ulcer (principal); L97.422 Non-pressure chronic ulcer of left heel and midfoot with fat layer exposed; E11.610 Type 2 diabetes mellitus with diabetic neuropathic arthropathy; E11.42 Type 2 diabetes mellitus with diabetic polyneuropathy; Z79.4 Long term (current) use of insulin; Z79.84 Long term (current) use of oral hypoglycemic drugs; Z79.02 Long term (current) use of antithrombotics/antiplatelets; Z79.82 Long term (current) use of aspirin
CPT/HCPCS: 11042

== ENCOUNTER 2023-02-18 12:37 | Outpatient (CLI) | payer MEDICARE, OTHER | END 2023-02-18 23:59 | disposition home health service (06) | LOC: WOU 12:37 | PROVIDERS: ATTEND Podiatrist Foot & Ankle Surgery | DX: E11.621 Type 2 diabetes mellitus with foot ulcer (principal); L97.422 Non-pressure chronic ulcer of left heel and midfoot with fat layer exposed; E11.65 Type 2 diabetes mellitus with hyperglycemia; E11.42 Type 2 diabetes mellitus with diabetic polyneuropathy; E11.610 Type 2 diabetes mellitus with diabetic neuropathic arthropathy; M79.81 Nontraumatic hematoma of soft tissue; Z79.84 Long term (current) use of oral hypoglycemic drugs; Z79.4 Long term (current) use of insulin; Z79.02 Long term (current) use of antithrombotics/antiplatelets; Z79.82 Long term (current) use of aspirin | CPT/HCPCS: 15275; 10160; 87070; 87075; A6209; Q4133 ==

== ENCOUNTER 2023-03-18 13:27 | Outpatient (CLI) | payer MEDICARE, OTHER ==
[2023-03-18] MEDS ORDERED: CADEXOMER IODINE UD 5 GM TUBE ONE ×2 (14:02)
== END 2023-03-18 23:59 | disposition home health service (06) ==
LOC: WOU 13:27
PROVIDERS: ATTEND Podiatrist Foot & Ankle Surgery
DX: E11.621 Type 2 diabetes mellitus with foot ulcer (principal); L97.426 Non-pressure chronic ulcer of left heel and midfoot with bone involvement without evidence of necrosis; L97.412 Non-pressure chronic ulcer of right heel and midfoot with fat layer exposed; L97.526 Non-pressure chronic ulcer of other part of left foot with bone involvement without evidence of necrosis; L03.115 Cellulitis of right lower limb; B95.1 Streptococcus, group B, as the cause of diseases classified elsewhere; E11.610 Type 2 diabetes mellitus with diabetic neuropathic arthropathy; E11.42 Type 2 diabetes mellitus with diabetic polyneuropathy; E11.65 Type 2 diabetes mellitus with hyperglycemia; Z79.4 Long term (current) use of insulin
CPT/HCPCS: 11042; 11043; 11044; 87102-TC

== ENCOUNTER 2023-10-26 11:48 | Inpatient (IN) | payer MEDICARE, OTHER ==
[~2023-10-26] VITALS: Ht 185.4 cm; Wt 80.7 kg
[2023-10-26 12:39] LABS: BASOPHILS # (AUTO) 0.1 K/uL (0.0-0.2); BASOPHILS % (AUTO) 0.9 % (0.0-2.0); EOSINOPHILS # (AUTO) 0.8 K/uL (0.0-0.7); EOSINOPHILS % (AUTO) 7.1 % (0.0-6.0); HEMATOCRIT 35 % (39-51); HEMOGLOBIN 11.6 g/dL (13.5-17.5); LYMPHOCYTES # (AUTO) 1.8 K/uL (0.8-4.8); LYMPHOCYTES % (AUTO) 16.3 % (20.0-44.0); MEAN CORPUSCULAR HEMOGLOBIN 29 PG (26.0-33.0); MEAN CORPUSCULAR HGB CONC 33 g/dl (31.0-36.0); MEAN CORPUSCULAR VOLUME 89 fL (80-96); MONOCYTES # (AUTO) 0.7 K/uL (0.1-1.30); MONOCYTES % (AUTO) 6.5 % (2.0-12.0); NEUTROPHILS # (AUTO) 7.8 K/uL (1.8-8.9); NEUTROPHILS % (AUTO) 69.2 % (43.0-81.0); PLATELET COUNT (AUTO) 427 K/uL (150-450); RED BLOOD CELL COUNT(AUTO) 3.95 MIL/uL (4.5-6.0); RED CELL DISTRIBUTION WIDTH 13.5 % (11.5-15.0); WHITE BLOOD COUNT (AUTO) 11.2 K/uL (4.3-11.0)
[2023-10-26 12:48] LABS: CALCIUM, SERUM 9.3 mg/dL (8.5-10.1); CARBON DIOXIDE 23 mmol/L (21-32); CHLORIDE 100 mmol/L (98-107); CREATININE 2.2 mg/dL (0.6-1.3); GLUCOSE 237 mg/dL (74-106); SODIUM SERUM 135 mmol/L (136-145); UREA NITROGEN, BLOOD 52 mg/dL (7-18)
[2023-10-26 12:55] LABS: INR 0.95 (0.91-1.10); PARTIAL THROMBOPLASTIN TIME 28.5 SEC (24.3-34.3); PROTHROMBIN TIME 10.1 SECS (9.2-11.1)
[2023-10-26 12:56] LABS: ALANINE AMINOTRANSFERASE 21 U/L (12-78); ALBUMIN 3.3 g/dL (3.4-5.0); ALKALINE PHOSPHATASE 99 U/L (46-116); ASPARTATE AMINOTRANSFERASE 6 U/L (15-37); BILIRUBIN,DIRECT 0.1 mg/dL (0.0-0.2); BILIRUBIN,TOTAL 0.3 mg/dL (0.2-1.0); TOTAL PROTEIN, SERUM 9.5 g/dL (6.4-8.2)
[2023-10-26] MEDS ORDERED: CRAN425C6 PO (13:02)
[2023-10-26] MEDS ORDERED: TRAZ-257 PO (13:02)
[2023-10-26] MEDS ORDERED: COLL30OI TP (13:02)
[2023-10-26] MEDS ORDERED: MULT-447 PO (13:02)
[2023-10-26] MEDS ORDERED: NALO4SPR (13:02)
[2023-10-26] MEDS ORDERED: BUPR-53 PO (13:02)
[2023-10-26 13:29] LABS: LACTIC ACID 2.1 mmol/L (0.4-2.0)
[2023-10-26] MEDS ORDERED: PIPERACI/TAZO 3.375GM/D5W 50ML PB IV ONE (14:09)
[2023-10-26] MEDS: IV NS 0.9% 1,000 ML BAG IV ONE (14:14)
[2023-10-26] MEDS: PIPERACILLIN /TAZOBACTAM 3.375 G in IV D5W 50 ML IV ONE (14:15)
[2023-10-26] MEDS: VANCOMYCIN 1 GM in IV D5W 250 ML IV ONE (14:37)
[2023-10-26] MEDS ORDERED: DEXTROSE 50%-WATER 50 ML DISP.SYRIN IV PRN (15:00)
[2023-10-26] MEDS ORDERED: Z GUARD REMEDY 4 OZ OINT TP PRN (15:00)
[2023-10-26] MEDS ORDERED: ACETAMINOPHEN 325 MG TABLET PO PRN (15:00)
[2023-10-26] MEDS ORDERED: ONDANSETRON HCL/PF 4 MG/2 ML VIAL IVP PRN (15:00)
[2023-10-26 15:14] LABS: APPEARANCE,URINE CLOUDY (CLEAR); BILIRUBIN,URINE NEGATIVE (NEGATIVE); BLOOD, URINE 1+ Ery/uL (NEGATIVE); COLOR,URINE YELLOW (YELLOW); KETONES,URINE 1+ mg/dL (NEGATIVE); LEUKOCYTE ESTERASE ,URINE 2+ (NEGATIVE); NITRITE, URINE NEGATIVE (NEGATIVE); PH,URINE 5.5 (5.0-8.0); PROTEIN,URINE 2+ mg/dl (NEGATIVE); UGLUCOSE 3+ mg/dL (NEGATIVE); UROBILINOGEN,URINE 0.2 EU/dL (0.2)
[2023-10-26] MEDS ORDERED: NITROGLYCERIN 0.4 MG/TAB BOTTLE SL PRN (15:30)
[2023-10-26] MEDS ORDERED: NA PHOS,M-B/NA PHOS,DI-BA 1 EA ENEMA RC PRN (15:30)
[2023-10-26] MEDS ORDERED: BISACODYL SUPP (10 MG) 10 MG/SUPP.RECT SUPP.RECT RC PRN (15:30)
[2023-10-26] MEDS ORDERED: NALOXONE HCL 0.4 MG/ML AMPUL IV PRN (16:00)
[2023-10-26] MEDS: HYDROCODONE/APAP 5/325MG TABLET PO PRN (16:23)
[2023-10-26] MEDS: FERROUS SULFATE (325 MG) 325 MG/TAB TABLET PO SCH (16:23)
[2023-10-26] MEDS: hydrALAZINE HCL 25 MG TABLET PO SCH (16:24)
[2023-10-26] MEDS: GABAPENTIN 300 MG CAPSULE PO SCH (16:24)
[2023-10-26 16:33] LABS: WBC,URINE 21-50 /HPF (0-3)
[2023-10-26 16:34] LABS: ADD URINE CULTURE YES; BACTERIA,URINE 3+ /HPF (None Seen); SQUAMOUS EPITHELIAL CELL,UR 0-2 /HPF (None Seen); YEAST,URINE Few /HPF (None Seen)
[2023-10-26] MEDS: CEFTRIAXONE 1 G in IV D5W 50 ML IV SCH (17:34)
[2023-10-26] MEDS: BLOOD SUGAR DIAGNOSTIC 1 EACH STRIP IN SCH (18:01)
[2023-10-26] MEDS: KETOCONAZOLE SHAMPOO 120 ML BOTTLE TP SCH (19:56)
[2023-10-26 20:00] VITALS: BP 155/69; TEMP 98.1; O2SAT 97
[2023-10-26] MEDS: HEPARIN SODIUM, PORCINE 5000 UNITS/1 ML VIAL SQ SCH (20:05)
[2023-10-26] MEDS: TRAZODONE 50 MG TABLET PO SCH (21:15)
[2023-10-26] MEDS: ATORVASTATIN 10 MG TABLET PO SCH (21:15)
[2023-10-26] MEDS: ISOSORBIDE MONONITRATE (30MG) 30 MG TAB.SR.24H PO SCH (21:16)
[2023-10-26] MEDS: INSULIN GLARGINE, 100 UNIT/ML CARTRIDGE SQ SCH (21:37)
[2023-10-26] MEDS: INSULIN REGULAR, HUMAN 100 UNIT/ML 3 ML VIAL SQ PRN (21:39)
[2023-10-27] VITALS: BP 114/62; TEMP 98.2; O2SAT 98
[2023-10-27 04:00] VITALS: BP 128/70; TEMP 98.1; O2SAT 98
[2023-10-27] MEDS: PANTOPRAZOLE 40 MG TABLET.DR PO SCH (07:41)
[2023-10-27] MEDS: LEVOTHYROXINE SODIUM 100 MCG TABLET PO SCH (07:41)
[2023-10-27 08:00] VITALS: BP 102/53; TEMP 97.9; O2SAT 96
[2023-10-27] MEDS: BUPROPION XL 150 MG TAB.ER.24 PO SCH (08:59)
[2023-10-27] MEDS: CLOPIDOGREL BISULFATE 75 MG TABLET PO SCH (08:59)
[2023-10-27] MEDS: MULTIVIT W/MINERALS 1 TAB TABLET PO SCH (08:59)
[2023-10-27] MEDS: TAMSULOSIN 0.4 MG CAP.SR.24H PO SCH (08:59)
[2023-10-27] MEDS ORDERED: Medication Not On Formulary EA (Omega-3 Fatty Acids/Fish Oil (Omega 3 1,000 Mg Softgel) PO SCH (09:00)
[2023-10-27] MEDS: CHOLECALCIFEROL 1,000 UNIT TABLET (VIT D3) PO SCH (09:00)
[2023-10-27] MEDS ORDERED: COLLAGENASE 30 GM TUBE TP SCH (09:00)
[2023-10-27] MEDS: EMPAGLIFLOZIN 25 MG TABLET PO SCH (09:02)
[2023-10-27 12:00] VITALS: BP 124/60; TEMP 98.1; O2SAT 97
[2023-10-27 16:00] VITALS: BP 118/61; TEMP 98.2; O2SAT 95
[2023-10-27] MEDS: HYDROCODONE/APAP 10/325MG TABLET PO PRN (16:06)
[2023-10-27 20:00] VITALS: BP 126/63; TEMP 97.9; O2SAT 97
[2023-10-28] VITALS: BP 100/46; TEMP 98.2; O2SAT 96
[2023-10-28 04:00] VITALS: BP 129/64; TEMP 99; O2SAT 97
[2023-10-28 07:57] LABS: BASOPHILS # (AUTO) 0.1 K/uL (0.0-0.2); BASOPHILS % (AUTO) 0.9 % (0.0-2.0); EOSINOPHILS % (AUTO) 11.7 % (0.0-6.0); HEMATOCRIT 29 % (39-51); HEMOGLOBIN 9.4 g/dL (13.5-17.5); LYMPHOCYTES # (AUTO) 2.5 K/uL (0.8-4.8); LYMPHOCYTES % (AUTO) 27.5 % (20.0-44.0); MEAN CORPUSCULAR HEMOGLOBIN 30 PG (26.0-33.0); MEAN CORPUSCULAR HGB CONC 33 g/dl (31.0-36.0); MEAN CORPUSCULAR VOLUME 90 fL (80-96); MONOCYTES # (AUTO) 0.7 K/uL (0.1-1.30); MONOCYTES % (AUTO) 7.6 % (2.0-12.0); NEUTROPHILS # (AUTO) 4.7 K/uL (1.8-8.9); NEUTROPHILS % (AUTO) 52.3 % (43.0-81.0); PLATELET COUNT (AUTO) 363 K/uL (150-450); RED BLOOD CELL COUNT(AUTO) 3.17 MIL/uL (4.5-6.0); RED CELL DISTRIBUTION WIDTH 13.5 % (11.5-15.0); WHITE BLOOD COUNT (AUTO) 8.9 K/uL (4.3-11.0)
[2023-10-28 08:00] VITALS: BP 125/70; TEMP 99; O2SAT 99
[2023-10-28 08:11] LABS: MAGNESIUM 2.3 mg/dL (1.8-2.4); PHOSPHORUS 4.9 mg/dL (2.5-4.9)
[2023-10-28] MEDS: MUPIROCIN OINT 2% 22 GM TUBE TP SCH (09:25)
[2023-10-28] MEDS: HYDROCODONE/APAP 5/325MG TABLET PO PRN (09:33)
[2023-10-28 09:49] LABS: CALCIUM, SERUM 8.6 mg/dL (8.5-10.1); CREATININE 2.4 mg/dL (0.6-1.3); POTASSIUM 4.4 mmol/L (3.5-5.1)
[2023-10-28] MEDS: IV 1/2NS 1000 ML 1,000 ML IV ONE (13:42)
[2023-10-29 05:09] LABS: PTH, INTACT 11 pg/mL (15-65)
[2023-10-29 07:00] VITALS: BP 135/62; TEMP 97.7; O2SAT 96
[2023-10-29 08:08] LABS: *SPE A/G RATIO 0.6 (0.7-1.7); *SPE ALBUMIN 2.6 g/dL (2.9-4.4); *SPE ALPHA-1-GLOBULIN 0.2 g/dL (0.0-0.4); *SPE GLOBULIN, TOTAL 4.1 g/dL (2.2-3.9); *SPE M-SPIKE Not Observed g/dL (Not Observed); *SPE PROTEIN TOTAL 6.7 g/dL (6.0-8.5); *SPEGAMMA GLOBULIN 1.9 g/dL (0.4-1.8)
[2023-10-29 16:00] VITALS: BP 138/57; TEMP 97.3; O2SAT 96
[2023-10-29] MEDS: POLYETHYLENE GLYCOL 3350 17 GM POWD.PACK PO PRN (21:02)
[2023-10-29 22:35] VITALS: BP 149/65; TEMP 97.7; O2SAT 97
[2023-10-30 07:01] LABS: BASOPHILS # (AUTO) 0.1 K/uL (0.0-0.2); BASOPHILS % (AUTO) 0.9 % (0.0-2.0); EOSINOPHILS # (AUTO) 0.9 K/uL (0.0-0.7); EOSINOPHILS % (AUTO) 9.9 % (0.0-6.0); HEMATOCRIT 28 % (39-51); HEMOGLOBIN 9.6 g/dL (13.5-17.5); LYMPHOCYTES # (AUTO) 2.4 K/uL (0.8-4.8); LYMPHOCYTES % (AUTO) 26.3 % (20.0-44.0); MEAN CORPUSCULAR HEMOGLOBIN 31 PG (26.0-33.0); MEAN CORPUSCULAR HGB CONC 34 g/dl (31.0-36.0); MEAN CORPUSCULAR VOLUME 90 fL (80-96); MONOCYTES # (AUTO) 0.7 K/uL (0.1-1.30); MONOCYTES % (AUTO) 7.9 % (2.0-12.0); NEUTROPHILS # (AUTO) 5.1 K/uL (1.8-8.9); PLATELET COUNT (AUTO) 359 K/uL (150-450); RED BLOOD CELL COUNT(AUTO) 3.15 MIL/uL (4.5-6.0); RED CELL DISTRIBUTION WIDTH 13.6 % (11.5-15.0); WHITE BLOOD COUNT (AUTO) 9.2 K/uL (4.3-11.0)
[2023-10-30 07:22] LABS: CALCIUM, SERUM 8.7 mg/dL (8.5-10.1); CREATININE 2.1 mg/dL (0.6-1.3); MAGNESIUM 2.4 mg/dL (1.8-2.4); POTASSIUM 4.7 mmol/L (3.5-5.1)
[2023-10-30 08:00] VITALS: BP 107/56; TEMP 98.1; O2SAT 96
[2023-10-30] MEDS ORDERED: CIPR500T5 PO (10:20)
[2023-10-30 15:30] VITALS: BP 114/60; TEMP 98.1; O2SAT 98
[2024-01-21] MEDS ORDERED: Quetiapine Fumarate PO ×2 (09:56)
[2024-01-21] MEDS ORDERED: HYDR-4076 PO (09:56)
[2024-01-21] MEDS ORDERED: AMLO-212 PO (09:56)
[2024-01-21] MEDS ORDERED: Prosource PO (09:56)
[2024-01-21] MEDS ORDERED: Linezolid PO (09:56)
[2024-01-21] MEDS ORDERED: MERO1PIG IV (09:58)
== END 2023-10-30 17:41 | DRG 637 ==
LOC: ER 11:50 → MED 14:41 → TELE 15:45 → MED 10-28 10:15
PROVIDERS: ADMIT Nurse Practitioner Family; ATTEND Student in an Organized Health Care Education/Training Program
PROC: 0HDMXZZ Extraction of Right Foot Skin, External Approach (ICD-10-PCS; principal; 2023-10-30)
DX: E11.621 Type 2 diabetes mellitus with foot ulcer (principal); I21.A1 Myocardial infarction type 2; N39.0 Urinary tract infection, site not specified; E44.1 Mild protein-calorie malnutrition; E87.1 Hypo-osmolality and hyponatremia; E87.20 Acidosis, unspecified; L97.518 Non-pressure chronic ulcer of other part of right foot with other specified severity; M86.9 Osteomyelitis, unspecified; N17.9 Acute kidney failure, unspecified; M51.27 Other intervertebral disc displacement, lumbosacral region; E11.51 Type 2 diabetes mellitus with diabetic peripheral angiopathy without gangrene; E11.69 Type 2 diabetes mellitus with other specified complication; N18.9 Chronic kidney disease, unspecified; I12.9 Hypertensive chronic kidney disease with stage 1 through stage 4 chronic kidney disease, or unspecified chronic kidney disease; D63.8 Anemia in other chronic diseases classified elsewhere; E03.9 Hypothyroidism, unspecified; E11.22 Type 2 diabetes mellitus with diabetic chronic kidney disease; E11.42 Type 2 diabetes mellitus with diabetic polyneuropathy; E78.5 Hyperlipidemia, unspecified; E88.09 Other disorders of plasma-protein metabolism, not elsewhere classified; F20.9 Schizophrenia, unspecified; Z79.4 Long term (current) use of insulin; Z79.84 Long term (current) use of oral hypoglycemic drugs; Z86.73 Personal history of transient ischemic attack (TIA), and cerebral infarction without residual deficits; Z79.891 Long term (current) use of opiate analgesic; L89.896 Pressure-induced deep tissue damage of other site; M24.574 Contracture, right foot; M24.575 Contracture, left foot; G89.4 Chronic pain syndrome; I25.10 Atherosclerotic heart disease of native coronary artery without angina pectoris; M25.552 Pain in left hip; M79.662 Pain in left lower leg; M48.07 Spinal stenosis, lumbosacral region; B96.89 Other specified bacterial agents as the cause of diseases classified elsewhere; Z89.422 Acquired absence of other left toe(s); J44.9 Chronic obstructive pulmonary disease, unspecified; M89.8X9 Other specified disorders of bone, unspecified site; S91.301A Unspecified open wound, right foot, initial encounter; X58.XXXA Exposure to other specified factors, initial encounter; Y93.9 Activity, unspecified; Y92.129 Unspecified place in nursing home as the place of occurrence of the external cause
CPT/HCPCS: 36415; 71045-TC; 73502; 76770-TC; 80048-TC; 80076-TC; 81001; 82550-TC; 82962-TC; 83605-TC; 83735-TC; 83970; 84100-TC; 84155; 84165; 84484-TC; 85025-TC; 85730-TC; 87040-TC; 87086-TC; 92526; 92611-TC; 93307-TC; 93971-TC; A4223; A6403; G0378; J0696; J1644; J1815; J2543; J3370; J3490; J7040; J7060

== ENCOUNTER 2024-01-12 11:54 | Inpatient (IN) | payer MEDICARE, OTHER ==
[~2024-01-12] VITALS: Ht 185.4 cm; Wt 74.4 kg
[~2024-01-12 11:54] MED LIST changes: -ARIP5TAB10 PO; -BENZ1TAB7 PO; +BUPR-53 PO; -BUPR100T7 PO; -CEPH500C2 PO; +CIPR500T5 PO; +COLL30OI TP; +CRAN425C6 PO; -INSU100V30 SQ; +MULT-447 PO; +NALO4SPR; -SENN-18 PO; +TRAZ-257 PO
[2024-01-12] MEDS ORDERED: DOCU100T2 PO (12:49)
[2024-01-12] MEDS ORDERED: SENN-18 PO (12:49)
[2024-01-12] MEDS ORDERED: PIPERACI/TAZO 3.375GM/D5W 50ML PB IV ONE (13:00)
[2024-01-12] MEDS: PIPERACILLIN /TAZOBACTAM 3.375 G in IV D5W 50 ML IV ONE (13:06)
[2024-01-12 13:08] LABS: BASOPHILS # (AUTO) 0.1 K/uL (0.0-0.2); BASOPHILS % (AUTO) 0.7 % (0.0-2.0); EOSINOPHILS # (AUTO) 0.6 K/uL (0.0-0.7); EOSINOPHILS % (AUTO) 3.8 % (0.0-6.0); HEMATOCRIT 28 % (39-51); HEMOGLOBIN 8.9 g/dL (13.5-17.5); LYMPHOCYTES # (AUTO) 2.1 K/uL (0.8-4.8); LYMPHOCYTES % (AUTO) 13.7 % (20.0-44.0); MEAN CORPUSCULAR HEMOGLOBIN 29 PG (26.0-33.0); MEAN CORPUSCULAR HGB CONC 32 g/dl (31.0-36.0); MEAN CORPUSCULAR VOLUME 90 fL (80-96); MONOCYTES % (AUTO) 6.2 % (2.0-12.0); NEUTROPHILS # (AUTO) 11.8 K/uL (1.8-8.9); NEUTROPHILS % (AUTO) 75.6 % (43.0-81.0); PLATELET COUNT (AUTO) 448 K/uL (150-450); RED BLOOD CELL COUNT(AUTO) 3.06 MIL/uL (4.5-6.0); RED CELL DISTRIBUTION WIDTH 13.4 % (11.5-15.0); WHITE BLOOD COUNT (AUTO) 15.6 K/uL (4.3-11.0)
[2024-01-12 13:19] LABS: CALCIUM, SERUM 8.5 mg/dL (8.5-10.1); CREATININE 2.2 mg/dL (0.6-1.3); POTASSIUM 4.9 mmol/L (3.5-5.1)
[2024-01-12 13:23] LABS: INR 1.01 (0.91-1.10); PARTIAL THROMBOPLASTIN TIME 28.3 SEC (24.3-34.3); PROTHROMBIN TIME 10.4 SECS (9.2-11.1)
[2024-01-12 13:25] LABS: ALBUMIN 2.9 g/dL (3.4-5.0); BILIRUBIN,DIRECT 0.1 mg/dL (0.0-0.2); BILIRUBIN,TOTAL 0.2 mg/dL (0.2-1.0); TOTAL PROTEIN, SERUM 8.4 g/dL (6.4-8.2)
[2024-01-12 13:27] LABS: LACTIC ACID 1.2 mmol/L (0.4-2.0)
[2024-01-12] MEDS ORDERED: MAG HYDROX/AL HYDROX/SIMETH 30 ML UDC PO PRN (15:00)
[2024-01-12] MEDS ORDERED: DEXTROSE 50%-WATER 50 ML DISP.SYRIN IV PRN (15:00)
[2024-01-12] MEDS ORDERED: MAGNESIUM HYDROXIDE 30 ML UDC PO PRN (15:00)
[2024-01-12] MEDS ORDERED: Z GUARD REMEDY 4 OZ OINT TP PRN (15:00)
[2024-01-12 16:00] VITALS: BP 125/60; TEMP 97.2; O2SAT 100
[2024-01-12] MEDS: IV 1/2NS 1000 ML 1,000 ML IV PRN (16:56)
[2024-01-12] MEDS: LINEZOLID RTU BAG 600 MG in PREMIX 1 EA IV SCH (17:10)
[2024-01-12] MEDS: BLOOD SUGAR DIAGNOSTIC 1 EACH STRIP VI SCH (17:10)
[2024-01-12] MEDS: INSULIN REGULAR, HUMAN 100 UNIT/ML 3 ML VIAL SQ PRN (17:12)
[2024-01-12 18:00] VITALS: BP 125/60; TEMP 97.2; O2SAT 100
[2024-01-12] MEDS ORDERED: PIPERACILLIN /TAZOBACTAM 4.5 G in IV D5W 50 ML IV SCH (18:00)
[2024-01-12] MEDS: ZOSYN IVPB 2.25 G in IV D5W 50ml IV SCH (18:57)
[2024-01-12 20:00] VITALS: BP 140/55; TEMP 97.7; O2SAT 99
[2024-01-12] MEDS: MEROPENEM 500 MG in IV NS 0.9% 50 ML IV SCH (22:01)
[2024-01-12] MEDS: *INSULIN REGULAR(HUMULIN R)HUM 100 UNIT/ML VIAL SQ PRN (22:10)
[2024-01-12] MEDS: TRAZODONE 50 MG TABLET PO SCH (22:23)
[2024-01-13] MEDS: LINEZOLID 600 MG TABLET PO SCH (06:00)
[2024-01-13 06:38] LABS: BASOPHILS # (AUTO) 0.1 K/uL (0.0-0.2); BASOPHILS % (AUTO) 0.9 % (0.0-2.0); EOSINOPHILS % (AUTO) 7.6 % (0.0-6.0); HEMATOCRIT 24 % (39-51); HEMOGLOBIN 7.9 g/dL (13.5-17.5); LYMPHOCYTES # (AUTO) 2.4 K/uL (0.8-4.8); MEAN CORPUSCULAR HEMOGLOBIN 30 PG (26.0-33.0); MEAN CORPUSCULAR HGB CONC 33 g/dl (31.0-36.0); MEAN CORPUSCULAR VOLUME 92 fL (80-96); MONOCYTES % (AUTO) 7.4 % (2.0-12.0); NEUTROPHILS # (AUTO) 8.3 K/uL (1.8-8.9); NEUTROPHILS % (AUTO) 65.1 % (43.0-81.0); PLATELET COUNT (AUTO) 415 K/uL (150-450); RED BLOOD CELL COUNT(AUTO) 2.64 MIL/uL (4.5-6.0); RED CELL DISTRIBUTION WIDTH 13.6 % (11.5-15.0); WHITE BLOOD COUNT (AUTO) 12.8 K/uL (4.3-11.0)
[2024-01-13 07:02] LABS: ALBUMIN 2.3 g/dL (3.4-5.0); BILIRUBIN,TOTAL 0.2 mg/dL (0.2-1.0); CALCIUM, SERUM 8.4 mg/dL (8.5-10.1); MAGNESIUM 2.1 mg/dL (1.8-2.4); POTASSIUM 4.3 mmol/L (3.5-5.1); TOTAL PROTEIN, SERUM 7.3 g/dL (6.4-8.2)
[2024-01-13 08:00] VITALS: BP 137/59; TEMP 98.2; O2SAT 96
[2024-01-13] MEDS ORDERED: ANESTHESIA TRAY IN PYXIS 1 EA TRAY MC ONE (09:05)
[2024-01-13] MEDS ORDERED: BUPIVACAINE 0.5 % PF 150 MG/30 ML VIAL ONE (09:05)
[2024-01-13] MEDS ORDERED: LIDOCAINE 1% INJ 50 ML MDV IJ ONE (09:05)
[2024-01-13] MEDS ORDERED: LIDOCAINE 1%-EPI 1:100,000 20 ML VIAL ONE (09:06)
[2024-01-13] MEDS ORDERED: KETAMINE HCL (500MG/10ML) 50 MG/ML VIAL ONE (12:05)
[2024-01-13] MEDS ORDERED: FAMOTIDINE/PF INJ 20 MG/2 ML VIAL IV ONE (12:05)
[2024-01-13] MEDS ORDERED: ALBUMIN 5% 500 ML IV ONE (12:05)
[2024-01-13] MEDS ORDERED: FENTANYL PF 100MCG/2ML AMPUL ONE (12:05)
[2024-01-13] MEDS ORDERED: BACITRACIN ZINC OINT (15 GM) 15 GM TUBE TP ONE (13:10)
[2024-01-13 16:00] VITALS: BP 153/68; TEMP 97.7; O2SAT 100
[2024-01-13 20:00] VITALS: BP 153/64; TEMP 98.4; O2SAT 96
[2024-01-14 08:26] VITALS: BP 141/61; TEMP 98.6; O2SAT 98
[2024-01-14] MEDS: MEROPENEM 1 G in IV NS 0.9% 100 ML IV SCH (08:50)
[2024-01-14 10:23] LABS: BASOPHILS # (AUTO) 0.1 K/uL (0.0-0.2); BASOPHILS % (AUTO) 1.1 % (0.0-2.0); EOSINOPHILS # (AUTO) 0.7 K/uL (0.0-0.7); EOSINOPHILS % (AUTO) 6.4 % (0.0-6.0); HEMATOCRIT 24 % (39-51); HEMOGLOBIN 7.7 g/dL (13.5-17.5); LYMPHOCYTES # (AUTO) 2.2 K/uL (0.8-4.8); LYMPHOCYTES % (AUTO) 19.3 % (20.0-44.0); MEAN CORPUSCULAR HEMOGLOBIN 30 PG (26.0-33.0); MEAN CORPUSCULAR HGB CONC 33 g/dl (31.0-36.0); MEAN CORPUSCULAR VOLUME 91 fL (80-96); MONOCYTES # (AUTO) 0.9 K/uL (0.1-1.30); MONOCYTES % (AUTO) 8.1 % (2.0-12.0); NEUTROPHILS # (AUTO) 7.3 K/uL (1.8-8.9); NEUTROPHILS % (AUTO) 65.1 % (43.0-81.0); PLATELET COUNT (AUTO) 411 K/uL (150-450); RED BLOOD CELL COUNT(AUTO) 2.58 MIL/uL (4.5-6.0); RED CELL DISTRIBUTION WIDTH 13.7 % (11.5-15.0); WHITE BLOOD COUNT (AUTO) 11.2 K/uL (4.3-11.0)
[2024-01-14 10:37] LABS: CREATINE KINASE, TOTAL 53 U/L (39-308)
[2024-01-14 10:38] LABS: ALANINE AMINOTRANSFERASE 12 U/L (12-78); ALBUMIN 2.5 g/dL (3.4-5.0); ALKALINE PHOSPHATASE 72 U/L (46-116); ASPARTATE AMINOTRANSFERASE < 5 U/L (15-37); BILIRUBIN,TOTAL 0.3 mg/dL (0.2-1.0); CALCIUM, SERUM 8.3 mg/dL (8.5-10.1); CARBON DIOXIDE 25 mmol/L (21-32); CHLORIDE 108 mmol/L (98-107); CREATININE 1.9 mg/dL (0.6-1.3); GLUCOSE 150 mg/dL (74-106); MAGNESIUM 2.1 mg/dL (1.8-2.4); PHOSPHORUS 3.1 mg/dL (2.5-4.9); POTASSIUM 4.2 mmol/L (3.5-5.1); SODIUM SERUM 142 mmol/L (136-145); TOTAL PROTEIN, SERUM 7.3 g/dL (6.4-8.2); UREA NITROGEN, BLOOD 31 mg/dL (7-18)
[2024-01-14] MEDS: PROSOURCE / PROSTAT (PYXIS) 30 ML UDC PO SCH (12:18)
[2024-01-14 17:12] VITALS: BP 160/63; TEMP 98.4; O2SAT 98
[2024-01-14 20:00] VITALS: BP 142/68; TEMP 98.6; O2SAT 98
[2024-01-15 08:08] LABS: PTH, INTACT 11 pg/mL (15-65)
[2024-01-15 11:11] LABS: *SPE A/G RATIO 0.7 (0.7-1.7); *SPE ALBUMIN 2.7 g/dL (2.9-4.4); *SPE ALPHA-1-GLOBULIN 0.3 g/dL (0.0-0.4); *SPE ALPHA-2-GLOBULIN 0.9 g/dL (0.4-1.0); *SPE M-SPIKE Not Observed g/dL (Not Observed); *SPE PROTEIN TOTAL 6.7 g/dL (6.0-8.5); *SPEGAMMA GLOBULIN 1.8 g/dL (0.4-1.8)
[2024-01-15] MEDS: FERROUS SULFATE (325 MG) 325 MG/TAB TABLET PO SCH (12:30)
[2024-01-15] MEDS ORDERED: NALOXONE HCL 4 MG SPRAY NS PRN (12:30)
[2024-01-15] MEDS ORDERED: MAGNESIUM HYDROXIDE 30 ML UDC PO PRN (12:30)
[2024-01-15] MEDS ORDERED: NITROGLYCERIN 0.4 MG/TAB BOTTLE SL PRN (12:30)
[2024-01-15] MEDS: FAMOTIDINE (20 MG) 20 MG TABLET PO SCH (12:30)
[2024-01-15] MEDS ORDERED: NA PHOS,M-B/NA PHOS,DI-BA 1 EA ENEMA RC PRN (12:30)
[2024-01-15] MEDS: hydrALAZINE HCL 25 MG TABLET PO SCH (12:30)
[2024-01-15] MEDS: LEVOTHYROXINE SODIUM 100 MCG TABLET PO SCH (12:30)
[2024-01-15] MEDS ORDERED: NALOXONE HCL 0.4 MG/ML AMPUL IV PRN (13:00)
[2024-01-15] MEDS: GABAPENTIN 300 MG CAPSULE PO SCH (13:00)
[2024-01-15 16:00] VITALS: BP 157/72; TEMP 98.6; O2SAT 99
[2024-01-15] MEDS: ONDANSETRON HCL/PF 4 MG/2 ML VIAL IVP PRN (21:25)
[2024-01-16] MEDS: CLOPIDOGREL BISULFATE 75 MG TABLET PO SCH (08:31)
[2024-01-16] MEDS: BUPROPION XL 150 MG TAB.ER.24 PO SCH (08:31)
[2024-01-16] MEDS: SENNOSIDES 8.6 MG TABLET PO SCH (08:31)
[2024-01-16] MEDS: EMPAGLIFLOZIN 25 MG TABLET PO SCH (08:32)
[2024-01-16] MEDS: TAMSULOSIN 0.4 MG CAP.SR.24H PO SCH (08:32)
[2024-01-16] MEDS: QUETIAPINE FUMARATE 25 MG TABLET PO SCH ×2 (09:00→21:13)
[2024-01-16 09:25] VITALS: BP 164/97; TEMP 97.9; O2SAT 98
[2024-01-16 16:00] VITALS: BP 167/73; TEMP 98.7; O2SAT 100
[2024-01-16 20:00] VITALS: BP 183/65; TEMP 97.9; O2SAT 97
[2024-01-16] MEDS: hydrALAZINE HCL IV 20 MG VIAL IV PRN (20:25)
[2024-01-16 21:30] VITALS: BP 156/65
[2024-01-17] VITALS (7 sets, daily range): BP systolic 138–177; BP diastolic 61–78; TEMP 97.8–98.6; O2SAT 100
[2024-01-17] MEDS: hydrALAZINE HCL 25 MG TABLET PO SCH (08:35)
[2024-01-17] MEDS: AMLODIPINE BESYLATE 5 MG TABLET PO SCH (08:36)
[2024-01-17] MEDS: ACETAMINOPHEN 325 MG TABLET PO PRN (12:05)
[2024-01-17] MEDS: IV 1/2NS 1000 ML 1,000 ML IV PRN (18:46)
[2024-01-18] MEDS ORDERED: OLANZAPINE 10 MG VIAL IM PRN (13:30)
[2024-01-18 16:00] VITALS: BP 165/62; TEMP 98.4; O2SAT 99
[2024-01-18 20:00] VITALS: BP 143/59; TEMP 98.6; O2SAT 98
[2024-01-18 22:31] VITALS: BP 143/59; TEMP 98.6; O2SAT 98
[2024-01-19 08:00] VITALS: BP 141/65; TEMP 98.1; O2SAT 99
[2024-01-19 08:38] LABS: BASOPHILS # (AUTO) 0.1 K/uL (0.0-0.2); EOSINOPHILS # (AUTO) 0.5 K/uL (0.0-0.7); EOSINOPHILS % (AUTO) 3.6 % (0.0-6.0); HEMATOCRIT 27 % (39-51); HEMOGLOBIN 8.9 g/dL (13.5-17.5); LYMPHOCYTES # (AUTO) 2.8 K/uL (0.8-4.8); LYMPHOCYTES % (AUTO) 18.8 % (20.0-44.0); MEAN CORPUSCULAR HEMOGLOBIN 30 PG (26.0-33.0); MEAN CORPUSCULAR HGB CONC 33 g/dl (31.0-36.0); MEAN CORPUSCULAR VOLUME 90 fL (80-96); MONOCYTES # (AUTO) 1.1 K/uL (0.1-1.30); MONOCYTES % (AUTO) 7.5 % (2.0-12.0); NEUTROPHILS # (AUTO) 10.3 K/uL (1.8-8.9); NEUTROPHILS % (AUTO) 69.1 % (43.0-81.0); PLATELET COUNT (AUTO) 422 K/uL (150-450); RED CELL DISTRIBUTION WIDTH 13.7 % (11.5-15.0); WHITE BLOOD COUNT (AUTO) 14.9 K/uL (4.3-11.0)
[2024-01-19 09:01] LABS: ALBUMIN 2.4 g/dL (3.4-5.0); BILIRUBIN,TOTAL 0.4 mg/dL (0.2-1.0); CALCIUM, SERUM 7.8 mg/dL (8.5-10.1); CREATININE 1.5 mg/dL (0.6-1.3)
[2024-01-19] MEDS ORDERED: DEXTROSE 50%-WATER 50 ML DISP.SYRIN IV PRN (12:30)
[2024-01-19 16:00] VITALS: BP 125/62; TEMP 98.1; O2SAT 96
[2024-01-19] MEDS: K PHOS NEUTRAL 250 MG TABLET PO ONE (16:10)
[2024-01-19] MEDS: BLOOD SUGAR DIAGNOSTIC 1 EACH STRIP IN SCH (17:15)
[2024-01-19] MEDS: INSULIN REGULAR, HUMAN 100 UNIT/ML 3 ML VIAL SQ PRN (17:16)
[2024-01-19 20:00] VITALS: BP 120/57; TEMP 99; O2SAT 96
[2024-01-19 21:26] VITALS: BP 120/57; TEMP 99; O2SAT 96
[2024-01-19] MEDS: *INSULIN REGULAR(HUMULIN R)HUM 100 UNIT/ML VIAL SQ PRN (21:39)
[2024-01-20 07:00] VITALS: BP 142/74; TEMP 97.5; O2SAT 93
[2024-01-20 16:00] VITALS: BP 128/64; TEMP 97.7; O2SAT 97
[2024-01-20 20:00] VITALS: BP 151/53; TEMP 97.7; O2SAT 94
[2024-01-20] MEDS: MEROPENEM 1 G in IV NS 0.9% 100 ML IV SCH (20:59)
[2024-01-21 08:00] VITALS: BP 112/56; TEMP 98.1; O2SAT 97
[2024-01-21 08:13] LABS: BASOPHILS # (AUTO) 0.1 K/uL (0.0-0.2); BASOPHILS % (AUTO) 0.8 % (0.0-2.0); EOSINOPHILS # (AUTO) 0.3 K/uL (0.0-0.7); EOSINOPHILS % (AUTO) 3.5 % (0.0-6.0); HEMATOCRIT 25 % (39-51); HEMOGLOBIN 8.1 g/dL (13.5-17.5); LYMPHOCYTES # (AUTO) 1.9 K/uL (0.8-4.8); LYMPHOCYTES % (AUTO) 19.8 % (20.0-44.0); MEAN CORPUSCULAR HEMOGLOBIN 30 PG (26.0-33.0); MEAN CORPUSCULAR HGB CONC 33 g/dl (31.0-36.0); MEAN CORPUSCULAR VOLUME 93 fL (80-96); MONOCYTES # (AUTO) 0.8 K/uL (0.1-1.30); MONOCYTES % (AUTO) 7.9 % (2.0-12.0); NEUTROPHILS # (AUTO) 6.7 K/uL (1.8-8.9); PLATELET COUNT (AUTO) 342 K/uL (150-450); RED BLOOD CELL COUNT(AUTO) 2.68 MIL/uL (4.5-6.0); RED CELL DISTRIBUTION WIDTH 14.1 % (11.5-15.0); WHITE BLOOD COUNT (AUTO) 9.8 K/uL (4.3-11.0)
[2024-01-21 09:03] LABS: CALCIUM, SERUM 7.8 mg/dL (8.5-10.1); CREATININE 1.6 mg/dL (0.6-1.3); MAGNESIUM 2.5 mg/dL (1.8-2.4); PHOSPHORUS 3.4 mg/dL (2.5-4.9); POTASSIUM 3.5 mmol/L (3.5-5.1)
[2024-01-21] MEDS ORDERED: Prosource PO (09:56)
[2024-01-21] MEDS ORDERED: HYDR-4076 PO (09:56)
[2024-01-21] MEDS ORDERED: AMLO-212 PO (09:56)
[2024-01-21] MEDS ORDERED: Quetiapine Fumarate PO ×2 (09:56)
[2024-01-21] MEDS ORDERED: Linezolid PO (09:56)
[2024-01-21] MEDS ORDERED: MERO1PIG IV (09:58)
[2024-01-21 12:28] VITALS: BP 144/67
== END 2024-01-21 16:45 | DRG 616 ==
LOC: ER 11:54 → TELE 15:44 → MED 16:51
PROVIDERS: ADMIT Internal Medicine; ATTEND Nurse Practitioner Acute Care
PROC: 0JBR0ZZ Excision of Left Foot Subcutaneous Tissue and Fascia, Open Approach (ICD-10-PCS; principal; 2024-01-13)
PROC: 0Y6M0ZF Detachment at Right Foot, Partial 5th Ray, Open Approach (ICD-10-PCS; 2024-01-13)
PROC: 0JBN0ZZ Excision of Right Lower Leg Subcutaneous Tissue and Fascia, Open Approach (ICD-10-PCS; 2024-01-13)
PROC: 0JBQ0ZZ Excision of Right Foot Subcutaneous Tissue and Fascia, Open Approach (ICD-10-PCS; 2024-01-13)
PROC: 0QBN0ZX Excision of Right Metatarsal, Open Approach, Diagnostic (ICD-10-PCS; 2024-01-13)
PROC: 02HV33Z Insertion of Infusion Device into Superior Vena Cava, Percutaneous Approach (ICD-10-PCS; 2024-01-21)
PROC: B548ZZA Ultrasonography of Superior Vena Cava, Guidance (ICD-10-PCS; 2024-01-21)
DX: E11.69 Type 2 diabetes mellitus with other specified complication (principal); I21.A1 Myocardial infarction type 2; M86.172 Other acute osteomyelitis, left ankle and foot; L97.319 Non-pressure chronic ulcer of right ankle with unspecified severity; L97.419 Non-pressure chronic ulcer of right heel and midfoot with unspecified severity; F03.92 Unspecified dementia, unspecified severity, with psychotic disturbance; F03.93 Unspecified dementia, unspecified severity, with mood disturbance; F03.94 Unspecified dementia, unspecified severity, with anxiety; F32.3 Major depressive disorder, single episode, severe with psychotic features; E87.1 Hypo-osmolality and hyponatremia; E11.51 Type 2 diabetes mellitus with diabetic peripheral angiopathy without gangrene; I12.9 Hypertensive chronic kidney disease with stage 1 through stage 4 chronic kidney disease, or unspecified chronic kidney disease; N18.4 Chronic kidney disease, stage 4 (severe); L97.529 Non-pressure chronic ulcer of other part of left foot with unspecified severity; E11.22 Type 2 diabetes mellitus with diabetic chronic kidney disease; Z89.431 Acquired absence of right foot; E11.610 Type 2 diabetes mellitus with diabetic neuropathic arthropathy; E11.621 Type 2 diabetes mellitus with foot ulcer; E11.42 Type 2 diabetes mellitus with diabetic polyneuropathy; E11.622 Type 2 diabetes mellitus with other skin ulcer; E78.5 Hyperlipidemia, unspecified; Z86.73 Personal history of transient ischemic attack (TIA), and cerebral infarction without residual deficits; Z99.3 Dependence on wheelchair; M24.562 Contracture, left knee; L97.519 Non-pressure chronic ulcer of other part of right foot with unspecified severity; M89.8X9 Other specified disorders of bone, unspecified site; N31.9 Neuromuscular dysfunction of bladder, unspecified; J44.9 Chronic obstructive pulmonary disease, unspecified; Z96.0 Presence of urogenital implants; Z88.1 Allergy status to other antibiotic agents; Z79.51 Long term (current) use of inhaled steroids; Z79.4 Long term (current) use of insulin; Z79.84 Long term (current) use of oral hypoglycemic drugs; Z79.02 Long term (current) use of antithrombotics/antiplatelets; Z79.890 Hormone replacement therapy; Z79.899 Other long term (current) drug therapy; E03.9 Hypothyroidism, unspecified; I25.10 Atherosclerotic heart disease of native coronary artery without angina pectoris; Z87.891 Personal history of nicotine dependence; D63.1 Anemia in chronic kidney disease; Z91.148 Patient's other noncompliance with medication regimen for other reason; Z91.199 Patient's noncompliance with other medical treatment and regimen due to unspecified reason; R41.0 Disorientation, unspecified; B95.61 Methicillin susceptible Staphylococcus aureus infection as the cause of diseases classified elsewhere
CPT/HCPCS: 36415; 71045-TC; 73610-TC; 73630-TC; 80048-TC; 80053-TC; 80076-TC; 82550-TC; 82962-TC; 83605-TC; 83735-TC; 83970; 84100-TC; 84155; 84165; 84484-TC; 85025-TC; 85652-TC; 85730-TC; 86140-TC; 87040-TC; 88305-TC; 88311-TC; 93307-TC; A2007; A4216; A4223; A6209; A6253; G0378; J0360; J1815; J2020; J2185; J2405; J2543; J2704; J3010; J3490; J7030; J7050; J7060; P9045

== ENCOUNTER 2024-02-26 10:46 | Outpatient (CLI) | payer MEDICARE, OTHER ==
[~2024-02-26 10:46] MED LIST changes: +AMLO-212 PO; -CIPR500T5 PO; +DOCU100T2 PO; -ISOS60TA72 PO; +Linezolid PO; +MERO1PIG IV; +Prosource PO; +Quetiapine Fumarate PO; +SENN-18 PO
== END 2024-02-26 23:59 | disposition home health service (06) ==
LOC: WOU 10:46
PROVIDERS: ATTEND Podiatrist Foot & Ankle Surgery
DX: E11.621 Type 2 diabetes mellitus with foot ulcer (principal); L97.412 Non-pressure chronic ulcer of right heel and midfoot with fat layer exposed; L97.522 Non-pressure chronic ulcer of other part of left foot with fat layer exposed; L97.512 Non-pressure chronic ulcer of other part of right foot with fat layer exposed; Z79.85 Long-term (current) use of injectable non-insulin antidiabetic drugs; Z79.84 Long term (current) use of oral hypoglycemic drugs; Z79.4 Long term (current) use of insulin; Z79.02 Long term (current) use of antithrombotics/antiplatelets
CPT/HCPCS: 11042; 11045; A6209

== ENCOUNTER 2024-03-01 09:22 | Outpatient (CLI) | payer MEDICARE, OTHER ==
[2024-03-01] MEDS ORDERED: COLLAGENASE 5 GM TUBE UD TP ONE (10:07)
== END 2024-03-01 23:59 | disposition home health service (06) ==
LOC: WOU 09:22
PROVIDERS: ATTEND Podiatrist Foot & Ankle Surgery
DX: E11.621 Type 2 diabetes mellitus with foot ulcer (principal); L97.412 Non-pressure chronic ulcer of right heel and midfoot with fat layer exposed; L97.522 Non-pressure chronic ulcer of other part of left foot with fat layer exposed; Z79.85 Long-term (current) use of injectable non-insulin antidiabetic drugs; Z79.84 Long term (current) use of oral hypoglycemic drugs; Z79.4 Long term (current) use of insulin; Z79.02 Long term (current) use of antithrombotics/antiplatelets
CPT/HCPCS: 11042; 11045; A6253

== ENCOUNTER 2024-04-10 10:33 | Inpatient (IN) | payer MEDICARE, OTHER ==
[~2024-04-10] VITALS: Ht 185.4 cm; Wt 71.7 kg
[~2024-04-10 10:33] MED LIST changes: +FLUC200T PO
[2024-04-10 11:24] LABS: BASOPHILS # (AUTO) 0.2 K/uL (0.0-0.2); BASOPHILS % (AUTO) 1.1 % (0.0-2.0); EOSINOPHILS # (AUTO) 0.5 K/uL (0.0-0.7); EOSINOPHILS % (AUTO) 3.4 % (0.0-6.0); HEMATOCRIT 22 % (39-51); LYMPHOCYTES # (AUTO) 1.7 K/uL (0.8-4.8); LYMPHOCYTES % (AUTO) 12.1 % (20.0-44.0); MEAN CORPUSCULAR HEMOGLOBIN 29 PG (26.0-33.0); MEAN CORPUSCULAR HGB CONC 32 g/dl (31.0-36.0); MEAN CORPUSCULAR VOLUME 91 fL (80-96); MONOCYTES # (AUTO) 0.9 K/uL (0.1-1.30); MONOCYTES % (AUTO) 6.2 % (2.0-12.0); NEUTROPHILS # (AUTO) 10.8 K/uL (1.8-8.9); NEUTROPHILS % (AUTO) 77.2 % (43.0-81.0); PLATELET COUNT (AUTO) 722 K/uL (150-450); RED BLOOD CELL COUNT(AUTO) 2.36 MIL/uL (4.5-6.0); RED CELL DISTRIBUTION WIDTH 17.5 % (11.5-15.0); WHITE BLOOD COUNT (AUTO) 14.1 K/uL (4.3-11.0)
[2024-04-10 11:28] LABS: HEMOGLOBIN 6.9 g/dL (13.5-17.5)
[2024-04-10 11:30] LABS: CALCIUM, SERUM 9.6 mg/dL (8.5-10.1); CARBON DIOXIDE 25 mmol/L (21-32); CHLORIDE 104 mmol/L (98-107); CREATININE 1.9 mg/dL (0.6-1.3); GLUCOSE 243 mg/dL (74-106); POTASSIUM 4.7 mmol/L (3.5-5.1); SODIUM SERUM 139 mmol/L (136-145); UREA NITROGEN, BLOOD 42 mg/dL (7-18)
[2024-04-10 11:36] LABS: ALANINE AMINOTRANSFERASE 15 U/L (12-78); ALBUMIN 2.4 g/dL (3.4-5.0); ALKALINE PHOSPHATASE 88 U/L (46-116); ASPARTATE AMINOTRANSFERASE < 5 U/L (15-37); BILIRUBIN,DIRECT 0.1 mg/dL (0.0-0.2); BILIRUBIN,TOTAL 0.2 mg/dL (0.2-1.0); TOTAL PROTEIN, SERUM 8.5 g/dL (6.4-8.2)
[2024-04-10] MEDS ORDERED: VITS42.53 TP (11:49)
[2024-04-10] MEDS ORDERED: AMIN30LI27 PO (11:49)
[2024-04-10] MEDS ORDERED: AMLO-212 PO (11:49)
[2024-04-10 13:00] VITALS: BP 152/65; TEMP 98; O2SAT 100
[2024-04-10 13:53] LABS: EOSINOPHILS % (MANUAL) 3 % (0-4); LYMPHOCYTES % (MANUAL) 13 % (16-48); MONOCYTES % (MANUAL) 6 % (0-11.0); NEUTROPHILS % (MANUAL) 78 (42-76)
[2024-04-10 13:54] LABS: PLATELET ESTIMATE INCREASED
[2024-04-10 13:56] LABS: ANISOCYTOSIS 1+; TEAR DROP CELLS OCC
[2024-04-10] MEDS ORDERED: ONDANSETRON HCL/PF 4 MG/2 ML VIAL IVP PRN (14:00)
[2024-04-10] MEDS ORDERED: ACETAMINOPHEN 325 MG TABLET PO PRN (14:00)
[2024-04-10] MEDS ORDERED: DEXTROSE 50%-WATER 50 ML DISP.SYRIN IV PRN (14:00)
[2024-04-10] MEDS: BLOOD SUGAR DIAGNOSTIC 1 EACH STRIP IN SCH (16:58)
[2024-04-10 17:00] VITALS: BP 151/63; TEMP 98.3; O2SAT 100
[2024-04-10 21:00] VITALS: BP 120/58; TEMP 97.4; O2SAT 98
[2024-04-10] MEDS: INSULIN REGULAR, HUMAN 100 UNIT/ML 3 ML VIAL SQ PRN (22:40)
[2024-04-10 23:20] VITALS: BP 120/53; TEMP 98.6
[2024-04-10 23:35] VITALS: BP 141/59; TEMP 97.7
[2024-04-11] VITALS (11 sets, daily range): BP systolic 120–132; BP diastolic 58–75; TEMP 97.1–99.3; O2SAT 96–100
[2024-04-11 06:49] LABS: APPEARANCE,URINE SLIGHTLY CLOUDY (CLEAR); BILIRUBIN,URINE NEGATIVE (NEGATIVE); BLOOD, URINE 1+ Ery/uL (NEGATIVE); COLOR,URINE YELLOW (YELLOW); KETONES,URINE NEGATIVE (NEGATIVE); LEUKOCYTE ESTERASE ,URINE 2+ (NEGATIVE); NITRITE, URINE POSITIVE (NEGATIVE); PH,URINE 6.5 (5.0-8.0); PROTEIN,URINE TRACE mg/dl (NEGATIVE); UGLUCOSE 3+ mg/dL (NEGATIVE); UROBILINOGEN,URINE 0.2 EU/dL (0.2)
[2024-04-11 06:58] LABS: BASOPHILS # (AUTO) 0.1 K/uL (0.0-0.2); BASOPHILS % (AUTO) 1.2 % (0.0-2.0); EOSINOPHILS # (AUTO) 0.7 K/uL (0.0-0.7); EOSINOPHILS % (AUTO) 5.8 % (0.0-6.0); HEMATOCRIT 23 % (39-51); HEMOGLOBIN 7.5 g/dL (13.5-17.5); LYMPHOCYTES # (AUTO) 2.5 K/uL (0.8-4.8); LYMPHOCYTES % (AUTO) 21.1 % (20.0-44.0); MEAN CORPUSCULAR HEMOGLOBIN 30 PG (26.0-33.0); MEAN CORPUSCULAR HGB CONC 33 g/dl (31.0-36.0); MEAN CORPUSCULAR VOLUME 92 fL (80-96); MONOCYTES % (AUTO) 8.4 % (2.0-12.0); NEUTROPHILS # (AUTO) 7.6 K/uL (1.8-8.9); NEUTROPHILS % (AUTO) 63.5 % (43.0-81.0); PLATELET COUNT (AUTO) 619 K/uL (150-450); RED CELL DISTRIBUTION WIDTH 16.3 % (11.5-15.0)
[2024-04-11 07:54] LABS: CALCIUM, SERUM 9.1 mg/dL (8.5-10.1); CREATININE 1.7 mg/dL (0.6-1.3); MAGNESIUM 2.1 mg/dL (1.8-2.4); PHOSPHORUS 4.6 mg/dL (2.5-4.9)
[2024-04-11] MEDS: PANTOPRAZOLE 40 MG VIAL IV SCH (09:23)
[2024-04-11 09:51] LABS: ADD URINE CULTURE YES; BACTERIA,URINE Moderate /HPF (None Seen); SQUAMOUS EPITHELIAL CELL,UR Few /HPF (None Seen)
[2024-04-11 09:52] LABS: YEAST,URINE Many /HPF (None Seen)
[2024-04-11] MEDS ORDERED: ALBUTEROL FS 2.5 MG/3 ML VIAL.NEB NEB PRN (10:00)
[2024-04-11] MEDS: CLOPIDOGREL BISULFATE 75 MG TABLET PO SCH (10:03)
[2024-04-11] MEDS: BUPROPION XL 150 MG TAB.ER.24 PO SCH (10:03)
[2024-04-11] MEDS: AMLODIPINE BESYLATE 5 MG TABLET PO SCH (10:03)
[2024-04-11] MEDS: GABAPENTIN 300 MG CAPSULE PO SCH (10:03)
[2024-04-11] MEDS: MULTIVIT W/MINERALS 1 TAB TABLET PO SCH (10:03)
[2024-04-11] MEDS: FERROUS SULFATE (325 MG) 325 MG/TAB TABLET PO SCH (10:03)
[2024-04-11] MEDS: CHOLECALCIFEROL 1,000 UNIT TABLET (VIT D3) PO SCH (10:03)
[2024-04-11] MEDS: hydrALAZINE HCL 25 MG TABLET PO SCH (10:04)
[2024-04-11] MEDS: LEVOTHYROXINE SODIUM 50 MCG TABLET PO SCH (10:05)
[2024-04-11] MEDS: ENOXAPARIN SODIUM 80 MG/0.8 ML DISP.SYRIN SQ SCH (10:06)
[2024-04-11] MEDS: FAMOTIDINE (20 MG) 20 MG TABLET PO SCH (10:13)
[2024-04-11] MEDS: ENOXAPARIN SODIUM 40 MG/0.4 ML DISP.SYRIN SQ SCH (11:43)
[2024-04-11 13:09] LABS: THYROID STIMULATING HORMONE 0.36 uIU/mL (0.358-3.74)
[2024-04-11] MEDS: FLUCONAZOLE IN NS,PREMIX 100 MG in PREMIX 1 EA IV SCH (14:37)
[2024-04-11] MEDS: SENNOSIDES 8.6 MG TABLET PO SCH (21:24)
[2024-04-11] MEDS: ATORVASTATIN 10 MG TABLET PO SCH (21:25)
[2024-04-11] MEDS: TAMSULOSIN 0.4 MG CAP.SR.24H PO SCH (21:25)
[2024-04-12] VITALS (8 sets, daily range): BP systolic 125–138; BP diastolic 51–55; TEMP 97.3–98.4; O2SAT 97–100
[2024-04-12] MEDS: FIXODENT DENTURE ADHESIVE CREAM TUBE MM PRN (08:19)
[2024-04-12] MEDS: EMPAGLIFLOZIN 25 MG TABLET PO SCH (10:09)
[2024-04-12] MEDS: VITAMINS A AND D 56.7 GM TUBE TP SCH (10:12)
[2024-04-12 11:13] LABS: BASOPHILS # (AUTO) 0.1 K/uL (0.0-0.2); EOSINOPHILS # (AUTO) 0.5 K/uL (0.0-0.7); EOSINOPHILS % (AUTO) 3.7 % (0.0-6.0); HEMATOCRIT 23 % (39-51); HEMOGLOBIN 7.5 g/dL (13.5-17.5); LYMPHOCYTES # (AUTO) 1.5 K/uL (0.8-4.8); LYMPHOCYTES % (AUTO) 11.5 % (20.0-44.0); MEAN CORPUSCULAR HEMOGLOBIN 29 PG (26.0-33.0); MEAN CORPUSCULAR HGB CONC 33 g/dl (31.0-36.0); MEAN CORPUSCULAR VOLUME 90 fL (80-96); MONOCYTES # (AUTO) 0.8 K/uL (0.1-1.30); MONOCYTES % (AUTO) 6.3 % (2.0-12.0); NEUTROPHILS # (AUTO) 9.9 K/uL (1.8-8.9); NEUTROPHILS % (AUTO) 77.5 % (43.0-81.0); PLATELET COUNT (AUTO) 644 K/uL (150-450); RED BLOOD CELL COUNT(AUTO) 2.56 MIL/uL (4.5-6.0); RED CELL DISTRIBUTION WIDTH 16.8 % (11.5-15.0); WHITE BLOOD COUNT (AUTO) 12.7 K/uL (4.3-11.0)
[2024-04-12 11:33] LABS: CALCIUM, SERUM 9.5 mg/dL (8.5-10.1); CREATININE 1.7 mg/dL (0.6-1.3); POTASSIUM 4.8 mmol/L (3.5-5.1)
[2024-04-12] MEDS: METOPROLOL TARTRATE 50 MG TABLET PO SCH (12:04)
[2024-04-12] MEDS: HYDROCODONE/APAP 5/325MG TABLET PO PRN (12:45)
[2024-04-13] VITALS: BP 120/55; TEMP 98.1; O2SAT 100
[2024-04-13 04:00] VITALS: BP_SYST 125; BP_SYST 130; BP_DIAS 60; BP_DIAS 63; TEMP 98.4; TEMP 98.7; O2SAT 100
[2024-04-13 08:00] VITALS: BP 137/62; TEMP 98.5; O2SAT 100
[2024-04-13] MEDS ORDERED: LIDOCAINE 1% INJ 50 ML MDV IJ ONE (08:16)
[2024-04-13] MEDS ORDERED: ANESTHESIA TRAY IN PYXIS 1 EA TRAY MC ONE ×2 (08:16→08:17)
[2024-04-13] MEDS: CEFEPIME 2 GM in IV D5W 100 ML IV SCH (13:06)
[2024-04-13 16:00] VITALS: BP 139/65; TEMP 98.8; O2SAT 99
[2024-04-13 20:00] VITALS: BP 132/57; TEMP 97.9; O2SAT 99
[2024-04-13] MEDS: LINEZOLID RTU BAG 600 MG in PREMIX 1 EA IV SCH (20:30)
[2024-04-14] VITALS: BP 132/57; TEMP 97.9; O2SAT 99
[2024-04-14 04:00] VITALS: BP 102/53; TEMP 97.9; O2SAT 99
[2024-04-14 07:55] LABS: CALCIUM, SERUM 9.2 mg/dL (8.5-10.1); POTASSIUM 4.7 mmol/L (3.5-5.1)
[2024-04-14 08:00] VITALS: BP 137/54; TEMP 99.1; O2SAT 99
[2024-04-14] MEDS: PROSOURCE / PROSTAT (PYXIS) 30 ML UDC PO SCH (09:14)
[2024-04-14 09:31] LABS: BASOPHILS # (AUTO) 0.1 K/uL (0.0-0.2); EOSINOPHILS # (AUTO) 0.8 K/uL (0.0-0.7); EOSINOPHILS % (AUTO) 6.3 % (0.0-6.0); HEMATOCRIT 21 % (39-51); LYMPHOCYTES # (AUTO) 1.5 K/uL (0.8-4.8); LYMPHOCYTES % (AUTO) 11.4 % (20.0-44.0); MEAN CORPUSCULAR HEMOGLOBIN 30 PG (26.0-33.0); MEAN CORPUSCULAR HGB CONC 33 g/dl (31.0-36.0); MEAN CORPUSCULAR VOLUME 90 fL (80-96); MONOCYTES # (AUTO) 0.9 K/uL (0.1-1.30); MONOCYTES % (AUTO) 7.2 % (2.0-12.0); NEUTROPHILS # (AUTO) 9.5 K/uL (1.8-8.9); NEUTROPHILS % (AUTO) 74.1 % (43.0-81.0); PLATELET COUNT (AUTO) 559 K/uL (150-450); RED BLOOD CELL COUNT(AUTO) 2.36 MIL/uL (4.5-6.0); RED CELL DISTRIBUTION WIDTH 16.4 % (11.5-15.0); WHITE BLOOD COUNT (AUTO) 12.8 K/uL (4.3-11.0)
[2024-04-14 16:00] VITALS: BP 116/58; TEMP 98.2; O2SAT 97
[2024-04-15] VITALS: BP 134/56; TEMP 98.4; O2SAT 100
[2024-04-15 08:00] VITALS: BP 107/59; TEMP 97.9; O2SAT 94
[2024-04-15] MEDS: PIPERACILLIN /TAZOBACTAM 3.375 G in IV D5W 50 ML IV ONE (08:26)
[2024-04-15] MEDS: PIPERACILLIN /TAZOBACTAM 3.375 G in IV D5W 100 ML IV SCH (12:40)
[2024-04-15] MEDS: FLUCONAZOLE (100 MG) 100 MG TABLET PO SCH (12:45)
[2024-04-15 16:00] VITALS: BP 100/72; TEMP 98.4; O2SAT 95
[2024-04-15 22:00] VITALS: BP 109/74; TEMP 98.4; O2SAT 99
[2024-04-16 04:00] VITALS: BP 123/58; TEMP 98.6; O2SAT 96
[2024-04-16 08:00] VITALS: BP 119/49; TEMP 98.1; O2SAT 99
[2024-04-16 10:51] LABS: BASOPHILS # (AUTO) 0.2 K/uL (0.0-0.2); BASOPHILS % (AUTO) 1.9 % (0.0-2.0); EOSINOPHILS # (AUTO) 0.7 K/uL (0.0-0.7); HEMATOCRIT 24 % (39-51); HEMOGLOBIN 7.7 g/dL (13.5-17.5); LYMPHOCYTES # (AUTO) 1.4 K/uL (0.8-4.8); LYMPHOCYTES % (AUTO) 18.3 % (20.0-44.0); MEAN CORPUSCULAR HEMOGLOBIN 30 PG (26.0-33.0); MEAN CORPUSCULAR HGB CONC 33 g/dl (31.0-36.0); MEAN CORPUSCULAR VOLUME 92 fL (80-96); MONOCYTES # (AUTO) 0.5 K/uL (0.1-1.30); MONOCYTES % (AUTO) 5.9 % (2.0-12.0); NEUTROPHILS % (AUTO) 64.9 % (43.0-81.0); PLATELET COUNT (AUTO) 575 K/uL (150-450); RED BLOOD CELL COUNT(AUTO) 2.57 MIL/uL (4.5-6.0); RED CELL DISTRIBUTION WIDTH 16.2 % (11.5-15.0); WHITE BLOOD COUNT (AUTO) 7.8 K/uL (4.3-11.0)
[2024-04-16 11:07] LABS: ALANINE AMINOTRANSFERASE < 6 U/L (12-78); ALBUMIN 1.9 g/dL (3.4-5.0); ALKALINE PHOSPHATASE 63 U/L (46-116); BILIRUBIN,TOTAL 0.2 mg/dL (0.2-1.0); CALCIUM, SERUM 8.6 mg/dL (8.5-10.1); CARBON DIOXIDE 25 mmol/L (21-32); CHLORIDE 102 mmol/L (98-107); CREATININE 2.3 mg/dL (0.6-1.3); GLUCOSE 354 mg/dL (74-106); MAGNESIUM 2.3 mg/dL (1.8-2.4); PHOSPHORUS 4.1 mg/dL (2.5-4.9); POTASSIUM 4.6 mmol/L (3.5-5.1); SODIUM SERUM 135 mmol/L (136-145); TOTAL PROTEIN, SERUM 7.5 g/dL (6.4-8.2); UREA NITROGEN, BLOOD 44 mg/dL (7-18)
[2024-04-16 11:10] LABS: ASPARTATE AMINOTRANSFERASE < 6 U/L (15-37)
[2024-04-16 12:00] VITALS: BP 129/54; TEMP 98; O2SAT 96
[2024-04-16 20:00] VITALS: BP 122/57; TEMP 97.5; O2SAT 98
[2024-04-17 04:00] VITALS: BP 125/55; TEMP 97.8; O2SAT 98
[2024-04-17 08:03] LABS: FREE PSA 0.2 ng/mL (0.00-45); PROSTATE SPECIFIC ANTIGEN SCR 0.91 ng/mL (0.00-4.00)
[2024-04-17 10:20] LABS: BASOPHILS # (AUTO) 0.2 K/uL (0.0-0.2); BASOPHILS % (AUTO) 2.1 % (0.0-2.0); EOSINOPHILS # (AUTO) 0.7 K/uL (0.0-0.7); EOSINOPHILS % (AUTO) 8.4 % (0.0-6.0); HEMATOCRIT 23 % (39-51); HEMOGLOBIN 7.5 g/dL (13.5-17.5); LYMPHOCYTES # (AUTO) 2.3 K/uL (0.8-4.8); LYMPHOCYTES % (AUTO) 26.7 % (20.0-44.0); MEAN CORPUSCULAR HEMOGLOBIN 30 PG (26.0-33.0); MEAN CORPUSCULAR HGB CONC 34 g/dl (31.0-36.0); MEAN CORPUSCULAR VOLUME 90 fL (80-96); MONOCYTES # (AUTO) 0.6 K/uL (0.1-1.30); MONOCYTES % (AUTO) 6.9 % (2.0-12.0); NEUTROPHILS # (AUTO) 4.9 K/uL (1.8-8.9); NEUTROPHILS % (AUTO) 55.9 % (43.0-81.0); PLATELET COUNT (AUTO) 608 K/uL (150-450); RED CELL DISTRIBUTION WIDTH 16.2 % (11.5-15.0); WHITE BLOOD COUNT (AUTO) 8.7 K/uL (4.3-11.0)
[2024-04-17 10:29] LABS: ALANINE AMINOTRANSFERASE 10 U/L (12-78); ALKALINE PHOSPHATASE 59 U/L (46-116); ASPARTATE AMINOTRANSFERASE < 5 U/L (15-37); BILIRUBIN,TOTAL 0.1 mg/dL (0.2-1.0); CALCIUM, SERUM 8.9 mg/dL (8.5-10.1); CARBON DIOXIDE 22 mmol/L (21-32); CHLORIDE 104 mmol/L (98-107); CREATININE 2.3 mg/dL (0.6-1.3); GLUCOSE 227 mg/dL (74-106); MAGNESIUM 2.4 mg/dL (1.8-2.4); PHOSPHORUS 4.1 mg/dL (2.5-4.9); POTASSIUM 4.4 mmol/L (3.5-5.1); SODIUM SERUM 138 mmol/L (136-145); TOTAL PROTEIN, SERUM 7.9 g/dL (6.4-8.2); UREA NITROGEN, BLOOD 47 mg/dL (7-18)
[2024-04-17 12:00] VITALS: BP 122/63; TEMP 97.8; O2SAT 97
[2024-04-17 12:47] VITALS: BP 122/69
== END 2024-04-17 16:01 | DRG 673 ==
LOC: ER 10:33 → TELE1 11:43 → MEDSG1 04-13 08:10
PROVIDERS: ADMIT Nurse Practitioner Acute Care; ATTEND Nurse Practitioner Acute Care
PROC: 30233N1 Transfusion of Nonautologous Red Blood Cells into Peripheral Vein, Percutaneous Approach (ICD-10-PCS; 2024-04-10)
PROC: 0JBR0ZZ Excision of Left Foot Subcutaneous Tissue and Fascia, Open Approach (ICD-10-PCS; principal; 2024-04-13)
PROC: 0JBQ0ZZ Excision of Right Foot Subcutaneous Tissue and Fascia, Open Approach (ICD-10-PCS; 2024-04-13)
PROC: 0QBL0ZX Excision of Right Tarsal, Open Approach, Diagnostic (ICD-10-PCS; 2024-04-13)
PROC: 0JBP0ZZ Excision of Left Lower Leg Subcutaneous Tissue and Fascia, Open Approach (ICD-10-PCS; 2024-04-13)
PROC: 02HV33Z Insertion of Infusion Device into Superior Vena Cava, Percutaneous Approach (ICD-10-PCS; 2024-04-17)
PROC: B548ZZA Ultrasonography of Superior Vena Cava, Guidance (ICD-10-PCS; 2024-04-17)
DX: T83.511A Infection and inflammatory reaction due to indwelling urethral catheter, initial encounter (principal); I21.A1 Myocardial infarction type 2; N17.0 Acute kidney failure with tubular necrosis; B37.49 Other urogenital candidiasis; I13.0 Hypertensive heart and chronic kidney disease with heart failure and stage 1 through stage 4 chronic kidney disease, or unspecified chronic kidney disease; E44.0 Moderate protein-calorie malnutrition; L97.329 Non-pressure chronic ulcer of left ankle with unspecified severity; M86.171 Other acute osteomyelitis, right ankle and foot; L03.115 Cellulitis of right lower limb; F03.93 Unspecified dementia, unspecified severity, with mood disturbance; D62 Acute posthemorrhagic anemia; N18.4 Chronic kidney disease, stage 4 (severe); Y84.6 Urinary catheterization as the cause of abnormal reaction of the patient, or of later complication, without mention of misadventure at the time of the procedure; Y92.129 Unspecified place in nursing home as the place of occurrence of the external cause; E11.69 Type 2 diabetes mellitus with other specified complication; D63.1 Anemia in chronic kidney disease; E11.22 Type 2 diabetes mellitus with diabetic chronic kidney disease; E11.42 Type 2 diabetes mellitus with diabetic polyneuropathy; E11.51 Type 2 diabetes mellitus with diabetic peripheral angiopathy without gangrene; E11.621 Type 2 diabetes mellitus with foot ulcer; L97.519 Non-pressure chronic ulcer of other part of right foot with unspecified severity; L97.529 Non-pressure chronic ulcer of other part of left foot with unspecified severity; Z74.09 Other reduced mobility; Z89.431 Acquired absence of right foot; Z86.73 Personal history of transient ischemic attack (TIA), and cerebral infarction without residual deficits; E78.5 Hyperlipidemia, unspecified; E88.09 Other disorders of plasma-protein metabolism, not elsewhere classified; I50.9 Heart failure, unspecified; F32.A Depression, unspecified; F41.9 Anxiety disorder, unspecified; Z88.1 Allergy status to other antibiotic agents; Z87.891 Personal history of nicotine dependence; Z79.899 Other long term (current) drug therapy; Z79.51 Long term (current) use of inhaled steroids; Z79.4 Long term (current) use of insulin; Z79.02 Long term (current) use of antithrombotics/antiplatelets; Z79.84 Long term (current) use of oral hypoglycemic drugs; Z79.890 Hormone replacement therapy; E03.9 Hypothyroidism, unspecified; I25.10 Atherosclerotic heart disease of native coronary artery without angina pectoris; F20.9 Schizophrenia, unspecified; J44.9 Chronic obstructive pulmonary disease, unspecified; N40.0 Benign prostatic hyperplasia without lower urinary tract symptoms; N25.0 Renal osteodystrophy; N13.9 Obstructive and reflux uropathy, unspecified; Z22.322 Carrier or suspected carrier of Methicillin resistant Staphylococcus aureus
CPT/HCPCS: 36415; 71045-TC; 73630-TC; 76770-TC; 80048-TC; 80053-TC; 80061-TC; 80076-TC; 81001; 82728-TC; 82962-TC; 83540-TC; 83735-TC; 84100-TC; 84153-TC; 84154-TC; 84439-TC; 84443-TC; 84484-TC; 85025-TC; 85652-TC; 86140-TC; 86850-TC; 87040-TC; 87081-TC; 87086-TC; 93307-TC; A4216; A4223; G0378; J0692; J1450; J1650; J1815; J2020; J2405; J2470; J2543; J2704; J3490; J7040; J7050; J7060; P9016

== ENCOUNTER 2025-05-30 10:24 | Outpatient (CLI) | payer MEDICARE, OTHER ==
[~2025-05-30 10:24] MED LIST changes: +AMIN30LI27 PO; -COLL30OI TP; -DOCU100T2 PO; -INSU100V7 SQ; -Linezolid PO; -MERO1PIG IV; -Prosource PO; -Quetiapine Fumarate PO; -TRAZ-257 PO; +VITS42.53 TP
[2025-05-30] MEDS ORDERED: COLLAGENASE 5 GM TUBE UD TP ONE (11:07)
[2025-05-30] MEDS ORDERED: SILVER NITRATE APPLICATOR 1 EA BOX ONE (11:16)
== END 2025-05-30 23:59 | disposition home health service (06) ==
LOC: WOU 10:24
PROVIDERS: ATTEND Podiatrist Foot & Ankle Surgery
DX: E11.621 Type 2 diabetes mellitus with foot ulcer (principal); L97.413 Non-pressure chronic ulcer of right heel and midfoot with necrosis of muscle; L97.516 Non-pressure chronic ulcer of other part of right foot with bone involvement without evidence of necrosis; T84.84XA Pain due to internal orthopedic prosthetic devices, implants and grafts, initial encounter; Y79.3 Surgical instruments, materials and orthopedic devices (including sutures) associated with adverse incidents; Z99.3 Dependence on wheelchair; B35.1 Tinea unguium; Z79.85 Long-term (current) use of injectable non-insulin antidiabetic drugs; Z79.4 Long term (current) use of insulin
CPT/HCPCS: 11044; 20680; 11043; A6253

== ENCOUNTER 2025-07-11 09:05 | Outpatient (CLI) | payer MEDICARE, OTHER | END 2025-07-11 23:59 | disposition home health service (06) | LOC: WOU 09:05 | PROVIDERS: ATTEND Podiatrist Foot & Ankle Surgery | DX: E11.621 Type 2 diabetes mellitus with foot ulcer (principal); L97.515 Non-pressure chronic ulcer of other part of right foot with muscle involvement without evidence of necrosis; L97.513 Non-pressure chronic ulcer of other part of right foot with necrosis of muscle; L97.415 Non-pressure chronic ulcer of right heel and midfoot with muscle involvement without evidence of necrosis; Z79.85 Long-term (current) use of injectable non-insulin antidiabetic drugs; Z79.4 Long term (current) use of insulin; Z79.84 Long term (current) use of oral hypoglycemic drugs; L60.2 Onychogryphosis; B35.1 Tinea unguium | CPT/HCPCS: 11043; 11046; A6253; A4649; A6223 ==